=== PATIENT | female | born 1960 | race Caucasian/White ===

== ENCOUNTER 2019-10-19 09:04 | Outpatient (CLI) | payer MEDICAID, SELFPAY ==
--- NOTE | 2019-10-19 09:26 | XR_ITS ---
WS: [id number] CALCANEOUS RIGHT TECHNIQUE: 2 views of the right calcaneous CLINICAL INFORMATION: PAIN IN RIGHT FOOT COMPARISON: None. FINDINGS: No acute fractures. Prominent Achilles insertion enthesophyte measuring 7.5 mm. Tiny plantar calcanea l spur. XR/XR calcaneus RT min 2V [id number] IMPRESSION: Prominent Achilles insertion enthesophyte.
== END 2019-10-19 09:05 | disposition home or self-care (01) ==
PROVIDERS: Family Provider Nurse Practitioner; PCP Nurse Practitioner; Visit Provider Nurse Practitioner
DX: M77.8 Other enthesopathies, not elsewhere classified (principal); M79.671 Pain in right foot
CPT/HCPCS: 73650

== ENCOUNTER 2019-11-09 08:18 | Outpatient (CLI) | payer MEDICAID, SELFPAY ==
--- NOTE | 2019-11-09 08:22 | MM_ITS ---
WS: [id number] BILATERAL SCREENING DIGITAL MAMMOGRAM WITH CAD HISTORY: SCREENING COMPARISON: 11/02/2018 and 04/19/2017 Bilateral CC and MLO views submitted. Computer aided detection analyzed. Breast composition: There are scattered areas of fibroglandular density. No suspicious masses, microc alcifications or architectural distortion. MM/[place] [id number] IMPRESSION: BI-RADS: 1-Negative FOLLOW UP: 1 Year Follow-up
== END 2019-11-09 08:19 | disposition home or self-care (01) ==
LOC: RADSHAW 08:21
PROVIDERS: Family Provider Nurse Practitioner; PCP Nurse Practitioner; Visit Provider Nurse Practitioner
DX: Z12.31 Encounter for screening mammogram for malignant neoplasm of breast (principal)
CPT/HCPCS: 77067

== ENCOUNTER 2020-02-06 06:33 | Emergency (ER) | payer MEDICAID, SELFPAY ==
[2020-02-06 06:43] VITALS: BP 162/87; PULSE 63; RESP 18; TEMP 36.4; O2SAT 99
--- NOTE | 2020-02-06 07:01 | W.ED.FALL ---
HPI - Fall General: Chief Complaint: Fall Stated Complaint: FALL, BACK PAIN Time Seen by Provider: 02/06/20 07:01 History of Present Illness: HPI Narrative: 59-year-old female presents emergency room complaining of a fall she hurt her low back she was walking her dog and kind of slipped or stumbled on a step on the porch she fell she not strike her head no no loss consciousness her only complaint is pain in her mid back she denies any other injuries denies any injuries to knees ankles wrists etc. has not really take anything for this happened about MD complaint: fall Onset (ago): minute(s) (30) Fall from: standing Fall witnessed: no Place fall occurred: home Loss of consciousness: None Prolonged down time: no Symptoms prior to fall: none Context: tripped/slipped Location of injury: back (Middle/thoracic) Quality: sharp Associated symptoms-after fall: Reports no associated symptoms; Denies abdominal pain or chest pain Review of Systems Const: Denies: fever, chills, body aches, change in appetite, fatigue or malaise ENMT: Denies: throat pain, ear pain, nasal discharge or nasal congestion Card: Denies: chest pain, edema, shortness of breath on exertion or shortness of breath when lying down Resp: Denies: shortness of breath, productive cough or non-productive cough GI: Denies: abdominal pain, nausea, vomiting, vomiting blood, coffee grounds in vomit, diarrhea, constipation, bloating, blood in stool or black tarry stool : Denies: flank pain, difficulty urinating, painful urination, urinary frequency or urinary urgency Skin/Breast: Denies: rash or itching [facility] PFSH: Medical History (Updated 02/06/20 @ 10:00 by Lucio Garner DO) Heart murmur History of foot fracture History of toe fracture Hypercholesteremia Hypertensive disorder Osteoporosis Recurrent UTI Urinary incontinence Surgical History History of History of cholecystectomy History of eye surgery History of hysterectomy Social History Smoking and tobacco status: never smoked Alcohol intake: never Marital status: Current occupational status: disabled History of recent travel: No Physical Exam Const: COMMON NORMALS: no apparent distress GENERAL APPEARANCE: cooperative and comfortable ORIENTATION/CONSCIOUSNESS: Yes awake, Yes oriented to person, Yes oriented to place and Yes oriented to time HENMT: COMMON NORMALS: normocephalic, head/scalp atraumatic, hearing grossly normal bilaterally, external ears normal, EAC's normal, TM's normal bilaterally, nasal mucous membranes and turbinates normal, moist oral mucous membranes and oropharynx normal HEAD & SCALP: normocephalic and atraumatic NOSE: nasal mucous membranes and turbinates normal EXTERNAL EAR: Yes external ears normal EXTERNAL AUDITORY CANAL: EAC's normal TYMPANIC MEMBRANE: TM's normal bilaterally Eye: COMMON NORMALS: PERRL, EOMs intact bilaterally, conjunctivae normal and no scleral icterus CONJUNCTIVA: Yes conjunctivae normal PUPIL: Yes PERRL Neck/C-Spine: COMMON NORMALS: full ROM, no lymphadenopathy, supple and no JVD Lymph: LYMPHATIC: no lymphadenopathy noted and no lymphedema noted Resp: COMMON NORMALS: normal respiratory effort, no retractions, no use of accessory muscles and clear to auscultation bilaterally AUSCULTATION: clear to auscultation bilaterally Cardio: COMMON NORMALS: no JVD, regular rate, regular rhythm and no murmurs RATE: regular rate RHYTHM: regular rhythm GI: COMMON NORMALS: soft to palpation and no hepatosplenomegaly AUSCULTATION: Yes normoactive bowel sounds PALPATION: Yes soft, No tender, No guarding and Yes no hepatosplenomegaly Extremity: COMMON NORMALS: normal to inspection, normal capillary refill, no clubbing, cyanosis or edema, no calf tenderness and no pedal edema Neuro: SENSORIUM/ORIENTATION: Yes oriented to person, Yes oriented to place and Yes oriented to time Skin: COMMON NORMALS: no rashes or lesions noted GENERAL SKIN EXAM: no rashes or lesions noted Course Vital Signs: Vital signs: Vital Signs Temperature 97.6 F 02/06/20 06:43 Pulse Rate 62 02/06/20 09:47 Respiratory Rate 17 02/06/20 09:47 Blood Pressure 150/78 02/06/20 09:47 Pulse Oximetry 97 02/06/20 09:47 MDM - Fall MDM Narrative: Medical decision making narrative: T12 compression fracture will refer for kyphoplasty pain medications given discussed with the patient will discharge home with follow-up with her primary care doctor. Also discussed need for further care for osteoporosis. Discharge Plan Discharge Patient Disposition: Home, Self-Care Clinical Impression: Compression fracture of thoracic vertebra Condition: Stable Prescriptions: New hydrocodone-acetaminophen 5-325 mg tablet 1 tab PO Q6H PRN (Reason: pain) Qty: 25 RF: 0 Held tramadol 50 mg tablet 50 mg PO Q6H PRNRF: 0 Hold Instructions: Resume on 01/22/20. No Action aspirin 81 mg tablet,delayed release (DR/EC) 81 mg PO DAILY RF: 0 atorvastatin 40 mg tablet 40 mg PO DAILY RF: 0 bupropion HCl 150 mg tablet extended release 24 hr 150 mg PO QAM RF: 0 ascorbate calcium (vitamin C) 500 mg tablet 500 mg PO DAILY RF: 0 diphenhydramine HCl 50 mg capsule 50 mg PO TID PRNRF: 0 esomeprazole magnesium [Nexium] 40 mg capsule,delayed release(DR/EC) 40 mg PO DAILY RF: 0 estradiol [Estrace] 0.01 % (0.1 mg/gram) cream 1 gm VAGINAL DAILY RF: 0 hydrochlorothiazide 25 mg tablet 25 mg PO DAILY RF: 0 imiquimod 5 % cream in packet TOPICAL RF: 0 metformin 500 mg tablet 500 mg PO BID RF: 0 Complete Multivitamin Tablet 1 tab PO DAILY RF: 0 potassium chloride 10 mEq capsule, extended release 10 meq PO DAILY RF: 0 Discharge Orders: Discharge Order (Routine); Ordered 02/06/20 Ordered By: Lucio Garner Referrals: Jenniffer Romero APN [Primary Care Provider] - Discharge Diet: Usual diet Discharge Activity: Increase activity as tolerated Activity Restrictions/Additional Instructions: Case management will call with referral for kyphoplasty Discharge Date/Time: 02/06/20 09:45 Coding Level of Care Code ED Parks Recreation Director for Chg Fwd Exam Comprehensive
--- NOTE | 2020-02-06 07:11 | XR_ITS ---
WS: [id number] THORACIC SPINE TECHNIQUE: AP and lateral views are performed. HISTORY: Trauma, thoracic back pain COMPARISON: None available. Mild RIGHT convex curvature thoracic spine. Mild disc space narrowing and osteophytes throughout the thoracic spine. Mild loss of vertebral body height involving T12. There was slight loss of height on the study of 01/04/2019 but it has progressed. There is slight buckling anteriorly of the vertebral alina dy cortex. Loss of height approximately 10%. XR/XR thoracic spine 3V* [id number] IMPRESSION: 1. Highly suspicious for minimal compression fracture involving T12. Recommend follow-up CT thoracic spine. 2. Mild RIGHT convex curvature thoracic spine with scoliosis.
[2020-02-06 07:20] VITALS: BP 154/92; RESP 20
[2020-02-06] MEDS: ketorolac 30 mg/mL INJ IVP (07:21)
[2020-02-06] MEDS: orphenadrine 30 mg/mL Inj 2 mL 60 MG IVP (07:22)
--- NOTE | 2020-02-06 08:04 | CT_ITS ---
WS: [id number] CT THORACIC SPINE HISTORY: thoracic compression fx TECHNIQUE: Contiguous 2.5 mm axial images are reviewed to thoracic spine. Images are reformatted in s agittal and coronal planes. All CT scans at [facility] use at least one of these dose opt imization techniques: automated exposure control; mA and/or kV adjustment per patient size (includes targeted exams where dose is matched to clinical indication); or iterative reconstruction. DLP: 2285.32 mGy.cm COMPARISON: 10/25/2010. Acute fracture involving the superior endplate of T12. Anterior buckling with compression fracture ap proximately 15%. Fracture extends to the pedicles. Posterior spinous process is intact. No retropulsi on. Acute fracture extends obliquely through the posterior elements of T10 and T11 without displacement. T10 fracture is limited to the spinous process. T11 nondisplaced fracture involves the spinous proces s, lamina and inferior articular facets bilaterally. No acute disc herniations or significant stenosis throughout the thoracic spine. There is mild face t joint arthritis and vertebral body osteophytosis. Prior cholecystectomy. CT/CT thoracic spin wo con* [id number] IMPRESSION: 1. Acute T12 compression fracture by 15% without retropulsion. 2. Fracture line extends transversely through the posterior elements of T11. I nvolvement of the bilateral inferior articular facets and spinous process. 3. Nondisplaced fracture of T10 spinous process.
[2020-02-06 08:12] VITALS: RESP 17
[2020-02-06] MEDS: morphine 4 mg/mL SDV 1 mL IVP (08:12)
[2020-02-06] MEDS: ondansetron 2 mg/ML SDV 2 mL 4 MG IVP (08:12)
[2020-02-06 09:47] VITALS: BP 150/78; PULSE 62; RESP 17; O2SAT 97
--- NOTE | 2020-02-07 10:20 | DCPLANNER ---
solar energy installation manager had message to schedule a follow up appointment for patient for kyphoplasty. solar energy installation manager called and spoke with patient about a referral for kyphoplasty, and that there was not a physician in the [place] area that did kyphoplasty. That patient would have to go to [place]. Patient stated that would be fine, and wanted rn field case manager to make the referral. solar energy installation manager called the office of Dr. Hampton at phone number is [phone]. solar energy installation manager spoke with Poonam, and faxed patients records to the clinic for review. Clinic will call patient with appointment information.
--- NOTE | 2020-02-15 14:36 | DCPLANNER ---
operations manager called to confirm that a follow up appointment had been scheduled for patient with Dr. Hampton. operations manager was told that patients information is being reviewed, but no appointment has been scheduled at this time.
--- NOTE | 2020-02-27 15:46 | DCPLANNER ---
manager dental called the office of Dr. Hampton to confirm if an appointment had been scheduled for patient. manager dental was told that the office contacted patient to schedule a tele health visit, patient was not able to do tele health. Patients name was added to a list of patients that need in patient appointments. When the clinic can start having in patient appointments again, patient will be contacted to schedule an appointment.
--- NOTE | 2020-03-19 12:08 | DCPLANNER ---
Dr. Jin office called home health care case manager and informed home health care case manager that the clinic has started to schedule patients again. Patient has a follow up appointment scheduled for Saturday, April 04, 2020 at 10:[address] Hampton for a consultation for kyphoplasty. Clinic did call patient with appointment information.
== END 2020-02-06 09:45 | disposition home or self-care (01) ==
PROVIDERS: Emergency Provider Family Medicine; Family Provider Nurse Practitioner; PCP Nurse Practitioner
DX: S22.080A Wedge compression fracture of T11-T12 vertebra, initial encounter for closed fracture (principal); W01.0XXA Fall on same level from slipping, tripping and stumbling without subsequent striking against object, initial encounter
CPT/HCPCS: 12345; 72072; 72128; 96374; 96375; 99282; 99283; J1885; J2270; J2360; J2405

== ENCOUNTER 2020-03-28 13:09 | Outpatient (CLI) | payer MEDICAID, SELFPAY ==
--- NOTE | 2020-03-28 13:54 | MR_ITS ---
WS: [id number] MRI LUMBAR SPINE NONCONTRAST TECHNIQUE: Sagittal T1, T2 and STIR imaging. Axial T1 and T2 imaging. CLINICAL INFORMATION: AGE-RELATED OSTEOPOROSIS WITH CURRENT FX OF VERTEBRA COMPARISON: MRI January 04, 2019 FINDINGS: S1 is lumbarized. Mild lumbar curve. Acute appearing compression with anterior wedging involving the T12 superior endpl ate with minimal loss vertebral body height measuring 10-15%. Minimal retropulsion of the posterior s uperior cortex with mild disc bulging at T11-12. This results in mild central canal stenosis. No othe r acute appearing compression fractures. This is new since the prior MRI January 04, 2019. L1-L2: Moderate facet arthropathy. Spinal canal and foramen are patent. L2-L3: No significant disc bulging. Moderate facet arthropathy. Spinal canal and foramen are patent. L3-L4: No significant disc bulging. Mild facet arthropathy. Spinal canal and foramen are patent. L4-L5: Mild disc bulging with slight effacement of ventral thecal sac. Mild central canal stenosis. S light narrowing of the right subarticular recess. Mild right and no significant left foraminal narrow ing. Moderate facet arthropathy. L5-S1: Mild disc bulging with moderate central canal stenosis. Narrowing subarticular recess bilatera lly. Moderate facet arthropathy. Mild right greater than left foraminal narrowing. S1 is lumbarized. Small amount of edema in the sacrum consistent with subacute healing/healed fractur e at the sacrococcygeal junction. This is partially visualized. MR/MR lumbar spine wo con* [id number] IMPRESSION: 1. S1 is lumbarized. 2. Acute compression involving the superior endplate T12 with diffuse edema. M inimal loss vertebral body height with mild anterior wedging. No significant re tropulsion. 3. Mild central canal stenosis at T11-T12 with tiny central protrusion. 4. Late subacute fracture involving the sacrococcygeal junction with a small a mount of edema and evidence of partial healing. This is only partially visualiz ed. Sacrum could be further evaluated with sacral MRI if indicated. 5. No other significant changes since December 27, 2018. 6. Moderate central canal stenosis L5-S1 with impingement subarticular recess bilaterally. 7. Mild central canal stenosis in cervical spine seen on the dust control engineer imaging at C5-6.
--- NOTE | 2020-03-28 14:17 | XR_ITS ---
WS: [id number] SCREENING DEXA SCAN Outcome Referrals HISTORY: 59 years old Female with AGE RELATED OSTEOPOROSIS COMPARISON: None available. FINDINGS: The L1-L4 bone mineral density measures 0.964 g/cm2. This corresponds to a T score of -1.8 and Z scor e of -0.7. Left femoral neck bone mineral density measures 0.605 g/cm2. This corresponds to T score of -3.2 and Z score of -2.4. Right femoral neck bone mineral density measures 0.705 g/cm2. This corresponds to a T score of -2.4 a nd Z score of -1.6. Mean femoral neck bone mineral density measures 0.655 g/cm2. This corresponds to a T score of -2.8 an d Z score of -2.0. XR/XR DEXA axial skeleton* [id number] IMPRESSION: Patient's FRAX calculated 10 year probability for major osteoporotic fracture i s 27.1% and osteoporotic hip fracture is 9.1%. Osteopenia
[2020-03-28 14:21] LABS: 25 Hydroxy Vitamin D 29 ng/mL (30-100); Alanine Aminotransferase 32 U/L (0-33); Albumin Level 4.6 g/dL (3.5-5.2); Alkaline Phosphatase 113 IU/L (35-105); Anion Gap 18.8 (5-19); Aspartate Amino Transferase 30 U/L (0-32); Blood Urea Nitrogen 9 mg/dL (8-23); Carbon Dioxide 28 mmol/L (22-29); Chloride 98 mmol/L (98-107); Globulin 3.9 g/dL (1.3-4.6); Glomerular Filtration Rate 63.9 mL/min (90-130); Glucose 191 mg/dL (65-115); Osmolality Calculated 293 mOsm/kg (285-295); Potassium 3.8 mmol/L (3.5-5.1); Sodium 141 mmol/L (136-145); Total Bilirubin 0.4 mg/dL (0.15-1.2); Total Protein 8.5 g/dL (6.6-8.7)
[2020-03-28 15:15] LABS: Calcium 10.2 mg/dL (8.5-10.5); Parathyroid Hormone 40.2 pg/mL (15-65)
[2020-04-01 06:53] LABS: ALBUMIN 4.1 g/dL (3.8-4.8); ALPHA 1 GLOBULIN 0.3 g/dL (0.2-0.3); ALPHA 2 GLOBULIN 0.9 g/dL (0.5-0.9); BETA 1 GLOBULIN 0.5 g/dL (0.4-0.6); BETA 2 GLOBULIN 0.5 g/dL (0.2-0.5); GAMMA GLOBULIN 1.3 g/dL (0.8-1.7); PROTEIN, TOTAL 7.6 g/dL (6.1-8.1)
== END 2020-03-28 13:10 | disposition home or self-care (01) ==
LOC: RADWPI 13:12
PROVIDERS: Family Provider Nurse Practitioner; PCP Nurse Practitioner; Visit Provider Neurological Surgery
DX: M80.08XA Age-related osteoporosis with current pathological fracture, vertebra(e), initial encounter for fracture; M48.04 Spinal stenosis, thoracic region; M48.07 Spinal stenosis, lumbosacral region; M48.02 Spinal stenosis, cervical region
CPT/HCPCS: 36415; 72148; 77080; 80053; 82306; 82310; 83970; 84155; 84165

== ENCOUNTER 2020-05-02 09:43 | Outpatient (CLI) | payer MEDICAID, SELFPAY ==
--- NOTE | 2020-05-02 10:02 | XRR_ITS ---
PROCEDURE INFORMATION: Exam: XR Thoracolumbar Spine, 2 Views Exam date and time: 05/02/2020 10:04 AM Age: 59 years old Clinical indication: Condition or disease; Other: Osteoporosis; Prior surgery; Surgery type: Vertebroplasty; Additional info: Age related osteoporosis, current pathological fracture t12 v TECHNIQUE: Imaging protocol: XR of the thoracolumbar spine, 2 views. COMPARISON: MR lumbar spine wo con* [id number] 03/28/2020 1:45 PM FINDINGS: Vertebrae: Mild compression fracture T12 with prior vertebroplasty. The alignment is normal. No paravertebral soft tissue prominence. Degenerative changes, mild, throughout much of the thoracic spine No subluxation-no perched or jumped facets. The facets are without acute process. mild compression fracture involving the anterior column of L1. Soft tissues: See Vertebrae finding. XR/XR thoracolumbar junct [id number] IMPRESSION: Diffuse degenerative disc disease 1. Mild compression fracture T12 with prior vertebroplasty. 2. Mild compression fracture involving the anterior column of L1.
== END 2020-05-02 09:44 | disposition home or self-care (01) ==
PROVIDERS: Family Provider Nurse Practitioner; PCP Nurse Practitioner; Visit Provider Neurological Surgery
DX: M81.0 Age-related osteoporosis without current pathological fracture (principal); M51.35 Other intervertebral disc degeneration, thoracolumbar region; S22.080A Wedge compression fracture of T11-T12 vertebra, initial encounter for closed fracture; S32.000A Wedge compression fracture of unspecified lumbar vertebra, initial encounter for closed fracture; X58.XXXA Exposure to other specified factors, initial encounter
CPT/HCPCS: 72080

== ENCOUNTER 2020-06-12 11:59 | Outpatient (RCR) | payer MEDICAID, SELFPAY | END 2020-07-09 23:59 | disposition home or self-care (01) | LOC: SPT 11:59 | PROVIDERS: PCP Nurse Practitioner; Referring Provider Neurological Surgery; Visit Provider Neurological Surgery | DX: M54.9 Dorsalgia, unspecified (principal) | CPT/HCPCS: 97110; 97161 ==

== ENCOUNTER 2020-07-10 06:00 | Outpatient (RCR) | payer MEDICAID, SELFPAY | END 2020-07-10 23:00 | disposition home or self-care (01) | LOC: SPT 06:00 | PROVIDERS: PCP Nurse Practitioner; Referring Provider Neurological Surgery; Visit Provider Neurological Surgery | DX: M54.9 Dorsalgia, unspecified (principal) | CPT/HCPCS: 97110 ==

== ENCOUNTER → 2021-09-01 14:43 | Outpatient (BNVA) | payer MEDICAID, SELFPAY | PROVIDERS: PCP Nurse Practitioner; Visit Provider Obstetrics & Gynecology | DX: R32 Unspecified urinary incontinence (principal) | CPT/HCPCS: 81000 ==

== ENCOUNTER 2022-04-05 08:16 | Outpatient (CLI) | payer MEDICAID, SELFPAY ==
--- NOTE | 2022-04-05 08:26 | MM_ITS ---
WS: [id number] BILATERAL SCREENING DIGITAL BREAST TOMOSYNTHESIS MAMMOGRAM WITH CAD HISTORY: SCREENING COMPARISON: 11/09/2019 and 11/02/2018 Bilateral CC and MLO views with tomosynthesis and synthetic mammography submitted. Computer aided det ection analyzed. Breast composition: There are scattered areas of fibroglandular density. No suspicious masses, microc alcifications or architectural distortion. MM/[place] [id number] IMPRESSION: BI-RADS: 1-Negative FOLLOW UP: 1 Year Follow-up
== END 2022-04-05 08:17 | disposition home or self-care (01) ==
PROVIDERS: Visit Provider Nurse Practitioner
DX: Z12.31 Encounter for screening mammogram for malignant neoplasm of breast (principal)
CPT/HCPCS: 77063; 77067

== ENCOUNTER 2022-11-10 13:03 | Outpatient (CLI) | payer MEDICAID, SELFPAY ==
--- NOTE | 2022-11-10 14:16 | XR_ITS ---
WS: [id number] DEXA (DUAL ENERGY X-RAY ABSORPTIOMETRY) Bone mineral density was performed using a [employer] machine. HISTORY: AGE RELATED OSTEOPOROSIS COMPARISON: 03/28/2020 Lumbar spine BMD (L1-L4): 1.044 g/cm2 T score: -1.1 Z score: 0.1 Total hip BMD: Left: 0.657 g/cm2. T score: -2.8 Z score: -1.8 Right: 0.664 g/cm2. T score: -2.7 Z score: -1.8 10 year probability of a major osteoporotic fracture is 5.3%. Compared to the prior study from 03/28/2020. Lumbar spine bone mineral density has increased by 8.3%. Bilateral hips bone mineral density has increased by 0.9%. XR/XR DEXA axial skeleton* [id number] IMPRESSION: OSTEOPOROSIS based upon the WHO classification for females. Significant increase in bone mineral density within the lumbar spine since the prior study.
== END 2022-11-10 13:04 | disposition home or self-care (01) ==
LOC: RAD 13:05
PROVIDERS: PCP Nurse Practitioner; Visit Provider Nurse Practitioner
DX: M80.08XA Age-related osteoporosis with current pathological fracture, vertebra(e), initial encounter for fracture (principal)
CPT/HCPCS: 77080

== ENCOUNTER 2023-01-04 08:51 | Oncology outpatient (recurring) (ONCR) | payer MEDICAID, SELFPAY ==
[2023-01-04 09:15] VITALS: BP 180/81; PULSE 50; RESP 16; TEMP 36.2; O2SAT 99
[2023-01-04] MEDS: denosumab 60 mg SDV SUBCUT (09:21)
== END 2023-01-07 23:59 | disposition home or self-care (01) ==
PROVIDERS: PCP Nurse Practitioner; Visit Provider Nurse Practitioner
DX: M80.08XA Age-related osteoporosis with current pathological fracture, vertebra(e), initial encounter for fracture (principal); Z79.899 Other long term (current) drug therapy
CPT/HCPCS: 96401; J0897

== ENCOUNTER 2023-03-09 06:29 | Observation (INO) | payer MEDICAID, SELFPAY ==
[2023-03-09] VITALS (16 sets, daily range): BP systolic 146–217; BP diastolic 76–104; PULSE 60–92; RESP 16–23; TEMP 36.6–36.7; O2SAT 96–100; BMI 27.4
--- NOTE | 2023-03-09 06:40 | XRR_ITS ---
PROCEDURE INFORMATION: Exam: XR Chest Exam date and time: 03/09/2023 6:49 AM Age: 62 years old Clinical indication: Other: Ams/confusion TECHNIQUE: Imaging protocol: Radiologic exam of the chest. Views: 1 view. COMPARISON: CR XR thoracolumbar junct [id number] 05/02/2020 10:10 AM FINDINGS: Lungs: Mildly increased lung markings, likely secondary to low lung volumes. No consolidation. Pleural spaces: Unremarkable. No pleural effusion. No pneumothorax. Heart/Mediastinum: Stable cardiomediastinal silhouette. Bones/joints: T12 vertebral augmentation cement re-identified. Organs: Cholecystectomy clips project over the right upper quadrant. XR/XR chest 1V portable [id number] IMPRESSION: Mildly increased lung markings, likely secondary to low lung volumes.
--- NOTE | 2023-03-09 06:40 | ECG_ITS ---
[facility] Test Date: 2023-03-09 Pat Name: Sydney Zambrano Department: Room: Gender: Female Economic Forecaster: : 1960 Requested By: Ronnie Gar Order Number: [id number] Sherry MD: Deann Sanchez M.D. Measurements Intervals Marquez Rate: 86 P: 60 IL: 141 QRS: -5 QRSD: 94 T: 71 QT: 382 QTc: 457 Interpretive Statements SINUS RHYTHM NONSPECIFIC ST & T-WAVE ABNORMALITY No previous ECG available for comparison Electronically Signed On 03-09-2023 8:18:51 CDT by Deann Sanchez M.D. [id number]
--- NOTE | 2023-03-09 06:40 | CTR_ITS ---
PROCEDURE INFORMATION: Exam: CT Head Without Contrast Exam date and time: 03/09/2023 6:49 AM Age: 62 years old Clinical indication: Stroke-like symptoms; Other: AMS; Confusion TECHNIQUE: Imaging protocol: Computed tomography of the head without contrast. Radiation optimization: All CT scans at this facility use at least one of these dose optimization techniques: automated exposure control; mA and/or kV adjustment per patient size (includes targeted exams where dose is matched to clinical indication); or iterative reconstruction. Other technique: STROKE PROTOCOL was implemented. REPORTING DATA: Count of CT and Cardiac NM exams in prior 12 months: This patient has received 0 known CTs and 0 known cardiac nuclear medicine studies in the 12 months prior to the current study. COMPARISON: No relevant prior studies available. RADIATION DOSE METRICS: Total DLP (mGy-cm): 1073.16 FINDINGS: Brain: There is a patchy area of decreased attenuation involving the left deep white matter vascular watershed zone/territory of left lateral lenticulo-striate arteries (M1 segment of MCA). No hemorrhage, mass effect or midline shift. There is foci of decreased attenuation in the periventricular and subcortical white matter, likely representing chronic small vessel ischemic changes. Mild cerebral volume loss is present. No intra-axial or extra-axial fluid collection seen. Cerebral ventricles: No ventriculomegaly. Paranasal sinuses: Visualized sinuses are unremarkable. No fluid levels. Mastoid air cells: Visualized mastoid air cells are well aerated. Bones/joints: Unremarkable. No acute fracture. Soft tissues: Unremarkable. 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 ASSESSMENT: ASPECTS ([place] Stroke Program Early CT Score) is 8.
--- NOTE | 2023-03-09 06:42 | ED_ITS ---
HPI - Neuro Symptoms/Deficit General: Chief Complaint: Neuro Symptoms/Deficit Stated Complaint: stroke like symptoms Time Seen by Provider: 03/09/23 06:31 History of Present Illness: Patient presents to the ER with complaints of staring off and days, not being able to put 2 words together, babbling like a baby. They started yesterday at around 2 PM. Patient was able to walk in the ER under her own power with a steady gait. Patient is able to follow commands. Patient's blood sugar was 254. Onset (ago): day(s) (Yesterday about 2 PM) Timing confirmed by: family member Location: altered History of same: No Severity: mild Relieving factors: none Exacerbating factors: none On Anticoagulants: No Associated symptoms: Reports no associated symptoms Review of Systems General: Reports: 10 or more systems reviewed and unremarkable except in HPI and below PFSH ED PFSH: Medical History (Updated 03/09/23 @ 09:06 by Jimbo Brown MD) Blind left eye Diabetes mellitus GERD (gastroesophageal reflux disease) Heart murmur History of foot fracture History of toe fracture Hypercholesteremia Hypertensive disorder Osteoporosis Psoriasis Recurrent UTI Urinary incontinence Surgical History (Updated 03/09/23 @ 08:58 by Jimbo Brown MD) H/O bladder repair surgery H/O knee surgery left History of History of cholecystectomy History of eye surgery History of hysterectomy Family History Mother , at age 59 Hypertension Father No problems noted. Sister Diabetes Heart disease Breast cancer unknown age onset Brother Heart disease Denies family history of Colon cancer Ovarian cancer Clotting disorder Hyperlipidemia Anesthesia complication Bleeding disorder Uterine cancer Thyroid condition Stroke Social History Smoking and tobacco status: never smoked Alcohol intake: never Substance/Drug Use: never Physical Exam Const: COMMON NORMALS: no acute distress, average body habitus, no limitations, healthy appearing, alert and well nourished HENMT: COMMON NORMALS: normocephalic, atraumatic, external ears normal, Normal external nose present and moist oral mucous membranes HEAD & SCALP: normocephalic and atraumatic NOSE: Normal external nose present EXTERNAL EAR: Yes external ears normal Eye: COMMON NORMALS: Equal, round and reactive pupils present, EOMs intact bilaterally, conjunctivae normal, no scleral icterus and normal visual solorio by confrontation CONJUNCTIVA: Yes conjunctivae normal PUPIL: Yes Equal, round and reactive pupils present Neck/C-Spine: COMMON NORMALS: full ROM, no lymphadenopathy, supple, no men ingeal signs, no JVD and Thyroid normal THYROID: Thyroid normal Lymph: LYMPHATIC: no lymphadenopathy noted Chest: COMMONS NORMALS: normal inspection of the chest and normal palpation of entire chest wall Resp: COMMON NORMALS: normal respiratory effort, No retractions, No use of accessory muscles and clear to auscultation bilaterally AUSCULTATION: clear to auscultation bilaterally Cardio: COMMON NORMALS: no JVD, regular rate, regular rhythm, S1 normal heart sound present, S2 normal heart sound present, No gallops present (Cardio), No clicks present (Cardio), No murmurs present (Cardio) and No rub (Cardio) RAT E: regular rate RHYTHM: regular rhythm HEART SOUNDS: S1 normal heart sound present and S2 normal heart sound present GI: COMMON NORMALS: Normal to inspection, nondistended, normoactive bowel sounds present, Soft to palpation, non-tender, No hepatosplenomegaly present and no masses PALPATION: Yes Soft to palpation and Yes No hepatosplenomegaly present : COMMON NORMALS: Yes no CVA tenderness BLADDER/KIDNEY EXAM: Yes no CVA tenderness Back/Pelvis: COMMON NORMALS: no CVA tenderness and no thoracic nor lumbar tenderness Extremity: COMMON NORMALS: normal to inspection, full ROM, no joint enlargement, no clubbing, cyanosis or edema, no calf tenderness and no pedal edema Neuro: SENSORIUM/ORIENTATION: Yes alert MENINGEAL SIGNS: Yes no meningeal signs CRANIAL NERVES: Yes CN normal except as noted SPEECH: speech normal MOTOR EXAM: 5/5 motor strength present throughout PUPIL EXAM: Normal pupillary reactivity/response: right, left and bilateral Psych: COMMON NORMALS: mental status grossly normal, Normal thought process present, cooperative, normal affect, speech normal and activity/motor behavior normal SPEECH: Yes normal speech THOUGHT PROCESS: Normal thought process present Course Vital Signs: Vital signs: Vital Signs Pulse Rate 80 03/09/23 08:32 Respiratory Rate 18 03/09/23 06:46 Blood Pressure 182/97 03/09/23 08:00 Pulse Oximetry 100 03/09/23 08:32 Oxygen Delivery Me thod Room Air 03/09/23 08:32 MDM - Neuro Symptoms/Deficit Medical Decision Making Patient presents to the ER with complaints of slurring her speech altered mental status confusion starting yesterday. Patient was worked up for neurodeficits that included lab work EKG and imaging. Lab work showed her potassium to be 3.2, chest x-ray was essentially negative, head CT showed age-indeterminate infarct involving the watershed area of the left MCA region. Head neck CTA showed no large vessel stenosis or occlusion, EKG showed normal sinus rhythm, Dr. Brown was consulted and agreed for admission to observation for further evaluation. Differential Diagnosis Unlikely carpal tunnel syndrome, convulsions, delirium, subarachnoid hemorrhage, peripheral neuropathy, cerebrovascular accident, multiple sclerosis or transient cerebral ischemia Medical Records I reviewed the patient's medical records. Lab Data I reviewed the patient's lab results. 03/09/23 06:40 03/09/23 06:40 Radiology Impressions Chest X-Ray 03/09/23 06:40 IMPRESSION: Mildly increased lung markings, likely secondary to low lung volumes. Head CT 03/09/23 06:40 IMPRESSION: Age-indeterminate infarct involving the left deep white matter vascular watershed zone/territory of left lateral lenticulo-striate arteries (M1 segment of MCA). ASSESSMENT: ASPECTS ([place] Stroke Program Early CT Score) is 8. ADDENDUM: 03/09/23 0736 THIS REPORT CONTAINS FINDINGS THAT MAY BE CRITICAL TO PATIENT CARE. The findings were verbally communicated via telephone conference with Ronnie Gar at 7:20 AM CDT on 03/09/2023. The findings were acknowledged and understood. Head/Neck CTA 03/09/23 07:33 IMPRESSION: 1. No large vessel stenosis or occlusion. 2. Age-indeterminate infarct involving the left deep white matter vascular watershed zone/territory of left lateral lenticulo-striate arteries (M1 segment of MCA). IMPRESSION: No stenosis or occlusion. REFERENCES: NASCET CRITERIA. The degree of stenosis in the cervical segment of the internal carotid artery is based on NASCET criteria. Normal is no stenosis. Mild is less than 50% stenosis. Moderate is 50-69% stenosis. Severe is 70% to 99% stenosis. Total occlusion is no detectable patent lumen. Laboratory Results WBC 9.0 10^3/uL (4.0-10.0) 03/09/23 06:40 RBC 4.84 10^6/uL (4.1-5.3) 03/09/23 06:40 Hgb 14.8 g/dL (11.5-15.3) 03/09/23 06:40 Hct 44.8 % (37.0-47.0) 03/09/23 06:40 MCV 92.6 fl (81-99) 03/09/23 06:40 MCH 30.6 pg (28.0-34.0) 03/09/23 06:40 MCHC 33.0 g/dL (30.0-36.0) 03/09/23 06:40 RDW 12.5 % (12.1-15.1) 03/09/23 06:40 Plt Count 319 10^3/cmm (130-400) 03/09/23 06:40 MPV 10.3 fL (7.4-10.4) 03/09/23 06:40 Neut % (Auto) 59.5 % 03/09/23 06:40 Lymph % (Auto) 30.3 % 03/09/23 06:40 Lyman % (Auto) 5.9 % 03/09/23 06:40 Eos % (Auto) 3.0 % 03/09/23 06:40 Baso % (Auto) 1.0 % 03/09/23 06:40 Neut # (Auto) 5.36 10^3/uL (1.8-7.7) 03/09/23 06:40 Lymph # (Auto) 2.7 10^3/uL (0.8-4.8) 03/09/23 06:40 Lyman # (Auto) 0.5 10^3/uL (0.2-0.9) 03/09/23 06:40 Eos # (Auto) 0.3 10^3/uL (0.0-0.8) 03/09/23 06:40 Baso # (Auto) 0.1 10^3/uL (0.0-0.1) 03/09/23 06:40 Nucleated RBC % (auto) 0 % 03/09/23 06:40 Nucleated RBCs # 0.0 /100WBC 03/09/23 06:40 ESR 15 mm/hr (0-15) 03/09/23 06:40 PT 13.30 SECONDS (12.1-14.9) 03/09/23 06:40 INR 0.98 (0.8-1.2) 03/09/23 06:40 Sodium 137 mmol/L (136-145) 03/09/23 06:40 Potassium 3.2 mmol/L (3.5-5.1) L 03/09/23 06:40 Chloride 96 mmol/L (98-107) L 03/09/23 06:40 Carbon Dioxide 26 mmol/L (22-29) 03/09/23 06:40 Anion Gap 18.2 (5-19) 03/09/23 06:40 BUN 12 mg/dL (8-23) 03/09/23 06:40 Creatinine 0.9 mg/dL (0.5-0.9) 03/09/23 06:40 GFR Calculation 63.2 mL/min (90-130) L 03/09/23 06:40 Glucose 244 mg/dL (65-115) H 03/09/23 06:40 Calculated Osmolality 292 mOsm/kg (285-295) 03/09/23 06:40 Calcium 9.4 mg/dL (8.5-10.5) 03/09/23 06:40 Magnesium 1.8 mg/dL (1.7-2.3) 03/09/23 06:40 Total Bilirubin 0.2 mg/dL (0.15-1.2) 03/09/23 06:40 AST 19 U/L (0-32) 03/09/23 06:40 ALT 15 U/L (0-33) 03/09/23 06:40 Alkaline Phosphatase 90 U/L (35-105) 03/09/23 06:40 C-Reactive Protein 15.1 mg/L (0.0-4.9) H 03/09/23 06:40 Total Protein 7.9 g/dL (6.6-8.7) 03/09/23 06:40 Albumin 4.2 g/dL (3.5-5.2) 03/09/23 06:40 Globulin 3.7 g/dL (1.3-4.6) 03/09/23 06:40 Prolactin 13.54 ng/mL (4.8-23.3) 03/09/23 06:40 EKG Data EKG 1: I personally reviewed and interpreted this EKG as follows: EKG interpretation date: 03/09/23 EKG interpretation time: 06:40 Prior EKG tracings: not available for review Interpretation: EKG showed normal sinus rhythm with ventricular rate of 86 bpm, IA interval 141, QRS duration 94, QTc of 425, nonspecific ST and T wave abnormality Discharge Plan Discharge Patient Disposition: Placed in Observation Clinical Impression: Cerebrovascular accident, Acute hypokalemia Condition: Stable Prescriptions: No Action hydrochlorothiazide 25 mg tablet 25 mg PO BEDTIME atorvastatin 80 mg tablet 80 mg PO BEDTIME estradiol 0.5 mg tablet 0.5 mg PO BEDTIME Zetia 10 mg Tablet 10 mg PO BEDTIME bupropion HCl 150 mg tablet sustained-release 12 hr 150 mg PO BEDTIME Coding Level of Care Code ED Drier And Pulverizer Tender for Jakub Silva
--- NOTE | 2023-03-09 06:43 | PC.NURSE ---
Blood sugar upon arrival 254
[2023-03-09 06:54] LABS: Basophils # 0.1 10^3/uL (0.0-0.1); Eosinophils # 0.3 10^3/uL (0.0-0.8); Hematocrit 44.8 % (37.0-47.0); Hemoglobin 14.8 g/dL (11.5-15.3); Lymphocytes # 2.7 10^3/uL (0.8-4.8); Lymphocytes % 30.3 %; Mean Corpuscular Hemoglobin 30.6 pg (28.0-34.0); Mean Corpuscular Volume 92.6 fl (81-99); Mean Platelet Volume 10.3 fL (7.4-10.4); Monocytes # 0.5 10^3/uL (0.2-0.9); Monocytes % 5.9 %; Neutrophils # 5.36 10^3/uL (1.8-7.7); Neutrophils % 59.5 %; Nucleated Red Blood Cells % 0 %; Platelet Count 319 10^3/cmm (130-400); Red Blood Count 4.84 10^6/uL (4.1-5.3); Red Cell Distribution Width 12.5 % (12.1-15.1)
[2023-03-09 07:06] LABS: Erythrocyte Sedimentation Rate 15 mm/hr (0-15)
[2023-03-09 07:07] LABS: INR 0.98 (0.8-1.2)
[2023-03-09 07:18] LABS: Alanine Aminotransferase 15 U/L (0-33); Albumin Level 4.2 g/dL (3.5-5.2); Alkaline Phosphatase 90 U/L (35-105); Anion Gap 18.2 (5-19); Aspartate Amino Transferase 19 U/L (0-32); Blood Urea Nitrogen 12 mg/dL (8-23); C Reactive Protein 15.1 mg/L (0.0-4.9); Calcium 9.4 mg/dL (8.5-10.5); Carbon Dioxide 26 mmol/L (22-29); Chloride 96 mmol/L (98-107); Creatinine Clr Calc Pharmacy 62.4704; Globulin 3.7 g/dL (1.3-4.6); Glomerular Filtration Rate 63.2 mL/min (90-130); Glucose 244 mg/dL (65-115); Magnesium 1.8 mg/dL (1.7-2.3); Osmolality Calculated 292 mOsm/kg (285-295); Potassium 3.2 mmol/L (3.5-5.1); Sodium 137 mmol/L (136-145); Total Bilirubin 0.2 mg/dL (0.15-1.2); Total Protein 7.9 g/dL (6.6-8.7)
--- NOTE | 2023-03-09 07:33 | CTR_ITS ---
PROCEDURE INFORMATION: Exam: CTA Head With Contrast, Arteriography Exam date and time: 03/09/2023 7:41 AM Age: 62 years old Clinical indication: Other: AMS; Confusion; Additional info: CVA TECHNIQUE: Imaging protocol: Computed tomographic angiography of the head with contrast. Exam focused on the arteries. 3D rendering (Not supervised by radiologist): MIP and/or 3D reconstructed images were created by the technologist. Radiation optimization: All CT scans at this facility use at least one of these dose optimization techniques: automated exposure control; mA and/or kV adjustment per patient size (includes targeted exams where dose is matched to clinical indication); or iterative reconstruction. Contrast material: OMNIPAQUE 350; Contrast volume: 100 ml; Contrast route: INTRAVENOUS (IV); REPORTING DATA: Count of CT and Cardiac NM exams in prior 12 months: This patient has received 0 known CTs and 0 known cardiac nuclear medicine studies in the 12 months prior to the current study. COMPARISON: CT head wo con* [id number] 03/09/2023 6:49 AM RADIATION DOSE METRICS: Total DLP (mGy-cm): 420.84 FINDINGS: ANTERIOR CIRCULATION: Right internal carotid artery: Intracranial segment is patent with no significant stenosis. No aneurysm. Right middle cerebral artery: No occlusion or significant stenosis. No aneurysm. Right anterior cerebral artery: No occlusion or significant stenosis. No aneurysm. Left internal carotid artery: Intracranial segment is patent with no significant stenosis. No aneurysm. Left middle cerebral artery: No occlusion or significant stenosis. No aneurysm. Left anterior cerebral artery: No occlusion or significant stenosis. No aneurysm. POSTERIOR CIRCULATION: Right vertebral artery: No occlusion or significant stenosis. No aneurysm. Left vertebral artery: No occlusion or significant stenosis. No aneurysm. Basilar artery: No occlusion or significant stenosis. No aneurysm. Right posterior cerebral artery: No occlusion or significant stenosis. No aneurysm. Left posterior cerebral artery: No occlusion or significant stenosis. No aneurysm. Brain: No hemorrhage, mass effect or midline shift. There is a patchy area of decreased attenuation involving the left deep white matter vascular watershed zone/territory of left lateral lenticulo-striate arteries (M1 segment of MCA). There is foci of decreased attenuation in the periventricular and subcortical white matter, likely representing chronic small vessel ischemic changes. Mild cerebral volume loss is present. No intra-axial or extra-axial fluid collection seen. Cerebral ventricles: No ventriculomegaly. Mastoid air cells: Visualized mastoid air cells are well aerated. Paranasal sinuses: Visualized sinuses are unremarkable. No fluid levels. Bones/joints: Unremarkable. No acute fracture. Soft tissues: Unremarkable. PROCEDURE INFORMATION: Exam: CTA Neck With Contrast Exam date and time: 03/09/2023 7:41 AM Age: 62 years old Clinical indication: Other: AMS; Confusion; Additional info: CVA TECHNIQUE: Imaging protocol: Computed tomographic angiography of the neck with contrast. 3D rendering (Not supervised by radiologist): MIP and/or 3D reconstructed images were created by the technologist. Radiation optimization: All CT scans at this facility use at least one of these dose optimization techniques: automated exposure control; mA and/or kV adjustment per patient size (includes targeted exams where dose is matched to clinical indication); or iterative reconstruction. Contrast material: OMNIPAQUE 350; Contrast volume: 100 ml; Contrast route: INTRAVENOUS (IV); REPORTING DATA: Count of CT and Cardiac NM exams in prior 12 months: This patient has received 0 known CTs and 0 known cardiac nuclear medicine studies in the 12 months prior to the current study. COMPARISON: CT head wo con* [id number] 03/09/2023 6:49 AM RADIATION DOSE METRICS: Total DLP (mGy-cm): 420.84 FINDINGS: Right common carotid artery: No stenosis. No dissection or occlusion. Right internal carotid artery: No stenosis of the extracranial segment. No dissection or occlusion. Right external carotid artery: No occlusion or stenosis of the origin. Left common carotid artery: No stenosis. No dissection or occlusion. Left internal carotid artery: No stenosis of the extracranial segment. No dissection or occlusion. Left external carotid artery: No occlusion or stenosis of the origin. Right vertebral artery: No stenosis. No dissection or occlusion. Left vertebral artery: No stenosis. No dissection or occlusion. Soft tissues: Normal. No significant soft tissue swelling. Bones/joints: No acute fracture. Degenerative changes of the spine seen. CT/CT angio headneck* [id number] IMPRESSION: 1. No large vessel stenosis or occlusion. 2. Age-indeterminate infarct involving the left deep white matter vascular watershed zone/territory of left lateral lenticulo-striate arteries (M1 segment of MCA). IMPRESSION: No stenosis or occlusion. REFERENCES: NASCET CRITERIA. The degree of stenosis in the cervical segment of the internal carotid artery is based on NASCET criteria. Normal is no stenosis. Mild is less than 50% stenosis. Moderate is 50-69% stenosis. Severe is 70% to 99% stenosis. Total occlusion is no detectable patent lumen.
[2023-03-09] MEDS: iohexol 350 mg/mL 500 mL Btl (per mL) IV (07:48)
[2023-03-09 08:00] LABS: Prolactin 13.54 ng/mL (4.8-23.3)
--- NOTE | 2023-03-09 08:54 | PM.HP ---
Providers/Chief Complaint Admitting Physician: Jimbo Brown MD, hospitalist Chief Complaint: stroke like symptoms History of Present Illness Sydney Zambrano is a 62 year old female with diabetes, hypertension, hyperlipidemia presenting to the emergency department with complaints of slurred speech and difficulty speaking noted last night around 10 PM. She denied any focal weakness, difficulty swallowing, falls, headache, recent illness or fever. She reports no symptoms like this in the past. Family indicates she has had some difficulty with word finding abilities but this has improved somewhat. They brought her to the emergency department this morning when things were not improved. She scored a 2 on the NIHSS scale. CTA was performed and no thrombus noted. Age-indeterminate CVA noted deep left white matter M1 MCA zone. Review of Systems General: Reports: 10 or more systems reviewed and unremarkable except in HPI and below Card: Denies: chest pain Resp: Denies: dyspnea GI: Denies: abdominal pain, nausea, vomiting, hematemesis, hematochezia or melena Neuro: Reports: Slurred speech present; Denies: headache(s), numbness in extremities, weakness in extremities, lack of coordination or difficulty walking Medications/Allergies Home Medications Medication Instructions Recorded Confirmed Last Taken Type hydrochlorothiazide 25 mg tablet 25 mg PO BEDTIME 11/19/19 03/09/23 03/08/23 History atorvastatin 80 mg tablet 80 mg PO BEDTIME 03/09/23 03/09/23 03/08/23 History bupropion HCl 150 mg tablet,12 hr 150 mg PO BEDTIME 03/09/23 03/09/23 03/08/23 History sustained-release see pharmacy comment estradiol 0.5 mg tablet 0.5 mg PO BEDTIME 03/09/23 03/09/23 03/08/23 History ezetimibe 10 mg tablet (Zetia) 10 mg PO BEDTIME 03/09/23 03/09/23 03/08/23 History Allergies Allergy/AdvReac Type Severity Reaction Status Date / Time penicillin G Allergy unknown Verified 03/09/23 06:40 sulfamethoxazole Allergy unknown Verified 03/09/23 06:40 [From Bactrim] trimethoprim [From Bactrim] Allergy unknown Verified 03/09/23 06:40 PFSH Acute PFSH: Medical History (Updated 03/09/23 @ 09:06 by Jimbo Brown MD) Blind left eye Diabetes mellitus GERD (gastroesophageal reflux disease) Heart murmur History of foot fracture History of toe fracture Hypercholesteremia Hypertensive disorder Osteoporosis Psoriasis Recurrent UTI Urinary incontinence Surgical History (Updated 03/09/23 @ 08:58 by Jimbo Brown MD) H/O bladder repair surgery H/O knee surgery left History of History of cholecystectomy History of eye surgery History of hysterectomy Family History Mother , at age 59 Hypertension Father No problems noted. Sister Diabetes Heart disease Breast cancer unknown age onset Brother Heart disease Denies family history of Colon cancer Ovarian cancer Clotting disorder Hyperlipidemia Anesthesia complication Bleeding disorder Uterine cancer Thyroid condition Stroke Social History Smoking and tobacco status: never smoked Alcohol intake: never Substance/Drug Use: never Vitals/I&O/Wt Last Vital Signs Pulse 80 03/09/23 08:32 Resp 18 03/09/23 06:46 BP 182/97 03/09/23 08:00 Pulse Ox 100 03/09/23 08:32 O2 Del Method Room Air 03/09/23 08:32 Weight last 48 hrs Weight 72.575 kg Physical Exam Narrative: General exam is a white female, no distress, somewhat slow to respond but answers questions appropriately. HEENT: Atraumatic and normocephalic. No vision in the left eye. Oropharynx clear. Tongue midline. Neurologic: Some slowness in response, some difficulty in word finding. Agree with initial NIHSS scoring. I did not get her up to walk her but she did not demonstrate any obvious cerebellar dysfunction or weakness. Bedside swallowing did not appear impaired. Slight slurring of speech. Neck is supple no lymphadenopathy thyromegaly Cardiovascular regular rate and rhythm with a 2/6 systolic murmur Lungs clear no wheezing or crackles Abdomen is soft with positive bowel sounds. No obvious organomegaly exams deferred Extremities no cyanosis clubbing or edema, cap refill brisk Skin demonstrates psoriasis Data 03/09/23 06:40 03/09/23 06:40 Other Labs: LFTs are normal Patient is ordered Calcium normal at 9.4 Albumin 4.2 Urinalysis not checked Chest x-ray by my read no infiltrate EKG by my read demonstrates sinus rhythm, borderline left axis deviation, nonspecific ST-T wave changes CTA head and neck demonstrates no large vessel stenosis or occlusion. CT head and CT a head and neck demonstrate age-indeterminate infarct left side M1 segment of MCA distribution deep white matter A&P Assessment and plan (1) Cerebrovascular accident: Left MCA distribution CVA. Causing some slurred speech, word finding difficulty. Not candidate for tPA, NIHSS stroke scale score 2 No large vessel occlusion on CTA Give aspirin 324 mg now Therapy consultations Observation Telemetry Permissive hypertension Statin 80 mg at bedtime Check echocardiogram Continue estradiol Lipid profile, A1c in the morning Likely event monitor on discharge, as well as neurologic follow-up Qualifiers: CVA mechanism: thrombosis Laterality of affected vessel: left Precerebral and cerebral artery: middle cerebral artery Qualified Code(s): I63.312 - Cerebral infarction due to thrombosis of left middle cerebral artery (2) Acute hypokalemia: Limit potassium Recheck tomorrow Magnesium was checked and normal (3) Diabetes mellitus: Sliding scale insulin Consistent carb diet Check A1c Plan Multiple other medical problems as outlined in past medical history Full code Lovenox for DVT prophylaxis Attestations Medical Necessity Statement*: Will need less than 2 midnight stay for evaluation and treatment of CVA Diagnoses Cerebrovascular accident I63.312 CVA mechanism: thrombosis Laterality of affected vessel: left Precerebral and cerebral artery: middle cerebral artery Acute hypokalemia E87.6 Diabetes mellitus E11.9 Time Spent (min) 45
--- NOTE | 2023-03-09 09:04 | PC.PHAR ---
pt and pts son verified pts medications-pt states she takes bupropion sr 150mg bedtime rx filled 02/15/23 150mg bid-pt states she only takes the 5 medications entered
[2023-03-09] MEDS: aspirin 81 mg Chew Tablet 324 MG PO (09:19)
[2023-03-09] MEDS: potassium chloride oral liq 20 mEq/15 mL UDC 40 MEQ PO (09:19)
[2023-03-09 09:26] LABS: Amphetamines Screen Urine Negative (Negative); Barbiturates Screen Urine Negative (Negative); Benzodiazepines Screen Urine Negative (Negative); Cocaine Screen Urine Negative (Negative); Opiate Screen Urine Negative (Negative); PCP Screen Urine Negative (Negative); THC Screen Urine Negative (Negative)
[2023-03-09 09:34] LABS: Specific Gravity, Urine 1.005 (1.005-1.030); Urine Appearance Clear (CLEAR); Urine Color Light yellow (Yellow); pH Urine 7 (5-7)
[2023-03-09 09:35] LABS: Add Urine Microscopic? YES; Bilirubin Urine Neg (Negative); Blood Urine Neg (Negative); Glucose Urine UA Norm (Normal); Ketones Urine Negative (Negative); Leukocyte Esterase Urine Trace (Negative); Nitrate Urine Positive (Negative); Protein Urine Neg (Negative); RBC Urine RARE /hpf (0-2); Squamous Epithelial Cell Urine RARE /hpf (0-5); Urobilinogen Urine Norm (Negative)
[2023-03-09 09:36] LABS: Bacteria Urine 1+ /hpf
[2023-03-09 09:37] LABS: Add Urine Culture? No
[2023-03-09 09:54] LABS: Thyroid Stimulating Hormone 1.89 uIU/mL (0.27-4.20)
--- NOTE | 2023-03-09 11:17 | USCV_ITS ---
Sydney Zambrano Age: 62 Gender: F : 1960 Exam Date: 03/09/2023 14:31 Ordering Phys: Jimbo Brown MD Technologist: RENÉ [place] [facility] [place]: CVA BP: 120 / 70 HR: 75 Rhythm: Sinus Technical Quality: Adequate MEASUREMENTS (Male / Female) Normal Values 2D ECHO LVOT Diameter 1.8 cm LV Ejection Fraction MOD 2C 65.6 % LV Ejection Fraction 2C AL 66.1 % LA Diameter 3.6 cm LA Width 2.8 cm LA Height 4.2 cm RA Width 3.2 cm RA Height 4.3 cm Aorta at Sinotubular Diameter 1.9 cm M-MODE Aortic Annulus Diameter 2.2 cm LA Ao Ratio MM 1.7 MV E Point Septal Separation 0.7 cm DOPPLER AV Peak Velocity 169.0 cm/s LVOT Peak Velocity 101.0 cm/s AV Area Cont Eq vti 1.4 cm squared AV Area Cont Eq pk 1.5 cm squared MV Peak Velocity 116.0 cm/s MV Area PHT 5.0 cm squared Mitral E to A Ratio 1.1 MV E' Velocity 45.5 cm/s Mitral E to MV E' Ratio 10.8 Mitral E to LV E' Lateral Ratio 10.2 Mitral E to LV E' Septal Ratio 11.7 TR Peak Velocity 213.7 cm/s TR Peak Gradient 18.3 mmHg TR Mean Velocity 175.2 cm/s TR Mean Gradient 12.6 mmHg TR Velocity Time Integral 52.5 cm Right Atrial Pressure 8.0 mmHg Pulmonary Artery Systolic Pressu 26.3 mmHg PV Peak Velocity 133.0 cm/s RV Acceleration Time 0.1 s RV Ejection Time 0.3 s RV AcT/ET 0.4 FINDINGS Left Ventricle Left ventricle is normal in size. LV systolic function is normal with EF of 60 to 65%. No regional wall motion abnormalities are seen. Right Ventricle Normal in size and function Right Atrium Normal in size Left Atrium Normal in size Mitral Valve Structurally normal mitral valve. No significant stenosis. Mild mitral regurgitation. Aortic Valve Structurally normal aortic valve. No significant stenosis or regurgitation. Tricuspid Valve Mild tricuspid regurgitation. Insufficient TR jet to calculate RVSP. Pulmonic Valve Not well visualized Pericardium Normal Aorta Normal in size IVC Appears to be normal CONCLUSIONS LV systolic function is normal with EF of 60 to 65%. Mild mitral regurgitation Mild tricuspid regurgitation. No comparison studies are available. Juan J Gonzalez MD (Electronically Signed) Final Date: 10 March 2023 08:26 S
[2023-03-09] MEDS: enoxaparin 40 mg/0.4 mL Syringe SUBCUT (12:29)
[2023-03-09] MEDS: acetaminophen 500 mg Tablet 650 MG PO (17:41)
[2023-03-09] MEDS: atorvastatin 40 mg Tablet 80 MG PO (21:42)
[2023-03-10] VITALS (7 sets, daily range): BP systolic 161–170; BP diastolic 82–91; PULSE 57–64; RESP 16–18; TEMP 36.4–36.8; O2SAT 95–99
[2023-03-10 05:21] LABS: Estmated Average Glucose 177; Hemoglobin A1C 7.8 % (4.0-6.0)
[2023-03-10 05:28] LABS: Chol HDL Ratio 8.11 mg/dL (0.0-4.40); Cholesterol 227 mg/dL (0-200); HDL Cholesterol 28 mg/dL (60-100); Triglycerides 602 mg/dL (0-150)
[2023-03-10 05:57] LABS: LDL Cholesterol Direct 81 mg/dL (0-100)
--- NOTE | 2023-03-10 08:45 | PM.DCS ---
Discharge Providers Date of Admission: 03/09/23 10:52 Date of Discharge: March 10, 2023 Attending Provider at Admission: Jimbo Brown MD Attending Provider at Discharge: Jimbo Brown MD Primary Care Provider: Christine Burger NP Diagnoses at Discharge Discharge Diagnosis (1) Cerebrovascular accident: Status: Acute Qualifiers: CVA mechanism: thrombosis Laterality of affected vessel: left Precerebral and cerebral artery: middle cerebral artery Qualified Code(s): I63.312 - Cerebral infarction due to thrombosis of left middle cerebral artery (2) Acute hypokalemia: Status: Acute (3) Diabetes mellitus: Status: Acute Reason for Visit Reason for Visit: stroke like symptoms Hospital Course Hospital Course Sydney is a 62-year-old white female who presented to the emergency department with complaints of difficulty speaking, word finding difficulty. She denied any focal weakness. On evaluation in the emergency department, she was determined not to be a candidate for tPA. NIHSS score was approximately 2. She came in approximately 12 hours following initiation of symptoms. Further evaluation emergency department included a CT scan and CTA of the head and neck. CTA did not demonstrate any occlusive vascular disease. CT head demonstrated deep white matter CVA, left M1 MCA division. She was placed in observation. Therapy consultations were obtained. Plavix and aspirin were initiated. Statin was continued at 80 mg daily, Lipitor. Echocardiogram was performed and telemetry initiated. Echo demonstrated preserved EF, mild mitral regurgitation. No evidence of atrial fibrillation was noted. The following day she was doing well, and very close to normal on her speech pattern. Urine demonstrated a few white cells, but she is asymptomatic so this will not be treated. Therapy had no recommendations for any ongoing outpatient physical therapy other than home exercises. He was therefore thought she could be discharged home. She can resume her hydrochlorothiazide tomorrow. Metformin secondary to diagnosed diabetes mellitus by elevated A1c will be initiated on Tuesday. She was given the opportunity ask questions, and agreed with the plan, as well as follow-up. Physical Exam Narrative: General exam no distress Neck supple Cardiovascular regular rhythm Lungs clear Abdomen is soft Extremities no sinus clubbing edema Discharge Data Studies Completed and Pending Completed Studies During Hospitalization Category Date Time Status CT angio headneck* [id number] Stat Cat Scan 03/09/23 07:[address] head wo con* [id number] Stat Cat Scan 03/09/23 06:40 Completed XR chest 1V portable [id number] Stat Exams 03/09/23 06:40 Completed CV. echo complete* [id number] Routine Ultrasound 03/09/23 11:17 Completed Radiology Impressions Chest X-Ray 03/09/23 06:40 IMPRESSION: Mildly increased lung markings, likely secondary to low lung volumes. Head CT 03/09/23 06:40 IMPRESSION: Age-indeterminate infarct involving the left deep white matter vascular watershed zone/territory of left lateral lenticulo-striate arteries (M1 segment of MCA). ASSESSMENT: ASPECTS ([place] Stroke Program Early CT Score) is 8. ADDENDUM: 03/09/23 0736 THIS REPORT CONTAINS FINDINGS THAT MAY BE CRITICAL TO PATIENT CARE. The findings were verbally communicated via telephone conference with Ronnie Gar at 7:20 AM CDT on 03/09/2023. The findings were acknowledged and understood. Head/Neck CTA 03/09/23 07:33 IMPRESSION: 1. No large vessel stenosis or occlusion. 2. Age-indeterminate infarct involving the left deep white matter vascular watershed zone/territory of left lateral lenticulo-striate arteries (M1 segment of MCA). IMPRESSION: No stenosis or occlusion. REFERENCES: NASCET CRITERIA. The degree of stenosis in the cervical segment of the internal carotid artery is based on NASCET criteria. Normal is no stenosis. Mild is less than 50% stenosis. Moderate is 50-69% stenosis. Severe is 70% to 99% stenosis. Total occlusion is no detectable patent lumen. Laboratory Results WBC 9.0 10^3/uL (4.0-10.0) 03/09/23 06:40 RBC 4.84 10^6/uL (4.1-5.3) 03/09/23 06:40 Hgb 14.8 g/dL (11.5-15.3) 03/09/23 06:40 Hct 44.8 % (37.0-47.0) 03/09/23 06:40 MCV 92.6 fl (81-99) 03/09/23 06:40 MCH 30.6 pg (28.0-34.0) 03/09/23 06:40 MCHC 33.0 g/dL (30.0-36.0) 03/09/23 06:40 RDW 12.5 % (12.1-15.1) 03/09/23 06:40 Plt Count 319 10^3/cmm (130-400) 03/09/23 06:40 MPV 10.3 fL (7.4-10.4) 03/09/23 06:40 Neut % (Auto) 59.5 % 03/09/23 06:40 Lymph % (Auto) 30.3 % 03/09/23 06:40 [place] % (Auto) 5.9 % 03/09/23 06:40 Eos % (Auto) 3.0 % 03/09/23 06:40 Baso % (Auto) 1.0 % 03/09/23 06:40 Neut # (Auto) 5.36 10^3/uL (1.8-7.7) 03/09/23 06:40 Lymph # (Auto) 2.7 10^3/uL (0.8-4.8) 03/09/23 06:40 [place] # (Auto) 0.5 10^3/uL (0.2-0.9) 03/09/23 06:40 Eos # (Auto) 0.3 10^3/uL (0.0-0.8) 03/09/23 06:40 Baso # (Auto) 0.1 10^3/uL (0.0-0.1) 03/09/23 06:40 Nucleated RBC % (auto) 0 % 03/09/23 06:40 Nucleated RBCs # 0.0 /100WBC 03/09/23 06:40 ESR 15 mm/hr (0-15) 03/09/23 06:40 PT 13.30 SECONDS (12.1-14.9) 03/09/23 06:40 INR 0.98 (0.8-1.2) 03/09/23 06:40 Sodium 137 mmol/L (136-145) 03/09/23 06:40 Potassium 3.2 mmol/L (3.5-5.1) L 03/09/23 06:40 Chloride 96 mmol/L (98-107) L 03/09/23 06:40 Carbon Dioxide 26 mmol/L (22-29) 03/09/23 06:40 Anion Gap 18.2 (5-19) 03/09/23 06:40 BUN 12 mg/dL (8-23) 03/09/23 06:40 Creatinine 0.9 mg/dL (0.5-0.9) 03/09/23 06:40 GFR Calculation 63.2 mL/min (90-130) L 03/09/23 06:40 Glucose 244 mg/dL (65-115) H 03/09/23 06:40 Estimat Average Glucose 177 03/10/23 05:00 Hemoglobin A1c 7.8 % (4.0-6.0) H 03/10/23 05:00 Calculated Osmolality 292 mOsm/kg (285-295) 03/09/23 06:40 Calcium 9.4 mg/dL (8.5-10.5) 03/09/23 06:40 Magnesium 1.8 mg/dL (1.7-2.3) 03/09/23 06:40 Total Bilirubin 0.2 mg/dL (0.15-1.2) 03/09/23 06:40 AST 19 U/L (0-32) 03/09/23 06:40 ALT 15 U/L (0-33) 03/09/23 06:40 Alkaline Phosphatase 90 U/L (35-105) 03/09/23 06:40 C-Reactive Protein 15.1 mg/L (0.0-4.9) H 03/09/23 06:40 Total Protein 7.9 g/dL (6.6-8.7) 03/09/23 06:40 Albumin 4.2 g/dL (3.5-5.2) 03/09/23 06:40 Globulin 3.7 g/dL (1.3-4.6) 03/09/23 06:40 Triglycerides 602 mg/dL (0-150) H 03/10/23 05:00 Cholesterol 227 mg/dL (0-200) H 03/10/23 05:00 LDL Cholesterol Direct 81 mg/dL (0-100) 03/10/23 05:00 LDL Cholesterol, Calc Not Reportable 03/10/23 05:00 HDL Cholesterol 28 mg/dL (60-100) L 03/10/23 05:00 LDL/HDL Ratio Not Reportable 03/10/23 05:00 Cholesterol/HDL Ratio 8.11 mg/dL (0.0-4.40) H 03/10/23 05:00 TSH 1.89 uIU/mL (0.27-4.20) 03/09/23 06:40 Prolactin 13.54 ng/mL (4.8-23.3) 03/09/23 06:40 Urine Color Light yellow (Yellow) 03/09/23 08:58 Urine Appearance Clear (CLEAR) 03/09/23 08:58 Urine pH 7 (5-7) 03/09/23 08:58 Ur Specific [place] 1.005 (1.005-1.030) 03/09/23 08:58 Urine Protein Neg (Negative) 03/09/23 08:58 Urine Glucose (UA) Norm (Normal) 03/09/23 08:58 Urine Ketones Negative (Negative) 03/09/23 08:58 Urine Blood Neg (Negative) 03/09/23 08:58 Urine Nitrate Positive (Negative) H 03/09/23 08:58 Urine Bilirubin Neg (Negative) 03/09/23 08:58 Urine Urobilinogen Norm mg/dL (Negative) 03/09/23 08:58 Ur Leukocyte Esterase Trace (Negative) H 03/09/23 08:58 Urine RBC Rare /hpf (0-2) 03/09/23 08:58 Urine WBC 10-15 /hpf (0-5) H 03/09/23 08:58 Ur Squamous Epith Cells Rare /hpf (0-5) 03/09/23 08:58 Amorphous Sediment Not Reportable 03/09/23 08:58 Urine Bacteria 1+ /hpf (NONE) H 03/09/23 08:58 Urine Opiates Screen Negative ng/mL (Negative) 03/09/23 08:58 Ur Barbiturates Screen Negative ng/mL (Negative) 03/09/23 08:58 Ur Phencyclidine Scrn Negative ng/mL (Negative) 03/09/23 08:58 Ur Amphetamines Screen Negative ng/mL (Negative) 03/09/23 08:58 U Benzodiazepines Scrn Negative ng/mL (Negative) 03/09/23 08:58 Urine Cocaine Screen Negative ng/mL (Negative) 03/09/23 08:58 U Marijuana (THC) Screen Negative ng/mL (Negative) 03/09/23 08:58 Vitals Last Vital Signs Temp 98.3 F 03/10/23 08:17 Pulse 63 03/10/23 08:17 Resp 18 03/10/23 08:17 BP 170/84 03/10/23 08:17 Pulse Ox 95 03/10/23 08:17 O2 Del Method Room Air 03/10/23 08:17 Discharge Plan Discharge Patient Disposition: Home Condition: Stable Prescriptions: New aspirin 81 mg Tablet,Delayed Release (Dr/Ec) 81 mg PO DAILY Qty: 30 0RF clopidogrel 75 mg Tablet 75 mg PO DAILY Qty: 30 0RF metformin 500 mg tablet 500 mg PO BID Qty: 60 0RF Continued hydrochlorothiazide 25 mg tablet 25 mg PO BEDTIME atorvastatin 80 mg tablet 80 mg PO BEDTIME Zetia 10 mg Tablet 10 mg PO BEDTIME bupropion HCl 150 mg tablet sustained-release 12 hr 150 mg PO BEDTIME Discontinued estradiol 0.5 mg tablet 0.5 mg PO BEDTIME Discharge Orders: Discharge Order (Routine); Ordered 03/10/23 Ordered By: Jimbo Brown Other Ambulatory Orders: MCT/Event Monitor 21 Days (Routine) Timeframe: 1 Week Facility: [facility] - Location: Radiology Ordered By: Jimbo Brown Referrals: Christine Burger NP [Primary Care Provider] - 03/16/23 10:00 am Monty Cast MD [Physician] - 2 weeks (follow up CVA) Discharge Diet: Cardiac and Diabetic Discharge Activity: Increase activity as tolerated Patient Instructions: Ischemic Stroke (DC), Opioid Safety Activity Restrictions/Additional Instructions: Take all medicine as prescribed. Do not resume your hydrochlorothiazide until tomorrow Initiate metformin 500 mg twice daily, on March 12 Follow-up with your primary care provider 3 to 5 days Follow-up with neurology 2 weeks Event monitor on discharge Patient's Health Concerns: Difficulty speaking Assessment: Stroke Plan of Treatment: Continue statin. Initiation of Plavix and aspirin. Event monitor on discharge. Follow-up with neurology 2 weeks, primary care provider 3 to 5 days Goals: No recurrent CVA Discharge Attestations Time Spent in Discharge Care*: greater than 30 min Quality Metrics Clinical Quality Measures [ Cerebrovascular Accident { Contraindication to Antithrombotic: None; antithrombotic prescribed; Contraindication to Anticoagulation: Other (not indicated); Contraindication to Statin: None; Statin prescribed;}] Coding Level of Care Code 68386 Total time (in minutes) for Discharge: 35 Diagnoses Cerebrovascular accident I63.312 CVA mechanism: thrombosis Laterality of affected vessel: left Precerebral and cerebral artery: middle cerebral artery Acute hypokalemia E87.6 Diabetes mellitus E11.9
[2023-03-10] MEDS: clopidogrel 75 mg Tablet PO (10:41)
[2023-03-10] MEDS: aspirin 81 mg EC Tablet PO (10:41)
--- NOTE | 2023-03-10 10:45 | PC.CHAP ---
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 [] Patient/Family/Request visit [] Outpatient visit [] Follow-up visit [] Physician referral [] Code/Alert [x] Routine visit [] Staff referral [] Actively dying [] Patient sleeping [] Family support [] [] Out of room [] Palliative care [] [x] Receiving care in room [] Pre-surgical visit [] Trauma [] Long length of stay [] ICU visit [] Other: Relational/Emotional Strength [x] Patient feels connected with others/family/visitors/staff [] Distress [] Loneliness/isolation [] Abandonment Spirituality of Patient [x] Person of Emma [] Attends Alevism of their Emma [x] Believes in Prayer [] Reads Bible or Scientologist materials [] There are Spiritual issues to be addressed 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 [x] Prayer [x] Active listening [x] Non-anxious presence [x] Spiritual/emotional support [] Crisis/trauma care [x] Spiritual counseling [] Bereavement support [] Provided bereavement packet [] Provided Bible/devotional materials [] Provided toy/stuffed animal, coloring book to patient or family member [] Provided Communion [] Anointing/[place] [] Salvation [x] Completed spiritual assessment [] Other: Impact on Illness or Injury [] Angry [] Fearful [] Anxious [] Often cries [] Exhaustion [] Unable to work [] Unable to attend mosque [] Unable to walk/stand [] Unable to read [] Unable to drive [] Unable to eat/drink [] Unable to sleep [] Unable to be with family [] Patient intubated [] Other: Summary sore throught had medication feels better has good attityde is going home Time spent with patient 10 mins
== END 2023-03-10 11:24 | disposition home or self-care (01) ==
LOC: ER 09:08 → MEDSURG 10:53
PROVIDERS: Admitting Provider Internal Medicine; Emergency Provider Emergency Medicine; PCP Nurse Practitioner Family; Visit Provider Internal Medicine
DX: I63.312 Cerebral infarction due to thrombosis of left middle cerebral artery (principal); R47.81 Slurred speech; R29.702 NIHSS score 2; E87.6 Hypokalemia; H54.40 Blindness, one eye, unspecified eye; E11.9 Type 2 diabetes mellitus without complications; K21.9 Gastro-esophageal reflux disease without esophagitis; E78.00 Pure hypercholesterolemia, unspecified; I10 Essential (primary) hypertension; M81.0 Age-related osteoporosis without current pathological fracture; Z87.440 Personal history of urinary (tract) infections; Z79.890 Hormone replacement therapy; E78.5 Hyperlipidemia, unspecified
CPT/HCPCS: 36415; 70450; 70496; 70498; 71045; 80053; 80061; 80306; 81001; 83036; 83721; 83735; 84146; 84443; 85025; 85610; 85651; 86140; 92507; 92523; 92526; 92610; 93005; 93306; 96372; 97110; 97161; 97165; 99285; G0378; J1650; Q9967

== ENCOUNTER → 2023-03-28 13:57 | Outpatient (BNVA) | payer MEDICAID, SELFPAY | PROVIDERS: PCP Nurse Practitioner Family; Visit Provider Psychiatry & Neurology Neurology | DX: R00.1 Bradycardia, unspecified (principal); R41.3 Other amnesia; R53.1 Weakness; I69.320 Aphasia following cerebral infarction; I69.351 Hemiplegia and hemiparesis following cerebral infarction affecting right dominant side; I69.398 Other sequelae of cerebral infarction; R26.89 Other abnormalities of gait and mobility; R06.02 Shortness of breath; E11.9 Type 2 diabetes mellitus without complications; Z79.84 Long term (current) use of oral hypoglycemic drugs | CPT/HCPCS: 99203 ==

== ENCOUNTER 2023-03-29 11:59 | Inpatient (IN) | payer MEDICAID, SELFPAY ==
[2023-03-29] VITALS (47 sets, daily range): BP systolic 111–178; BP diastolic 47–80; PULSE 49–67; RESP 8–25; TEMP 36.8; O2SAT 93–99
--- NOTE | 2023-03-29 12:16 | XR_ITS ---
WS: [id number] EXAMINATION: XR chest 1V portable [id number] REASON FOR EXAM: cva COMPARISON: 03/09/2023 ORDER DATE: 03/29/2023 12:18 PM TECHNIQUE: A single, portable frontal chest x-ray was obtained. FINDINGS: Lungs: No infiltrates.. No consolidation. Pleural spaces: Unremarkable. No pleural effusion. No pneumothorax. Heart/Mediastinum: Stable cardiomediastinal silhouette. Bones/joints: T12 vertebral augmentation cement re-identified. Organs: Cholecystectomy clips project over the right upper quadrant. XR/XR chest 1V portable [id number] IMPRESSION: No acute pulmonary change
--- NOTE | 2023-03-29 12:16 | CT_ITS ---
WS: [id number] CTA HEAD AND NECK TECHNIQUE: Contrast enhanced CTA of the head and neck with coronal and sagittal reformatted images an d maximum intensity projection (MIP) images. NASCET criteria utilized. CLINICAL INFORMATION: confusion, antalgic gait, hx cva left mca COMPARISON: March 09, 2023 DLP: 1004.[address] scans at [facility] use at least one of these dose optimization techniques: automated e xposure control; mA and/or kV adjustment per patient size (includes targeted exams where dose is matc hed to clinical indication); or iterative reconstruction. FINDINGS: No evidence of hemorrhage or mass effect. Ventricular system and basal cisterns are patent. Previously described infarct involving the LEFT lateral basal ganglia. No new areas of low attenuati on change. No extra-axial fluid collections. RIGHT: RIGHT common carotid artery is patent. No significant RIGHT ICA stenosis. ICA is patent to the skull base. LEFT: LEFT common carotid artery is patent. No significant LEFT ICA stenosis. Mild atheromatous disease LEFT carotid bulb. LEFT ICA is patent to the skull base. Codominant and patent vertebral arteries bilaterally. Proximal basilar artery is patent. Normal vascu larity to the [employer] DIRECT[employer] territory bilaterally. Both ICAs are patent at the skull base. Normal vascularity to the REID and MCA territories bilaterally . No evidence of proximal flow limiting stenosis or aneurysm. Lung apices are well aerated. Enlarged RIGHT infraclavicular lymph node measuring 1.5 cm. Lung apices are well aerated. Straightening of the normal cervical lordosis with mild spondylitic changes. Disc osteophyte complex most prominent C5-C6 with mild central canal stenosis. CT/CT angio headneck* [id number] IMPRESSION: 1. No evidence of intracranial hemorrhage or mass effect. 2. Previously described presumed to subacute infarct in the LEFT lateral basal ganglia appears less prominent today with decreased edema. 3. No significant ICA stenosis bilaterally. 4. No flow-limiting intracranial stenosis. 5. Enlarged RIGHT infraclavicular lymph node measuring 1.5 cm. This appears pr ogressed from March 09, 2023. Recommend interval follow-up with contrast-enhanced CT neck
--- NOTE | 2023-03-29 12:17 | ECG_ITS ---
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 Measurements Intervals [place] Rate: 66 P: 62 CT: 177 QRS: 11 QRSD: 82 T: 53 QT: 404 QTc: 426 Interpretive Statements SINUS RHYTHM LOW QRS VOLTAGE IN PRECORDIAL LEADS [QRS DEFLECTION < 1.0 mV IN CHEST LEADS] PATTERN CONSISTENT WITH PULMONARY DISEASE Compared to ECG 03/09/2023 06:40:08 Low QRS voltage now present T-wave abnormality no longer present Electronically Signed On 03-29-2023 16:21:08 CDT by Deann Sanchez M.D. [id number]
[2023-03-29 12:18] LABS: Glucose Point of Care 145 mg/dL (70-110)
[2023-03-29 12:24] LABS: Basophils # 0.1 10^3/uL (0.0-0.1); Basophils % 0.8 %; Eosinophils # 0.4 10^3/uL (0.0-0.8); Eosinophils % 3.8 %; Hematocrit 43.8 % (37.0-47.0); Hemoglobin 14.1 g/dL (11.5-15.3); Lymphocytes # 3.2 10^3/uL (0.8-4.8); Lymphocytes % 29.4 %; Mean Corpuscular HGB Conc 32.2 g/dL (30.0-36.0); Mean Corpuscular Hemoglobin 30.5 pg (28.0-34.0); Mean Corpuscular Volume 94.8 fl (81-99); Mean Platelet Volume 10.6 fL (7.4-10.4); Monocytes # 0.7 10^3/uL (0.2-0.9); Monocytes % 6.4 %; Neutrophils # 6.48 10^3/uL (1.8-7.7); Neutrophils % 59.3 %; Nucleated Red Blood Cells % 0 %; Platelet Count 287 10^3/cmm (130-400); Red Blood Count 4.62 10^6/uL (4.1-5.3); Red Cell Distribution Width 12.4 % (12.1-15.1); White Blood Count 10.9 10^3/uL (4.0-10.0)
--- NOTE | 2023-03-29 12:26 | W.ED.NEUROSD ---
HPI - Neuro Symptoms/Deficit General: Chief Complaint: Neuro Symptoms/Deficit Stated Complaint: stroke like symptoms Time Seen by Provider: 03/29/23 12:18 History of Present Illness: Patient presents to the ER with complaints of strokelike symptoms. Patient woke up this morning more confused and disoriented and had worsening of her right gait disturbance. Patient did have a stroke approximately 3 weeks ago. Where she was left with some right-sided deficits. But per family this is definitely worse patient in the room alert and oriented this morning she could not recognize her . Onset (ago): unknown Location: altered History of same: Yes Severity: mild Relieving factors: none Exacerbating factors: none On Anticoagulants: Yes Associated symptoms: Reports no associated symptoms Treatments Prior to Arrival: none Review of Systems General: Reports: 10 or more systems reviewed and unremarkable except in HPI and below PFSH ED PFSH: Medical History Blind left eye Diabetes mellitus GERD (gastroesophageal reflux disease) Heart murmur History of foot fracture History of toe fracture Hypercholesteremia Hypertensive disorder Osteoporosis Psoriasis Recurrent UTI Urinary incontinence Surgical History H/O bladder repair surgery H/O knee surgery left History of History of cholecystectomy History of eye surgery History of hysterectomy Family History Mother , at age 59 Hypertension Father No problems noted. Sister Diabetes Heart disease Breast cancer unknown age onset Brother Heart disease Denies family history of Colon cancer Ovarian cancer Clotting disorder Hyperlipidemia Anesthesia complication Bleeding disorder Uterine cancer Thyroid condition Stroke Social History Smoking and tobacco status: never smoked Alcohol intake: never Substance/Drug Use: never Physical Exam Const: COMMON NORMALS: no acute distress, average body habitus, patient oriented x3, no limitations, healthy appearing, alert and well nourished HENMT: COMMON NORMALS: normocephalic, atraumatic, hearing grossly normal bilaterally, external ears normal, Normal external nose present and moist oral mucous membranes HEAD & SCALP: normocephalic and atraumatic NOSE: Normal external nose present EXTERNAL EAR: Yes external ears normal Eye: COMMON NORMALS: Equal, round and reactive pupils present, EOMs intact bilaterally, conjunctivae normal and no scleral icterus CONJUNCTIVA: Yes conjunctivae normal PUPIL: Yes Equal, round and reactive pupils present Neck/C-Spine: COMMON NORMALS: full ROM, no lymphadenopathy, no meningeal signs, no JVD and Thyroid normal THYROID: Thyroid normal Lymph: LYMPHATIC: no lymphadenopathy noted Chest: COMMONS NORMALS: normal inspection of the chest and normal palpation of entire chest wall Resp: COMMON NORMALS: normal respiratory effort, No retractions, No use of accessory muscles and clear to auscultation bilaterally AUSCULTATION: clear to auscultation bilaterally Cardio: COMMON NORMALS: no JVD, regular rate, regular rhythm, S1 normal heart sound present, S2 normal heart sound present, No gallops present (Cardio), No clicks present (Cardio), No murmurs present (Cardio) and No rub (Cardio) RATE: regular rate RHYTHM: regular rhythm HEART SOUNDS: S1 normal heart sound present and S2 normal heart sound present GI: COMMON NORMALS: Normal to inspection, nondistended, normoactive bowel sounds present, Soft to palpation, non-tender, No hepatosplenomegaly present and no masses PALPATION: Yes Soft to palpation and Yes No hepatosplenomegaly present : COMMON NORMALS: Yes no CVA tenderness BLADDER/KIDNEY EXAM: Yes no CVA tenderness Back/Pelvis: COMMON NORMALS: no CVA tenderness Extremity: COMMON NORMALS: normal to inspection Neuro: COMMON NORMALS: patient oriented x3 SENSORIUM/ORIENTATION: Yes alert MENINGEAL SIGNS: Yes no meningeal signs MDM - Neuro Symptoms/Deficit Medical Decision Making Dr. Espinosa notified during the code stroke. She said patient was contraindicated x2 due to blood thinners and last unknown well. She said we should go and get a CTA. Upon further work-up most of which was benign patient will be admitted to observation to Dr. Guerrero for altered mental status and confusion. Lactic acid and serum ketones are pending. Differential Diagnosis Unlikely carpal tunnel syndrome, convulsions, delirium, subarachnoid hemorrhage, peripheral neuropathy, cerebrovascular accident, multiple sclerosis or transient cerebral ischemia Medical Records I reviewed the patient's medical records. Lab Data I reviewed the patient's lab results. 03/29/23 12:12 03/29/23 12:12 Radiology Impressions Chest X-Ray 03/29/23 12:16 IMPRESSION: No acute pulmonary change Head/Neck CTA 03/29/23 12:16 IMPRESSION: 1. No evidence of intracranial hemorrhage or mass effect. 2. Previously described presumed to subacute infarct in the LEFT lateral basal ganglia appears less prominent today with decreased edema. 3. No significant ICA stenosis bilaterally. 4. No flow-limiting intracranial stenosis. 5. Enlarged RIGHT infraclavicular lymph node measuring 1.5 cm. This appears progressed from March 09, 2023. Recommend interval follow-up with contrast-enhanced CT neck Laboratory Results WBC 10.9 10^3/uL (4.0-10.0) H 03/29/23 12:12 RBC 4.62 10^6/uL (4.1-5.3) 03/29/23 12:12 Hgb 14.1 g/dL (11.5-15.3) 03/29/23 12:12 Hct 43.8 % (37.0-47.0) 03/29/23 12:12 MCV 94.8 fl (81-99) 03/29/23 12:12 MCH 30.5 pg (28.0-34.0) 03/29/23 12:12 MCHC 32.2 g/dL (30.0-36.0) 03/29/23 12:12 RDW 12.4 % (12.1-15.1) 03/29/23 12:12 Plt Count 287 10^3/cmm (130-400) 03/29/23 12:12 MPV 10.6 fL (7.4-10.4) H 03/29/23 12:12 Neut % (Auto) 59.3 % 03/29/23 12:12 Lymph % (Auto) 29.4 % 03/29/23 12:12 [place] % (Auto) 6.4 % 03/29/23 12:12 Eos % (Auto) 3.8 % 03/29/23 12:12 Baso % (Auto) 0.8 % 03/29/23 12:12 Neut # (Auto) 6.48 10^3/uL (1.8-7.7) 03/29/23 12:12 Lymph # (Auto) 3.2 10^3/uL (0.8-4.8) 03/29/23 12:12 [place] # (Auto) 0.7 10^3/uL (0.2-0.9) 03/29/23 12:12 Eos # (Auto) 0.4 10^3/uL (0.0-0.8) 03/29/23 12:12 Baso # (Auto) 0.1 10^3/uL (0.0-0.1) 03/29/23 12:12 Nucleated RBC % (auto) 0 % 03/29/23 12:12 Nucleated RBCs # 0.0 /100WBC 03/29/23 12:12 PT 13.70 SECONDS (12.1-14.9) 03/29/23 12:12 INR 1.02 (0.8-1.2) 03/29/23 12:12 APTT 26.8 SECONDS (23.9-36.7) 03/29/23 12:12 Sodium 141 mmol/L (136-145) 03/29/23 12:12 Potassium 4.0 mmol/L (3.5-5.1) 03/29/23 12:12 Chloride 99 mmol/L (98-107) 03/29/23 12:12 Carbon Dioxide 26 mmol/L (22-29) 03/29/23 12:12 Anion Gap 20.0 (5-19) H 03/29/23 12:12 BUN 13 mg/dL (8-23) 03/29/23 12:12 Creatinine 1.0 mg/dL (0.5-0.9) H 03/29/23 12:12 GFR Calculation 56.0 mL/min (90-130) L 03/29/23 12:12 Glucose 144 mg/dL (65-115) H 03/29/23 12:12 POC Glucose 145 mg/dL (70-110) H 03/29/23 12:14 Calculated Osmolality 295 mOsm/kg (285-295) 03/29/23 12:12 Calcium 9.7 mg/dL (8.5-10.5) 03/29/23 12:12 Total Bilirubin 0.3 mg/dL (0.15-1.2) 03/29/23 12:12 AST 17 U/L (0-32) 03/29/23 12:12 ALT 15 U/L (0-33) 03/29/23 12:12 Alkaline Phosphatase 89 U/L (35-105) 03/29/23 12:12 Total Protein 7.7 g/dL (6.6-8.7) 03/29/23 12:12 Albumin 4.2 g/dL (3.5-5.2) 03/29/23 12:12 Globulin 3.5 g/dL (1.3-4.6) 03/29/23 12:12 Urine Color Yellow (Yellow) 03/29/23 15:03 Urine Appearance Clear (CLEAR) 03/29/23 15:03 Urine pH 5 (5-7) 03/29/23 15:03 Ur Specific [place] 1.005 (1.005-1.030) 03/29/23 15:03 Urine Protein Neg (Negative) 03/29/23 15:03 Urine Glucose (UA) Norm (Normal) 03/29/23 15:03 Urine Ketones Negative (Negative) 03/29/23 15:03 Urine Blood Neg (Negative) 03/29/23 15:03 Urine Nitrate Negative (Negative) 03/29/23 15:03 Urine Bilirubin Neg (Negative) 03/29/23 15:03 Urine Urobilinogen Norm mg/dL (Negative) 03/29/23 15:03 Ur Leukocyte Esterase Negative (Negative) 03/29/23 15:03 EKG Data EKG 1: I personally reviewed and interpreted this EKG as follows: EKG interpretation date: 03/29/23 EKG interpretation time: 12:32 Prior EKG tracings: not available for review Interpretation: EKG showed normal sinus rhythm at 66 bpm, OH interval of 177, QRS duration of 82, QTc of 418, no ST-T wave changes Discharge Plan Discharge Patient Disposition: Placed in Observation Clinical Impression: Acute alteration in mental status, Acute confusion Condition: Stable Prescriptions: No Action hydrochlorothiazide 25 mg tablet 25 mg PO QAM atorvastatin 80 mg tablet 80 mg PO BEDTIME ezetimibe [Zetia] 10 mg Tablet 10 mg PO BEDTIME bupropion HCl 150 mg tablet sustained-release 12 hr 150 mg PO BID metformin 500 mg tablet 500 mg PO BID Qty: 60 0RF estradiol 0.5 mg tablet 0.5 mg PO QAM clopidogrel 75 mg tablet 75 mg PO QAM aspirin 81 mg tablet,delayed release (DR/EC) 81 mg PO QAM Referrals: Christine Burger NP [Primary Care Provider] - Coding Level of Care Code ED Humanities And Languages Professor for Chg Fwd
[2023-03-29] MEDS: iohexol 350 mg/mL 500 mL Btl (per mL) IV (12:28)
[2023-03-29 12:32] LABS: INR 1.02 (0.8-1.2)
[2023-03-29 12:33] LABS: Partial Thromboplastin Time 26.8 SECONDS (23.9-36.7)
[2023-03-29 12:38] LABS: Alanine Aminotransferase 15 U/L (0-33); Albumin Level 4.2 g/dL (3.5-5.2); Alkaline Phosphatase 89 U/L (35-105); Aspartate Amino Transferase 17 U/L (0-32); Blood Urea Nitrogen 13 mg/dL (8-23); Calcium 9.7 mg/dL (8.5-10.5); Carbon Dioxide 26 mmol/L (22-29); Chloride 99 mmol/L (98-107); Globulin 3.5 g/dL (1.3-4.6); Glucose 144 mg/dL (65-115); Osmolality Calculated 295 mOsm/kg (285-295); Sodium 141 mmol/L (136-145); Total Bilirubin 0.3 mg/dL (0.15-1.2); Total Protein 7.7 g/dL (6.6-8.7)
[2023-03-29 15:06] LABS: Add Urine Microscopic? NO; Charge for UA Resulting for Rev
--- NOTE | 2023-03-29 15:06 | PC.PHAR ---
pts daughter verified pts medication -pts daughter states she gives the pt her medications
[2023-03-29 15:21] LABS: Bilirubin Urine Neg (Negative); Blood Urine Neg (Negative); Glucose Urine UA Norm (Normal); Ketones Urine Negative (Negative); Leukocyte Esterase Urine Negative (Negative); Nitrate Urine Negative (Negative); Protein Urine Neg (Negative); Specific Gravity, Urine 1.005 (1.005-1.030); Urine Appearance Clear (CLEAR); Urine Color Yellow (Yellow); Urobilinogen Urine Norm (Negative); pH Urine 5 (5-7)
[2023-03-29 16:11] LABS: Lactic Sepsis W/Reflex 2.8 mmol/L (0.5-2.2)
[2023-03-29 16:12] LABS: Ketone (Acetest) Serum Negative (Negative)
[2023-03-29 16:18] LABS: Amphetamines Screen Urine Negative (Negative); Barbiturates Screen Urine Negative (Negative); Benzodiazepines Screen Urine Negative (Negative); Cocaine Screen Urine Negative (Negative); Opiate Screen Urine Negative (Negative); PCP Screen Urine Negative (Negative); THC Screen Urine Negative (Negative)
--- NOTE | 2023-03-29 16:24 | P.HP_ITS ---
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 She was not a candidate for tPA and no large vessel occlusion amenable to endovascular intervention found on CTA. She had been started on aspirin Plavix and statin. She was not found to have atrial fibrillation on monitoring while in the hospital. Was assessed by echocardiogram with noted preserved EF, mild MVR. Discharged home with home exercise program. Was noted to have diagnosis of diabetes, started on metformin. She was brought to ER for evaluation this afternoon after not acting right at home as per family. This morning she woke up and they say was staring at the wall after sitting up, then went back to sleep. Later on woke up and walked out into the living room and they state was staring at or through her . They then went out for a drive in the air conditioned car, and on returning home she was more disoriented, reportedly was not recognizing her family, and reportedly had difficulty walking. With concern for possible focal abnormality stroke code was called in ER and she was assessed for possible CVA. She was not a candidate for tPA. CTA head and neck were obtained, with noted previously described presumed subacute infarct in left lateral basal ganglia appearing less prominent with decreased edema. No intracranial hemorrhage or mass effect. No ICA stenosis bilaterally. No flow- limiting intracranial stenosis. Incidentally seen enlarged right infraclavicular lymph node measuring 1.5 cm. Appearing progressed from March 09, 2023. Recommended interval follow-up with contrast-enhanced CT neck. She and family denies any seizure-like activity, no known fever, no headache, dizziness, nausea or vomiting. She states she does get somewhat lightheaded when she stands up. She states she felt something was off today, but could not really tell what was different. She is currently reportedly close to her poststroke baseline. Heart rate is noted slow in ER, down into the 50s which seems lower than prior. She denies chest pain or pressure. Blood pressure with some fluctuation between 120s and 150s systolic. She is saturating well on room air. Otherwise noted minimally bumped WBC, 10.9, on blood chemistry and noted some anion gap acidosis, anion gap of 20, bicarb 26. Blood glucose 145. Otherwise liver, renal parameters normal. UA unremarkable. UDS unremarkable. Chest x-ray without acute pulmonary change. She denies any other medication changes apart from the new medications that were started for her last admission. She denies missing or doubling up on any doses. Denies any EtOH or recreational drug use. Review of Systems Const: Denies: fever(s), chills, body aches or malaise Eyes: Denies: change in vision or eye discomfort ENMT: Denies: throat pain, oral sores or ear or mastoid pain Card: Denies: chest pain, edema, pre-syncope or dyspnea on exertion Resp: Denies: dyspnea, productive cough, change in phlegm color or hemoptysis GI: Denies: abdominal pain, nausea, vomiting, diarrhea, constipation, hematochezia or melena : Denies: flank pain, urinary frequency or hematuria Musc: Denies: back pain, joint swelling or joint redness Skin/Breast: Denies: rash or new lesions Neuro: Reports: difficulty walking and confusion; Denies: headache(s), numbness in extremities, weakness in extremities, dizziness or seizure-like activity Medications/Allergies Home Medications Medication Instructions Recorded Confirmed Last Taken Type hydrochlorothiazide 25 mg tablet 25 mg PO QAM 11/19/19 03/29/23 03/29/23 07:00 History atorvastatin 80 mg tablet 80 mg PO BEDTIME 03/09/23 03/29/23 03/28/23 History bupropion HCl 150 mg tablet,12 hr 150 mg PO BID 03/09/23 03/29/23 03/29/23 07:00 History sustained-release ezetimibe 10 mg tablet (Zetia) 10 mg PO BEDTIME 03/09/23 03/29/23 03/28/23 History metformin 500 mg tablet 500 mg PO BID #60 tabs 03/10/23 03/29/23 03/29/23 07:00 Rx aspirin 81 mg tablet,delayed 81 mg PO QAM 03/29/23 03/29/23 03/29/23 07:00 History release clopidogrel 75 mg tablet 75 mg PO QAM 03/29/23 03/29/23 03/29/23 07:00 History estradiol 0.5 mg tablet 0.5 mg PO QAM 03/29/23 03/29/23 03/29/23 History Allergies Allergy/AdvReac Type Severity Reaction Status Date / Time penicillin G Allergy unknown Verified 03/28/23 14:18 Penicillins Allergy Unknown Verified 03/29/23 15:04 sulfamethoxazole Allergy unknown Verified 03/29/23 15:04 [From Bactrim] trimethoprim [From Bactrim] Allergy unknown Verified 03/29/23 15:04 PFSH Acute PFSH: Medical History (Updated 03/29/23 @ 17:32 by Edmundo Guerrero MD) Blind left eye Diabetes mellitus GERD (gastroesophageal reflux disease) Heart murmur History of foot fracture History of toe fracture Hypercholesteremia Hypertensive disorder Osteoporosis Psoriasis Recurrent UTI Urinary incontinence Surgical History H/O bladder repair surgery H/O knee surgery left History of History of cholecystectomy History of eye surgery History of hysterectomy Family History Mother , at age 59 Hypertension Father No problems noted. Sister Diabetes Heart disease Breast cancer unknown age onset Brother Heart disease Denies family history of Colon cancer Ovarian cancer Clotting disorder Hyperlipidemia Anesthesia complication Bleeding disorder Uterine cancer Thyroid condition Stroke Social History Smoking and tobacco status: never smoked Alcohol intake: never Substance/Drug Use: never Vitals/I&O/Wt Last Vital Signs Pulse 57 L 03/29/23 16:00 Resp 12 03/29/23 16:00 BP 122/65 03/29/23 16:00 Pulse Ox 99 03/29/23 16:00 Weight last 48 hrs Weight 69.853 kg Physical Exam Narrative: Son at bedside. Const: COMMON NORMALS: patient oriented x3 and alert GENERAL APPEARANCE: cooperative ORIENTATION/CONSCIOUSNESS: Yes awake HENMT: COMMON NORMALS: oropharynx normal Neck/C-Spine: COMMON NORMALS: no JVD Resp: COMMON NORMALS: normal respiratory effort and clear to auscultation bilaterally AUSCULTATION: clear to auscultation bilaterally Cardio: COMMON NORMALS: no JVD, regular rhythm, S1 normal heart sound present, S2 normal heart sound present and No murmurs present (Cardio) RHYTHM: regular rhythm HEART SOUNDS: S1 normal heart sound present and S2 normal heart sound present GI: COMMON NORMALS: Normal to inspection, nondistended, normoactive bowel sounds present, Soft to palpation and non-tender PALPATION: Yes Soft to palpation Extremity: COMMON NORMALS: no joint enlargement and no pedal edema OTHER: She appears slightly tired with somewhat flat affect. She otherwise is pleasant and cooperative. She is responsive without any major delays. Oriented x3. Follows directions. No difficulty tracking. Visual solorio intact, no visual extinction. I do not appreciate facial droop. No drift in upper or lower extremities. FNF without abnormality. Symmetrical sensory exam, without sensory extinction. Neuro: COMMON NORMALS: patient oriented x3 and moves all extremities SENSORIUM/ORIENTATION: Yes alert Skin: COMMON NORMALS: no rashes or lesions noted GENERAL SKIN EXAM: no rashes or lesions noted Data 03/29/23 12:12 03/29/23 12:12 A&P Assessment and plan (1) Acute alteration in mental status: Most history obtained from her son, appears to have had an episode or episodes of alteration mental status, acute encephalopathy suspected possibly metabolic encephalopathy with a degree of metabolic anion gap acidosis, anion gap 20, lactic acid 2.8. Not clear source of this. No indication of acute infection. He is on metformin which was recently started. Hold metformin at this time. Possibly metformin induced lactic acidosis. With diabetes, urine ketones negative, however, serum ketones requested also negative. Reported staring spell, no overt seizure-like activity. Currently appears to back to her baseline post prior stroke. In case of additional episode catalog librarian EEG, consider follow-up with outpatient EEG, discussed with her her son. We will assess MRI brain. She otherwise does not appear to have any persistent focal changes, focal changes reported from this morning, including some slurred speech, difficulty ambulating with possibly weakness in the right side appears to have been resolved. She otherwise has no headache, no reported fever, no leukocytosis, no suggestion of AUDITOR APPRAISER infection. Discussed with him additional possibility of medication effect, possibly Wellbutrin. Discussed decreasing the dose will decrease down to 100 mg twice daily. Discussed additionally consideration of bradycardia, possibility of worse bradycardia at home and/or pause. Monitor on telemetry while here. Will obtain limited TTE to compare with prior admission. Obtain troponin EKG series to exclude possible cardiac ischemia as the cause. Check TSH, magnesium. Otherwise does not appear to have any new persistent focal abnormalities to suggest CVA. TIA a possibility, although seems possibly less likely. No stenosis noted on CTA head and neck. Blood pressure with some fluctuation, but overall area of CVA appears improved with decreased edema. Blood pressure with some fluctuation, will check orthostatics for possible orthostatic hypotension contributing to her AMS while sitting up and/or standing up this morning. He is on HCTZ, but sodium is WNL. Check B12, folic acid. (2) Bradycardia: As above (3) Acute right-sided weakness: As above (4) Staring episodes: This morning. As above. (5) Gait instability: As above. PT evaluation. (6) Metabolic acidosis: As above. (7) Hypertensive disorder: As above. He is on HCTZ Plan DM2: Hold metformin with lactic acidosis. Accu-Cheks requested. Mild SSI. CC diet. Enlarged RIGHT infraclavicular lymph node measuring 1.5 cm. This appears progressed from March 09, 2023. Recommend interval follow-up with contrast- enhanced CT neck Discussed with ER physician, ER documentation reviewed. Attestations Medical Necessity Statement*: Place in observation for assessment management of episode of altered mental status, bradycardia, metabolic acidosis. Diagnoses Acute alteration in mental status R41.82 Bradycardia R00.1 Acute right-sided weakness R53.1 Staring episodes R40.4 Gait instability R26.81 Metabolic acidosis E87.20 Hypertensive disorder I10
--- NOTE | 2023-03-29 17:17 | USCV_ITS ---
Sydney Zambrano Age: 62 Gender: F : 1960 Exam Date: 03/29/2023 17:29 Ordering Phys: Edmundo Guerrero MD Technologist: RADHA Exam Location: [facility] [place] Indication: BRADYCARDIA BP: 122 / 65 HR: 52 Rhythm: Sinus Technical Quality: Adequate MEASUREMENTS (Male / Female) Normal Values 2D ECHO LVOT Diameter 2.0 cm LV Ejection Fraction MOD 2C 61.9 % LV Ejection Fraction 2C AL 61.7 % LA Diameter 3.9 cm LA Width 2.8 cm LA Height 4.1 cm RA Width 2.2 cm RA Height 4.2 cm Aorta at Sinotubular Diameter 2.0 cm M-MODE Aortic Annulus Diameter 2.1 cm LA Ao Ratio MM 1.9 MV E Point Septal Separation 0.8 cm DOPPLER Right Atrial Pressure 8.0 mmHg FINDINGS Left Ventricle Right Ventricle Right Atrium Left Atrium Mitral Valve Aortic Valve Tricuspid Valve Pulmonic Valve Pericardium Aorta IVC CONCLUSIONS There is a limited echocardiogram performed to assess LV systolic function. LV systolic function is normal with EF 55 to 60%. No regional wall motion abnormalities are seen. Juan J Gonzalez MD (Electronically Signed) Final Date: 29 March 2023 18:11 S
[2023-03-29 17:38] LABS: Reflex Lactate Order REFLEX LACTIC ORDERD
[2023-03-29] MEDS: heparin 5,000 unit/mL INJ 1 mL 5000 UNIT SUBCUT (18:06)
--- NOTE | 2023-03-29 18:12 | ECG_ITS ---
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 Measurements Intervals [place] Rate: 64 P: 61 NH: 173 QRS: 26 QRSD: 103 T: 57 QT: 428 QTc: 443 Interpretive Statements SINUS RHYTHM WITH OCCASIONAL SUPRAVENTRICULAR PREMATURE COMPLEXES POSSIBLE ANTERIOR MYOCARDIAL INFARCTION , OF INDETERMINATE AGE [30 ms Q WAVE IN V3/V4, OR R < 0.2 mV IN V4] Compared to ECG 03/29/2023 12:32:25 Myocardial infarct finding now present Electronically Signed On 03-30-2023 0:34:36 CDT by Deann Sanchez M.D. [id number]
[2023-03-29 18:42] LABS: Troponin(5th) Baseline 9 ng/L (0-10)
[2023-03-29 18:56] LABS: Magnesium 1.9 mg/dL (1.7-2.3); Thyroid Stimulating Hormone 0.92 uIU/mL (0.27-4.20); Vitamin B12 383 pg/mL (232-1245)
[2023-03-29 19:21] LABS: Lactic Acid level (Lactate) 2.9 mmol/L (0.5-2.2)
[2023-03-29 20:23] LABS: Troponin 5 2HR 11.29 ng/L (0-10); Troponin 5 2HR Delta 2.29 ABS# (0-10)
[2023-03-29] MEDS: ezetimibe 10 mg Tablet PO (21:21)
[2023-03-29] MEDS: atorvastatin 40 mg Tablet 80 MG PO (21:21)
[2023-03-29] MEDS: buPROPion SR (12 HR) 150 mg Tablet PO (21:21)
--- NOTE | 2023-03-29 23:17 | ECG_ITS ---
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 Measurements Intervals [place] Rate: 50 P: 37 FL: 175 QRS: 47 QRSD: 86 T: 50 QT: 466 QTc: 426 Interpretive Statements SINUS BRADYCARDIA NONSPECIFIC T-WAVE ABNORMALITY Compared to ECG 03/29/2023 18:12:14 T-wave abnormality now present Sinus rhythm no longer present Myocardial infarct finding no longer present Electronically Signed On 03-30-2023 9:47:50 CDT by Juan J Gonzalez M.D. [email or web address] [email or web address]/store/[id number]
[2023-03-29 23:48] LABS: Troponin 5 6HR 11.73 ng/L (0-10)
[2023-03-29 23:52] LABS: Troponin 5 6HR Delta 2.73 ng/L (0-12)
[2023-03-30] VITALS (10 sets, daily range): BP systolic 100–133; BP diastolic 58–78; PULSE 49–61; RESP 16–18; TEMP 36.4–36.9; O2SAT 96–98
[2023-03-30 04:41] LABS: Basophils # 0.1 10^3/uL (0.0-0.1); Basophils % 0.8 %; Eosinophils # 0.3 10^3/uL (0.0-0.8); Eosinophils % 4.4 %; Hematocrit 41.9 % (37.0-47.0); Hemoglobin 13.3 g/dL (11.5-15.3); Lymphocytes # 2.6 10^3/uL (0.8-4.8); Lymphocytes % 33.3 %; Mean Corpuscular HGB Conc 31.7 g/dL (30.0-36.0); Mean Corpuscular Hemoglobin 30.2 pg (28.0-34.0); Mean Platelet Volume 10.6 fL (7.4-10.4); Monocytes # 0.6 10^3/uL (0.2-0.9); Monocytes % 7.7 %; Neutrophils # 4.15 10^3/uL (1.8-7.7); Neutrophils % 53.3 %; Nucleated Red Blood Cells % 0 %; Platelet Count 237 10^3/cmm (130-400); Red Blood Count 4.41 10^6/uL (4.1-5.3); Red Cell Distribution Width 12.5 % (12.1-15.1); White Blood Count 7.8 10^3/uL (4.0-10.0)
[2023-03-30 05:02] LABS: Anion Gap 15.8 (5-19); Blood Urea Nitrogen 18 mg/dL (8-23); Carbon Dioxide 28 mmol/L (22-29); Chloride 101 mmol/L (98-107); Glomerular Filtration Rate 41.4 mL/min (90-130); Glucose 151 mg/dL (65-115); Osmolality Calculated 297 mOsm/kg (285-295); Potassium 3.8 mmol/L (3.5-5.1); Sodium 141 mmol/L (136-145)
[2023-03-30] MEDS: clopidogrel 75 mg Tablet PO (05:16)
[2023-03-30] MEDS: aspirin 81 mg EC Tablet PO (05:16)
[2023-03-30] MEDS: heparin 5,000 unit/mL INJ 1 mL 5000 UNIT SUBCUT (05:16)
[2023-03-30] MEDS: hydroCHLOROthiazide 25 mg Tablet PO (05:22)
[2023-03-30 06:52] LABS: Glucose Point of Care 161 mg/dL (70-110)
[2023-03-30] MEDS: buPROPion SR (12 HR) 150 mg Tablet PO ×2 (08:46→20:18)
--- NOTE | 2023-03-30 10:36 | MR_ITS ---
WS: [id number] MRI BRAIN WITH AND WITHOUT CONTRAST HISTORY: STROKE LIKE SYMPTOMS COMPARISON: 08/11/2011, CT head 03/09/2023 TECHNIQUE: Multiplanar imaging performed through the brain with MultiHance 20 ml's IV. Acute to subacute infarct involving the LEFT basal ganglia with extension into the grijalva radiata. Mi ld increased T1 signal and susceptibility suggesting component of hemorrhage. Infarct was described o n the prior CT also. This infarct also demonstrates peripheral enhancement on the postcontrast sequen ruddy. No additional diffusion abnormalities. Otherwise very minimal small vessel ischemic disease. No prior large territory infarct. Ventricles and extra-axial spaces are normal. Clivus and pituitary gland are normal. Visualized posterior fossa and brainstem are also normal. No additional masses or abnormal enhancement. Dural venous sinuses are normal. Paranasal sinuses: Well aerated with no significant disease. Mastoid air cells: Mild mastoid air cell disease on the RIGHT. Calvarium and scalp: Normal. MR/MR head wo/w con [id number] IMPRESSION: 1. Subacute infarct LEFT basal ganglia with a small hemorrhagic component. The re is mild peripheral enhancement. Due to the enhancement suggest repeat MRI br ain imaging with contrast in 6 weeks to confirm there is no underlying mass wit h enhancement. 2. Mild small vessel ischemic disease.
[2023-03-30] MEDS: gadobenate dimeglumine 20 mL vial IV (12:34)
[2023-03-30] MEDS: ezetimibe 10 mg Tablet PO (20:18)
[2023-03-30] MEDS: atorvastatin 40 mg Tablet 80 MG PO (20:18)
--- NOTE | 2023-03-30 21:10 | PM.PN ---
Subjective Subjective: She states that she is doing all right today. Denies any new symptoms, denies any return of previous symptoms she experienced prior to admission. Vitals/I&O/Wt Last Vital Signs Temp 97.9 F 03/30/23 15:23 Pulse 57 L 03/30/23 15:23 Resp 17 03/30/23 15:23 BP 131/75 03/30/23 15:23 Pulse Ox 96 03/30/23 15:23 O2 Del Method Room Air 03/30/23 15:23 03/30/23 03/30/23 03/30/23 06:59 14:59 22:59 Intake Total 300 / 300 720 / 720 480 / 1200 Balance 300 / 300 720 / 720 480 / 1200 Weight last 48 hrs Weight 69.853 kg Physical Exam Narrative: Family at bedside. Const: COMMON NORMALS: patient oriented x3 and alert GENERAL APPEARANCE: cooperative ORIENTATION/CONSCIOUSNESS: Yes awake HENMT: COMMON NORMALS: oropharynx normal Neck/C-Spine: COMMON NORMALS: no JVD Resp: COMMON NORMALS: normal respiratory effort and clear to auscultation bilaterally AUSCULTATION: clear to auscultation bilaterally Cardio: COMMON NORMALS: no JVD, regular rhythm, S1 normal heart sound present, S2 normal heart sound present and No murmurs present (Cardio) RHYTHM: regular rhythm HEART SOUNDS: S1 normal heart sound present and S2 normal heart sound present GI: COMMON NORMALS: Normal to inspection, nondistended, normoactive bowel sounds present, Soft to palpation and non-tender PALPATION: Yes Soft to palpation Extremity: COMMON NORMALS: no joint enlargement and no pedal edema OTHER: She appears slightly tired with somewhat flat affect. She otherwise is pleasant and cooperative. She is responsive without any major delays. Oriented x3. Follows directions. No difficulty tracking. Visual solorio intact, no visual extinction. I do not appreciate facial droop. No drift in upper or lower extremities. FNF without abnormality. Symmetrical sensory exam, without sensory extinction. Neuro: COMMON NORMALS: patient oriented x3 and moves all extremities SENSORIUM/ORIENTATION: Yes alert Skin: COMMON NORMALS: no rashes or lesions noted GENERAL SKIN EXAM: no rashes or lesions noted Data 03/30/23 04:15 03/30/23 04:15 A&P Assessment and plan (1) Acute alteration in mental status: Resolved. Discussed with him what further work-up. Orthostatics were unremarkable. Troponin series unremarkable. Noted metabolic acidosis/anion gap acidosis has resolved. Anticipate lactic acidosis resolved. Discussed consideration of resuming metformin. Noted mild ROHIT, creatinine up to 1.3. Unclear if possibly related. Additionally went for MRI today, noted small focus of hemorrhagic transformation in previously known stroke area in left basal ganglia. With some enhancement, suggested repeat MRI with contrast in 6 weeks to confirm there is no underlying mass with enhancement. Discussed with the patient would like to discuss with neurology with regards to dual antiplatelets, as well as staring spells. She has not had any recurrence of these episodes but again could not exclude seizure. Discussed follow-up with outpatient EEG. Discussing with our on-call neurologist this evening we would be able to resume dual antiplatelets, otherwise a message will passed on to Dr Cast regarding her admission and to allow him to make determination regarding benefit starting antiepileptic empirically. Discussed with him additional possibility of medication effect, possibly Wellbutrin. Discussed decreasing the dose will decrease down to 100 mg twice daily. TSH, magnesium noted normal. Discussed manager monitoring at discharge. Otherwise does not appear to have any new persistent focal abnormalities to suggest CVA. TIA a possibility, although seems possibly less likely. No stenosis noted on CTA head and neck. Blood pressure with some fluctuation, but overall area of CVA appears improved with decreased edema. Blood pressure with some fluctuation, will check orthostatics for possible orthostatic hypotension contributing to her AMS while sitting up and/or standing up this morning. He is on HCTZ, but sodium is WNL. Normal B12, folic acid. Neurology note reviewd from recent visit. (2) Bradycardia: As above (3) Acute right-sided weakness: As above (4) Staring episodes: This morning. As above. (5) Gait instability: As above. PT evaluation. (6) Metabolic acidosis: As above. (7) Hypertensive disorder: As above. She is on HCTZ Plan DM2: Hold metformin with lactic acidosis. Accu-Cheks requested. Mild SSI. CC diet. Enlarged RIGHT infraclavicular lymph node measuring 1.5 cm. This appears progressed from March 09, 2023. Recommend interval follow-up with contrast-enhanced CT neck. Attestations Medical Necessity Statement*: Continue hospitalization for further optimization of stroke medication, monitoring with small hemorrhagic transformation of her previous stroke, with anticipated discharge in the morning. Diagnoses Acute alteration in mental status R41.82 Bradycardia R00.1 Acute right-sided weakness R53.1 Staring episodes R40.4 Gait instability R26.81 Metabolic acidosis E87.20 Hypertensive disorder I10
[2023-03-31 04:00] VITALS: BP 126/71; PULSE 60; RESP 16; TEMP 36.7; O2SAT 97
[2023-03-31 04:26] LABS: Basophils # 0.1 10^3/uL (0.0-0.1); Basophils % 0.9 %; Eosinophils # 0.3 10^3/uL (0.0-0.8); Eosinophils % 3.4 %; Hematocrit 41.5 % (37.0-47.0); Hemoglobin 13.4 g/dL (11.5-15.3); Lymphocytes # 2.7 10^3/uL (0.8-4.8); Lymphocytes % 31.1 %; Mean Corpuscular HGB Conc 32.3 g/dL (30.0-36.0); Mean Corpuscular Hemoglobin 30.5 pg (28.0-34.0); Mean Corpuscular Volume 94.5 fl (81-99); Mean Platelet Volume 10.9 fL (7.4-10.4); Monocytes # 0.7 10^3/uL (0.2-0.9); Monocytes % 7.5 %; Neutrophils # 4.97 10^3/uL (1.8-7.7); Neutrophils % 56.8 %; Nucleated Red Blood Cells % 0 %; Platelet Count 238 10^3/cmm (130-400); Red Blood Count 4.39 10^6/uL (4.1-5.3); Red Cell Distribution Width 12.2 % (12.1-15.1); White Blood Count 8.8 10^3/uL (4.0-10.0)
[2023-03-31 04:46] LABS: Blood Urea Nitrogen 16 mg/dL (8-23); Calcium 9.1 mg/dL (8.5-10.5); Carbon Dioxide 27 mmol/L (22-29); Chloride 100 mmol/L (98-107); Glomerular Filtration Rate 45.4 mL/min (90-130); Glucose 163 mg/dL (65-115); Osmolality Calculated 295 mOsm/kg (285-295); Sodium 140 mmol/L (136-145)
[2023-03-31] MEDS: hydroCHLOROthiazide 25 mg Tablet PO (05:05)
[2023-03-31 06:00] VITALS: PULSE 55
[2023-03-31 07:43] VITALS: BP 139/69; PULSE 66; RESP 17; O2SAT 96
[2023-03-31] MEDS: buPROPion SR (12 HR) 150 mg Tablet PO (08:52)
[2023-03-31 12:00] VITALS: BP 115/74; PULSE 61; RESP 17; O2SAT 94
--- NOTE | 2023-03-31 12:14 | P.DS_ITS ---
Discharge Providers Date of Admission: 03/30/23 16:34 Date of Discharge: March 31, 2023 Attending Provider at Admission: Edmundo Guerrero Attending Provider at Discharge: Edmundo Guerrero Primary Care Provider: Christine Burger NP Diagnoses at Discharge Discharge Diagnosis (1) Acute alteration in mental status: Status: Acute (2) Bradycardia: Status: Acute (3) Acute right-sided weakness: Status: Acute (4) Staring episodes: Status: Acute (5) Gait instability: Status: Acute (6) Metabolic acidosis: Status: Acute (7) Hypertensive disorder: Status: Acute Reason for Visit Reason for Visit: stroke like symptoms Brief History: 62-year-old lady with recent history of 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 She was not a candidate for tPA and no large vessel occlusion amenable to endovascular intervention found on CTA.? She had been started on aspirin Plavix and statin.? She was not found to have atrial fibrillation on monitoring while in the hospital.? Was assessed by echocardiogram with noted preserved EF, mild MVR.? Discharged home with home exercise program.? Was noted to have diagnosis of diabetes, started on metformin. She was brought to ER for evaluation this afternoon after not acting right at home as per family.? This morning she woke up and they say was staring at the wall after sitting up, then went back to sleep.? Later on woke up and walked out into the living room and they state was staring at or through her .? Evangelist donnelly then went out for a drive in the air conditioned car, and on returning home she was more disoriented, reportedly was not recognizing her family, and reportedly had difficulty walking. With concern for possible focal abnormality stroke code was called in ER and she was assessed for possible CVA.? She was not a candidate for tPA.? CTA head and neck were obtained, with noted previously described presumed subacute infarct in left lateral basal ganglia appearing less prominent with decreased edema.? No intracranial hemorrhage or mass effect.? No ICA stenosis bilaterally.? No flow- limiting intracranial stenosis. Incidentally seen enlarged right infraclavicular lymph node measuring 1.5 cm.? Appearing progressed from March 09, 2023.? Recommended interval follow-up with contrast-enhanced CT neck. She and family denies any seizure-like activity, no known fever, no headache, dizziness, nausea or vomiting.? She states she does get somewhat lightheaded when she stands up.? She states she felt something was off today, but could not really tell what was different.? She is currently reportedly close to her poststroke baseline.? Heart rate is noted slow in ER, down into the 50s which seems lower than prior.? She denies chest pain or pressure.? Blood pressure with some fluctuation between 120s and 150s systolic.? She is saturating well on room air. Otherwise noted minimally bumped WBC, 10.9, on blood chemistry and noted some anion gap acidosis, anion gap of 20, bicarb 26.? Blood glucose 145.? Otherwise liver, renal parameters normal.? UA unremarkable.? UDS unremarkable. Chest x-ray without acute pulmonary change. She denies any other medication changes apart from the new medications that were started for her last admission.? She denies missing or doubling up on any doses.? Denies any EtOH or recreational drug use. Hospital Course Hospital Course She did well during hospitalization. Did not have any further recurrence of confusion or staring spells. Neurological exam remained largely nonfocal. Metformin was held in case of contribution to lactic acidosis/metabolic acidosis. Metabolic status has resolved. Noted mild ROHIT, creatinine up to 1.3 on 03/30, today with improvement. Bradycardia while in hospital without worsening. Asymptomatic. TSH, B12, folic acid were normal. Magnesium normal. It is confirmed by the special education secretary that she will be set up with heart monitor after discharge. She additionally already has a referral for EEG on outpatient basis by her neurologist. During hospitalization underwent additional assessment by MRI of the brain which showed previously known left basal ganglia stroke, now with noted small hemorrhagic component. As discussed with on-call neurology this is small, discussed with her and family as per recommendation continue both aspirin and Plavix for now unless discontinued by neurology. Additionally her admission and additional staring spells were related to her neurologist. As per discussion with family since nonconvulsive seizures cannot be excluded she ended up being started empirically on Keppra by Dr. Cast which is continued at discharge. She is asked to follow-up with neurology. With mild peripheral enhancement around the stroke area on MRI, repeat contrast MRI as per suggestion is requested for 6 weeks to confirm there is no underlying mass. At discharge metformin is not continued, although rare just in case lactic acidosis related to metformin, as per discussion of risks she is instead started on dapagliflozin. Additionally please follow-up noted enlarged right infraclavicular lymph node measuring 1.5 cm with progression since February imaging. Please follow-up with contrast-enhanced CT neck. Physical Exam Narrative: Family at bedside. Const: COMMON NORMALS: patient oriented x3 and alert GENERAL APPEARANCE: cooperative ORIENTATION/CONSCIOUSNESS: Yes awake OTHER: She reports feeling well without recurrence of any symptoms. HENMT: COMMON NORMALS: oropharynx normal Neck/C-Spine: COMMON NORMALS: no JVD Resp: COMMON NORMALS: normal respiratory effort and clear to auscultation bilaterally AUSCULTATION: clear to auscultation bilaterally Cardio: COMMON NORMALS: no JVD, regular rhythm, S1 normal heart sound present, S2 normal heart sound present and No murmurs present (Cardio) RHYTHM: regular rhythm HEART SOUNDS: S1 normal heart sound present and S2 normal heart sound present GI: COMMON NORMALS: Normal to inspection, nondistended, normoactive bowel sounds present, Soft to palpation and non-tender PALPATION: Yes Soft to palpation Extremity: COMMON NORMALS: no joint enlargement and no pedal edema Neuro: COMMON NORMALS: patient oriented x3 and moves all extremities SENSORIUM/ORIENTATION: Yes alert OTHER: No changes in neurological condition. Remains awake and alert, responsive. No further staring episodes. Moving all extremities. Skin: COMMON NORMALS: no rashes or lesions noted GENERAL SKIN EXAM: no rashes or lesions noted Discharge Data Studies Completed and Pending Completed Studies During Hospitalization Category Date Time Status CT angio headneck* [id number] Stat Cat Scan 03/29/23 12:16 Completed XR chest 1V portable [id number] Stat Exams 03/29/23 12:16 Completed MR head wo/w con [id number] Routine MRI 03/30/23 10:36 Completed CV. echo limited [id number] Routine Ultrasound 03/29/23 17:17 Completed Pending at discharge Category Date Time Status Basic Metabolic Panel AM LABS Lab 04/01/23 04:00 Ordered Complete Blood Count w/Auto AM LABS Lab 04/01/23 04:00 Ordered Radiology Impressions Chest X-Ray 03/29/23 12:16 IMPRESSION: No acute pulmonary change Head/Neck CTA 03/29/23 12:16 IMPRESSION: 1. No evidence of intracranial hemorrhage or mass effect. 2. Previously described presumed to subacute infarct in the LEFT lateral basal ganglia appears less prominent today with decreased edema. 3. No significant ICA stenosis bilaterally. 4. No flow-limiting intracranial stenosis. 5. Enlarged RIGHT infraclavicular lymph node measuring 1.5 cm. This appears progressed from March 09, 2023. Recommend interval follow-up with contrast- enhanced CT neck Head MRI 03/30/23 10:36 IMPRESSION: 1. Subacute infarct LEFT basal ganglia with a small hemorrhagic component. There is mild peripheral enhancement. Due to the enhancement suggest repeat MRI brain imaging with contrast in 6 weeks to confirm there is no underlying mass with enhancement. 2. Mild small vessel ischemic disease. Laboratory Results WBC 8.8 10^3/uL (4.0-10.0) 03/31/23 03:49 RBC 4.39 10^6/uL (4.1-5.3) 03/31/23 03:49 Hgb 13.4 g/dL (11.5-15.3) 03/31/23 03:49 Hct 41.5 % (37.0-47.0) 03/31/23 03:49 MCV 94.5 fl (81-99) 03/31/23 03:49 MCH 30.5 pg (28.0-34.0) 03/31/23 03:49 MCHC 32.3 g/dL (30.0-36.0) 03/31/23 03:49 RDW 12.2 % (12.1-15.1) 03/31/23 03:49 Plt Count 238 10^3/cmm (130-400) 03/31/23 03:49 MPV 10.9 fL (7.4-10.4) H 03/31/23 03:49 Neut % (Auto) 56.8 % 03/31/23 03:49 Lymph % (Auto) 31.1 % 03/31/23 03:49 [place] % (Auto) 7.5 % 03/31/23 03:49 Eos % (Auto) 3.4 % 03/31/23 03:49 Baso % (Auto) 0.9 % 03/31/23 03:49 Neut # (Auto) 4.97 10^3/uL (1.8-7.7) 03/31/23 03:49 Lymph # (Auto) 2.7 10^3/uL (0.8-4.8) 03/31/23 03:49 [place] # (Auto) 0.7 10^3/uL (0.2-0.9) 03/31/23 03:49 Eos # (Auto) 0.3 10^3/uL (0.0-0.8) 03/31/23 03:49 Baso # (Auto) 0.1 10^3/uL (0.0-0.1) 03/31/23 03:49 Nucleated RBC % (auto) 0 % 03/31/23 03:49 Nucleated RBCs # 0.0 /100WBC 03/31/23 03:49 PT 13.70 SECONDS (12.1-14.9) 03/29/23 12:12 INR 1.02 (0.8-1.2) 03/29/23 12:12 APTT 26.8 SECONDS (23.9-36.7) 03/29/23 12:12 Sodium 140 mmol/L (136-145) 03/31/23 03:49 Potassium 4.0 mmol/L (3.5-5.1) 03/31/23 03:49 Chloride 100 mmol/L (98-107) 03/31/23 03:49 Carbon Dioxide 27 mmol/L (22-29) 03/31/23 03:49 Anion Gap 17.0 (5-19) 03/31/23 03:49 BUN 16 mg/dL (8-23) 03/31/23 03:49 Creatinine 1.2 mg/dL (0.5-0.9) H 03/31/23 03:49 GFR Calculation 45.4 mL/min (90-130) L 03/31/23 03:49 Glucose 163 mg/dL (65-115) H 03/31/23 03:49 POC Glucose 161 mg/dL (70-110) H 03/30/23 06:47 Calculated Osmolality 295 mOsm/kg (285-295) 03/31/23 03:49 Lactic Acid 2.8 mmol/L (0.5-2.2) H 03/29/23 12:12 Lactic Acid (Sepsis) 2.9 mmol/L (0.5-2.2) H 03/29/23 18:42 Calcium 9.1 mg/dL (8.5-10.5) 03/31/23 03:49 Magnesium 1.9 mg/dL (1.7-2.3) 03/29/23 17:45 Total Bilirubin 0.3 mg/dL (0.15-1.2) 03/29/23 12:12 AST 17 U/L (0-32) 03/29/23 12:12 ALT 15 U/L (0-33) 03/29/23 12:12 Alkaline Phosphatase 89 U/L (35-105) 03/29/23 12:12 Troponin T Baseline 9 ng/L (0-10) 03/29/23 17:45 Troponin T 120 Minute 11.29 ng/L (0-10) H 03/29/23 19:51 Delta Troponin T 2.29 ABS# (0-10) 03/29/23 19:51 Troponin T Hi Sens 6Hr 11.73 ng/L (0-10) H 03/29/23 23:20 Troponin T Hi Sens 6Hr Delta 2.73 ng/L (0-12) 03/29/23 23:20 Total Protein 7.7 g/dL (6.6-8.7) 03/29/23 12:12 Albumin 4.2 g/dL (3.5-5.2) 03/29/23 12:12 Globulin 3.5 g/dL (1.3-4.6) 03/29/23 12:12 Vitamin B12 383 pg/mL (232-1245) 03/29/23 17:45 Folate 13.0 ng/mL (4.8-37.3) 03/29/23 18:42 TSH 0.92 uIU/mL (0.27-4.20) 03/29/23 17:45 Urine Color Yellow (Yellow) 03/29/23 15:03 Urine Appearance Clear (CLEAR) 03/29/23 15:03 Urine pH 5 (5-7) 03/29/23 15:03 Ur Specific [place] 1.005 (1.005-1.030) 03/29/23 15:03 Urine Protein Neg (Negative) 03/29/23 15:03 Urine Glucose (UA) Norm (Normal) 03/29/23 15:03 Urine Ketones Negative (Negative) 03/29/23 15:03 Urine Blood Neg (Negative) 03/29/23 15:03 Urine Nitrate Negative (Negative) 03/29/23 15:03 Urine Bilirubin Neg (Negative) 03/29/23 15:03 Urine Urobilinogen Norm mg/dL (Negative) 03/29/23 15:03 Ur Leukocyte Esterase Negative (Negative) 03/29/23 15:03 Urine Opiates Screen Negative ng/mL (Negative) 03/29/23 15:03 Ur Barbiturates Screen Negative ng/mL (Negative) 03/29/23 15:03 Ur Phencyclidine Scrn Negative ng/mL (Negative) 03/29/23 15:03 Ur Amphetamines Screen Negative ng/mL (Negative) 03/29/23 15:03 U Benzodiazepines Scrn Negative ng/mL (Negative) 03/29/23 15:03 Urine Cocaine Screen Negative ng/mL (Negative) 03/29/23 15:03 U Marijuana (THC) Screen Negative ng/mL (Negative) 03/29/23 15:03 Serum Ketones Negative (Negative) 03/29/23 12:12 Vitals Last Vital Signs Temp 98.0 F 03/31/23 04:00 Pulse 61 03/31/23 12:00 Resp 17 03/31/23 12:00 BP 115/74 03/31/23 12:00 Pulse Ox 94 03/31/23 12:00 O2 Del Method Room Air 03/30/23 20:00 Discharge Plan Discharge Patient Disposition: Home Condition: Stable Prescriptions: New levetiracetam 500 mg Tablet 500 mg PO BID@0900,2100 Qty: 180 0RF dapagliflozin 5 mg tablet 5 mg PO DAILY Qty: 90 0RF Continued hydrochlorothiazide 25 mg tablet 25 mg PO QAM atorvastatin 80 mg tablet 80 mg PO BEDTIME ezetimibe [Zetia] 10 mg Tablet 10 mg PO BEDTIME bupropion HCl 150 mg tablet sustained-release 12 hr 150 mg PO BID estradiol 0.5 mg tablet 0.5 mg PO QAM clopidogrel 75 mg tablet 75 mg PO QAM aspirin 81 mg tablet,delayed release (DR/EC) 81 mg PO QAM Discontinued metformin 500 mg tablet 500 mg PO BID Qty: 60 0RF Discharge Orders: Discharge Order (Routine); Ordered 03/31/23 Ordered By: Edmundo Guerrero Other Ambulatory Orders: MR head wo/w con [id number] (Routine) Timeframe: 6 Weeks Facility: [facility] - Location: Radiology [facility] Ordered By: Edmundo Guerrero Referrals: Jerrica Espinosa MD [Physician] - 05/25/23 3:30 pm Christine Burger NP [Primary Care Provider] - 04/04/23 11:00 am () Discharge Diet: Cardiac and Diabetic Discharge Activity: As per PT/OT instructions Patient Instructions: Levetiracetam (By mouth), Dapagliflozin (By mouth), Bradycardia (GEN), Fall Prevention (GEN), Metabolic Acidosis (GEN), Stroke Stoplight Activity Restrictions/Additional Instructions: [facility] SCHEDULING WILL CALL YOU WITH APPOINTMENT FOR MRI [phone] APPOINTMENT FOR HEART MONITOR AT [facility] ON APRIL 06 AT 12:45 Please follow-up with neurology with regards to episodes, not excluded possible seizures, you are being started empirically on seizure medication as per neurology. Also please follow-up with neurology regarding small mount of blood transformed in the previous stroke, for now as per instruction continue both aspirin and Plavix until/unless changed by neurology. Please follow up on outpatient EEG as ordered by your neurologist. Please follow-up with your primary provider also regarding enlarged right lymph node under your clavicle somewhat progressed since February. Please have your primary provider additionally obtain follow-up contrast enhanced CT neck. Please follow through with having heart monitor set up to additionally monitor your slow heart rate for any significant slowing or pauses. Follow-up with your primary care provider for results. Discharge Attestations Time Spent in Discharge Care*: greater than 30 min Quality Metrics Clinical Quality Measures [ No reported AMI, CVA or VTE this stay] Coding Level of Care Code 47285 Total time (in minutes) for Discharge: 55 Diagnoses Acute alteration in mental status R41.82 Bradycardia R00.1 Acute right-sided weakness R53.1 Staring episodes R40.4 Gait instability R26.81 Metabolic acidosis E87.20 Hypertensive disorder I10
[2023-03-31 12:30] VITALS: BP 115/74; PULSE 61; RESP 17; TEMP 36.7; O2SAT 94
== END 2023-03-31 12:16 | disposition home or self-care (01) | DRG 947 ==
LOC: ER 15:45 → MEDSURG 16:35
PROVIDERS: Admitting Provider Internal Medicine; Emergency Provider Emergency Medicine; PCP Nurse Practitioner Family; Visit Provider Internal Medicine
DX: R41.82 Altered mental status, unspecified (principal); G93.41 Metabolic encephalopathy; E87.20 Acidosis, unspecified; N17.9 Acute kidney failure, unspecified; I34.0 Nonrheumatic mitral (valve) insufficiency; E11.9 Type 2 diabetes mellitus without complications; Z79.84 Long term (current) use of oral hypoglycemic drugs; R00.1 Bradycardia, unspecified; Z86.73 Personal history of transient ischemic attack (TIA), and cerebral infarction without residual deficits; Z79.02 Long term (current) use of antithrombotics/antiplatelets; Z79.82 Long term (current) use of aspirin; Z79.890 Hormone replacement therapy; I10 Essential (primary) hypertension; R26.81 Unsteadiness on feet; R59.0 Localized enlarged lymph nodes; M81.0 Age-related osteoporosis without current pathological fracture; E78.00 Pure hypercholesterolemia, unspecified; K21.9 Gastro-esophageal reflux disease without esophagitis; H54.40 Blindness, one eye, unspecified eye
CPT/HCPCS: 36415; 36416; 70496; 70498; 70553; 71045; 80048; 80053; 80306; 81003; 82009; 82607; 82746; 82962; 83605; 83735; 84443; 84484; 85025; 85610; 85730; 93005; 93308; 96372; 97110; 97161; 99285; A9577; G0378; J1644; J1953; Q9967

== ENCOUNTER 2023-04-04 09:09 | Emergency (ER) | payer MEDICAID, SELFPAY ==
[2023-04-04 09:20] VITALS: BP 127/62; PULSE 55; RESP 16; TEMP 36.7; O2SAT 96; BMI 27.3
--- NOTE | 2023-04-04 09:32 | CT_ITS ---
WS: [id number] CT HEAD NONCONTRAST HISTORY: AMS, recent hemorrhagic stroke TECHNIQUE: Contiguous axial imaging performed through the brain in 2.5 mm imaging. Bone and soft tiss ue windows. Sagittal and coronal reformats reviewed. All CT scans at [facility] use at least one of these dose optimization techniques: automated exposure control; mA and/or kV adjustment per pa tient size (includes targeted exams where dose is matched to clinical indication); or iterative recon struction. DLP: 982.52 mGy.cm COMPARISON: 03/29/2023 No acute intracranial hemorrhage, midline shift or mass effect. Evolving LEFT basal ganglia subacute stroke as expected. No acute blood identified. No calcification. No midline shift. The amount of edema has decreased since the prior study. Ventricles: Normal size with no hydrocephalus. No inferior displacement of cerebellar tonsils. Paranasal sinuses: As visualized are clear. Mastoid air cells: Well pneumatized. Calvarium and scalp: Skull is intact with no soft tissue edema or swelling. CT/CT head wo con* [id number] IMPRESSION: 1. Improving very small subacute stroke in the LEFT basal ganglia. No acute bl ood products are identified. 2. No new area of sulcal effacement or edema. 3. No hydrocephalus.
--- NOTE | 2023-04-04 09:41 | ED_ITS ---
HPI - Altered Mental Status General: Chief Complaint: Altered Mental Status Stated Complaint: stroke like symptoms Time Seen by Provider: 04/04/23 09:31 [facility] PFSH: Medical History (Updated 04/01/23 @ 00:01 by ALLA Hilton) Blind left eye Diabetes mellitus GERD (gastroesophageal reflux disease) Heart murmur History of foot fracture History of toe fracture Hypercholesteremia Hypertensive disorder Osteoporosis Psoriasis Recurrent UTI Urinary incontinence Surgical History H/O bladder repair surgery H/O knee surgery left History of History of cholecystectomy History of eye surgery History of hysterectomy Family History Mother , at age 59 Hypertension Father No problems noted. Sister Diabetes Heart disease Breast cancer unknown age onset Brother Heart disease Denies family history of Colon cancer Ovarian cancer Clotting disorder Hyperlipidemia Anesthesia complication Bleeding disorder Uterine cancer Thyroid condition Stroke Social History Smoking and tobacco status: never smoked Alcohol intake: never Substance/Drug Use: never Course Vital Signs: Vital signs: Vital Signs Temperature 98.0 F 04/04/23 09:20 Pulse Rate 55 L 04/04/23 09:20 Respiratory Rate 16 04/04/23 09:20 Blood Pressure 127/62 04/04/23 09:20 Pulse Oximetry 96 04/04/23 09:20 Oxygen Delivery Me thod Room Air 04/04/23 09:20 Discharge Plan Discharge Condition: Stable Prescriptions: No Action hydrochlorothiazide 25 mg tablet 25 mg PO QAM atorvastatin 80 mg tablet 80 mg PO BEDTIME ezetimibe [Zetia] 10 mg Tablet 10 mg PO BEDTIME bupropion HCl 150 mg tablet sustained-release 12 hr 150 mg PO BID estradiol 0.5 mg tablet 0.5 mg PO QAM clopidogrel 75 mg tablet 75 mg PO QAM aspirin 81 mg tablet,delayed release (DR/EC) 81 mg PO QAM levetiracetam 500 mg Tablet 500 mg PO BID@0900,2100 Qty: 180 0RF dapagliflozin 5 mg tablet 5 mg PO DAILY Qty: 90 0RF Referrals: Christine Burger NP [Primary Care Provider] - Patient Instructions: Altered Mental Status (ED), Alcohol Intoxication (ED), Benzodiazepine Use Disorder (ED), Concussion (ED), Dementia (ED), Subarachnoid Hemorrhage (GEN), Hyponatremia (ED), Non-diabetic Hypoglycemia (ED), Hypoglycemia in a Person with Diabetes (ED) Coding Level of Care Code ED Phlebotomy Specialist for Jakub Silva
--- NOTE | 2023-04-04 09:43 | ECG_ITS ---
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 Measurements Intervals [place] Rate: 52 P: 25 [place]: 192 QRS: 5 QRSD: 94 T: 68 QT: 457 QTc: 426 Interpretive Statements SINUS BRADYCARDIA NONSPECIFIC T-WAVE ABNORMALITY Compared to ECG 03/30/2023 01:09:28 No significant changes Electronically Signed On 04-04-2023 17:23:53 CDT by Juan J Gonzalez M.D. [email or web address]
--- NOTE | 2023-04-04 09:49 | ED_ITS ---
HPI - General Adult General: Chief complaint: Altered Mental Status Stated complaint: stroke like symptoms Time Seen by Provider: 04/04/23 09:31 Source: patient Mode of arrival: wheelchair History of Present Illness: 62-year-old female presents to the emergency room with complaints of weakness difficulty eating drinking and walking. The setting this is a new phenomenon. On she presented to the emergency room with strokelike symptoms that she had for several days she is not a candidate for any kind intervention CT showed subacute infarct there was no thrombosis on CTA. She returned on March 29 MRI showed a small hemorrhagic lesion she was discharged home on March 31. Family presents today stating that since she was discharged home she has no difficulty with eating drinking walking they state this is all new that the symptoms were not present rather previous episodes of stroke. She has not had any vomiting. No reported falls. She clinic currently is on clopidogrel and aspirin. In discussing with family the plan was for outpatient rehab. Onset (ago): minute(s) Location: head Severity: moderate Pain Consistency: constant Relieving factors: none Exacerbating factors: none Associated symptoms: Deny chest pain, confusion, cough, diaphoresis, decreased appetite, dyspnea, fevers/chills, headache(s), malaise, nausea, rash, palpitations, seizures, short of breath, syncope, vomiting or weakness Treatments prior to arrival: none Review of Systems Const: Denies: fever(s), chills, malaise or diaphoresis ENMT: Denies: throat pain, ear or mastoid pain, nasal discharge or nasal con gestion Card: Denies: chest pain, palpitations or syncope Resp: Denies: dyspnea GI: Denies: nausea or vomiting : Denies: flank pain, difficulty voiding, dysuria, urinary frequency or urinary urgency Skin/Breast: Denies: rash Neuro: Denies: headache(s) or confusion PFS ED PFSH: Medical History Blind left eye Diabetes mellitus GERD (gastroesophageal reflux disease) Heart murmur History of foot fracture History of toe fracture Hypercholesteremia Hypertensive disorder Osteoporosis Psoriasis Recurrent UTI Urinary incontinence Surgical History H/O bladder repair surgery H/O knee surgery left History of History of cholecystectomy History of eye surgery History of hysterectomy Family History Mother , at age 59 Hypertension Father No problems noted. Sister Diabetes Heart disease Breast cancer unknown age onset Brother Heart disease Denies family history of Colon cancer Ovarian cancer Clotting disorder Hyperlipidemia Anesthesia complication Bleeding disorder Uterine cancer Thyroid condition Stroke Social History Smoking and tobacco status: never smoked Alcohol intake: never Substance/Drug Use: never Physical Exam Const: GENERAL APPEARANCE: cooperative and comfortable ORIENTATION/CONSCIOUSNESS: Yes awake and Yes oriented to time HENMT: COMMON NORMALS: normocephalic, atraumatic and hearing grossly normal bilaterally HEAD & SCALP: normocephalic and atraumatic Resp: COMMON NORMALS: normal respiratory effort, No retractions, No use of accessory muscles and clear to auscultation bilaterally AUSCULTATION: clear to auscultation bilaterally Cardio: COMMON NORMALS: regular rate, regular rhythm and No murmurs present (Cardio) RATE: regular rate RHYTHM: regular rhythm GI: COMMON NORMALS: Soft to palpation and No hepatosplenomegaly present AUSCULTATION: Yes normoactive bowel sounds PALPATION: Yes Soft to palpation, No Tenderness to palpation present (GI), No Guarding due to palpation present (GI) and Yes No hepatosplenomegaly present Extremity: COMMON NORMALS: normal to inspection, capillary refill normal, no clubbing, cyanosis or edema, no calf tenderness and no pedal edema Neuro: SENSORIUM/ORIENTATION: Yes oriented to time Skin: COMMON NORMALS: no rashes or lesions noted GENERAL SKIN EXAM: no rashes or lesions noted Course Vital Signs: Vital signs: Vital Signs Temperature 98.0 F 04/04/23 09:20 Pulse Rate 50 L 04/04/23 10:12 Respiratory Rate 16 04/04/23 09:20 Blood Pressure 128/60 04/04/23 10:12 Pulse Oximetry 96 04/04/23 10:12 Oxygen Delivery Me thod Room Air 04/04/23 09:20 MDM - General Adult Medical Decision Making She does have a mild acute renal impairment suspect from hydrochlorothiazide and poor intake we will stop hydrochlorothiazide and change amlodipine 2.5 p.o. daily should be rechecked with a repeat BMP later this week if there is still concern may need to stop the Farxiga although at her current GFR does not require any dose adjustment. Her other symptoms of weakness difficulty with balance and gait are likely from her recent strokes. Recommend that she go to rehab. Reviewing previous charts it was recommended that declined that we Kaye began today Case management came in the room they once again declined they want to do rehab themselves at home. CT actually shows improvement for other lab work did not show any acute process beyond the concern was the renal function which she was given IV fluids and we made the adjustment to her medication list. The family also been concerned about her blood glucose. Her blood sugars have been over 200 on a couple of occasions. Recommend she follow-up with primary care without for further adjustment for blood sugar control it is not significantly abnormal at this time. Medical Records I reviewed the patient's medical records. Lab Data I reviewed the patient's lab results. 04/04/23 09:51 04/04/23 09:[address] 04/04/23 09:32 IMPRESSION: 1. Improving very small subacute stroke in the LEFT basal ganglia. No acute blood products are identified. 2. No new area of sulcal effacement or edema. 3. No hydrocephalus. Laboratory Results WBC 11.2 10^3/uL (4.0-10.0) H 04/04/23 09:51 RBC 4.60 10^6/uL (4.1-5.3) 04/04/23 09:51 Hgb 14.1 g/dL (11.5-15.3) 04/04/23 09:51 Hct 42.6 % (37.0-47.0) 04/04/23 09:51 MCV 92.6 fl (81-99) 04/04/23 09:51 MCH 30.7 pg (28.0-34.0) 04/04/23 09:51 MCHC 33.1 g/dL (30.0-36.0) 04/04/23 09:51 RDW 12.1 % (12.1-15.1) 04/04/23 09:51 Plt Count 293 10^3/cmm (130-400) 04/04/23 09:51 MPV 11.0 fL (7.4-10.4) H 04/04/23 09:51 Neut % (Auto) 75.5 % 04/04/23 09:51 Lymph % (Auto) 15.6 % 04/04/23 09:51 [place] % (Auto) 5.7 % 04/04/23 09:51 Eos % (Auto) 2.2 % 04/04/23 09:51 Baso % (Auto) 0.7 % 04/04/23 09:51 Neut # (Auto) 8.43 10^3/uL (1.8-7.7) H 04/04/23 09:51 Lymph # (Auto) 1.7 10^3/uL (0.8-4.8) 04/04/23 09:51 [place] # (Auto) 0.6 10^3/uL (0.2-0.9) 04/04/23 09:51 Eos # (Auto) 0.2 10^3/uL (0.0-0.8) 04/04/23 09:51 Baso # (Auto) 0.1 10^3/uL (0.0-0.1) 04/04/23 09:51 Nucleated RBC % (auto) 0 % 04/04/23 09:51 Nucleated RBCs # 0.0 /100WBC 04/04/23 09:51 Sodium 135 mmol/L (136-145) L 04/04/23 09:51 Potassium 4.1 mmol/L (3.5-5.1) 04/04/23 09:51 Chloride 97 mmol/L (98-107) L 04/04/23 09:51 Carbon Dioxide 23 mmol/L (22-29) 04/04/23 09:51 Anion Gap 19.1 (5-19) H 04/04/23 09:51 BUN 45 mg/dL (8-23) H 04/04/23 09:51 Creatinine 1.7 mg/dL (0.5-0.9) H 04/04/23 09:51 GFR Calculation 30.4 mL/min (90-130) L 04/04/23 09:51 Glucose 202 mg/dL (65-115) H 04/04/23 09:51 Calculated Osmolality 297 mOsm/kg (285-295) H 04/04/23 09:51 Calcium 8.7 mg/dL (8.5-10.5) 04/04/23 09:51 Total Bilirubin 0.3 mg/dL (0.15-1.2) 04/04/23 09:51 AST 17 U/L (0-32) 04/04/23 09:51 ALT 15 U/L (0-33) 04/04/23 09:51 Alkaline Phosphatase 81 U/L (35-105) 04/04/23 09:51 Total Protein 7.6 g/dL (6.6-8.7) 04/04/23 09:51 Albumin 4.2 g/dL (3.5-5.2) 04/04/23 09:51 Globulin 3.4 g/dL (1.3-4.6) 04/04/23 09:51 Discharge Plan Discharge Patient Disposition: Home Clinical Impression: Cerebrovascular accident, Speech and language deficits, Acute renal impairment Condition: Stable Prescriptions: New amlodipine 2.5 mg tablet 2.5 mg PO DAILY Qty: 30 0RF Discontinued hydrochlorothiazide 25 mg tablet 25 mg PO QAM No Action atorvastatin 80 mg tablet 80 mg PO BEDTIME ezetimibe [Zetia] 10 mg Tablet 10 mg PO BEDTIME bupropion HCl 150 mg tablet sustained-release 12 hr 150 mg PO BID estradiol 0.5 mg tablet 0.5 mg PO QAM clopidogrel 75 mg tablet 75 mg PO QAM aspirin 81 mg tablet,delayed release (DR/EC) 81 mg PO QAM levetiracetam 500 mg Tablet 500 mg PO BID@0900,2100 Qty: 180 0RF dapagliflozin 5 mg tablet 5 mg PO QAM Discharge Orders: Discharge ED (Routine); Ordered 04/04/23 Ordered By: Lucio Garner Referrals: Christine Burger NP [Primary Care Provider] - Patient Instructions: Opioid Safety, Pain Management Activity Restrictions/Additional Instructions: You were seen today for weakness after your stroke. We recommended consideration of rehab placement as primary approach to improve function. You were found to have some mild renal impairment recommend that you stop the hydrochlorothiazide and instead take a low-dose amlodipine for blood pressure control. Your kidney function should be rechecked in 3 to 4 days. Your doctor may need to reevaluate continued use of the Farxiga if there is no improvement. Continue other medications as previously prescribed. Coding Level of Care Code ED Net Developer Consultant for Jakub Silva NIH stroke score NIHSS Level Of Consciousness - 1a: 0 Level Of Consciousness Questions - 1b: Both Correct Level Of Consciousness Commands - 1c: Both Correct Best Gaze - 2: Normal Visual Cueva - 3: No Visual Loss Facial Palsy - 4: Normal Motor Arm Right - 5: No Drift Motor Arm Left - 5: No Drift Motor Leg Right - 6: No Drift Motor Leg Left - 6: No Drift Limb Ataxia - 7: Absent Sensory - 8: Normal Best Language - 9: No Aphasia Dysarthia - 10: Normal Extinction And Inattention - 11: 0 Score Total Score: 0
[2023-04-04 10:12] VITALS: BP 128/60; PULSE 50; O2SAT 96
--- NOTE | 2023-04-04 10:13 | PC.PHAR ---
pts daughter verified pts medications
[2023-04-04 10:15] LABS: Basophils # 0.1 10^3/uL (0.0-0.1); Basophils % 0.7 %; Eosinophils # 0.2 10^3/uL (0.0-0.8); Eosinophils % 2.2 %; Hematocrit 42.6 % (37.0-47.0); Hemoglobin 14.1 g/dL (11.5-15.3); Lymphocytes # 1.7 10^3/uL (0.8-4.8); Lymphocytes % 15.6 %; Mean Corpuscular HGB Conc 33.1 g/dL (30.0-36.0); Mean Corpuscular Hemoglobin 30.7 pg (28.0-34.0); Mean Corpuscular Volume 92.6 fl (81-99); Monocytes # 0.6 10^3/uL (0.2-0.9); Monocytes % 5.7 %; Neutrophils # 8.43 10^3/uL (1.8-7.7); Neutrophils % 75.5 %; Nucleated Red Blood Cells % 0 %; Platelet Count 293 10^3/cmm (130-400); Red Cell Distribution Width 12.1 % (12.1-15.1); White Blood Count 11.2 10^3/uL (4.0-10.0)
[2023-04-04 10:32] LABS: Alanine Aminotransferase 15 U/L (0-33); Albumin Level 4.2 g/dL (3.5-5.2); Alkaline Phosphatase 81 U/L (35-105); Aspartate Amino Transferase 17 U/L (0-32); Blood Urea Nitrogen 45 mg/dL (8-23); Calcium 8.7 mg/dL (8.5-10.5); Carbon Dioxide 23 mmol/L (22-29); Chloride 97 mmol/L (98-107); Globulin 3.4 g/dL (1.3-4.6); Glomerular Filtration Rate 30.4 mL/min (90-130); Glucose 202 mg/dL (65-115); Osmolality Calculated 297 mOsm/kg (285-295); Sodium 135 mmol/L (136-145); Total Bilirubin 0.3 mg/dL (0.15-1.2); Total Protein 7.6 g/dL (6.6-8.7)
[2023-04-04 10:39] LABS: Anion Gap 19.1 (5-19); Potassium 4.1 mmol/L (3.5-5.1)
[2023-04-04] MEDS: sodium chloride 0.9% 1,000 ML 999 ML IV (11:10)
[2023-04-04 12:18] VITALS: BP 128/74; PULSE 74; RESP 18; O2SAT 97
== END 2023-04-04 12:19 | disposition home or self-care (01) ==
PROVIDERS: Emergency Provider Family Medicine; PCP Nurse Practitioner Family
DX: I63.9 Cerebral infarction, unspecified (principal); F80.9 Developmental disorder of speech and language, unspecified; N28.9 Disorder of kidney and ureter, unspecified; Z79.82 Long term (current) use of aspirin; Z79.02 Long term (current) use of antithrombotics/antiplatelets; E11.9 Type 2 diabetes mellitus without complications; Z87.440 Personal history of urinary (tract) infections
CPT/HCPCS: 70450; 80053; 85025; 93005; 99285; J7030

== ENCOUNTER → 2023-04-06 12:08 | Outpatient (BNVA) | payer MEDICAID, SELFPAY | PROVIDERS: PCP Nurse Practitioner Family; Visit Provider Internal Medicine Cardiovascular Disease | DX: I63.9 Cerebral infarction, unspecified (principal) | CPT/HCPCS: 93270 ==

== ENCOUNTER 2023-04-22 09:10 | Emergency (ER) | payer MEDICAID, SELFPAY ==
[2023-04-22 09:15] VITALS: BP 123/75; PULSE 50; RESP 16; TEMP 36.6; O2SAT 100; BMI 26.2
--- NOTE | 2023-04-22 09:33 | CTR_ITS ---
PROCEDURE INFORMATION: Exam: CT Head Without Contrast Exam date and time: 04/22/2023 10:09 AM Age: 62 years old Clinical indication: Syncope and collapse; Additional info: Syncope, head trauma, anticoagulation TECHNIQUE: Imaging protocol: Computed tomography of the head without contrast. Radiation optimization: All CT scans at this facility use at least one of these dose optimization techniques: automated exposure control; mA and/or kV adjustment per patient size (includes targeted exams where dose is matched to clinical indication); or iterative reconstruction. REPORTING DATA: Count of CT and Cardiac NM exams in prior 12 months: This patient has received 4 known CTs and 0 known cardiac nuclear medicine studies in the 12 months prior to the current study. COMPARISON: CT head wo con* [id number] 04/04/2023 9:54 AM RADIATION DOSE METRICS: Total DLP (mGy-cm): 1050.68 FINDINGS: Brain: There is a chronic left-sided ganglial capsular lacunar infarct. There is no mass effect midline shift, acute hemorrhage, extra-axial fluid collection or acute lobar infarct. Cerebral ventricles: No ventriculomegaly. Paranasal sinuses: Visualized sinuses are unremarkable. No fluid levels. Mastoid air cells: Visualized mastoid air cells are well aerated. Bones/joints: Unremarkable. No acute fracture. Soft tissues: Unremarkable. CT/CT head wo con* [id number] IMPRESSION: No acute intracranial process.
--- NOTE | 2023-04-22 09:33 | ECG_ITS ---
[facility] Test Date: 2023-04-22 Pat Name: Sydney Zambrano Department: Room: Gender: Female [employer]: : 1960 Requested By: Ronnie Gar Order Number: [id number] Sherry MD: Deann Sanchez M.D. Measurements Intervals [place] Rate: 51 P: 30 OR: 196 QRS: 0 QRSD: 94 T: 59 QT: 452 QTc: 418 Interpretive Statements SINUS BRADYCARDIA NONSPECIFIC ST & T-WAVE ABNORMALITY Compared to ECG 04/04/2023 09:43:07 No significant changes Electronically Signed On 04-22-2023 11:27:05 CDT by Deann Sanchez M.D. [id number]
[2023-04-22 09:41] VITALS: BP 125/64; PULSE 54; RESP 15; O2SAT 98
[2023-04-22 09:45] VITALS: BP 101/62; BP 111/58; BP 111/64; PULSE 53; PULSE 58
--- NOTE | 2023-04-22 09:56 | ED_ITS ---
HPI - Syncope General: Chief Complaint: Syncope Stated Complaint: 3Xpassing out/fell struck head/wears heart monitor Time Seen by Provider: 04/22/23 09:33 History of Present Illness: Patient presents to the ER with her caregiver with complaints of passing out 3 times in the last month and a half. Patient is currently wearing a heart monitor at this time. This last time patient fell in the hallway and struck and hit her head. Pain to chin is complaining of head pain. Patient's loss of consciousness was just seconds. Patient is on Plavix. Patient does have a history of seizures and is on Keppra. Review of Systems General: Reports: 10 or more systems reviewed and unremarkable except in HPI and below PFSH ED PFSH: Medical History Blind left eye Diabetes mellitus GERD (gastroesophageal reflux disease) Heart murmur History of foot fracture History of toe fracture Hypercholesteremia Hypertensive disorder Osteoporosis Psoriasis Recurrent UTI Urinary incontinence Surgical History H/O bladder repair surgery H/O knee surgery left History of History of cholecystectomy History of eye surgery History of hysterectomy Family History Mother , at age 59 Hypertension Father No problems noted. Sister Diabetes Heart disease Breast cancer unknown age onset Brother Heart disease Denies family history of Colon cancer Ovarian cancer Clotting disorder Hyperlipidemia Anesthesia complication Bleeding disorder Uterine cancer Thyroid condition Stroke Social History Smoking and tobacco status: never smoked Alcohol intake: never Substance/Drug Use: never Physical Exam Const: COMMON NORMALS: no acute distress, average body habitus, patient oriented x3, no limitations, healthy appearing, alert and well nourished HENMT: COMMON NORMALS: normocephalic, atraumatic, hearing grossly normal bilaterally, external ears normal, Normal external nose present and moist oral mucous membranes HEAD & SCALP: normocephalic and atraumatic NOSE: Normal external nose present EXTERNAL EAR: Yes external ears normal Eye: COMMON NORMALS: Equal, round and reactive pupils present, EOMs intact bilaterally, conjunctivae normal and no scleral icterus CONJUNCTIVA: Yes conjunctivae normal PUPIL: Yes Equal, round and reactive pupils present Neck/C-Spine: COMMON NORMALS: full ROM, no lymphadenopathy, supple, no meningeal signs, no JVD and Thyroid normal THYROID: Thyroid normal Lymph: LYMPHATIC: no lymphadenopathy noted Chest: COMMONS NORMALS: normal inspection of the chest and normal palpation of entire chest wall Resp: COMMON NORMALS: normal respiratory effort, No retractions, No use of accessory muscles and clear to auscultation bilaterally AUSCULTATION: clear to auscultation bilaterally Cardio: COMMON NORMALS: no JVD, regular rate, regular rhythm, S1 normal heart sound present, S2 normal heart sound present, No gallops present (Cardio), No c licks present (Cardio) and No murmurs present (Cardio) RATE: regular rate RHYTHM: regular rhythm HEART SOUNDS: S1 normal heart sound present and S2 normal heart sound present GI: COMMON NORMALS: Normal to inspection, nondistended, normoactive bowel sounds present, Soft to palpation, non-tender, No hepatosplenomegaly present and no masses PALPATION: Yes Soft to palpation and Yes No hepatosplenomegaly present : COMMON NORMALS: Yes no CVA tenderness BLADDER/KIDNEY EXAM: Yes no CVA tenderness Back/Pelvis: COMMON NORMALS: no CVA tenderness Neuro: COMMON NORMALS: patient oriented x3 SENSORIUM/ORIENTATION: Yes alert MENINGEAL SIGNS: Yes no meningeal signs Course Vital Signs: Vital signs: Vital Signs Temperature 97.9 F 04/22/23 09:15 Pulse Rate 50 L 04/22/23 11:10 Respiratory Rate 15 04/22/23 11:10 Blood Pressure 111/64 04/22/23 11:10 Pulse Oximetry 95 04/22/23 11:10 Oxygen Delivery Me thod Room Air 04/22/23 11:10 MDM - Syncope Medical Decision Making Patient presents to the ER for syncopal episode x3 over the last 6 weeks. Patient does have a 21-day heart monitor on which she is 2 weeks into wearing it. Work-up was essentially benign other than a mildly elevated blood sugar 218 and bradycardia dipping down to about 48 bpm. However patient was asymptomatic during this time. Orthostatics was obtained which blood pressure stayed in the range of 111/64 to 101/62 and heart rate went from 53 to 58 bpm. Patient be discharged home to follow-up with her PCP and/or supervisor powdered sugar within the next 1 week as directed. Differential Diagnosis Likely syncope due to orthostatic hypotension; Unlikely vasovagal syncope, complete atrioventricular block, subarachnoid hemorrhage, pulmonary embolism or dehydration Medical Records I reviewed the patient's medical records. Lab Data I reviewed the patient's lab results. 04/22/23 09:54 04/22/23 09:[address] 04/22/23 09:33 IMPRESSION: No acute intracranial process. Laboratory Results WBC 7.4 10^3/uL (4.0-10.0) 04/22/23 09:54 RBC 4.05 10^6/uL (4.1-5.3) L 04/22/23 09:54 Hgb 12.4 g/dL (11.5-15.3) 04/22/23 09:54 Hct 39.2 % (37.0-47.0) 04/22/23 09:54 MCV 96.8 fl (81-99) 04/22/23 09:54 MCH 30.6 pg (28.0-34.0) 04/22/23 09:54 MCHC 31.6 g/dL (30.0-36.0) 04/22/23 09:54 RDW 12.8 % (12.1-15.1) 04/22/23 09:54 Plt Count 208 10^3/cmm (130-400) 04/22/23 09:54 MPV 11.0 fL (7.4-10.4) H 04/22/23 09:54 Neut % (Auto) 64.4 % 04/22/23 09:54 Lymph % (Auto) 24.6 % 04/22/23 09:54 [place] % (Auto) 6.3 % 04/22/23 09:54 Eos % (Auto) 3.6 % 04/22/23 09:54 Baso % (Auto) 0.8 % 04/22/23 09:54 Neut # (Auto) 4.78 10^3/uL (1.8-7.7) 04/22/23 09:54 Lymph # (Auto) 1.8 10^3/uL (0.8-4.8) 04/22/23 09:54 [place] # (Auto) 0.5 10^3/uL (0.2-0.9) 04/22/23 09:54 Eos # (Auto) 0.3 10^3/uL (0.0-0.8) 04/22/23 09:54 Baso # (Auto) 0.1 10^3/uL (0.0-0.1) 04/22/23 09:54 Nucleated RBC % (auto) 0 % 04/22/23 09:54 Nucleated RBCs # 0.0 /100WBC 04/22/23 09:54 PT 14.50 SECONDS (12.1-14.9) 04/22/23 09:54 INR 1.09 (0.8-1.2) 04/22/23 09:54 Sodium 142 mmol/L (136-145) 04/22/23 09:54 Potassium 4.0 mmol/L (3.5-5.1) 04/22/23 09:54 Chloride 107 mmol/L (98-107) 04/22/23 09:54 Carbon Dioxide 23 mmol/L (22-29) 04/22/23 09:54 Anion Gap 16.0 (5-19) 04/22/23 09:54 BUN 12 mg/dL (8-23) 04/22/23 09:54 Creatinine 1.1 mg/dL (0.5-0.9) H 04/22/23 09:54 GFR Calculation 50.2 mL/min (90-130) L 04/22/23 09:54 Glucose 218 mg/dL (65-115) H 04/22/23 09:54 Calculated Osmolality 300 mOsm/kg (285-295) H 04/22/23 09:54 Calcium 9.0 mg/dL (8.5-10.5) 04/22/23 09:54 Total Bilirubin 0.3 mg/dL (0.15-1.2) 04/22/23 09:54 AST 14 U/L (0-32) 04/22/23 09:54 ALT 14 U/L (0-33) 04/22/23 09:54 Alkaline Phosphatase 102 U/L (35-105) 04/22/23 09:54 Total Protein 7.0 g/dL (6.6-8.7) 04/22/23 09:54 Albumin 3.7 g/dL (3.5-5.2) 04/22/23 09:54 Globulin 3.3 g/dL (1.3-4.6) 04/22/23 09:54 EKG Data EKG 1: I personally reviewed and interpreted this EKG as follows: EKG interpretation date: 04/22/23 EKG interpretation time: 09:41 Prior EKG tracings: not available for review Interpretation: EKG shows sinus bradycardia with a ventricular rate of 51 bpm, LA interval 196, QRS duration 94, QTc of 429, nonspecific ST and T wave abnormalities. Discharge Plan Discharge Patient Disposition: Home Clinical Impression: Bradycardia Syncope Qualifiers: Syncope type: unspecified Qualified Code(s): R55 - Syncope and collapse Condition: Stable Prescriptions: No Action atorvastatin 80 mg tablet 80 mg PO BEDTIME ezetimibe [Zetia] 10 mg Tablet 10 mg PO BEDTIME bupropion HCl 150 mg tablet sustained-release 12 hr 150 mg PO BID estradiol 0.5 mg tablet 0.5 mg PO QAM clopidogrel 75 mg tablet 75 mg PO QAM aspirin 81 mg tablet,delayed release (DR/EC) 81 mg PO QAM levetiracetam 500 mg Tablet 500 mg PO BID@0900,2100 Qty: 180 0RF dapagliflozin 5 mg tablet 5 mg PO QAM amlodipine 2.5 mg tablet 2.5 mg PO DAILY Qty: 30 0RF Discharge Orders: Discharge ED (Routine); Ordered 04/22/23 Ordered By: Ronnie Gar Referrals: Christine Burger NP [Primary Care Provider] - 1 week Patient Instructions: Syncope (ED), Bradycardia (ED) Activity Restrictions/Additional Instructions: Continue wearing her Holter monitor. Please follow-up with your family practice doctor and/or supervisor powdered sugar in the next 7 to 10 days as needed. Please return to the ER if your symptoms worsen. Coding Level of Care Code ED Insurance Agency Owner for Jakub Silva
[2023-04-22] MEDS: acetaminophen 500 mg Tablet 1000 MG PO (10:28)
[2023-04-22 10:31] LABS: Basophils # 0.1 10^3/uL (0.0-0.1); Basophils % 0.8 %; Eosinophils # 0.3 10^3/uL (0.0-0.8); Eosinophils % 3.6 %; Hematocrit 39.2 % (37.0-47.0); Hemoglobin 12.4 g/dL (11.5-15.3); INR 1.09 (0.8-1.2); Lymphocytes # 1.8 10^3/uL (0.8-4.8); Lymphocytes % 24.6 %; Mean Corpuscular HGB Conc 31.6 g/dL (30.0-36.0); Mean Corpuscular Hemoglobin 30.6 pg (28.0-34.0); Mean Corpuscular Volume 96.8 fl (81-99); Monocytes # 0.5 10^3/uL (0.2-0.9); Monocytes % 6.3 %; Neutrophils # 4.78 10^3/uL (1.8-7.7); Neutrophils % 64.4 %; Nucleated Red Blood Cells % 0 %; Platelet Count 208 10^3/cmm (130-400); Red Blood Count 4.05 10^6/uL (4.1-5.3); Red Cell Distribution Width 12.8 % (12.1-15.1); White Blood Count 7.4 10^3/uL (4.0-10.0)
[2023-04-22 10:46] LABS: Alanine Aminotransferase 14 U/L (0-33); Albumin Level 3.7 g/dL (3.5-5.2); Alkaline Phosphatase 102 U/L (35-105); Aspartate Amino Transferase 14 U/L (0-32); Blood Urea Nitrogen 12 mg/dL (8-23); Carbon Dioxide 23 mmol/L (22-29); Chloride 107 mmol/L (98-107); Globulin 3.3 g/dL (1.3-4.6); Glomerular Filtration Rate 50.2 mL/min (90-130); Glucose 218 mg/dL (65-115); Osmolality Calculated 300 mOsm/kg (285-295); Sodium 142 mmol/L (136-145); Total Bilirubin 0.3 mg/dL (0.15-1.2)
[2023-04-22 11:10] VITALS: BP 111/64; PULSE 50; RESP 15; O2SAT 95
== END 2023-04-22 11:44 | disposition home or self-care (01) ==
PROVIDERS: Emergency Provider Emergency Medicine; PCP Nurse Practitioner Family
DX: R55 Syncope and collapse (principal); R00.1 Bradycardia, unspecified; Z79.82 Long term (current) use of aspirin; Z79.02 Long term (current) use of antithrombotics/antiplatelets; E11.9 Type 2 diabetes mellitus without complications
CPT/HCPCS: 36415; 70450; 80053; 85025; 85610; 93005; 99285

== ENCOUNTER → 2023-05-03 13:26 | Outpatient (BNVA) | payer MEDICAID, SELFPAY | PROVIDERS: PCP Nurse Practitioner Family; Visit Provider Psychiatry & Neurology Neurology | DX: I69.351 Hemiplegia and hemiparesis following cerebral infarction affecting right dominant side (principal); I69.320 Aphasia following cerebral infarction; I69.322 Dysarthria following cerebral infarction; I69.398 Other sequelae of cerebral infarction; R26.89 Other abnormalities of gait and mobility; R00.1 Bradycardia, unspecified; G47.52 REM sleep behavior disorder; G47.8 Other sleep disorders; F80.9 Developmental disorder of speech and language, unspecified; R41.3 Other amnesia; I10 Essential (primary) hypertension; R06.02 Shortness of breath; E11.9 Type 2 diabetes mellitus without complications | CPT/HCPCS: 36415; 82306; 82607; 82746; 83090; 83735; 83921; 84439; 84481; 85210; 85300; 85303; 85306; 85610; 85613; 85730; 86146; 86147; 86780; 99213 ==

== ENCOUNTER 2023-05-06 09:54 | Emergency (ER) | payer MEDICAID, SELFPAY ==
[2023-05-06 10:07] VITALS: BP 142/59; PULSE 50; RESP 18; TEMP 36.4; O2SAT 99; BMI 26.2
--- NOTE | 2023-05-06 10:11 | XR_ITS ---
WS: [id number] EXAMINATION: XR chest 1V portable [id number] REASON FOR EXAM: dyspnea/cough COMPARISON: None available. ORDER DATE: 05/06/2023 10:18 AM TECHNIQUE: A single, portable frontal chest x-ray was obtained. X-RAY FINDINGS: The lungs are clear. Pleural spaces are clear. No pleural effusions or pneumothorax. Cardiomediastinal silhouette is normal. No evidence for pulmonary edema. Soft tissue and osseous structures are unremarkable. No tubes or lines are present. XR/XR chest 1V portable [id number] IMPRESSION: Unremarkable frontal portable chest x-ray.
--- NOTE | 2023-05-06 10:11 | CT_ITS ---
WS: [id number] CT HEAD TECHNIQUE: Noncontrast CT of the head obtained from the skullbase to the vertex. CLINICAL INFORMATION: slurred speech COMPARISON: CT head April 22, 2023, MRI March 30, 2023 DLP: 1028.[address] scans at [facility] use at least one of these dose optimization techniques: automated e xposure control; mA and/or kV adjustment per patient size (includes targeted exams where dose is matc hed to clinical indication); or iterative reconstruction. FINDINGS: No evidence of intracranial hemorrhage or mass effect. Ventricular system and basal cisterns are sarah nt. Mild small vessel changes. Mild parenchymal volume loss. Chronic infarct LEFT grijalva radiata exte nding into the LEFT external capsule. This is unchanged from previous. No evidence of hemorrhage toda y. Intracranial vascular calcification. Mild mucosal thickening RIGHT mastoid tip. LEFT mastoid air cells well aerated. CT/CT head wo con* [id number] IMPRESSION: 1. No evidence of intracranial hemorrhage or mass effect. 2. Mild small vessel changes. Mild parenchymal volume loss. 3. Previously described now chronic appearing infarct LEFT grijalva radiata exte nding into the LEFT external capsule is stable 4. Intracranial vascular calcification. 5. No acute intracranial findings.
--- NOTE | 2023-05-06 10:34 | W.ED.NEUROSD ---
HPI - Neuro Symptoms/Deficit General: Chief Complaint: Neuro Symptoms/Deficit Stated Complaint: Slurred speech, Fall, Weakness Time Seen by Provider: 05/06/23 10:10 Source: patient and family Mode of arrival: ambulatory History of Present Illness: 62-year-old female presents emergency room with report of right-sided weakness and difficulty with speech. On March 09 of this year patient presented to the emergency room with 24-hour onset of symptoms and had a CT done that showed a left MCA distribution stroke. Patient was admitted. Later patient had an MRI showed some subacute bleeding in that region. Follow-up CTs have been unremarkable for further bleeding. She is not been involved in any formal therapy with family felt that they could manage therapy at home. Last 24 hours he states she has been having more difficulty with speech weakness and falling. Patient denies chest or abdominal pain. She does have little bit of a left lid ptosis but this has been chronic actually has previously been surgically addressed but is persisting. Patient seen neurology 3 days ago in the office those notes were reviewed. To a large degree the symptoms are complaining of today seem to have been present at that time. At that visit they also started Klonopin 0.5 to 1 mg p.o. nightly additionally decreased her lamotrigine. They have been holding her Plavix because the MRI in March showed an area of bleed near the left basal ganglia. Caregiver at the bedside states they were told she had a subdural hematoma reviewing the CTs since late February of this year there was no subdural hematoma nor was there a subdural hematoma on the MRI Onset (ago): week(s) Location: speech, dysarthria, right arm and right leg Quality: weak Relieving factors: none Exacerbating factors: none Associated symptoms: Deny chest pain, cough, fevers/chills, headache(s), anorexia, nausea, seizures, short of breath, syncope, tingling, vertigo, vomiting or weakness Treatments Prior to Arrival: none Review of Systems Const: Reports: fatigue; Denies: fever(s) or chills Card: Denies: chest pain, palpitations, irregular heart rhythm or syncope Resp: Denies: dyspnea, productive cough or non-productive cough GI: Denies: abdominal pain, nausea or vomiting : Denies: flank pain, difficulty voiding, dysuria, urinary frequency or urinary urgency Skin/Breast: Denies: rash or pruritus Neuro: Reports: frequent falls; Denies: headache(s) or vertigo PFSH ED PFSH: Medical History Blind left eye Diabetes mellitus GERD (gastroesophageal reflux disease) Heart murmur History of foot fracture History of toe fracture Hypercholesteremia Hypertensive disorder Osteoporosis Psoriasis Recurrent UTI Urinary incontinence Surgical History H/O bladder repair surgery H/O knee surgery left History of History of cholecystectomy History of eye surgery History of hysterectomy Family History Mother , at age 59 Hypertension Father No problems noted. Sister Diabetes Heart disease Breast cancer unknown age onset Brother Heart disease Denies family history of Colon cancer Ovarian cancer Clotting disorder Hyperlipidemia Anesthesia complication Bleeding disorder Uterine cancer Thyroid condition Stroke Social History Smoking and tobacco status: never smoked Alcohol intake: never Substance/Drug Use: never NIH stroke score NIHSS: Level Of Consciousness - 1a: 0 Level Of Consciousness Questions - 1b: Both Correct Level Of Consciousness Commands - 1c: Both Correct Best Gaze - 2: Normal Visual Cueva - 3: No Visual Loss Facial Palsy - 4: Normal Motor Arm Right - 5: No Drift Motor Arm Left - 5: No Drift Motor Leg Right - 6: No Drift Motor Leg Left - 6: No Drift Limb Ataxia - 7: Absent Sensory - 8: Normal Best Language - 9: No Aphasia Dysarthia - 10: Mild/Moderate Dysarthia Extinction And Inattention - 11: 0 Score: Total Score: 1 Physical Exam Const: COMMON NORMALS: no acute distress GENERAL APPEARANCE: cooperative and comfortable HENMT: COMMON NORMALS: normocephalic, atraumatic and hearing grossly normal bilaterally HEAD & SCALP: normocephalic and atraumatic Resp: COMMON NORMALS: normal respiratory effort, No retractions, No use of accessory muscles and clear to auscultation bilaterally AUSCULTATION: clear to auscultation bilaterally Cardio: COMMON NORMALS: regular rate, regular rhythm and No murmurs present (Cardio) RATE: regular rate RHYTHM: regular rhythm GI: COMMON NORMALS: Soft to palpation and No hepatosplenomegaly present AUSCULTATION: Yes normoactive bowel sounds PALPATION: Yes Soft to palpation, No Tenderness to palpation present (GI), No Guarding due to palpation present (GI) and Yes No hepatosplenomegaly present Extremity: COMMON NORMALS: normal to inspection, capillary refill normal, no clubbing, cyanosis or edema, no calf tenderness and no pedal edema Skin: COMMON NORMALS: no rashes or lesions noted GENERAL SKIN EXAM: no rashes or lesions noted Course Vital Signs: Vital signs: Vital Signs Temperature 97.6 F 05/06/23 10:07 Pulse Rate 52 L 05/06/23 10:50 Respiratory Rate 16 05/06/23 10:50 Blood Pressure 172/65 05/06/23 10:50 Pulse Oximetry 100 05/06/23 10:50 Oxygen Delivery Me thod Room Air 05/06/23 10:50 MDM - Neuro Symptoms/Deficit Medical Decision Making Patient has no new acute deficits on the stroke score she only scores for dysarthria at this point. Facial weakness and the left eye ptosis is chronic and present previously. I think her symptoms are exacerbated by her poor sleeping and is starting the Klonopin. She was already advised to stop the lamotrigine because it was causing headaches. I discussed Dr. Cast recommends now stopping Klonopin and lamotrigine start Depakote 250 p.o. twice daily. We will also increase her amlodipine to 5 mg daily her blood pressure still fairly elevated. She should follow-up with Dr. Cast within 1 week and will have case management get her set up for formal speech occupational and physical therapy for recovery from her stroke Medical Records I reviewed the patient's medical records. Lab Data I reviewed the patient's lab results. 05/06/23 10:30 05/06/23 10:[address] 05/06/23 10:11 IMPRESSION: 1. No evidence of intracranial hemorrhage or mass effect. 2. Mild small vessel changes. Mild parenchymal volume loss. 3. Previously described now chronic appearing infarct LEFT grijalva radiata extending into the LEFT external capsule is stable 4. Intracranial vascular calcification. 5. No acute intracranial findings. Laboratory Results WBC 6.9 10^3/uL (4.0-10.0) 05/06/23 10:30 RBC 3.74 10^6/uL (4.1-5.3) L 05/06/23 10:30 Hgb 11.6 g/dL (11.5-15.3) 05/06/23 10:30 Hct 36.0 % (37.0-47.0) L 05/06/23 10:30 MCV 96.3 fl (81-99) 05/06/23 10:30 MCH 31.0 pg (28.0-34.0) 05/06/23 10:30 MCHC 32.2 g/dL (30.0-36.0) 05/06/23 10:30 RDW 13.7 % (12.1-15.1) 05/06/23 10:30 Plt Count 221 10^3/cmm (130-400) 05/06/23 10:30 MPV 10.8 fL (7.4-10.4) H 05/06/23 10:30 Neut % (Auto) 67.3 % 05/06/23 10:30 Lymph % (Auto) 24.6 % 05/06/23 10:30 Young % (Auto) 4.2 % 05/06/23 10:30 Eos % (Auto) 2.9 % 05/06/23 10:30 Baso % (Auto) 0.6 % 05/06/23 10:30 Neut # (Auto) 4.65 10^3/uL (1.8-7.7) 05/06/23 10:30 Lymph # (Auto) 1.7 10^3/uL (0.8-4.8) 05/06/23 10:30 Young # (Auto) 0.3 10^3/uL (0.2-0.9) 05/06/23 10:30 Eos # (Auto) 0.2 10^3/uL (0.0-0.8) 05/06/23 10:30 Baso # (Auto) 0.0 10^3/uL (0.0-0.1) 05/06/23 10:30 Nucleated RBC % (auto) 0 % 05/06/23 10:30 Nucleated RBCs # 0.0 /100WBC 05/06/23 10:30 Discharge Plan Discharge Patient Disposition: Home Clinical Impression: Cerebrovascular accident, Diabetes mellitus, Speech and language deficits, Hypertensive disorder Condition: Stable Prescriptions: New amlodipine 5 mg tablet 5 mg PO DAILY Qty: 30 0RF Depakote 250 mg tablet,delayed release (DR/EC) 250 mg PO BID Qty: 60 0RF Discontinued lamotrigine 25 mg tablet 25 mg PO DAILY clonazepam 0.5 mg tablet 0.5 mg PO DAILY Qty: 30 1RF amlodipine 2.5 mg tablet 2.5 mg PO DAILY Qty: 30 0RF No Action atorvastatin 80 mg tablet 80 mg PO BEDTIME ezetimibe [Zetia] 10 mg Tablet 10 mg PO BEDTIME bupropion HCl 150 mg tablet sustained-release 12 hr 150 mg PO BID estradiol 0.5 mg tablet 0.5 mg PO QAM clopidogrel 75 mg tablet 75 mg PO QAM aspirin 81 mg tablet,delayed release (DR/EC) 81 mg PO QAM levetiracetam 500 mg Tablet 500 mg PO BID@0900,2100 Qty: 180 0RF dapagliflozin 5 mg tablet 5 mg PO QAM Discharge Orders: Discharge ED (Routine); Ordered 05/06/23 Ordered By: Lucio Garner Referrals: Christine Burger NP [Primary Care Provider] - Discharge Diet: Usual diet Discharge Activity: Increase activity as tolerated Patient Instructions: Opioid Safety, Pain Management Activity Restrictions/Additional Instructions: You were seen today for your stroke symptoms. There is no evidence of new or extending stroke. Recommend that you stop the lamotrigine and the Klonopin. Start valproic acid (Depakote) 250 mg 1 twice daily. Also recommend you start formal occupational physical and speech therapy for your stroke. Follow-up with Dr. Cast in his office in 1 week. Coding Level of Care Code ED Cargo Services Coordinator for Jakub Silva
[2023-05-06 10:44] LABS: Basophils % 0.6 %; Eosinophils # 0.2 10^3/uL (0.0-0.8); Eosinophils % 2.9 %; Hemoglobin 11.6 g/dL (11.5-15.3); Lymphocytes # 1.7 10^3/uL (0.8-4.8); Lymphocytes % 24.6 %; Mean Corpuscular HGB Conc 32.2 g/dL (30.0-36.0); Mean Corpuscular Volume 96.3 fl (81-99); Mean Platelet Volume 10.8 fL (7.4-10.4); Monocytes # 0.3 10^3/uL (0.2-0.9); Monocytes % 4.2 %; Neutrophils # 4.65 10^3/uL (1.8-7.7); Neutrophils % 67.3 %; Nucleated Red Blood Cells % 0 %; Platelet Count 221 10^3/cmm (130-400); Red Blood Count 3.74 10^6/uL (4.1-5.3); Red Cell Distribution Width 13.7 % (12.1-15.1); White Blood Count 6.9 10^3/uL (4.0-10.0)
[2023-05-06 10:50] VITALS: BP 172/65; PULSE 52; RESP 16; O2SAT 100
[2023-05-06 11:52] LABS: Alanine Aminotransferase 16 U/L (0-33); Albumin Level 4.1 g/dL (3.5-5.2); Alkaline Phosphatase 96 U/L (35-105); Anion Gap 15.5 (5-19); Aspartate Amino Transferase 19 U/L (0-32); Blood Urea Nitrogen 5 mg/dL (8-23); Calcium 8.9 mg/dL (8.5-10.5); Carbon Dioxide 26 mmol/L (22-29); Chloride 109 mmol/L (98-107); Glucose 252 mg/dL (65-115); Osmolality Calculated 310 mOsm/kg (285-295); Potassium 3.5 mmol/L (3.5-5.1); Sodium 147 mmol/L (136-145); Total Bilirubin 0.2 mg/dL (0.15-1.2); Total Protein 7.1 g/dL (6.6-8.7)
--- NOTE | 2023-05-09 10:00 | DCPLANNER ---
Addendum entered by Pamela Lee 05/18/23 10:09: Patient has a follow up appointment scheduled for Tuesday, August 01, 2023 at 2:[address] Cast at neurology. Original Note: manager voice had message to schedule a follow up appointment for patient with neurology. manager voice sent patients information to the front office staff at neurology. Patients information will be printed and reviewed. Clinic will call patient with appointment information.
== END 2023-05-06 11:36 | disposition home or self-care (01) ==
PROVIDERS: Emergency Provider Family Medicine; PCP Nurse Practitioner Family
DX: I69.328 Other speech and language deficits following cerebral infarction (principal); E11.9 Type 2 diabetes mellitus without complications; I10 Essential (primary) hypertension; Z79.899 Other long term (current) drug therapy
CPT/HCPCS: 70450; 71045; 80053; 85025; 99285

== ENCOUNTER 2023-06-07 08:24 | Outpatient (CLI) | payer MEDICAID, SELFPAY ==
--- NOTE | 2023-06-07 08:34 | XR_ITS ---
WS: [id number] Exam: XR hip RT 2-3V wo/w pel* [id number] Date/Time of Exam: 06/07/2023 8:42 AM Reason For Exam: PAIN IN R HIP Findings: No fractures or bone anomalies are noted. No unusual soft tissue masses or calcifications are seen. The bony elements of the hip are in adequate alignment. IMPRESSION: Negative RIGHT hip.
== END 2023-06-07 08:25 | disposition home or self-care (01) ==
PROVIDERS: PCP Nurse Practitioner Family; Visit Provider Nurse Practitioner Family
DX: M25.551 Pain in right hip (principal)
CPT/HCPCS: 73502

== ENCOUNTER 2023-06-29 09:21 | Outpatient (CLI) | payer MEDICAID, SELFPAY ==
--- NOTE | 2023-06-29 | XR_ITS ---
WS: [id number] XR hip RT 2-3V wo/w pel* [id number] REASON FOR EXAM: PAIN IN RIGHT HIP FINDINGS: No acute fracture or focal bone lesion. The hip joint space is intact with minimal narrowing. There is mild subchondral sclerosis of the acet abulum. Mild convexity at the superior femoral head and neck junction. No soft tissue abnormality. IMPRESSION: Minimal osteoarthritis in the right hip.
== END 2023-06-29 09:22 | disposition home or self-care (01) ==
PROVIDERS: PCP Nurse Practitioner Family; Visit Provider Nurse Practitioner Family
DX: M16.11 Unilateral primary osteoarthritis, right hip (principal); M25.551 Pain in right hip
CPT/HCPCS: 73502

== ENCOUNTER 2023-08-08 09:27 | Inpatient (IN) | payer MEDICAID, SELFPAY ==
[2023-08-08] VITALS (12 sets, daily range): BP systolic 152–187; BP diastolic 71–101; PULSE 59–88; RESP 15–18; TEMP 36.5–36.9; O2SAT 97–98; BMI 28.0
--- NOTE | 2023-08-08 09:32 | CT_ITS ---
WS: [id number] CT HEAD TECHNIQUE: Noncontrast CT of the head obtained from the skullbase to the vertex. CLINICAL INFORMATION: Symptoms of acute stroke COMPARISON: CT 05/06/2023 DLP: [address] scans at [facility] use at least one of these dose optimization techniques: automated e xposure control; mA and/or kV adjustment per patient size (includes targeted exams where dose is matc hed to clinical indication); or iterative reconstruction. FINDINGS: No evidence of intracranial hemorrhage or mass effect. Ventricular system and basal cisterns are sarah nt. Mild small vessel changes with mild parenchymal volume loss. Chronic infarct LEFT basal ganglia u nchanged. No extra-axial fluid collections. No evidence of mass or mass effect. Mild mucosal thickening ethmoid air cells. Complete opacification RIGHT mastoid air cells and RIGHT m iddle ear new compared to 05/06/2023. LEFT mastoid air cells are well aerated. IMPRESSION: 1. No evidence of intracranial hemorrhage or mass effect. 2. New complete opacification of the RIGHT mastoid air cells and RIGHT middle ear. This is new negra red to 05/06/2023. Recommend correlation for otitis media. 3. Mild small vessel changes. Mild parenchymal volume loss. Notified Lucio Garner DO at 08/08/2023 9:59 AM.
--- NOTE | 2023-08-08 09:42 | ED_ITS ---
HPI - Neuro Symptoms/Deficit General: Chief Complaint: Neuro Symptoms/Deficit Stated Complaint: possible TIA Time Seen by Provider: 08/08/23 09:31 Source: patient Mode of arrival: ambulatory History of Present Illness: 63-year-old female presents emergency room with complaint of stroke symptoms. Patient has had strokes in the past had 1 earlier this year in February reviewed the chart she has not been a candidate for tPA with her previous presentations. Initially when she arrived here a caregiver who dropped her off stated that her last known well was 9:00 last night. Staff proceeded under the auspices of her having wake-up symptoms. The caregiver left and his son came in. When I came to see the patient the son stated that her last known well was 9:00 this morning that she had woken up at her normal baseline and had done some chores fetor pets and then sat down in a chair at around 9 AM and had sudden onset of development of symptoms. By this time CT had already been done there is no acute findings. Once the corrected last known well time was made known to us a stroke alert was called immediately. See notes below Onset (ago): hour(s) Last Observed Normal: 09:00 Timing confirmed by: family member Location: speech and right face History of same: Yes Severity: moderate Quality: weak Relieving factors: none Exacerbating factors: none Context: sudden onset Treatments Prior to Arrival: none Review of Systems General: Reports: ROS unobtainable due to medical condition [facility] ED PFSH: Medical History Blind left eye Diabetes mellitus GERD (gastroesophageal reflux disease) Heart murmur History of foot fracture History of toe fracture Hypercholesteremia Hypertensive disorder Osteoporosis Psoriasis Recurrent UTI Urinary incontinence Surgical History H/O bladder repair surgery H/O knee surgery left History of History of cholecystectomy History of eye surgery History of hysterectomy Family History Mother , at age 59 Hypertension Father No problems noted. Sister Diabetes Heart disease Breast cancer unknown age onset Brother Heart disease Social History Smoking and tobacco/nicotine status: never used tobacco/nicotine Alcohol intake: never Substance/Drug Use: never NIH stroke score NIHSS: Level Of Consciousness - 1a: 1 Level Of Consciousness Questions - 1b: Neither Correct Level Of Consciousness Commands - 1c: One Correct Best Gaze - 2: Normal Visual Cueva - 3: Partial Hemianopia (L eye blindness?) Facial Palsy - 4: Minor Paralysis Motor Arm Right - 5: No Drift Motor Arm Left - 5: No Drift Motor Leg Right - 6: Effort Against [place] Motor Leg Left - 6: Effort Against [place] Limb Ataxia - 7: Absent Sensory - 8: Normal Best Language - 9: Mild/Moderate Aphasia Dysarthia - 10: Mild/Moderate Dysarthia Extinction And Inattention - 11: 0 Score: Total Score: 12 Physical Exam Const: GENERAL APPEARANCE: cooperative and comfortable ORIENTATION/CONSCIOUSNESS: Yes awake HENMT: COMMON NORMALS: normocephalic, atraumatic and hearing grossly normal bilaterally HEAD & SCALP: normocephalic and atraumatic Eye: OTHER: Right leg I leg which is present continually for the past patient's family there is some redness of the sclera on the right eye. No evidence of nystagmus. And testing visual cueva patient reports seeing 2 fingers at all times in both eyes and is unreliable. Resp: COMMON NORMALS: normal respiratory effort, No retractions, No use of accessory muscles and clear to auscultation bilaterally AUSCULTATION: clear to auscultation bilaterally Cardio: COMMON NORMALS: regular rate, regular rhythm and No murmurs present (Cardio) RATE: regular rate RHYTHM: regular rhythm GI: COMMON NORMALS: Soft to palpation and No hepatosplenomegaly present AU SCULTATION: Yes normoactive bowel sounds PALPATION: Yes Soft to palpation, No Tenderness to palpation present (GI), No Guarding due to palpation present (GI) and Yes No hepatosplenomegaly present Extremity: COMMON NORMALS: normal to inspection, capillary refill normal, no clubbing, cyanosis or edema, no calf tenderness and no pedal edema Skin: COMMON NORMALS: no rashes or lesions noted GENERAL SKIN EXAM: no rashes or lesions noted Course Vital Signs: Vital signs: Vital Signs Temperature 97.7 F 08/08/23 10:20 Pulse Rate 66 08/08/23 10:35 Respiratory Rate 16 08/08/23 10:35 Blood Pressure 175/71 08/08/23 10:35 Pulse Oximetry 97 08/08/23 10:35 Oxygen Delivery Me thod Room Air 08/08/23 10:35 MDM - Neuro Symptoms/Deficit Medical Decision Making Patient seen and evaluated by Dr. Espinosa as well as myself for stroke score is 12. She had been able to ambulate and was talking and interacting normally per the family at her baseline and suddenly had sudden worsening this morning. Given her stroke score the sudden onset of symptoms and confirmation of the timeframe Dr. Espinosa is recommending tPA. Blood glucose is normal she is not on any anticoagulants she has not had any major surgeries tPA or head injury recently. Family consented to the tPA after discussion of risks and benefits. tPA given we will admit. CTA done earlier this year did not show any large vessel occlusion. At this time she has an acute CVA with a stroke score greater than 6 we will repeat the CTA head and neck to make sure she is not an embolectomy candidate. Medical Records I reviewed the patient's medical records. Lab Data I reviewed the patient's lab results. 08/08/23 10:05 08/08/23 10:05 Laboratory Results PT 13.10 SECONDS (12.1-14.9) 08/08/23 10:05 INR 0.97 (0.8-1.2) 08/08/23 10:05 APTT 26.1 SECONDS (23.9-36.7) 08/08/23 10:05 Sodium 143 mmol/L (136-145) 08/08/23 10:05 Potassium 4.2 mmol/L (3.5-5.1) 08/08/23 10:05 Chloride 106 mmol/L (98-107) 08/08/23 10:05 Carbon Dioxide 29 mmol/L (22-29) 08/08/23 10:05 Anion Gap 12.2 (5-19) 08/08/23 10:05 BUN 7 mg/dL (8-23) L 08/08/23 10:05 Creatinine 0.8 mg/dL (0.5-0.9) 08/08/23 10:05 GFR Calculation 72.2 mL/min (90-130) L 08/08/23 10:05 Glucose 164 mg/dL (65-115) H 08/08/23 10:05 POC Glucose 129 mg/dL (70-110) H 08/08/23 09:38 Calculated Osmolality 298 mOsm/kg (285-295) H 08/08/23 10:05 Calcium 8.8 mg/dL (8.5-10.5) 08/08/23 10:05 Total Bilirubin 0.2 mg/dL (0.15-1.2) 08/08/23 10:05 AST 15 U/L (0-32) 08/08/23 10:05 ALT 9 U/L (0-33) 08/08/23 10:05 Alkaline Phosphatase 68 U/L (35-105) 08/08/23 10:05 Total Protein 6.6 g/dL (6.6-8.7) 08/08/23 10:05 Albumin 3.2 g/dL (3.5-5.2) L 08/08/23 10:05 Globulin 3.4 g/dL (1.3-4.6) 08/08/23 10:05 All radiology interpretation(s) finalized by discharge Discharge Plan Discharge Condition: Stable Prescriptions: No Action Depakote 250 mg tablet,delayed release (DR/EC) 250 mg PO BID Qty: 90 2RF atorvastatin 80 mg tablet 80 mg PO BEDTIME ezetimibe [Zetia] 10 mg Tablet 10 mg PO BEDTIME bupropion HCl 150 mg tablet sustained-release 12 hr 150 mg PO BID estradiol 0.5 mg tablet 0.5 mg PO QAM clopidogrel 75 mg tablet 75 mg PO QAM aspirin 81 mg tablet,delayed release (DR/EC) 81 mg PO QAM levetiracetam 500 mg Tablet 500 mg PO BID@0900,2100 Qty: 180 0RF dapagliflozin propanediol 5 mg tablet 5 mg PO QAM amlodipine 5 mg tablet 5 mg PO DAILY Qty: 30 0RF clonazepam 0.5 mg tablet 0.5 mg PO BEDTIME divalproex 500 mg tablet,delayed release (DR/EC) 500 mg PO BID fluticasone propionate 50 mcg/actuation spray,suspension 2 spray INTRANASAL DAILY metformin 500 mg tablet extended release 24 hr 1,000 mg PO QAM Ciprodex 0.3-0.1 % drops,suspension 4 drp otic (ear) BID Rx Instructions: right ear Referrals: Mahnaz Yepez [Primary Care Provider] - Coding Level of Care Code ED Multiple Pressure Riveter Operator for Chg Shira
[2023-08-08 09:46] LABS: Glucose Point of Care 129 mg/dL (70-110)
--- NOTE | 2023-08-08 09:48 | ECG_ITS ---
[facility] Test Date: 2023-08-08 Pat Name: Sydney Zambrano Department: Room: Gender: Female Health Record Technician: : 1960 Requested By: Lucio Ferrer Order Number: [id number] Sherry MD: Juan J Gonzalez M.D. Measurements Intervals [place] Rate: 64 P: 16 AR: 150 QRS: 0 QRSD: 89 T: 41 QT: 421 QTc: 436 Interpretive Statements SINUS RHYTHM Compared to ECG 04/22/2023 09:41:36 Sinus bradycardia no longer present T-wave abnormality no longer present Electronically Signed On 08-08-2023 11:09:07 CDT by Juan J Gonzalez M.D. [id number]
[2023-08-08] MEDS: sodium chloride 0.9% 50 ML 200 ML IV (10:20)
--- NOTE | 2023-08-08 10:28 | CT_ITS ---
WS: [id number] CTA HEAD AND NECK TECHNIQUE: Contrast enhanced CTA of the head and neck with coronal and sagittal reformatted images an d maximum intensity projection (MIP) images. NASCET criteria utilized. CLINICAL INFORMATION: acute CVA COMPARISON: 03/29/2023 DLP: 463.[address] scans at [facility] use at least one of these dose optimization techniques: automated e xposure control; mA and/or kV adjustment per patient size (includes targeted exams where dose is matc hed to clinical indication); or iterative reconstruction. FINDINGS: RIGHT: RIGHT common carotid artery is patent. No significant RIGHT ICA stenosis. ICA is patent to the skull base. LEFT: LEFT common carotid artery is patent. No significant LEFT ICA stenosis. Mild atheromatous disea se LEFT carotid bulb. LEFT ICA is patent to the skull base. Codominant and patent vertebral arteries bilaterally. Proximal basilar artery is patent. Normal vascu larity to the BUSINESS SYSTEMS ARCHIT[employer] territory bilaterally. Both ICAs are patent at the skull base. Normal vascularity t o the REID and MCA territories bilaterally. No evidence of proximal flow limiting stenosis or aneurysm . Lung apices are well aerated. Previously described enlarged RIGHT infraclavicular lymph node measurin g 1.5 cm appears unchanged. Prominent bilateral cervical chain lymph nodes have progressed compared t o previous. Recommend correlation with clinical history. Opacification RIGHT mastoid air cells and middle ear. LEFT mastoid air cells are well aerated. Trace fluid LEFT maxillary sinus. Straightening of the normal cervical lordosis with mild spondylitic changes. Disc osteophyte complex most prominent C5-C6 with mild central canal stenosis. Chronic infarct LEFT basal ganglia unchanged. IMPRESSION: 1. No significant cervical ICA stenosis bilaterally. 2. No flow-limiting intracranial stenosis. 3. Codominant and patent vertebral arteries bilaterally. 4. Enlarged indeterminate 1.5 cm RIGHT infraclavicular lymph node similar in appearance to previous. 5. Prominent bilateral cervical chain lymph nodes have progressed compared to previous. Recommend co rrelation with clinical history. 6. Opacification RIGHT mastoid air cells and middle ear.
[2023-08-08 10:30] LABS: INR 0.97 (0.8-1.2)
[2023-08-08 10:31] LABS: Partial Thromboplastin Time 26.1 SECONDS (23.9-36.7)
[2023-08-08 10:37] LABS: Alanine Aminotransferase 9 U/L (0-33); Albumin Level 3.2 g/dL (3.5-5.2); Alkaline Phosphatase 68 U/L (35-105); Anion Gap 12.2 (5-19); Aspartate Amino Transferase 15 U/L (0-32); Blood Urea Nitrogen 7 mg/dL (8-23); Calcium 8.8 mg/dL (8.5-10.5); Carbon Dioxide 29 mmol/L (22-29); Chloride 106 mmol/L (98-107); Globulin 3.4 g/dL (1.3-4.6); Glomerular Filtration Rate 72.2 mL/min (90-130); Glucose 164 mg/dL (65-115); Osmolality Calculated 298 mOsm/kg (285-295); Potassium 4.2 mmol/L (3.5-5.1); Sodium 143 mmol/L (136-145); Total Bilirubin 0.2 mg/dL (0.15-1.2); Total Protein 6.6 g/dL (6.6-8.7)
[2023-08-08 10:39] LABS: Basophils % 0.4 %; Eosinophils # 0.2 10^3/uL (0.0-0.8); Eosinophils % 4.5 %; Hematocrit 39.3 % (36-47); Lymphocytes # 1.6 10^3/uL (0.8-4.8); Lymphocytes % 32.2 %; Mean Corpuscular HGB Conc 30.5 g/dL (30-55); Mean Corpuscular Hemoglobin 30.3 pg (27-33); Mean Corpuscular Volume 99.2 fl (85-98); Mean Platelet Volume 10.8 fL (7.4-10.4); Monocytes # 0.3 10^3/uL (0.2-0.9); Monocytes % 6.9 %; Neutrophils # 2.71 10^3/uL (1.8-7.7); Neutrophils % 55.2 %; Nucleated Red Blood Cells % 0 %; Platelet Count 237 10^3/cmm (157-399); Red Blood Count 3.96 10^6/uL (3.85-5.65); Red Cell Distribution Width 12.1 % (12.1-15.1); White Blood Count 4.91 10^3/uL (3.29-11.43)
--- NOTE | 2023-08-08 10:44 | PC.PHAR ---
medications verified by pts animal care giver and [facility]- pt has current for 250 mg divalproex and 500 mg divalproex- pts caregiver left before i was able to verify if pt is taking one or both scripts
[2023-08-08 11:07] LABS: Slide Review Slide Review Perform
[2023-08-08 11:15] LABS: Add Urine Microscopic? NO; Charge for UA Resulting for Rev
[2023-08-08 11:23] LABS: Bilirubin Urine Neg (Negative); Blood Urine Neg (Negative); Glucose Urine UA Norm (Normal); Ketones Urine 1+ (Negative); Nitrate Urine Negative (Negative); Protein Urine Neg (Negative); Urine Appearance Clear (CLEAR); Urine Color Yellow (Yellow); pH Urine 5 (5-7)
[2023-08-08 11:24] LABS: Leukocyte Esterase Urine Negative (Negative); Urobilinogen Urine Neg (Negative)
[2023-08-08 11:26] LABS: Amphetamines Screen Urine Negative (Negative); Barbiturates Screen Urine Negative (Negative); Benzodiazepines Screen Urine Negative (Negative); Cocaine Screen Urine Negative (Negative); Opiate Screen Urine Negative (Negative); PCP Screen Urine Negative (Negative); THC Screen Urine Negative (Negative)
[2023-08-08] MEDS: iohexol 350 mg/mL 500 mL Btl (per mL) IV (11:30)
--- NOTE | 2023-08-08 11:47 | PC.NURSE ---
arrived from ED beto herring, transffered to bed with lift sheet, AO x4
--- NOTE | 2023-08-08 12:01 | PM.HP ---
Documented by User: Missy Blair 08/08/23 12:42 Providers/Chief Complaint Admitting Physician: Ady Rivas MD Primary Care Provider: Mahnaz Yepez Chief Complaint: possible TIA History of Present Illness Sydney Zambrano is a 63 year old female who presents with stroke-like symptoms that began this morning around 9-9:30am according to her son who accompanied her to the ED. He states that she was at her baseline this morning, was able to go feed her cats, and when she came back to sit in her chair, the son states that all of a sudden she couldn't walk and couldn't talk . He denies that she had any confusion accompanying the episode and did not have any episode of unconciousness. She says she did not take her home medications this morning. Last week, she was reported to have the flu by her son, but has otherwise been well and had no other precipitating events to her current condition. She denies fever, headache, chest pain, shortness of breath. All other ROS are negative. She does not have a history of smoking. She had a similar episode in April 2023 that was diagnosed as a left MCA stroke. While in the ED, she was determined to be a candidate for Alteplase therapy, so this was administered. She scored a 12 on the stroke scale, with dysarthia and facial palsy. IV fluids were also administered. Review of Systems General: Reports: 10 or more systems reviewed and unremarkable except in HPI and below Const: Denies: fever(s) Card: Denies: chest pain, palpitations or edema Resp: Denies: dyspnea GI: Denies: abdominal pain, nausea, vomiting, diarrhea, constipation or hematochezia : Denies: difficulty voiding or dysuria Medications/Allergies Home Medications Medication Instructions Recorded Confirmed Last Taken Type atorvastatin 80 mg tablet 80 mg PO BEDTIME 03/09/23 08/08/23 05/05/23 History bupropion HCl 150 mg tablet,12 hr 150 mg PO BID 03/09/23 08/08/23 05/06/23 History sustained-release ezetimibe 10 mg tablet (Zetia) 10 mg PO BEDTIME 03/09/23 08/08/23 05/05/23 History aspirin 81 mg tablet,delayed 81 mg PO QAM 03/29/23 08/08/23 05/06/23 History release clopidogrel 75 mg tablet 75 mg PO QAM 03/29/23 08/08/23 05/06/23 History estradiol 0.5 mg tablet 0.5 mg PO QAM 03/29/23 08/08/23 05/06/23 History levetiracetam 500 mg tablet 500 mg PO BID@0900,2100 #180 tabs 03/31/23 08/08/23 05/06/23 Rx dapagliflozin propanediol 5 mg 5 mg PO QAM 04/04/23 08/08/23 05/06/23 History tablet amlodipine 5 mg tablet 5 mg PO DAILY #30 tabs 05/06/23 08/08/23 Unknown Rx divalproex 250 mg tablet,delayed 250 mg PO BID #90 tabs 05/26/23 08/08/23 Unknown Rx release (Depakote) ciprofloxacin 0.3 %-dexamethasone 4 drp otic (ear) BID 08/08/23 08/08/23 Unknown History 0.1 % ear drops,suspension clonazepam 0.5 mg tablet 0.5 mg PO BEDTIME 08/08/23 08/08/23 Unknown History divalproex 500 mg tablet,delayed 500 mg PO BID 08/08/23 08/08/23 Unknown History release fluticasone propionate 50 2 spray intranasal DAILY 08/08/23 08/08/23 Unknown History mcg/actuation nasal spray,suspension metformin 500 mg tablet,extended 1,000 mg PO QAM 08/08/23 08/08/23 Unknown History release 24 hr Allergies Allergy/AdvReac Type Severity Reaction Status Date / Time penicillin G Allergy unknown Verified 05/06/23 10:12 Penicillins Allergy Unknown Verified 05/06/23 10:12 sulfamethoxazole Allergy unknown Verified 05/06/23 10:12 [From Bactrim] trimethoprim [From Bactrim] Allergy unknown Verified 05/06/23 10:12 PFSH Acute PFSH: Medical History Blind left eye Diabetes mellitus GERD (gastroesophageal reflux disease) Heart murmur History of foot fracture History of toe fracture Hypercholesteremia Hypertensive disorder Osteoporosis Psoriasis Recurrent UTI Urinary incontinence Surgical History H/O bladder repair surgery H/O knee surgery left History of History of cholecystectomy History of eye surgery History of hysterectomy Family History Mother , at age 59 Hypertension Father No problems noted. Sister Diabetes Heart disease Breast cancer unknown age onset Brother Heart disease Social History Smoking and tobacco/nicotine status: never used tobacco/nicotine Alcohol intake: never Substance/Drug Use: never Vitals/I&O/Wt Last Vital Signs Temp 97.8 F 08/08/23 11:39 Pulse 88 08/08/23 11:39 Resp 18 08/08/23 11:39 BP 153/76 08/08/23 11:39 Pulse Ox 98 08/08/23 11:39 O2 Del Method Room Air 08/08/23 11:47 08/07/23 08/08/23 08/08/23 22:59 06:59 14:59 Intake Total 50 / 50 Balance 50 / 50 Weight last 48 hrs Weight 71.668 kg Physical Exam Narrative: General: pt is alert and cooperative. She appears tired. Pt does have catheter placed. Head: atraumatic, normocephalic. Neck: supple, no lymphadenopathy, no thyromegaly. Cardiac: regular rate, rhythm, no murmurs appreciated. Respiratory: clear to ausculation bilaterally. Equal chest rises bilaterally. Abdomen: normoactive bowel sounds in all 4 quadrants. No tenderness to palpation. No obvious organomegaly. Skin: no rashes, cyanosis, edema appreciated. Extremities: 2+ pulses in upper and lower extremities. Brisk capillary refill. Neuro: right-sided facial droop noted in upper and lower face. All other special education classroom aide appear to be intact. 5/5 strength bilaterally in lower extremities, 5/5 in right upper extremity, 5/5 in left upper extremity. Cerebellar function appears normal. Mild dysarthria present. Urinary Catheter Management: Palafox: Cath Placed During This Visit: yes Urinary Catheter Date of Insertion: 08/08/23 Urinary Catheter Time of Insertion: 10:30 Data 08/08/23 10:05 08/08/23 10:05 A&P Assessment and plan (1) Otorrhea of right ear: (2) Sleep arousal disorder: (3) Hypertensive disorder: (4) Speech and language deficits: (5) Bradycardia: (6) Memory loss: (7) Diabetes mellitus: (8) Cerebrovascular accident: (9) Urge incontinence: (10) Recurrent UTI: Coding Level of Care Code Critical Care >/= 30 minutes Diagnoses Otorrhea of right ear H92.11 Sleep arousal disorder G47.8 Hypertensive disorder I10 Speech and language deficits F80.9 Bradycardia R00.1 Memory loss R41.3 Diabetes mellitus E11.9 Cerebrovascular accident I63.9 Urge incontinence N39.41 Recurrent UTI N39.0 Documented by User: Ady Rivas MD 08/09/23 13:10 Providers/Chief Complaint Chief Complaint: possible TIA Medications/Allergies Home Medications Medication Instructions Recorded Confirmed Last Taken Type atorvastatin 80 mg tablet 80 mg PO BEDTIME 03/09/23 08/08/23 05/05/23 History bupropion HCl 150 mg tablet,12 hr 150 mg PO BID 03/09/23 08/08/23 05/06/23 History sustained-release ezetimibe 10 mg tablet (Zetia) 10 mg PO BEDTIME 03/09/23 08/08/23 05/05/23 History aspirin 81 mg tablet,delayed 81 mg PO [facility] 03/29/23 08/08/23 05/06/23 History release clopidogrel 75 mg tablet 75 mg PO QAM 03/29/23 08/08/23 05/06/23 History estradiol 0.5 mg tablet 0.5 mg PO QAM 03/29/23 08/08/23 05/06/23 History levetiracetam 500 mg tablet 500 mg PO BID@0900,2100 #180 tabs 03/31/23 08/08/23 05/06/23 Rx dapagliflozin propanediol 5 mg 5 mg PO QAM 04/04/23 08/08/23 05/06/23 History tablet amlodipine 5 mg tablet 5 mg PO DAILY #30 tabs 05/06/23 08/08/23 Unknown Rx divalproex 250 mg tablet,delayed 250 mg PO BID #90 tabs 05/26/23 08/08/23 Unknown Rx release (Depakote) ciprofloxacin 0.3 %-dexamethasone 4 drp otic (ear) BID 08/08/23 08/08/23 Unknown History 0.1 % ear drops,suspension clonazepam 0.5 mg tablet 0.5 mg PO BEDTIME 08/08/23 08/08/23 Unknown History divalproex 500 mg tablet,delayed 500 mg PO BID 08/08/23 08/08/23 Unknown History release fluticasone propionate 50 2 spray intranasal DAILY 08/08/23 08/08/23 Unknown History mcg/actuation nasal spray,suspension metformin 500 mg tablet,extended 1,000 mg PO QAM 08/08/23 08/08/23 Unknown History release 24 hr Allergies Allergy/AdvReac Type Severity Reaction Status Date / Time penicillin G Allergy unknown Verified 05/06/23 10:12 Penicillins Allergy Unknown Verified 05/06/23 10:12 sulfamethoxazole Allergy unknown Verified 05/06/23 10:12 [From Bactrim] trimethoprim [From Bactrim] Allergy unknown Verified 05/06/23 10:12 PFSH Acute PFSH: Medical History Blind left eye Diabetes mellitus GERD (gastroesophageal reflux disease) Heart murmur History of foot fracture History of toe fracture Hypercholesteremia Hypertensive disorder Osteoporosis Psoriasis Recurrent UTI Urinary incontinence Surgical History H/O bladder repair surgery H/O knee surgery left History of History of cholecystectomy History of eye surgery History of hysterectomy Family History Mother , at age 59 Hypertension Father No problems noted. Sister Diabetes Heart disease Breast cancer unknown age onset Brother Heart disease Social History Smoking and tobacco/nicotine status: never used tobacco/nicotine Alcohol intake: never Substance/Drug Use: never Physical Exam Urinary Catheter Management: Palafox: Cath Placed During This Visit: yes Data 08/08/23 10:05 08/08/23 10:05 A&P Assessment and plan (1) Otorrhea of right ear: (2) Sleep arousal disorder: (3) Hypertensive disorder: (4) Speech and language deficits: (5) Bradycardia: (6) Memory loss: (7) Diabetes mellitus: (8) Cerebrovascular accident: (9) Urge incontinence: (10) Recurrent UTI: Plan Acute CVA status post tPA Post tPA ICU care Post tPA patient started bleeding from right ear ENT consulted on stat basis Patient has otitis externa and media Currently on antibiotic eyedrops She is also on empirical antibiotic coverage for meningitis she has been afebrile As per the family she is not far off from her baseline She is bradycardic Lethargic and fatigued PT OT ST requested We will keep her on pur?ed diet At home as per the family she is not very active She used a Q-tip and noticed a lot of drainage which changed from clear to yellowish as per the son No noticed fever at home We will recommend fdc placement depending on her current progress however further plan will be discussed with the family I would not repeat echo as it was done recently She recently had extensive work-up at Etiology for recurrent CVA is not clear at this point, compliance of medication is questionable as well Patient is not able provide much history, history taken from the collaterals, son, ENT consulted stat repeat CT head intraportal CT requested Attestations Medical Necessity Statement*: Continue medical management Coding Level of Care Code Critical Care >/= 30 minutes Critical care time (in minutes): 40 The high probability of a clinically significant, sudden or life threatening deterioration, as referenced in this documentation, required my full and direct attention, intervention and personal management. The critical care time shown is in addition to time spent performing any reported separately billable procedures and includes the following: [x] Data and vital sign review and interpretation [x] Patient assessment, examination and intervention [x] Medication orders and management [x] Patient/Family updates as able [x] Care Coordination and Documentation. Diagnoses Otorrhea of right ear H92.11 Sleep arousal disorder G47.8 Hypertensive disorder I10 Speech and language deficits F80.9 Bradycardia R00.1 Memory loss R41.3 Diabetes mellitus E11.9 Cerebrovascular accident I63.9 Urge incontinence N39.41 Recurrent UTI N39.0
--- NOTE | 2023-08-08 12:49 | CT_ITS ---
WS: [id number] CT HEAD TECHNIQUE: Noncontrast CT of the head obtained from the skullbase to the vertex. CLINICAL INFORMATION: rt ear bleed COMPARISON: None. DLP: 1321.[address] scans at [facility] use at least one of these dose optimization techniques: automated e xposure control; mA and/or kV adjustment per patient size (includes targeted exams where dose is matc hed to clinical indication); or iterative reconstruction. FINDINGS: No evidence of intracranial hemorrhage or mass effect. Ventricular system and basal cisterns are sarah nt. Mild small vessel changes with mild parenchymal volume loss. Chronic infarct LEFT basal ganglia. No extra-axial fluid collections. No evidence of mass or mass effect. Paranasal sinuses are well aerated. Normal posterior nasopharynx. Complete opacification of the RIGHT mastoid air cells new compared to 05/06/2023. Opacification of the RIGHT middle ear with fluid and se cretions in the RIGHT middle ear and mild thickening of the EAC soft tissues with mild EAC narrowing can be seen with otitis externa. IMPRESSION: 1. No evidence of intracranial hemorrhage or mass effect. 2. Complete opacification RIGHT mastoid air cells with opacification RIGHT middle ear. Recommend cor relation for mastoiditis and otitis media. 3. Mild narrowing of the RIGHT EAC with soft tissue induration can be seen with otitis externa. 4. LEFT mastoid air cells are well aerated.
[2023-08-08] MEDS: labetalol 5 mg/mL SDV 20mL 10 MG IVP (12:58)
--- NOTE | 2023-08-08 13:06 | CT_ITS ---
WS: [id number] CT TEMPORAL BONES TECHNIQUE: Noncontrast CT of the temporal bones with coronal and sagittal reformatted images. CLINICAL INFORMATION: RT ear bleed COMPARISON: None. DLP: 1321.[address] scans at [facility] use at least one of these dose optimization techniques: automated e xposure control; mA and/or kV adjustment per patient size (includes targeted exams where dose is matc hed to clinical indication); or iterative reconstruction. FINDINGS: RIGHT: Complete opacification the RIGHT mastoid air cells and RIGHT middle ear. Retraction of the tym panic membrane. Suggestion of early erosive changes involving the mastoid septae. Diffuse thickening and induration involving the cartilaginous EAC compatible with otitis externa. Nor mal scutum and inner ears structures. Normal semicircular canal. Ossicles appear intact. LEFT: Mastoid air cells are well aerated. Normal external auditory canal. Ossicles are normal in appearance . Middle ear is well aerated. Normal tegmen tympani. Semicircular canals and cochlea are normal in ap pearance. Prussak's space is normal. Normal inner ear structures. Normal vestibular aqueduct. Facial nerve recess is normal. IMPRESSION: 1. Complete opacification RIGHT mastoid air cells with complete opacification RIGHT middle ear. Sugg estion of mild erosion mastoid septae with induration about the mastoid tip compatible with mastoidit is and otitis media. 2. In addition there is diffuse thickening of the EAC with surrounding induration compatible with ot itis externa. 3. LEFT mastoid air cells and middle ear are well aerated. Normal LEFT EAC. 4. Trace fluid in the maxillary sinuses and ethmoid air cells. 5. Normal visualized posterior nasopharynx.
[2023-08-08 13:11] LABS: Estmated Average Glucose 189; Hemoglobin A1C 8.2 % (4.0-6.0)
--- NOTE | 2023-08-08 13:33 | PC.NURSE ---
Approximately 1250 noted blood coming out of right ear, bp 186/83. Dr. Rivas notified, received orders for STAT head CT and labetalol per MAR
[2023-08-08 13:34] LABS: Thyroid Stimulating Hormone 1.89 uIU/mL (0.27-4.20); Vitamin B12 641 pg/mL (232-1245)
[2023-08-08] MEDS: cefepime 2,000 MG in sodium chloride 0.9% (plus) 50 ML 100 MG IV (14:20)
[2023-08-08] MEDS: sodium chloride 0.9% 1,000 ML 75 ML IV (14:34)
[2023-08-08] MEDS: aztreonam 2,000 MG in sodium chloride 0.9% (plus) 100 ML 200 MG IV (15:20)
--- NOTE | 2023-08-08 15:51 | PC.PHAR ---
Objective: STANDARD TROUGH REQUESTED Patient: Floor: Age: 63 yo Serum creatinine: 0.8 mg/dL Height: 63.0 Inches Weight (kg): 71.668 Diagnosis: Relevant medical/social history: Cultures and sensitivities: Other labs: Assessment: IBW (kg): 52.40 Dosing wt(kg): 71.668 Estimated Creatinine clearance (ml/min): 58.8 CRCL method: Cockcroft and Gault using ibw(default). Drug selected: Vancomycin Loading dose (mg): 0 Vd (liters): 57.3 (factor used: 0.8 L/kg) Mo (hr-1): 0.053 Half life (hrs): 13.08 Recommended dose: 1250 mg Interval: 18 hrs Infusion time (hrs): 1 Predicted peak (mcg/mL): 34.6 Predicted trough (mcg/mL): 14.05 Total body weight is being used for vancomycin dosing.
[2023-08-08] MEDS: vancomycin 1,250 MG/250 ML PIGGYBACK 250 MG IV (16:30)
[2023-08-08 17:18] LABS: Glucose Point of Care 105 mg/dL (70-110)
--- NOTE | 2023-08-08 17:38 | P.CONIM_ITS ---
Providers/Reason For Consult Consulting Physician/Specialty*: Dr. Monty Hassan MD Otolaryngology, Head & Neck Surgery Reason for Consult*: Bloody Otorrhea, Right Ear Requesting Physician: Dr. Ady Rivas MD Attending Physician: Ady Rivas MD Primary Care Provider: Mahnaz Yepez History of Present Illness History of Present Illness Sydney Zambrano is a 63 year old female who was admitted through the [facility] ER f or 'stroke-like' symptoms. The patient was treated with TPA and subsequently developed bloody otorrhea from the right ear. I was consulted to evaluate the patient's right ear. The patient reports some hearing loss from the right ear, but has no other related c/o. The patient denies any other noted palliative or provocative factors, and describes her current ear symptoms as mild. Review of Systems General: Reports: 10 or more systems reviewed and unremarkable except in HPI and below Medications/Allergies Home Medications Medication Instructions Recorded Confirmed Last Taken Type atorvastatin 80 mg tablet 80 mg PO BEDTIME 03/09/23 08/08/23 05/05/23 History bupropion HCl 150 mg tablet,12 hr 150 mg PO BID 03/09/23 08/08/23 05/06/23 Histo ry sustained-release ezetimibe 10 mg tablet (Zetia) 10 mg PO BEDTIME 03/09/23 08/08/23 05/05/23 History aspirin 81 mg tablet,delayed 81 mg PO QA 03/29/23 08/08/23 05/06/23 History release clopidogrel 75 mg tablet 75 mg PO QAM 03/29/23 08/08/23 05/06/23 History estradiol 0.5 mg tablet 0.5 mg PO QAM 03/29/23 08/08/23 05/06/23 History levetiracetam 500 mg tablet 500 mg PO BID@0900,2100 #180 tabs 03/31/23 08/08/23 05/06/23 Rx dapagliflozin propanediol 5 mg 5 mg PO QAM 04/04/23 08/08/23 05/06/23 History tablet amlodipine 5 mg tablet 5 mg PO DAILY #30 tabs 05/06/23 08/08/23 Unknown Rx divalproex 250 mg tablet,delayed 250 mg PO BID #90 tabs 05/26/23 08/08/23 Unkno wn Rx release (Depakote) ciprofloxacin 0.3 %-dexamethasone 4 drp otic (ear) BID 08/08/23 08/08/23 Unknown History 0.1 % ear drops,suspension clonazepam 0.5 mg tablet 0.5 mg PO BEDTIME 08/08/23 08/08/23 Unknown History divalproex 500 mg tablet,delayed 500 mg PO BID 08/08/23 08/08/23 Unknown History release fluticasone propionate 50 2 spray intranasal DAILY 08/08/23 08/08/23 Unknown History mcg/actuation nasal spray,suspension metformin 500 mg tablet,extended 1,000 mg PO QAM 08/08/23 08/08/23 Unknown History release 24 hr Allergies Allergy/AdvReac Type Severity Reaction Status Date / Time penicillin G Allergy unknown Verified 05/06/23 10:12 Penicillins Allergy Unknown Verified 05/06/23 10:12 sulfamethoxazole Allergy unknown Verified 05/06/23 10:12 [From Bactrim] trimethoprim [From Bactrim] Allergy unknown Verified 05/06/23 10:12 Current Medications Generic Name Dose Route Start Last Admin Trade Name Freq PRN Reason Stop Dose Admin Sodium Chloride 1,000 mls @ 75 mls/hr 08/08/23 12:30 08/08/23 14:34 Sodium Chloride 0.9% IV 75 mls/hr .[id number] CHENTE Administration Cefepime HCl 2,000 mg/ Sodium 50 mls @ 100 mls/hr 08/08/23 14:00 08/08/23 14:20 Chloride IV 100 mls/hr Q12H CHENTE Administration Protocol Aztreonam 2,000 mg/ Sodium 100 mls @ 200 mls/hr 08/08/23 15:00 08/08/23 15:20 Chloride IV 200 mls/hr Q12H CHENTE Administration Protocol Vancomycin/PEG/NADA/Lysine/Water 1,250 mg in 250 mls @ 250 mls/hr 08/08/23 16:00 08/08/23 16:30 Vancocin IV 250 mls/hr Q18H CHENTE Administration PFSH Acute PFSH: Medical History Blind left eye Diabetes mellitus GERD (gastroesophageal reflux disease) Heart murmur History of foot fracture History of toe fracture Hypercholesteremia Hypertensive disorder Osteoporosis Psoriasis Recurrent UTI Urinary incontinence Surgical History H/O bladder repair surgery H/O knee surgery left History of History of cholecystectomy History of eye surgery History of hysterectomy Family History Mother , at age 59 Hypertension Father No problems noted. Sister Diabetes Heart disease Breast cancer unknown age onset Brother Heart disease Social History Smoking and tobacco/nicotine status: never used tobacco/nicotine Alcohol intake: never Substance/Drug Use: never Vitals/I&O/Wt Last Vital Signs Temp 97.8 F 08/08/23 13:00 Pulse 59 L 08/08/23 14:00 Resp 18 08/08/23 13:00 BP 153/76 08/08/23 13:00 Pulse Ox 98 08/08/23 11:39 O2 Del Method Room Air 08/08/23 11:47 08/08/23 08/08/23 08/08/23 06:59 14:59 22:59 Intake Total 50 / 50 Balance 50 / 50 Weight last 48 hrs Weight 71.668 kg Physical Exam Const: COMMON NORMALS: no acute distress, average body habitus and alert HENMT: COMMON NORMALS: normocephalic, atraumatic and Normal external nose present HEAD & SCALP: normocephalic and atraumatic FACE & SINUS: normal facial exam NOSE: Normal external nose present and Normal nares present M OUTH: Normal oral and palatal mucosa present and other (There are blood clots in the EAC AD; No periaural swelling AD.) Eye: COMMON NORMALS: conjunctivae normal and no scleral icterus CONJUNCTIVA: Yes conjunctivae normal Neuro: COMMON NORMALS: CN's II-XII intact bilaterally SENSORIUM/ORIENTATION: Yes alert Urinary Catheter Management: Palafox: Cath Placed During This Visit: yes Urinary Catheter Date of Insertion: 08/08/23 Urinary Catheter Time of Insertion: 10:30 Data 08/08/23 10:05 08/08/23 10:05 Attestation for Other Data: I personally reviewed and interpreted the following: Other data: CT Temporal Bones (08/08/23): Intact amita septae and outer cortex, right mastoid; middle ear and mastoid filled with soft tissue density AD. A&P Assessment and plan (1) Otorrhea of right ear: Impression: Bloody Otorrhea and middle ear effusion, AD with no evidence of acute coalscent/surgical mastoiditis on physical exam or Temporal Bone CT scan Plan: - I recommend that the patient use Ciprodex Otic Suspension: 4 gtts AD BID X 10 days - The patient is to f/u with me after d/c for follow on care - Please contact Dr. Vazquez for any related problems Consult Attestations Medical Necessity Statement: I was consulted to assist with management of Ms. Zambrano's ear care. Coding Level of Care Code Acute Code for Chg Fwd Diagnoses Otorrhea of right ear H92.11
--- NOTE | 2023-08-08 18:59 | PC.NURSE ---
Dr. Rivas notified of bp in 180s, HCP okay with this as long as no bleeding from Right ear
--- NOTE | 2023-08-08 19:17 | PM.SAN ---
Stroke Alert Activation ED Arrival Date: 08/08/23 ED Arrival Time: 09:27 Last Known Normal/at Baseline: 1-2 hours ago Other Last Known Well Infomation: We were very much lacking a history with a 63-year-old woman who was brought in by a caregiver who left almost immediately after saying that the patient woke up with her symptoms and was last known well last night. The patient's son came in and he said that the patient was normal when she got up this morning and that her symptom onset was abrupt at 9 AM. He very specifically said that she did well going out to feed the cats and then she sat down and could not get back up after feeding the cats. Dr. Carmona called stroke alert and I came directly to the emergency department and performed an NIH stroke scale along with Dr. Garner. On my initial exam she had receptive aphasia and she was diffusely weak. We agreed that she probably had some degree of visual field cut but she was perseverating and so it was hard to appreciate. She was not moving either of her legs very well. She had flattening of the right face. We agreed that because her blood pressure was under good control, she is not on a blood thinner, and she had significant speech difficulty and neurologic deficit that was new, that we should go ahead with tPA. She recieved the bolus for TPA at 1015. The caregiver came back to the emergency department at that point and seem to dispute the story, again same that onset of symptoms was last night. We talked about wake-up strokes and the fact that recent evidence suggest that if the CAT scan is normal, wake-up strokes can be treated. We talked with the patient and her son. This patient was not capable of giving an opinion. Her son came back to the emergency department and reinforced that she was normal when she got up and at that point the caregiver agreed with that. Stroke Alert Activated by: Dr. Carmona Stroke Alert Activation Time: 09:40 Stroke MD @ Bedside Time: 09:55 NIH Stroke Scale Time: 09:55 NIH stroke score NIHSS: Level Of Consciousness - 1a: 2 Level Of Consciousness Questions - 1b: Neither Correct Level Of Consciousness Commands - 1c: One Correct Best Gaze - 2: Normal Visual [place]ue[place] - 3: Partial Hemianopia Facial Palsy - 4: Minor Paralysis Motor Arm Right - 5: Effort Against [place] Motor Arm Left - 5: Effort Against [place] Motor Leg Right - 6: No Effort Against [place] Motor Leg Left - 6: No Effort Against [place] Limb Ataxia - 7: Absent Sensory - 8: Normal Best Language - 9: Mild/Moderate Aphasia Dysarthia - 10: Mild/Moderate Dysarthia Extinction And Inattention - 11: 0 Score: Total Score: 19 Stroke Alert Data/Treatment CT Results Time: 09:59 CT Impression: No acute findings CT head 08/08/2023 1001 1.? No evidence of intracranial hemorrhage or mass effect. 2.? New complete opacification of the RIGHT mastoid air cells and RIGHT middle ear. This is new compared to 05/06/2023. Recommend correlation for otitis media. 3.? Mild small vessel changes. Mild parenchymal volume loss. Notified Lucio Garner DO at 08/08/2023 9:59 AM. Dictated By: Gilberto Baez MD CTA 1.? No significant cervical ICA stenosis bilaterally. 2.? No flow-limiting intracranial stenosis. 3.? Codominant and patent vertebral arteries bilaterally. 4.? Enlarged indeterminate 1.5 cm RIGHT infraclavicular lymph node similar in appearance to previous. 5.? Prominent bilateral cervical chain lymph nodes have progressed compared to previous. Recommend correlation with clinical history. 6.? Opacification RIGHT mastoid air cells and middle ear. Dictated By: Gilberto Baez MD 1156 DD/ 1138 Stroke Risk Factors: coronary artery disease, hypertension, obesity, diabetes mellitus and depression tPA Started Date: 08/08/23 tPA Started Time: tPA Started - Time: 10:15 tPA Admin Prior to Arrival: No Other Patient & Family Education: The patient's came in after the bolus. He acknowledged that time of onset was 9 and that she was normal up until then. Other Information: I had a chance to review extensive notes made by Dr. Monty Cast on this patient as he saw her in April. At his last visit on 05/03/2023 he mentioned that the patient was experiencing severe memory problems, nonfluent aphasia, slurred speech and episodes of staring off into space and not responding. Her balance was poor and she has had several near falls. She was losing control of activities of daily living and even her own hygiene. She had missed several appointments. She had 21-day event monitor which showed some ectopy but nothing significant. She has a history of bradycardia for which she was to follow-up with Dr. Sanchez but she canceled that appointment. Dr. Cast recommended a sleep study. He described that her MRI from 03/29/2023 showed a subacute infarct in the left basal ganglia with a hemorrhagic component consistent with an evolving stroke from February but rule out mass. He mentioned that she had previous extensive EEG monitoring at [facility] as an inpatient and she is on levetiracetam 500 mg twice daily. During his examination she had 4 out of 5 strength on the right and 5 out of 5 strength on the left which is markedly different from her exam today and she was alert and fully oriented with clear speech. Critical Care Time Critical Care Time: 30 - 74 mins A&P Assessment and plan (1) Acute ischemic left MCA stroke: Acute stroke in the left middle cerebral artery distribution again of unclear origin treated with tPA. plan repeat MRI or CAT scan tomorrow to make sure she does not have reperfusion hemorrhage. Follow-up with Dr. Cast after discharge. (2) Memory loss: Further work-up needed. (3) Otorrhea of right ear: She has obvious serum and running out and on pool out of her right ear and CT showed mastoiditis and possible middle ear disease. Coding Level of Care Code Acute Code for [facility] Fwd Diagnoses Acute ischemic left MCA stroke I63.512 Memory loss R41.3 Otorrhea of right ear H92.11
[2023-08-08] MEDS: CLONazepam 0.5 mg Tablet PO (20:46)
[2023-08-08] MEDS: atorvastatin 40 mg Tablet 80 MG PO (20:46)
[2023-08-08] MEDS: levETIRAcetam 500 mg Tablet PO (20:46)
[2023-08-08] MEDS: acetaminophen 500 mg Tablet PO (22:58)
--- NOTE | 2023-08-08 23:02 | CTR_ITS ---
PROCEDURE INFORMATION: Exam: CT Head Without Contrast Exam date and time: 08/08/2023 11:19 PM Age: 63 years old Clinical indication: Altered mental status/memory loss; Confusion or disorientation; Additional info: Change in mentation, S/P tpa 12 hrs ago, now with change in mentation, TECHNIQUE: Imaging protocol: Computed tomography of the head without contrast. Radiation optimization: All CT scans at this facility use at least one of these dose optimization techniques: automated exposure control; mA and/or kV adjustment per patient size (includes targeted exams where dose is matched to clinical indication); or iterative reconstruction. REPORTING DATA: Count of CT and Cardiac NM exams in prior 12 months: This patient has received 6 known CTs and 0 known cardiac nuclear medicine studies in the 12 months prior to the current study. COMPARISON: CT head wo con* [id number] 08/08/2023 1:13 PM RADIATION DOSE METRICS: Total DLP (mGy-cm): 1012.61 FINDINGS: Brain: No acute infarct. No hemorrhage. Unremarkable white matter for age. No mass effect. Chronic lacunar type infarct left basal ganglia is unchanged. Cerebral ventricles: No ventriculomegaly. Paranasal sinuses: No significant inflammation. No fluid levels. Mastoid air cells: Right mastoid and middle ear cavity fluid is unchanged. Bones/joints: Unremarkable. No acute fracture. Soft tissues: Unremarkable. CT/CT head wo con* [id number] IMPRESSION: No acute intracranial abnormality.
[2023-08-09] VITALS (11 sets, daily range): BP systolic 102–160; BP diastolic 54–79; PULSE 51–90; RESP 12–21; TEMP 36–37.2
[2023-08-09] MEDS: morphine IR 15 mg Tablet PO (01:40)
[2023-08-09] MEDS: cefepime 2,000 MG in sodium chloride 0.9% (plus) 50 ML 100 MG IV ×2 (01:50→13:57)
[2023-08-09] MEDS: sodium chloride 0.9% 1,000 ML 75 ML IV (01:50)
[2023-08-09] MEDS: aztreonam 2,000 MG in sodium chloride 0.9% (plus) 100 ML 200 MG IV ×2 (02:58→16:42)
[2023-08-09 05:32] LABS: Phosphorus 4.6 mg/dL (2.5-4.5)
[2023-08-09 07:51] LABS: Glucose Point of Care 114 mg/dL (70-110)
[2023-08-09] MEDS: ciprofloxacin-dexameth Otic Susp 7.5 mL Btl 4 DROP EAR-RIGHT ×2 (09:56→17:42)
[2023-08-09] MEDS: vancomycin 1,250 MG/250 ML PIGGYBACK 250 MG IV (10:00)
[2023-08-09 11:07] LABS: Glucose Point of Care 154 mg/dL (70-110)
[2023-08-09] MEDS: insulin lispro 100 unit/1 mL SUBCUT (12:25)
--- NOTE | 2023-08-09 13:30 | PM.PN ---
Subjective Subjective: This morning patient is lethargic Not eating well Started D5 half-normal saline We can repeat labs for tomorrow Add aspirin Hold Plavix because of right ear discharge Sinus on telemetry Family at the bedside refusing shelter placement Bradycardic PT OT ST pending Vitals/I&O/Wt Last Vital Signs Temp 98.9 F 08/09/23 10:18 Pulse 76 08/09/23 10:18 Resp 21 H 08/09/23 01:40 BP 160/79 08/09/23 10:18 Pulse Ox 98 08/08/23 11:39 O2 Del Method Room Air 08/08/23 11:47 08/08/23 08/09/23 08/09/23 22:59 06:59 14:59 Intake Total 520 / 570 995 / 1565 355 / 355 Output Total 450 / 450 550 / 1000 Balance 70 / 120 445 / 565 355 / 355 Weight last 48 hrs Weight 71.668 kg Physical Exam Narrative: Patient is still lethargic and fatigued Confused Right ear discharge has improved S1, S2 Dehydrated Family at the bedside Patient is currently on 2 L while asleep Bradycardia Hypertensive Urinary Catheter Management: Palafox: Cath Placed During This Visit: yes Reason for Continuing Indwelling Catheter: Accurate Measurement of Urinary Output in Critically Ill Patients Urinary Catheter Date of Insertion: 08/08/23 Urinary Catheter Time of Insertion: 10:30 Data 08/08/23 10:05 08/08/23 10:05 A&P Assessment and plan (1) Otorrhea of right ear: (2) Sleep arousal disorder: (3) Hypertensive disorder: (4) Speech and language deficits: (5) Bradycardia: (6) Memory loss: (7) Diabetes mellitus: (8) Cerebrovascular accident: Plan Recurrent stroke Appreciate neuro recommendations Patient and family not interested in shelter placement She still has PT OT ST pending Not eating very well lethargic Start D5 half-normal saline We will request CBC BMP tomorrow Start aspirin Hold Plavix because of right ear discharge Full code Currently on dysphagia diet Patient has had extensive work-up in the past including EEG test but she is on Keppra as well She is sleep apnea 2 L overnight Bradycardia without significant symptoms Discharge later today versus tomorrow, family is refusing shelter placement as well Attestations Medical Necessity Statement*: Continue medical management Diagnoses Otorrhea of right ear H92.11 Sleep arousal disorder G47.8 Hypertensive disorder I10 Speech and language deficits F80.9 Bradycardia R00.1 Memory loss R41.3 Diabetes mellitus E11.9 Cerebrovascular accident I63.9
[2023-08-09] MEDS: dextrose 5%-sod chloride 0.45% 1,000 ML 30 ML IV (13:57)
[2023-08-09 17:08] LABS: Glucose Point of Care 78 mg/dL (70-110)
[2023-08-09] MEDS: levETIRAcetam 500 mg Tablet PO (20:53)
[2023-08-09] MEDS: atorvastatin 40 mg Tablet 80 MG PO (20:53)
[2023-08-09] MEDS: CLONazepam 0.5 mg Tablet PO (20:54)
[2023-08-09] MEDS: haloperidol inj 5 mg/mL INJ 1 mL 1 MG IM (21:30)
--- NOTE | 2023-08-09 21:52 | PC.NURSE ---
Patient confused. Pulling at lines and tubes. Attempting to get out of bed. [address] Garcia notified of increased restlessness and confusion. New orders given.
[2023-08-09] MEDS: dexmedetomidine 400 MCG in sodium chloride 0.9% (100 ml) 100 ML IV (23:00)
[2023-08-09 23:14] LABS: Glucose Point of Care 137 mg/dL (70-110)
[2023-08-10] VITALS (7 sets, daily range): BP systolic 136–149; BP diastolic 83–109; PULSE 59–110; RESP 15–19; TEMP 36.6–37; O2SAT 92–97
[2023-08-10] MEDS: haloperidol inj 5 mg/mL INJ 1 mL 2 MG IM (01:38)
[2023-08-10] MEDS: cefepime 2,000 MG in sodium chloride 0.9% (plus) 50 ML 100 MG IV ×2 (01:38→15:42)
[2023-08-10] MEDS: vancomycin 1,250 MG/250 ML PIGGYBACK 250 MG IV (03:17)
[2023-08-10] MEDS: aztreonam 2,000 MG in sodium chloride 0.9% (plus) 100 ML 200 MG IV ×2 (03:17→15:42)
[2023-08-10 04:50] LABS: Basophils % 0.4 %; Eosinophils # 0.1 10^3/uL (0.0-0.8); Hematocrit 35.4 % (36-47); Lymphocytes # 1.2 10^3/uL (0.8-4.8); Lymphocytes % 25.5 %; Mean Corpuscular HGB Conc 31.6 g/dL (30-55); Mean Corpuscular Hemoglobin 30.7 pg (27-33); Mean Platelet Volume 10.3 fL (7.4-10.4); Monocytes # 0.4 10^3/uL (0.2-0.9); Monocytes % 8.2 %; Neutrophils # 2.89 10^3/uL (1.8-7.7); Neutrophils % 62.5 %; Nucleated Red Blood Cells % 0 %; Platelet Count 217 10^3/cmm (157-399); Red Blood Count 3.65 10^6/uL (3.85-5.65); Red Cell Distribution Width 12.1 % (12.1-15.1); White Blood Count 4.63 10^3/uL (3.29-11.43)
[2023-08-10 05:16] LABS: Blood Urea Nitrogen 8 mg/dL (8-23); Calcium 7.7 mg/dL (8.5-10.5); Carbon Dioxide 27 mmol/L (22-29); Chloride 111 mmol/L (98-107); Glomerular Filtration Rate 84.2 mL/min (90-130); Glucose 130 mg/dL (65-115); Osmolality Calculated 302 mOsm/kg (285-295); Sodium 146 mmol/L (136-145)
[2023-08-10 05:19] LABS: Anion Gap 11.7 (5-19); Potassium 3.7 mmol/L (3.5-5.1)
[2023-08-10 05:22] LABS: Glucose Point of Care 143 mg/dL (70-110)
[2023-08-10 07:29] LABS: Glucose Point of Care 141 mg/dL (70-110)
[2023-08-10] MEDS: insulin lispro 100 unit/1 mL SUBCUT ×2 (08:42→18:25)
[2023-08-10] MEDS: ciprofloxacin-dexameth Otic Susp 7.5 mL Btl 4 DROP EAR-RIGHT ×2 (08:51→18:25)
--- NOTE | 2023-08-10 10:18 | P.PN_ITS ---
Subjective Subjective: Patient took her time to wake up She had a few sips of juice Sodium 146 D5 running at the bedside Patient is able to move her extremities Drowsy Adequate urine output Vitals/I&O/Wt Last Vital Signs Temp 98.6 F 08/10/23 06:00 Pulse 64 08/10/23 09:03 Resp 18 08/10/23 09:03 BP 136/66 08/09/23 18:00 Pulse Ox 95 08/10/23 09:03 O2 Del Method Nasal Cannula 08/10/23 09:03 O2 Flow Rate 1 08/10/23 09:03 08/09/23 08/10/23 08/10/23 22:59 06:59 14:59 Intake Total 322 / 1637 506.24 / 2143.24 222 / 222 Output Total 1000 / 1000 550 / 1550 Balance -678 / 637 -43.76 / 593.24 222 / 222 Physical Exam Narrative: Patient is drowsy and lethargic Opening her eyes Take a few sips of juice Moving her extremities Confused Not very communicative S1, S2 Bradycardia Hemodynamic stable Heart rate 160s Afebrile Currently on room air Urinary Catheter Management: Palafox: Cath Placed During This Visit: yes Reason for Continuing Indwelling Catheter: Accurate Measurement of Urinary Output in Critically Ill Patients Urinary Catheter Date of Insertion: 08/08/23 Urinary Catheter Time of Insertion: 10:30 Data 08/10/23 04:35 08/10/23 04:35 A&P Assessment and plan (1) Otorrhea of right ear: (2) Acute ischemic left MCA stroke: (3) Sleep arousal disorder: (4) Hypertensive disorder: (5) Speech and language deficits: (6) Bradycardia: (7) Memory loss: (8) Diabetes mellitus: (9) Cerebrovascular accident: (10) Recurrent UTI: Plan Sleep apnea Very drowsy this morning Protecting her airway Saturating well on room air We will add CPAP for tonight Patient moving her extremities No signs of seizure Discontinue Keppra Discontinue clonazepam she gets at night Acute CVA status post tPA Right ear discharge has improved Continue eardrops Appreciate ENT and neuro Recommendations Dehydration with hypernatremia Continue D5 patient is on level 6 dysphagia diet PT OT ST evaluation to be continued Discontinue IV antibiotics she has been afebrile No signs of meningitis Full code Family not interested in going to rehab, requesting home health Patient can be transferred out of ICU to [facility] Adequate urine output noted in the urine bag Attestations Medical Necessity Statement*: Continue medical management Diagnoses Otorrhea of right ear H92.11 Acute ischemic left MCA stroke I63.512 Sleep arousal disorder G47.8 Hypertensive disorder I10 Speech and language deficits F80.9 Bradycardia R00.1 Memory loss R41.3 Diabetes mellitus E11.9 Cerebrovascular accident I63.9 Recurrent UTI N39.0
[2023-08-10] MEDS: methylphenidate 10 mg Tablet 5 MG PO (11:26)
[2023-08-10] MEDS: morphine IR 15 mg Tablet PO ×2 (11:26→20:30)
--- NOTE | 2023-08-10 12:47 | PC.NURSE ---
Caregiver and ex- at beside requests to speak with case management about rehab or usp placement. Circulation Assistant to bedside to speak with patients son, Patient son refuses rehab or usp placement.
[2023-08-10] MEDS: dextrose 5% 1,000 ML 50 ML IV (13:18)
--- NOTE | 2023-08-10 13:32 | ECG_ITS ---
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 Measurements Intervals [place] Rate: 141 P: 250 IA: 167 QRS: 31 QRSD: 76 T: 264 QT: 328 QTc: 503 Interpretive Statements ECTOPIC ATRIAL TACHYCARDIA, POSSIBLE ATRIAL FLUTTER NONSPECIFIC ST & T-WAVE ABNORMALITY Compared to ECG 08/08/2023 09:48:44 T-wave abnormality now present Sinus rhythm no longer present Electronically Signed On 08-10-2023 14:23:24 CDT by Juan J Gonzalez M.D. [email or web address] [id number]
[2023-08-10 16:44] LABS: Glucose Point of Care 115 mg/dL (70-110)
[2023-08-10 17:36] LABS: Glucose Point of Care 198 mg/dL (70-110)
--- NOTE | 2023-08-10 17:44 | PC.NURSE ---
Patient transferred to second floor room 255-2, patient meds and paper chart left with staff at front elevator operator, floor nurse at bedside as well patient son. Patient able to say hello to floor nurse when prompted. Patient alert with eyes open. Bed alarm set, patient equipment associate at bedside. D5 running at 50ml/hr.
[2023-08-10] MEDS: divalproex DR 250 mg Tablet PO (18:25)
[2023-08-10] MEDS: atorvastatin 40 mg Tablet 80 MG PO (20:30)
[2023-08-10] MEDS: metoprolol tartrate 25 mg Tablet PO (20:31)
[2023-08-10 21:08] LABS: Glucose Point of Care 77 mg/dL (70-110)
[2023-08-11] VITALS (9 sets, daily range): BP systolic 117–171; BP diastolic 61–81; PULSE 60–131; RESP 16–17; TEMP 36.6–37.2; O2SAT 94–98
[2023-08-11 06:16] LABS: Basophils % 0.7 %; Eosinophils # 0.2 10^3/uL (0.0-0.8); Eosinophils % 2.9 %; Hematocrit 36.6 % (36-47); Lymphocytes # 1.5 10^3/uL (0.8-4.8); Lymphocytes % 28.1 %; Mean Corpuscular HGB Conc 31.7 g/dL (30-55); Mean Corpuscular Hemoglobin 30.6 pg (27-33); Mean Corpuscular Volume 96.6 fl (85-98); Mean Platelet Volume 10.6 fL (7.4-10.4); Monocytes # 0.6 10^3/uL (0.2-0.9); Monocytes % 11.3 %; Neutrophils # 3.11 10^3/uL (1.8-7.7); Neutrophils % 56.6 %; Nucleated Red Blood Cells % 0 %; Platelet Count 244 10^3/cmm (157-399); Red Blood Count 3.79 10^6/uL (3.85-5.65); Red Cell Distribution Width 12.1 % (12.1-15.1); White Blood Count 5.49 10^3/uL (3.29-11.43)
[2023-08-11 06:37] LABS: Blood Urea Nitrogen 7 mg/dL (8-23); Calcium 8.2 mg/dL (8.5-10.5); Carbon Dioxide 25 mmol/L (22-29); Chloride 106 mmol/L (98-107); Glomerular Filtration Rate 84.2 mL/min (90-130); Glucose 138 mg/dL (65-115); Osmolality Calculated 294 mOsm/kg (285-295); Sodium 142 mmol/L (136-145)
--- NOTE | 2023-08-11 07:04 | P.DS_ITS ---
Discharge Providers Date of Admission: 08/08/23 10:58 Date of Discharge: August 11, 2023 Attending Provider at Admission: Ady Rivas MD Attending Provider at Discharge: Ady Rivas MD Primary Care Provider: Mahnaz Yepez Diagnoses at Discharge Discharge Diagnosis (1) Otorrhea of right ear: Status: Acute (2) Acute ischemic left MCA stroke: Status: Acute (3) Sleep arousal disorder: Status: Acute (4) Hypertensive disorder: Status: Acute (5) Speech and language deficits: Status: Acute (6) Bradycardia: Status: Acute (7) Memory loss: Status: Acute (8) Diabetes mellitus: Status: Acute (9) Cerebrovascular accident: Status: Acute (10) Recurrent UTI: Status: Acute Reason for Visit Reason for Visit: possible TIA Hospital Course Hospital Course 63-year female who present to the hospital for dysarthria, weakness, on initial exam she had receptive aphasia and she was diffusely weak. She was not moving either of her legs very well.? She had flattening of the right face. Family was providing disputing stories however Dr. Espinosa decided to go with tPA for wake-up stroke, she was kept in ICU for about 48 hours because patient was extremely lethargic and fatigued her intake was extremely poor, with recommended detention/rehab but son and family both do not want to give up or check in stating that they would like to take her home, patient cannot make any decisions at this point, patient recently had echo done which was not repeated on this visit, patient does have sleep apnea, we did notice that in the morning she takes time to wake up and takes about 3 to 4 hours to regain her strength and start eating on her own I did give her Ritalin 1 dose which seemed to improve her mentation and energy. rhythm remained sinus initially then became tachycardic, EKG showed atrial flutter, considering her recurrent stroke I will put her on Eliquis and discontinue aspirin along Plavix and atorvastatin. We will adjust antihypertensive regimen at the time of discharge. Please note patient developed otorrhea right ear which was blood-tinged after she was given tPA, alcohol ENT on stat basis, temporal bone CT scan was obtained which showed mastoiditis, she does have otitis externa with otitis media she was given otic antibiotics drops, she did not spike any fever no signs of meningitis. Otorrhea has improved. She will follow-up with ENT outpatient Family is against putting her into a rehab and they do not want to give up the Social Security check stating that they have 3 people at home who could help her out Physical Exam Narrative: GCS 15 No new focal deficit Patient fatigued and lethargic Able to answer simple question Takes time to wake up and eat on her own S1, S2 On room air in the morning and uses 2 L of oxygen at night Abdomen soft Euvolemic Urinary Catheter Management: Palafox: Cath Placed During This Visit: yes Reason for Continuing Indwelling Catheter: Accurate Measurement of Urinary Output in Critically Ill Patients Urinary Catheter Date of Insertion: 08/08/23 Urinary Catheter Time of Insertion: 10:30 Discharge Data Studies Completed and Pending Completed Studies During Hospitalization Category Date Time Status CT head thrombolytic [id number] Stat Cat Scan 08/08/23 09:[address] head wo con* [id number] Stat Cat Scan 08/08/23 12:[address] head wo con* [id number] Urgent Cat Scan 08/08/23 23:[address] temporal bone wo con* [id number] Routine Cat Scan 08/08/23 13:06 Completed CTA head neck [CT angio headneck* [id number]] Stat Cat Scan 08/08/23 10:28 Completed Radiology Impressions Head CT 08/08/23 23:02 IMPRESSION: No acute intracranial abnormality. Laboratory Results WBC 5.49 10^3/uL (3.29-11.43) 08/11/23 05:10 RBC 3.79 10^6/uL (3.85-5.65) L 08/11/23 05:10 Hgb 11.60 g/dL (11.27-16.99) 08/11/23 05:10 Hct 36.6 % (36-47) 08/11/23 05:10 MCV 96.6 fl (85-98) 08/11/23 05:10 MCH 30.6 pg (27-33) 08/11/23 05:10 MCHC 31.7 g/dL (30-55) 08/11/23 05:10 RDW 12.1 % (12.1-15.1) 08/11/23 05:10 Plt Count 244 10^3/cmm (157-399) 08/11/23 05:10 MPV 10.6 fL (7.4-10.4) H 08/11/23 05:10 Neut % (Auto) 56.6 % 08/11/23 05:10 Lymph % (Auto) 28.1 % 08/11/23 05:10 [place] % (Auto) 11.3 % 08/11/23 05:10 Eos % (Auto) 2.9 % 08/11/23 05:10 Baso % (Auto) 0.7 % 08/11/23 05:10 Neut # (Auto) 3.11 10^3/uL (1.8-7.7) 08/11/23 05:10 Lymph # (Auto) 1.5 10^3/uL (0.8-4.8) 08/11/23 05:10 [place] # (Auto) 0.6 10^3/uL (0.2-0.9) 08/11/23 05:10 Eos # (Auto) 0.2 10^3/uL (0.0-0.8) 08/11/23 05:10 Baso # (Auto) 0.0 10^3/uL (0.0-0.1) 08/11/23 05:10 Nucleated RBC % (auto) 0 % 08/11/23 05:10 Nucleated RBCs # 0.0 /100WBC 08/11/23 05:10 PT 13.10 SECONDS (12.1-14.9) 08/08/23 10:05 INR 0.97 (0.8-1.2) 08/08/23 10:05 APTT 26.1 SECONDS (23.9-36.7) 08/08/23 10:05 Sodium 142 mmol/L (136-145) 08/11/23 05:10 Potassium 4.0 mmol/L (3.5-5.1) 08/11/23 05:10 Chloride 106 mmol/L (98-107) 08/11/23 05:10 Carbon Dioxide 25 mmol/L (22-29) 08/11/23 05:10 Anion Gap 15.0 (5-19) 08/11/23 05:10 BUN 7 mg/dL (8-23) L 08/11/23 05:10 Creatinine 0.7 mg/dL (0.5-0.9) 08/11/23 05:10 GFR Calculation 84.2 mL/min (90-130) L 08/11/23 05:10 Glucose 138 mg/dL (65-115) H 08/11/23 05:10 POC Glucose 77 mg/dL (70-110) 08/10/23 20:47 Estimat Average Glucose 189 08/08/23 10:05 Hemoglobin A1c 8.2 % (4.0-6.0) H 08/08/23 10:05 Calculated Osmolality 294 mOsm/kg (285-295) 08/11/23 05:10 Calcium 8.2 mg/dL (8.5-10.5) L 08/11/23 05:10 Phosphorus 4.6 mg/dL (2.5-4.5) H 08/09/23 04:29 Magnesium 2.0 mg/dL (1.7-2.3) 08/09/23 04:29 Total Bilirubin 0.2 mg/dL (0.15-1.2) 08/08/23 10:05 AST 15 U/L (0-32) 08/08/23 10:05 ALT 9 U/L (0-33) 08/08/23 10:05 Alkaline Phosphatase 68 U/L (35-105) 08/08/23 10:05 Total Protein 6.6 g/dL (6.6-8.7) 08/08/23 10:05 Albumin 3.2 g/dL (3.5-5.2) L 08/08/23 10:05 Globulin 3.4 g/dL (1.3-4.6) 08/08/23 10:05 Vitamin B12 641 pg/mL (232-1245) 08/08/23 10:05 TSH 1.89 uIU/mL (0.27-4.20) 08/08/23 10:05 Urine Color Yellow (Yellow) 08/08/23 10:35 Urine Appearance Clear (CLEAR) 08/08/23 10:35 Urine pH 5 (5-7) 08/08/23 10:35 Ur Specific [place] 1.010 (1.005-1.030) 08/08/23 10:35 Urine Protein Neg (Negative) 08/08/23 10:35 Urine Glucose (UA) Norm (Normal) 08/08/23 10:35 Urine Ketones 1+ (Negative) H 08/08/23 10:35 Urine Blood Neg (Negative) 08/08/23 10:35 Urine Nitrate Negative (Negative) 08/08/23 10:35 Urine Bilirubin Neg (Negative) 08/08/23 10:35 Urine Urobilinogen Neg mg/dL (Negative) 08/08/23 10:35 Ur Leukocyte Esterase Negative (Negative) 08/08/23 10:35 Urine Opiates Screen Negative ng/mL (Negative) 08/08/23 10:35 Ur Barbiturates Screen Negative ng/mL (Negative) 08/08/23 10:35 Ur Phencyclidine Scrn Negative ng/mL (Negative) 08/08/23 10:35 Ur Amphetamines Screen Negative ng/mL (Negative) 08/08/23 10:35 U Benzodiazepines Scrn Negative ng/mL (Negative) 08/08/23 10:35 Urine Cocaine Screen Negative ng/mL (Negative) 08/08/23 10:35 U Marijuana (THC) Screen Negative ng/mL (Negative) 08/08/23 10:35 Vitals Last Vital Signs Temp 98.2 F 08/11/23 04:00 Pulse 77 08/11/23 04:00 Resp 17 08/11/23 04:00 BP 171/81 08/11/23 04:00 Pulse Ox 94 08/11/23 04:00 O2 Del Method Room Air 08/11/23 04:00 O2 Flow Rate 1 08/10/23 09:03 Discharge Plan Discharge Patient Disposition: Home Condition: Stable Prescriptions: New metoprolol tartrate 25 mg tablet 25 mg PO BID Qty: 120 2RF Eliquis 5 mg tablet 5 mg PO BID Qty: 120 0RF lisinopril 20 mg tablet 20 mg PO DAILY Qty: 60 3RF nystatin [Nyamyc] 100,000 unit/gram powder 1 applic topical BID Qty: 15 0RF Rx Instructions: Can apply around groin and under the breast Continued Depakote 250 mg tablet,delayed release (DR/EC) 250 mg PO BID Qty: 90 2RF atorvastatin 80 mg tablet 80 mg PO BEDTIME ezetimibe [Zetia] 10 mg Tablet 10 mg PO BEDTIME bupropion HCl 150 mg tablet sustained-release 12 hr 150 mg PO BID levetiracetam 500 mg Tablet 500 mg PO BID@0900,2100 Qty: 180 0RF dapagliflozin propanediol 5 mg tablet 5 mg PO QAM amlodipine 5 mg tablet 5 mg PO DAILY Qty: 30 0RF clonazepam 0.5 mg tablet 0.5 mg PO BEDTIME fluticasone propionate 50 mcg/actuation spray,suspension 2 spray INTRANASAL DAILY metformin 500 mg tablet extended release 24 hr 1,000 mg PO QAM Ciprodex 0.3-0.1 % drops,suspension 4 drp otic (ear) BID Rx Instructions: right ear clopidogrel 75 mg tablet 75 mg PO QAM Qty: 60 0RF Discontinued estradiol 0.5 mg tablet 0.5 mg PO QAM aspirin 81 mg tablet,delayed release (DR/EC) 81 mg PO QAM divalproex 500 mg tablet,delayed release (DR/EC) 500 mg PO BID Discharge Orders: Discharge Order (Routine); Ordered 08/11/23 Ordered By: Ady Rivas Referrals: Monty Vazquez MD [Physician] - 08/19/23 9:15 am (Please arrive at 9 am for your appointment at 9:15 am ) Mahnaz Yepez [Primary Care Provider] - Patient Instructions: Opioid Safety Discharge Attestations Time Spent in Discharge Care*: greater than 30 min Quality Metrics Clinical Quality Measures [ No reported AMI, CVA or VTE this stay] Coding Level of Care Code Acute Code for Chg Fwd Diagnoses Otorrhea of right ear H92.11 Acute ischemic left MCA stroke I63.512 Sleep arousal disorder G47.8 Hypertensive disorder I10 Speech and language deficits F80.9 Bradycardia R00.1 Memory loss R41.3 Diabetes mellitus E11.9 Cerebrovascular accident I63.9 Recurrent UTI N39.0
[2023-08-11 08:01] LABS: Glucose Point of Care 134 mg/dL (70-110)
[2023-08-11 08:17] LABS: Glucose Point of Care 145 mg/dL (70-110)
[2023-08-11] MEDS: insulin lispro 100 unit/1 mL SUBCUT (10:32)
[2023-08-11] MEDS: amlodipine 5 mg Tablet PO (10:34)
[2023-08-11] MEDS: aspirin 81 mg EC Tablet PO (10:34)
[2023-08-11] MEDS: sennosides-docusate Tablet 1 TAB PO (10:34)
[2023-08-11] MEDS: metoprolol tartrate 25 mg Tablet PO (10:34)
[2023-08-11 11:13] LABS: Glucose Point of Care 126 mg/dL (70-110)
[2023-08-11] MEDS: dextrose 5% 1,000 ML 50 ML IV (12:34)
[2023-08-11] MEDS: nystatin powder 30 gm Btl 1 APPLIC TOPICAL (12:35)
[2023-08-11] MEDS: divalproex DR 250 mg Tablet PO (12:36)
== END 2023-08-11 14:36 | disposition home or self-care (01) | DRG 62 ==
LOC: ER 09:44 → ICU 11:11 → MEDSURG 08-10 16:46
PROVIDERS: Admitting Provider Internal Medicine; Emergency Provider Family Medicine; PCP Family Medicine; Visit Provider Internal Medicine
DX: I63.512 Cerebral infarction due to unspecified occlusion or stenosis of left middle cerebral artery (principal); E87.0 Hyperosmolality and hypernatremia; I48.92 Unspecified atrial flutter; E11.9 Type 2 diabetes mellitus without complications; K21.9 Gastro-esophageal reflux disease without esophagitis; E78.00 Pure hypercholesterolemia, unspecified; I10 Essential (primary) hypertension; M81.0 Age-related osteoporosis without current pathological fracture; L40.9 Psoriasis, unspecified; Z86.73 Personal history of transient ischemic attack (TIA), and cerebral infarction without residual deficits; H70.91 Unspecified mastoiditis, right ear; G47.30 Sleep apnea, unspecified; R47.01 Aphasia; R47.1 Dysarthria and anarthria; R53.1 Weakness; H60.91 Unspecified otitis externa, right ear; H66.91 Otitis media, unspecified, right ear; R00.1 Bradycardia, unspecified; E86.0 Dehydration
CPT/HCPCS: 36415; 36416; 51702; 70450; 70480; 70496; 70498; 80048; 80053; 80306; 81003; 82607; 82962; 83036; 83735; 84100; 84443; 85025; 85610; 85730; 92507; 92523; 92526; 92610; 93005; 96372; 96376; 97116; 97163; 97165; 97530; 97535; 99291; 99292; J0692; J1630; J1815; J1953; J2997; J3370; J3490; J7030; J7070; J7799; Q9967

== ENCOUNTER 2023-10-06 15:15 | Emergency (ER) | payer MEDICAID, SELFPAY ==
[2023-10-06 15:39] VITALS: BP 183/98; PULSE 63; TEMP 36.5; O2SAT 98; BMI 26.5
--- NOTE | 2023-10-06 16:29 | W.ED.SKABFB ---
HPI - Skin/Abscess/Foreign Bdy General: Chief complaint: Skin/Abscess/Foreign Body Stated complaint: leg pain, right Time Seen by Provider: 10/06/23 16:28 History of Present Illness: 63-year-old female comes in today for complaints of palpable knot to the right lateral thigh. Patient noticed the abnormality this afternoon. Patient has a history of blood clots and is concerned that she may have developed another. Patient appears nontoxic. Patient appears in no pain at rest. Patient is on anticoagulant therapy. Patient has a history of CVA. Otorrhea of right ear ?Sleep arousal disorder ?Bradycardia ?Speech and language deficits ?Memory loss ?Acute ischemic left MCA stroke ?Blind left eye ?Diabetes mellitus ?GERD (gastroesophageal reflux disease) ?Psoriasis ?Cerebrovascular accident ?Urge incontinence ?Osteoporosis ?History of foot fracture ?History of toe fracture ?Heart murmur ?Hypercholesteremia ?Hypertensive disorder ?Recurrent UTI ?Urinary incontinence ? Surgical History H/O knee surgery left ?H/O bladder repair surgery ?History of cholecystectomy ?History of hysterectomy ?History of ?History of eye surgery Review of Systems General: Reports: 10 or more systems reviewed and unremarkable except in HPI and below Musc: Reports: extremity pain (Right thigh) and extremity swelling PFSH ED PFSH: Medical History Blind left eye Diabetes mellitus GERD (gastroesophageal reflux disease) Heart murmur History of foot fracture History of toe fracture Hypercholesteremia Hypertensive disorder Osteoporosis Psoriasis Recurrent UTI Urinary incontinence Surgical History H/O bladder repair surgery H/O knee surgery left History of History of cholecystectomy History of eye surgery History of hysterectomy Family History Mother , at age 59 Hypertension Father No problems noted. Sister Diabetes Heart disease Breast cancer unknown age onset Brother Heart disease Social History Smoking and tobacco/nicotine status: never used tobacco/nicotine Alcohol intake: never Substance/Drug Use: never Physical Exam Const: COMMON NORMALS: alert HENMT: COMMON NORMALS: normocephalic HEAD & SCALP: normocephalic Neck/C-Spine: COMMON NORMALS: full ROM Resp: COMMON NORMALS: normal respiratory effort and clear to auscultation bilaterally AUSCULTATION: clear to auscultation bilaterally Cardio: COMMON NORMALS: regular rate and regular rhythm RATE: regular rate RHYTHM: regular rhythm GI: COMMON NORMALS: non-tender Back/Pelvis: COMMON NORMALS: thoracic and lumbar spine normal to inspection Extremity: COMMON NORMALS: normal to inspection NARRATIVE EXTREMITY EXAM: Patient points to the right lateral thigh an area that she feels a nodule. On palpation note palpation of the femur bone without any soft tissue abnormality. RIGHT LOWER EXTREMITY: Yes lower leg (No obvious abscess or induration or redness noted to the thigh) Neuro: SENSORIUM/ORIENTATION: Yes alert Skin: COMMON NORMALS: turgor normal GENERAL SKIN EXAM: turgor normal Course Vital Signs: Vital signs: Vital Signs Temperature 97.7 F 10/06/23 15:39 Pulse Rate 63 10/06/23 15:39 Blood Pressure 183/98 10/06/23 15:39 Pulse Oximetry 98 10/06/23 15:39 Oxygen Delivery Me thod Room Air 10/06/23 15:39 MDM - Skin/Abscess/Foreign Bdy Medicial Decision Making 63-year-old female comes in today for complaints of concern for swelling to the right lateral thigh. On exam no redness or induration is noted to the skin. Palpation of the area no femur bones. No obvious soft tissue mass is noted. Differential diagnosis includes but not limited to DVT, lipoma, sarcoma, contusion, leg fracture, hematoma. Ultrasound of the right lower extremity for DVT and mass noted no DVT or abnormality. Believe the patient probably had a muscle spasm and was just palpating the muscle. CBC CMP and INR were unremarkable. Reviewed exam with patient and family with recommendations for follow-up or return to the ER. Family reported understanding. Lab Data 10/06/23 16:40 10/06/23 16:40 Laboratory Results WBC 6.50 10^3/uL (3.29-11.43) 10/06/23 16:40 RBC 3.79 10^6/uL (3.85-5.65) L 10/06/23 16:40 Hgb 11.60 g/dL (11.27-16.99) 10/06/23 16:40 Hct 37.0 % (36-47) 10/06/23 16:40 MCV 97.6 fl (85-98) 10/06/23 16:40 MCH 30.6 pg (27-33) 10/06/23 16:40 MCHC 31.4 g/dL (30-55) 10/06/23 16:40 RDW 14.0 % (12.1-15.1) 10/06/23 16:40 Plt Count 227 10^3/cmm (157-399) 10/06/23 16:40 MPV 10.2 fL (7.4-10.4) 10/06/23 16:40 Neut % (Auto) 56.5 % 10/06/23 16:40 Lymph % (Auto) 33.1 % 10/06/23 16:40 Newton % (Auto) 7.4 % 10/06/23 16:40 Eos % (Auto) 2.2 % 10/06/23 16:40 Baso % (Auto) 0.3 % 10/06/23 16:40 Neut # (Auto) 3.68 10^3/uL (1.8-7.7) 10/06/23 16:40 Lymph # (Auto) 2.2 10^3/uL (0.8-4.8) 10/06/23 16:40 Newton # (Auto) 0.5 10^3/uL (0.2-0.9) 10/06/23 16:40 Eos # (Auto) 0.1 10^3/uL (0.0-0.8) 10/06/23 16:40 Baso # (Auto) 0.0 10^3/uL (0.0-0.1) 10/06/23 16:40 Nucleated RBC % (auto) 0 % 10/06/23 16:40 Nucleated RBCs # 0.0 /100WBC 10/06/23 16:40 PT 13.60 SECONDS (12.1-14.9) 10/06/23 16:40 INR 1.01 (0.8-1.2) 10/06/23 16:40 Sodium 143 mmol/L (136-145) 10/06/23 16:40 Potassium 3.7 mmol/L (3.5-5.1) 10/06/23 16:40 Chloride 102 mmol/L (98-107) 10/06/23 16:40 Carbon Dioxide 27 mmol/L (22-29) 10/06/23 16:40 Anion Gap 17.7 (5-19) 10/06/23 16:40 BUN 9 mg/dL (8-23) 10/06/23 16:40 Creatinine 0.9 mg/dL (0.5-0.9) 10/06/23 16:40 GFR Calculation 63.0 mL/min (90-130) L 10/06/23 16:40 Glucose 139 mg/dL (65-115) H 10/06/23 16:40 Calculated Osmolality 297 mOsm/kg (285-295) H 10/06/23 16:40 Calcium 9.0 mg/dL (8.5-10.5) 10/06/23 16:40 Total Bilirubin 0.2 mg/dL (0.15-1.2) 10/06/23 16:40 AST 18 U/L (0-32) 10/06/23 16:40 ALT 12 U/L (0-33) 10/06/23 16:40 Alkaline Phosphatase 81 U/L (35-105) 10/06/23 16:40 Total Protein 7.5 g/dL (6.6-8.7) 10/06/23 16:40 Albumin 4.1 g/dL (3.5-5.2) 10/06/23 16:40 Globulin 3.4 g/dL (1.3-4.6) 10/06/23 16:40 XR interpretation done by ED provider, pending radiology final review Discharge Plan Discharge Patient Disposition: Home Clinical Impression: Mass of soft tissue of right lower extremity Condition: Stable Prescriptions: No Action Depakote 250 mg tablet,delayed release (DR/EC) 250 mg PO BID Qty: 90 2RF atorvastatin 80 mg tablet 80 mg PO BEDTIME ezetimibe [Zetia] 10 mg Tablet 10 mg PO BEDTIME bupropion HCl 150 mg tablet sustained-release 12 hr 150 mg PO BID levetiracetam 500 mg Tablet 500 mg PO BID@0900,2100 Qty: 180 0RF dapagliflozin propanediol 5 mg tablet 5 mg PO QAM amlodipine 5 mg tablet 5 mg PO DAILY Qty: 30 0RF clonazepam 0.5 mg tablet 0.5 mg PO BEDTIME fluticasone propionate 50 mcg/actuation spray,suspension 2 spray INTRANASAL DAILY metformin 500 mg tablet extended release 24 hr 1,000 mg PO QAM ciprofloxacin-dexamethasone 0.3-0.1 % drops,suspension 4 drp otic (ear) BID Rx Instructions: right ear Eliquis 5 mg tablet 5 mg PO BID Qty: 120 0RF metoprolol tartrate 25 mg tablet 25 mg PO BID Qty: 120 2RF clopidogrel 75 mg tablet 75 mg PO QAM Qty: 60 0RF lisinopril 20 mg tablet 20 mg PO DAILY Qty: 60 3RF Nyamyc 100,000 unit/gram powder 1 applic topical BID Qty: 15 0RF Rx Instructions: Can apply around groin and under the breast Discharge Orders: Discharge ED (Routine); Ordered 10/06/23 Ordered By: Francis Kee Referrals: Mahnaz Yepez [Primary Care Provider] - Discharge Diet: Usual diet Discharge Activity: Increase activity as tolerated Patient Instructions: Lump/Mass Activity Restrictions/Additional Instructions: Follow-up with primary care for further instructions. Return to ED for new concerns. Monitor for fever, increasing redness or swelling of the extremity, or worsening pain. Coding Level of Care Code ED [employer] for Jakub Silva
--- NOTE | 2023-10-06 16:33 | USR_ITS ---
PROCEDURE INFORMATION: Exam: US Right Non-Vascular Joint or Other Extremity Structure Exam date and time: 10/06/2023 5:22 PM Age: 63 years old Clinical indication: Screening exam; Knot RT thigh; Additional info: Right outer thigh TECHNIQUE: Imaging protocol: Right US joint or other nonvascular extremity structure or structures. Real-time ultrasound with image documentation. Limited study. Exam focused on the lower extremity in the region of clinical interest. COMPARISON: [place] [id number] 10/06/2023 5:16 PM FINDINGS: Soft tissues: Unremarkable. No organized collection or soft tissue mass. US/US soft tissue/extremity [id number] IMPRESSION: Unremarkable US.
--- NOTE | 2023-10-06 16:33 | USR_ITS ---
PROCEDURE INFORMATION: Exam: US Duplex Right Lower Extremity Veins, Limited Exam date and time: 10/06/2023 5:16 PM Age: 63 years old Clinical indication: Pain; Leg, lower; Right; Additional info: R/O dvt TECHNIQUE: Imaging protocol: Real-time duplex ultrasound of the right extremity with 2-D berger scale, color Doppler flow and spectral waveform analysis including responses to compression and other maneuvers (when performed) with image documentation. Limited exam was focused on the right lower extremity veins. COMPARISON: CT abdomen pelvis wo/w [id number] 03/21/2017 9:30 AM FINDINGS: Right deep veins: Unremarkable. The common femoral, femoral, proximal profunda femoral, popliteal and visualized calf veins are patent without thrombus. Normal Doppler waveforms. Normal compressibility and/or augmentation response. Superficial veins: Unremarkable. Saphenofemoral junction is patent without thrombus. Soft tissues: Unremarkable. US/[place] [id number] IMPRESSION: No sonographic evidence of deep vein thrombosis.
[2023-10-06 16:53] LABS: Basophils % 0.3 %; Eosinophils # 0.1 10^3/uL (0.0-0.8); Eosinophils % 2.2 %; Lymphocytes # 2.2 10^3/uL (0.8-4.8); Lymphocytes % 33.1 %; Mean Corpuscular HGB Conc 31.4 g/dL (30-55); Mean Corpuscular Hemoglobin 30.6 pg (27-33); Mean Corpuscular Volume 97.6 fl (85-98); Mean Platelet Volume 10.2 fL (7.4-10.4); Monocytes # 0.5 10^3/uL (0.2-0.9); Monocytes % 7.4 %; Neutrophils # 3.68 10^3/uL (1.8-7.7); Neutrophils % 56.5 %; Nucleated Red Blood Cells % 0 %; Platelet Count 227 10^3/cmm (157-399); Red Blood Count 3.79 10^6/uL (3.85-5.65)
[2023-10-06 17:02] LABS: INR 1.01 (0.8-1.2)
[2023-10-06 17:04] LABS: Alanine Aminotransferase 12 U/L (0-33); Albumin Level 4.1 g/dL (3.5-5.2); Alkaline Phosphatase 81 U/L (35-105); Anion Gap 17.7 (5-19); Aspartate Amino Transferase 18 U/L (0-32); Blood Urea Nitrogen 9 mg/dL (8-23); Carbon Dioxide 27 mmol/L (22-29); Chloride 102 mmol/L (98-107); Globulin 3.4 g/dL (1.3-4.6); Glucose 139 mg/dL (65-115); Osmolality Calculated 297 mOsm/kg (285-295); Potassium 3.7 mmol/L (3.5-5.1); Sodium 143 mmol/L (136-145); Total Bilirubin 0.2 mg/dL (0.15-1.2); Total Protein 7.5 g/dL (6.6-8.7)
== END 2023-10-06 17:44 | disposition home or self-care (01) ==
PROVIDERS: Emergency Provider Nurse Practitioner Family; PCP Family Medicine
DX: M79.9 Soft tissue disorder, unspecified (principal); Z79.01 Long term (current) use of anticoagulants; Z79.02 Long term (current) use of antithrombotics/antiplatelets; E11.9 Type 2 diabetes mellitus without complications
CPT/HCPCS: 76882; 80053; 85025; 85610; 93971; 99284

== ENCOUNTER 2023-11-27 09:14 | Emergency (ER) | payer MEDICAID, SELFPAY ==
[2023-11-27] VITALS (7 sets, daily range): BP systolic 211–244; BP diastolic 90–114; PULSE 53–67; RESP 16; TEMP 36.7; O2SAT 93–95; BMI 28.7
--- NOTE | 2023-11-27 09:56 | W.ED.EAR ---
HPI - Ear Problem General: Chief complaint: Ear Stated complaint: blood in right ear Time Seen by Provider: 11/27/23 09:24 History of Present Illness: 63-year-old female with a history of hypertension, hyperlipidemia, seizure disorder and A-fib on Eliquis who presents to the emergency room with ear pain and drainage. She says this has been going on for a month now and she has not sought medical attention until she has an ENT appointment next week scheduled. She has had some worsening pain and drainage. Family insists that oral antibiotics will not work on this and that she will need admitted. I have agreed to give IV antibiotics here and let her follow-up with the ENT and if they feel she needs admitted it can be done at that time. No fevers. No cough. She does have some drainage from her ear. The eardrum itself does not appear severely erythematous. No bulging. No altered mental status. No pain behind her ear. Review of Systems Narrative: Constitutional symptoms: Negative except as documented in HPI. Skin symptoms: Negative except as documented in HPI. Eye symptoms: Negative except as documented in HPI. ENMT symptoms: Negative except as documented in HPI. Respiratory symptoms: Negative except as documented in HPI. Cardiovascular symptoms: Negative except as documented in HPI. Gastrointestinal symptoms: Negative except as documented in HPI. Genitourinary symptoms: Negative except as documented in HPI. Musculoskeletal symptoms: Negative except as documented in HPI. Neurologic symptoms: Negative except as documented in HPI. Psychiatric symptoms: Negative except as documented in HPI. Endocrine symptoms: Negative except as documented in HPI. [facility] ED PFSH: Medical History Blind left eye Diabetes mellitus GERD (gastroesophageal reflux disease) Heart murmur History of foot fracture History of toe fracture Hypercholesteremia Hypertensive disorder Osteoporosis Psoriasis Recurrent UTI Urinary incontinence Surgical History H/O bladder repair surgery H/O knee surgery left History of History of cholecystectomy History of eye surgery History of hysterectomy Family History Mother , at age 59 Hypertension Father No problems noted. Sister Diabetes Heart disease Breast cancer unknown age onset Brother Heart disease Social History (Reviewed 08/08/23 @ 10:26 by CASIMIRO Galeana Smoking and tobacco/nicotine status: never used tobacco/nicotine Alcohol intake: never Substance/Drug Use: never Physical Exam Narrative: EXAM NARRATIVE: General: Alert, no acute distress. Skin: Warm, dry. Head: Normocephalic, atraumatic. Neck: Supple, trachea midline. Eye: Extraocular movements are intact. Ears, nose, mouth and throat: mucosa moist. Patient has some brown drainage from her ear. Eardrum does not appear overtly erythematous. Not bulging. She does have some mastoid tenderness to palpation. Cardiovascular: Regular, Normal peripheral perfusion. Respiratory: Lungs are clear to auscultation, respirations are non-labored, breath sounds are equal, Symmetrical chest wall expansion. Gastrointestinal: Soft, Nontender, Non distended, Normal bowel sounds. Musculoskeletal: Normal ROM, no deformity. Neurological: Alert and oriented, No focal neurological deficit observed. Psychiatric: Cooperative, appropriate mood & affect. Course Vital Signs: Vital signs: Vital Signs Temperature 98.1 F 11/27/23 09:20 Pulse Rate 53 L 11/27/23 10:30 Respiratory Rate 16 11/27/23 09:20 Blood Pressure 244/114 11/27/23 10:37 Pulse Oximetry 93 11/27/23 10:30 Oxygen Delivery Me thod Room Air 11/27/23 10:30 MDM - Ear Medical Decision Making Patient appears to have an otitis media with drainage. She has some mastoid tenderness so a CT scan was ordered to evaluate for mastoiditis. CT head: Findings consistent with right otitis media. Some mild mastoid opacification. No acute intracranial process. no intracranial hemorrhage, no evidence of infarct. no evidence of acute fracture.This was reviewed and interpreted by myself the ER physician. Patient has some accelerated hypertension while here today. She did not take her home medications this morning. Given clonidine here in the emergency room. Reexamination: Patient remains in no acute distress. She still has some pain associated with her ear. Lab Data Radiology Impressions Head CT 11/27/23 09:59 IMPRESSION: 1. Findings consistent with right otitis media. No intracranial abscess. 2. No large territorial infarct or intracranial bleed. All radiology interpretation(s) finalized by discharge Other Data - IV Rocephin in the emergency room. At this point despite family's insistence do not see indication for admission. Also I do not have ENT for consultation here. They do have follow-up this week with ENT. -0.4 mg of p.o. clonidine were given. Patient was hypertension of. Things accommodation of her not taking her medications this morning and pain. -IV Toradol for pain in the emergency room. - Discharged home - Discussed plan with patient. Answered any questions. - Evaluation and treatment of this problem were appropriate in the emergency setting. Discharge Plan Discharge Patient Disposition: Home Clinical Impression: Otitis media Condition: Stable Prescriptions: New gjollxuh-bhbpthwnv-UR 3.5-10,000-1 mg/mL-unit/mL-% solution 4 drp otic (ear) Q8H 7 Days Qty: 10 0RF diclofenac potassium 50 mg tablet 50 mg PO BID PRN (Reason: pain) Qty: 20 0RF cefdinir 300 mg capsule 300 mg PO BID 5 Days Qty: 10 0RF No Action atorvastatin 80 mg tablet 80 mg PO BEDTIME ezetimibe [Zetia] 10 mg Tablet 10 mg PO BEDTIME amlodipine 5 mg tablet 5 mg PO DAILY Qty: 30 0RF clonazepam 0.5 mg tablet 0.5 mg PO BEDTIME fluticasone propionate 50 mcg/actuation spray,suspension 2 spray INTRANASAL DAILY metformin 500 mg tablet extended release 24 hr 1,000 mg PO QAM ciprofloxacin-dexamethasone 0.3-0.1 % drops,suspension 4 drp otic (ear) BID Rx Instructions: right ear metoprolol tartrate 25 mg tablet 25 mg PO BID Qty: 120 2RF lisinopril 20 mg tablet 20 mg PO DAILY Qty: 60 3RF divalproex 500 mg tablet,delayed release (DR/EC) 500 mg PO BID aspirin 81 mg tablet,delayed release (DR/EC) 81 mg PO DAILY sertraline 25 mg tablet 25 mg PO DAILY estradiol 0.5 mg tablet 0.5 mg PO DAILY Discharge Orders: Discharge ED (Routine); Ordered 11/27/23 Ordered By: Deepthi Olivares Referrals: Mahnaz Yepez [Primary Care Provider] - Patient Instructions: Opioid Safety, Pain Management Coding Level of Care Code ED Medicaid Business Analyst for Jakub Silva
[2023-11-27] MEDS: ketorolac 30 mg/mL INJ IVP (09:58)
[2023-11-27] MEDS: cefTRIAXone 1,000 MG in sodium chloride 0.9% (plus) 50 ML 100 MG IV (09:59)
--- NOTE | 2023-11-27 09:59 | CTR_ITS ---
PROCEDURE INFORMATION: Exam: CT Head Without Contrast Exam date and time: 11/27/2023 10:23 AM Age: 63 years old Clinical indication: Headache and other: Right ear pain; Headache not specified; Additional info: Right sided otitis with drainage and mastoid tenderness to p TECHNIQUE: Imaging protocol: Computed tomography of the head without contrast. Radiation optimization: All CT scans at this facility use at least one of these dose optimization techniques: automated exposure control; mA and/or kV adjustment per patient size (includes targeted exams where dose is matched to clinical indication); or iterative reconstruction. COMPARISON: CT head wo con* [id number] 08/08/2023 11:19 PM RADIATION DOSE METRICS: Total DLP (mGy-cm): 1002.5 FINDINGS: Brain: There is an old lacunar infarct in the left caudate head and basal ganglia. No intracranial bleed. No large territorial infarct. No intracranial masses. Cerebral ventricles: No ventriculomegaly. Pituitary gland and sella: There is a partially empty sella. Paranasal sinuses: There are frothy secretions in the left sphenoid sinus. The remaining paranasal sinuses are clear. Mastoid air cells: There is opacification of the right mastoid air cells and right middle ear consistent with otitis media. Bones/joints: Unremarkable. No acute fracture. Soft tissues: Unremarkable. CT/CT head wo con* [id number] IMPRESSION: 1. Findings consistent with right otitis media. No intracranial abscess. 2. No large territorial infarct or intracranial bleed.
[2023-11-27] MEDS: cloNIDine 0.1 mg Tablet PO (10:37)
[2023-11-27] MEDS: HYDROcodone-acetaminophen 10-325 mg Tablet 1 TAB PO (10:53)
--- NOTE | 2023-11-27 11:07 | PC.NURSE ---
DR. WEBER NOTIFIED OF BP 229/99 AFTER MEDICATION. NO NEW ORDERS GIVEN AT THIS TIME. VERBAL ORDERS TO PROCEED WITH DC AT THIS TIME.
== END 2023-11-27 11:22 | disposition home or self-care (01) ==
PROVIDERS: Emergency Provider Emergency Medicine; PCP Family Medicine
DX: H66.91 Otitis media, unspecified, right ear (principal); Z79.84 Long term (current) use of oral hypoglycemic drugs; Z79.82 Long term (current) use of aspirin; E11.9 Type 2 diabetes mellitus without complications
CPT/HCPCS: 70450; 96365; 96375; 99285; J0696; J1885

== ENCOUNTER 2023-11-29 03:51 | Inpatient (IN) | payer MEDICAID, SELFPAY ==
[2023-11-29] VITALS (13 sets, daily range): BP systolic 155–234; BP diastolic 69–97; PULSE 55–114; RESP 14–18; TEMP 36.4–36.8; O2SAT 91–95; BMI 27.4; BMI 28.5
--- NOTE | 2023-11-29 04:03 | XRR_ITS ---
PROCEDURE INFORMATION: Exam: XR Chest Exam date and time: 11/29/2023 4:13 AM Age: 63 years old Clinical indication: Dyspnea; Additional info: SOB TECHNIQUE: Imaging protocol: Radiologic exam of the chest. Views: 1 view. COMPARISON: CR XR chest 1V portable [id number] 05/06/2023 10:23 AM FINDINGS: Lungs: Moderate diffuse interstitial prominence has increased. Edema is favored. Shira B-lines are suspected. Pleural spaces: Minute effusions. No pneumothorax. Heart/Mediastinum: Heart is large. Bones/joints: Lower thoracic kyphoplasty. Organs: Absent gallbladder. XR/XR chest 1V portable [id number] IMPRESSION: At least mild evidence of CHF or positive fluid balance, new from 05/06/2023.
--- NOTE | 2023-11-29 04:03 | ED_ITS ---
HPI - SOB/Dyspnea 2 General: Chief Complaint: Shortness of Breath/Dyspnea Stated Complaint: SOB Time Seen by Provider: 11/29/23 03:53 Source: patient Mode of arrival: ambulatory Limitations: no limitations History of Present Illness: HPI Narrative: 63-year-old female states she had had sh ortness of breath that began tonight. She states its much worse with laying flat and exertion. Patient denies any fever or cough she denies any chest pain denies any abdominal pain. No known history of congestive heart failure she has no history of COPD. Associated symptoms: Deny abdominal pain, chest pain, fever(s), nausea or vomiting Review of Systems 2 Const: Denies: fever(s), chills, body aches or change in appetite ENMT: Denies: throat pain or dental pain Card: Denies: chest pain Resp: Reports: dyspnea GI: Denies: abdominal pain, nausea, vomiting or diarrhea : Denies: dysuria Musc: Denies: neck pain or back pain Skin/Breast: Denies: rash Neuro: Denies: headache(s) PFSH ED 2 PFSH: Medical History Blind left eye Diabetes mellitus GERD (gastroesophageal reflux disease) Heart murmur History of foot fracture History of toe fracture Hypercholesteremia Hypertensive disorder Osteoporosis Psoriasis Recurrent UTI Urinary incontinence Surgical History H/O knee surgery left H/O bladder repair surgery History of cholecystectomy History of hysterectomy History of History of eye surgery Family History Mother , at age 59 Hypertension Father No problems noted. Sister Diabetes Heart disease Breast cancer unknown age onset Brother Heart disease Social History Smoking and tobacco/nicotine status: never used tobacco/nicotine Alcohol intake: never Substance/Drug Use: never Physical Exam 2 Const: COMMON NORMALS: patient oriented x3 HENMT: COMMON NORMALS: normocephalic and atraumatic HEAD & SCALP: n ormocephalic and atraumatic Neck/C-Spine: COMMON NORMALS: full ROM and supple Chest: COMMONS NORMALS: normal inspection of the chest and normal palpation of entire chest wall Resp: COMMON NORMALS: No retractions and No use of accessory muscles A USCULTATION: rales Cardio: COMMON NORMALS: regular rate, regular rhythm and No murmurs present (Cardio) RATE: regular rate RHYTHM: regular rhythm GI: COMMON NORMALS: Normal to inspection, nondistended, normoactive bowel sounds present, Soft to palpation, non-tender and no masses PALPATION: Yes Soft to palpation Extremity: COMMON NORMALS: normal to inspection and full ROM Neuro: COMMON NORMALS: patient oriented x3, moves all extremities and no focal motor deficits Psych: COMMON NORMALS: mental status grossly normal, Normal thought process present and cooperative THOUGHT PROCESS: Normal thought process present Skin: COMMON NORMALS: no rashes or lesions noted and no wounds GENERAL SKIN EXAM: no rashes or lesions noted Course 2 Vital Signs: Vital signs: Vital Signs Temperature 97.6 F 11/29/23 03:56 Pulse Rate 78 11/29/23 04:29 Respiratory Rate 18 11/29/23 04:29 Blood Pressure 214/85 11/29/23 04:29 Pulse Oximetry 95 11/29/23 04:29 Oxygen Delivery Me thod Room Air 11/29/23 04:29 MDM - SOB/Dyspnea Medical Decision Making Patient presents here with pulmonary edema noted on x-ray she has an elevated BNP as well she is hypertensive here patient is given hydralazine along with Lasix. Patient has not been hypoxic here she had no chest pain I spoke to the hospitalist and will admit. Medical Records I reviewed the patient's medical records. Lab Data I reviewed the patient's lab results. 11/29/23 04:07 11/29/23 04:07 Labs/Radiology: Laboratory Results WBC 6.34 10^3/uL (3.29-11.43) 11/29/23 04:07 RBC 4.18 10^6/uL (3.85-5.65) 11/29/23 04:07 Hgb 12.70 g/dL (11.27-16.99) 11/29/23 04:07 Hct 40.4 % (36-47) 11/29/23 04:07 MCV 96.7 fl (85-98) 11/29/23 04:07 MCH 30.4 pg (27-33) 11/29/23 04:07 MCHC 31.4 g/dL (30-55) 11/29/23 04:07 RDW 13.1 % (12.1-15.1) 11/29/23 04:07 Plt Count 249 10^3/cmm (157-399) 11/29/23 04:07 MPV 10.1 fL (7.4-10.4) 11/29/23 04:07 Neut % (Auto) 63.1 % 11/29/23 04:07 Lymph % (Auto) 28.1 % 11/29/23 04:07 [place] % (Auto) 6.0 % 11/29/23 04:07 Eos % (Auto) 1.9 % 11/29/23 04:07 Baso % (Auto) 0.6 % 11/29/23 04:07 Neut # (Auto) 4.00 10^3/uL (1.8-7.7) 11/29/23 04:07 Lymph # (Auto) 1.8 10^3/uL (0.8-4.8) 11/29/23 04:07 [place] # (Auto) 0.4 10^3/uL (0.2-0.9) 11/29/23 04:07 Eos # (Auto) 0.1 10^3/uL (0.0-0.8) 11/29/23 04:07 Baso # (Auto) 0.0 10^3/uL (0.0-0.1) 11/29/23 04:07 Nucleated RBC % (auto) 0 % 11/29/23 04:07 Nucleated RBCs # 0.0 /100WBC 11/29/23 04:07 PT 15.30 SECONDS (12.1-14.9) H 11/29/23 04:26 INR 1.18 (0.8-1.2) 11/29/23 04:26 Sodium 141 mmol/L (136-145) 11/29/23 04:07 Potassium 4.5 mmol/L (3.5-5.1) 11/29/23 04:07 Chloride 103 mmol/L (98-107) 11/29/23 04:07 Carbon Dioxide 24 mmol/L (22-29) 11/29/23 04:07 Anion Gap 18.5 (5-19) 11/29/23 04:07 BUN 10 mg/dL (8-23) 11/29/23 04:07 Creatinine 0.8 mg/dL (0.5-0.9) 11/29/23 04:07 GFR Calculation 72.2 mL/min (90-130) L 11/29/23 04:07 Glucose 176 mg/dL (65-115) H 11/29/23 04:07 Calculated Osmolality 295 mOsm/kg (285-295) 11/29/23 04:07 Calcium 8.6 mg/dL (8.5-10.5) 11/29/23 04:07 Total Bilirubin 0.3 mg/dL (0.15-1.2) 11/29/23 04:07 AST 27 U/L (0-32) 11/29/23 04:07 ALT 26 U/L (0-33) 11/29/23 04:07 Alkaline Phosphatase 85 U/L (35-105) 11/29/23 04:07 Troponin T Baseline 34 ng/L (0-10) H 11/29/23 04:07 NT-Pro-B Natriuret Pep 3048 pg/mL (0-125) H 11/29/23 04:07 Total Protein 7.3 g/dL (6.6-8.7) 11/29/23 04:07 Albumin 4.1 g/dL (3.5-5.2) 11/29/23 04:07 Globulin 3.2 g/dL (1.3-4.6) 11/29/23 04:07 Influenza Type A Ag negative (Negative) 11/29/23 04:13 Influenza Type B Ag negative (Negative) 11/29/23 04:13 SARS-CoV-2 Ag (Rapid) negative (Negative) 11/29/23 04:13 All radiology interpretation(s) finalized by discharge EKG Data EKG 1: I personally reviewed and interpreted this EKG as follows: EKG Interpretation Date: 11/29/23 EKG interpretation time: 04:00 Interpretation: nsr hr [address] or t wave abnormalities qrs 84 qtc 391 Discharge Plan Discharge Patient Disposition: Admitted As Inpatient Clinical Impression: Pulmonary edema, Hypertension Condition: Stable Prescriptions: No Action atorvastatin 80 mg tablet 80 mg PO BEDTIME ezetimibe [Zetia] 10 mg Tablet 10 mg PO BEDTIME amlodipine 5 mg tablet 5 mg PO DAILY Qty: 30 0RF clonazepam 0.5 mg tablet 0.5 mg PO BEDTIME fluticasone propionate 50 mcg/actuation spray,suspension 2 spray INTRANASAL DAILY metformin 500 mg tablet extended release 24 hr 1,000 mg PO QAM ciprofloxacin-dexamethasone 0.3-0.1 % drops,suspension 4 drp otic (ear) BID Rx Instructions: right ear metoprolol tartrate 25 mg tablet 25 mg PO BID Qty: 120 2RF lisinopril 20 mg tablet 20 mg PO DAILY Qty: 60 3RF divalproex 500 mg tablet,delayed release (DR/EC) 500 mg PO BID aspirin 81 mg tablet,delayed release (DR/EC) 81 mg PO DAILY sertraline 25 mg tablet 25 mg PO DAILY estradiol 0.5 mg tablet 0.5 mg PO DAILY epsvdnwk-yuuhavhaj-BG 3.5-10,000-1 mg/mL-unit/mL-% solution 4 drp otic (ear) Q8H 7 Days Qty: 10 0RF diclofenac potassium 50 mg tablet 50 mg PO BID PRN (Reason: pain) Qty: 20 0RF cefdinir 300 mg capsule 300 mg PO BID 5 Days Qty: 10 0RF Referrals: Mahnaz Yepez [Primary Care Provider] - Coding Level of Care Code ED Retail Manager In Training for Jakub Silva
--- NOTE | 2023-11-29 04:03 | ECG_ITS ---
[facility] Test Date: 2023-11-29 Pat Name: Sydney Zambrano Department: Room: Gender: Female Certified Teacher Assistant: : 1960 Requested By: Shalonda Paniagua Order Number: [id number] Powell MD: Juan J Gonzalez M.D. Measurements Intervals [place] Rate: 74 P: 47 AK: 143 QRS: 21 QRSD: 84 T: 62 QT: 363 QTc: 405 Interpretive Statements SINUS RHYTHM MODERATE ST DEPRESSION [0.05+ mV ST DEPRESSION] Compared to ECG 08/10/2023 14:14:22 ST (T wave) deviation now present T-wave abnormality no longer present Electronically Signed On 11-29-2023 9:44:19 SHAKE TABLE OPERATOR by Juan J Gonzalez M.D. [id number]
[2023-11-29] MEDS: hyDRALAzine 20 mg/mL INJ 1 mL 10 MG IVP ×2 (04:09→04:49)
[2023-11-29 04:12] LABS: Basophils % 0.6 %; Eosinophils # 0.1 10^3/uL (0.0-0.8); Eosinophils % 1.9 %; Hematocrit 40.4 % (36-47); Lymphocytes # 1.8 10^3/uL (0.8-4.8); Lymphocytes % 28.1 %; Mean Corpuscular HGB Conc 31.4 g/dL (30-55); Mean Corpuscular Hemoglobin 30.4 pg (27-33); Mean Corpuscular Volume 96.7 fl (85-98); Mean Platelet Volume 10.1 fL (7.4-10.4); Monocytes # 0.4 10^3/uL (0.2-0.9); Neutrophils % 63.1 %; Nucleated Red Blood Cells % 0 %; Platelet Count 249 10^3/cmm (157-399); Red Blood Count 4.18 10^6/uL (3.85-5.65); Red Cell Distribution Width 13.1 % (12.1-15.1); White Blood Count 6.34 10^3/uL (3.29-11.43)
[2023-11-29 04:30] LABS: Troponin(5th) Baseline 34 ng/L (0-10)
[2023-11-29 04:32] LABS: Influenza A by IFA negative (Negative); Influenza B by IFA negative (Negative); SARS Covid-2 Antigen negative (Negative)
--- NOTE | 2023-11-29 04:40 | PC.NURSE ---
Attempted to update medication list with patient and spouse. Neither one are aware of what she takes. States, The machine feeder does all that since her stroke and she refused to come up here today .
[2023-11-29 04:43] LABS: Alanine Aminotransferase 26 U/L (0-33); Albumin Level 4.1 g/dL (3.5-5.2); Alkaline Phosphatase 85 U/L (35-105); Blood Urea Nitrogen 10 mg/dL (8-23); Calcium 8.6 mg/dL (8.5-10.5); Carbon Dioxide 24 mmol/L (22-29); Chloride 103 mmol/L (98-107); Creatinine Clr Calc Pharmacy 69.3665; Globulin 3.2 g/dL (1.3-4.6); Glomerular Filtration Rate 72.2 mL/min (90-130); Glucose 176 mg/dL (65-115); NT Pro B Type Natriuretic Pept 3048 pg/mL (0-125); Osmolality Calculated 295 mOsm/kg (285-295); Sodium 141 mmol/L (136-145); Total Bilirubin 0.3 mg/dL (0.15-1.2); Total Protein 7.3 g/dL (6.6-8.7)
[2023-11-29 04:44] LABS: INR 1.18 (0.8-1.2)
[2023-11-29 04:45] LABS: Anion Gap 18.5 (5-19); Aspartate Amino Transferase 27 U/L (0-32); Potassium 4.5 mmol/L (3.5-5.1)
[2023-11-29] MEDS: FUROsemide 10 mg/mL SDV 4mL 40 MG IVP (04:50)
[2023-11-29] MEDS: ondansetron 2 mg/ML SDV 2 mL 4 MG IVP (05:06)
[2023-11-29] MEDS: labetalol 5 mg/mL SDV 20mL 10 MG IVP (05:11)
--- NOTE | 2023-11-29 05:29 | PC.NURSE ---
@ 0502- Assisted pt up to bedside commode and on return to bed, pt became dizzy, diaphoretic, and nauseous. Checked vitals, repeat ekg and Dr Ewing notified. @ 0515- pt reports that she is feeling better after zofran. Vitals documented into flow sheet.
--- NOTE | 2023-11-29 06:03 | ECG_ITS ---
[facility] Test Date: 2023-11-29 Pat Name: Sydney Zambrano Department: Room: Gender: Female Meeting Facilitator: : 1960 Requested By: Shalonda Paniagua Order Number: [id number] Sherry MD: Juan J Gonzalez M.D. Measurements Intervals [place] Rate: 82 P: 58 AK: 133 QRS: 26 QRSD: 87 T: 47 QT: 373 QTc: 438 Interpretive Statements SINUS RHYTHM WITH FREQUENT VENTRICULAR PREMATURE COMPLEXES IN A BIGEMINAL PATTERN MINIMAL ST DEPRESSION [0.025+ mV ST DEPRESSION] Compared to ECG 11/29/2023 04:00:41 Ventricular premature complex(es) now present ST (T wave) deviation still present Electronically Signed On 11-29-2023 9:48:11 RESIDENTIAL DOOR UNIT INSTALLER by Juan J Gonzalez M.D. [id number]
--- NOTE | 2023-11-29 06:08 | PC.NURSE ---
Patient had second episode of dizziness, diaphoretic, nausea with movement to standing position. Vitals remain similar to her vitals before. Dr hylton made aware and gave verbal for aparicio as pt does not tolerate movement at this time.
--- NOTE | 2023-11-29 07:21 | USCV_ITS ---
Syndey Zambrano Age: 63 Gender: F : 1960 Exam Date: 11/29/2023 08:16 Ordering Phys: Carson Brock MD Technologist: Exam Location: [facility] Indication: chf BP: 190 / 100 HR: Rhythm: Sinus Technical Quality: Adequate MEASUREMENTS (Male / Female) Normal Values 2D ECHO LV Diastolic Diameter PLAX 4.5 cm 4.2 - 5.9 / 3.9 - 5.3 cm IVS Diastolic Thickness 1.1 cm 0.6 - 1.0 / 0.6 - 0.9 cm IVS Systolic Thickness 1.5 cm LVPW Diastolic Thickness 1.0 cm 0.6 - 1.0 / 0.6 - 0.9 cm LVPW Systolic Thickness 1.6 cm LVOT Diameter 2.0 cm LV Ejection Fraction 2D Teich 63.9 % LV Ejection Fraction MOD 2C 73.7 % IVC Diameter 1.7 cm M-MODE LA Ao Ratio MM 1.5 AV Cusp Separation MM 1.9 cm DOPPLER AV Peak Velocity 163.0 cm/s LVOT Peak Velocity 96.0 cm/s AV Area Cont Eq vti 2.0 cm squared AV Area Cont Eq pk 1.9 cm squared MV Area PHT 7.0 cm squared Mitral E to A Ratio 1.1 TV Peak Velocity 222.5 cm/s TR Peak Velocity 251.0 cm/s TR Peak Gradient 25.2 mmHg Right Atrial Pressure 3.0 mmHg Pulmonary Artery Systolic Pressu 28.2 mmHg PV Peak Velocity 104.0 cm/s FINDINGS Left Ventricle Normal left ventricular size and systolic function, EF 64%.mild left ventricular hypertrophy. No regional wall motion abnormalities. Right Ventricle The right ventricle is normal in size and function. Right Atrium Mildly increased right atrial size. Left Atrium Mildly increased left atrial size. Mitral Valve No gross abnormalities noted Aortic Valve No gross abnormalities noted Tricuspid Valve No gross abnormalities noted Pulmonic Valve Mild pulmonary valve regurgitation. Pericardium No pericardial effusion. Aorta Normal aortic annulus size. IVC Normal inferior vena cava. CONCLUSIONS Normal left ventricular size and systolic function, EF 64%.mild left ventricular hypertrophy. No regional wall motion abnormalities. Mild biatrial enlargement. Mild pulmonary valve regurgitation. There is no pericardial effusion. Compared to the study from 03/29/2023, there may not be significant change Dr Catarino Saldivar MD FACC (Electronically Signed) Final Date: 29 November 2023 12:09 S
[2023-11-29 07:29] LABS: Magnesium 1.9 mg/dL (1.7-2.3)
[2023-11-29] MEDS: enoxaparin 40 mg/0.4 mL Syringe SUBCUT (07:44)
[2023-11-29] MEDS: lisinopril 20 mg Tablet PO ×2 (07:44→08:52)
[2023-11-29 07:45] LABS: D Dimer 2.07 ug/mLFEU (0-0.59)
[2023-11-29] MEDS: metoprolol tartrate 25 mg Tablet PO ×2 (07:45→17:45)
[2023-11-29 07:56] LABS: Iron 45 ug/dL (37-145); Percent Saturation 12.6 % (20-50); Total Iron Binding Capacity 357 mcg/dl; Unsaturated Iron Binding 312 ug/dL (112-347)
[2023-11-29 08:11] LABS: Vitamin B12 447 pg/mL (232-1245)
[2023-11-29] MEDS: pantoprazole DR 40 mg Tablet PO (08:43)
[2023-11-29] MEDS: divalproex DR 500 mg Tablet PO ×2 (08:43→17:45)
[2023-11-29] MEDS: sertraline 50 mg Tablet 25 MG PO (08:44)
[2023-11-29] MEDS: aspirin 81 mg EC Tablet PO (08:44)
--- NOTE | 2023-11-29 09:21 | PC.PHAR ---
Addendum entered by Leny Corea 11/29/23 15:02: aj states the pt takes metformin er 500mg takes 1000mg (2 tabs)bid ext shows last filled 10/31/23 28d/s Original Note: pt states aj brown [phone] takes care of her medications-aj mendez verified pts medications-states the pt is still taking amlodipine 5mg daily ext shows last filled 04/16/23 30d/s-lipitor 80mg hs ext shows last filled 08/22/23 30d/s-clonazepam 0.5-1mg hs ext shows last filled 09/12/23 30d/s-lisinopril 20mg daily ext shows last filled 08/11/23 30d/s-metoprolol tartrate 25mg bid ext shows last filled 08/11/23 30d/s-states the pt is taking zyprexa 7.5mg qam ext shows last filled 07/11/23 30d/s 7.5mg bid ext also shows 5mg bid filled 07/11/23 90d/s-states the pts eliquis 5mg bid was dced ext shows last filled 08/11/23 30d/s and plavix 75mg daily dced 2-3 months ago ext shows last filled 11/05/23 30d/s-states the pt was prescribed ear drops 11/27/23 but states the pt cant use ear drops becasue she has a hole in her head
[2023-11-29 09:58] LABS: Troponin 5 6HR 26.89 ng/L (0-10)
[2023-11-29 10:08] LABS: Troponin 5 6HR Delta -7.11 ng/L (0-12)
[2023-11-29 10:55] LABS: Glucose Point of Care 146 mg/dL (70-110)
--- NOTE | 2023-11-29 14:05 | P.HP_ITS ---
Providers/Chief Complaint 2 Admitting Physician: Margaux Garcia MD Primary Care Provider: Mahnaz Yepez Chief Complaint: SOB History of Present Illness Sydney Zambrano is a 63 year old female with past medical history of hypertension, type 2 diabetes mellitus, stroke previously thought to be in setting of atrial fibrillation ruled out with a Holter monitor presents to the ER because of shortness of breath which has been getting worse over the last 3 days. Patient is accompanied by her spouse. Shortness of breath get worse on laying down flat on minimal exertion. Gets better on sitting up straight. Patient denies any chest pain before initiation of symptoms. Denies any nausea, vomiting, headache, subjective fever fever, similar complaints in the past, recent travels or sick contacts. As per the patient and they check blood pressures at home and usual numbers most recently has been ranging from systolic 180 mmHg to 240 mmHg Review of Systems 2 General: Reports: 10 or more systems reviewed and unremarkable except in HPI and below Const: Denies: fever(s), chills, body aches, change in appetite, change in weight, malaise, night sweats, diaphoresis, change in sleep pattern, daytime sleepiness or snoring Eyes: Denies: change in vision, blurry vision, photophobia, eye discomfort or eye discharge ENMT: Denies: throat pain, enlarged tonsils, hoarseness, mouth pain, oral sores, dry mouth, tinnitus, nasal congestion or post nasal drip Card: Denies: chest pain, palpitations, irregular heart rhythm, edema, swelling of feet/ankles, lightheadedness, syncope, pre-syncope, dyspnea on exertion, orthopnea, leg pain with exertion or acrocyanosis Resp: Denies: dyspnea, productive cough, non-productive cough, wheezing, stridor, pain on inspiration, change in phlegm color, hemoptysis or chest congestion GI: Denies: abdominal pain, nausea, vomiting, hematemesis, coffee ground emesis, dysphagia, heartburn, diarrhea, constipation, bloating, GI cramping, change in bowel habits, pain on defecation, hematochezia or melena : Denies: flank pain, dysuria, urinary frequency, urinary urgency, urinary hesitancy, nocturia or hematuria Musc: Denies: neck pain, back pain, extremity pain, joint pain, joint swelling, joint redness, joint stiffness or limited range of motion Neuro: Denies: headache(s), numbness in extremities, weakness in extremities, sensory changes, lack of coordination, difficulty walking, frequent falls, dizziness, vertigo, confusion, Slurred speech present, difficulty communicating thoughts or seizure-like activity Psych: Denies: anxiety, depression, mood swings, panic attacks, hopelessness or irritability Endo: Denies: polyuria, polydipsia, tired all the time, cold intolerance, excessive sweating, flushing or heat intolerance [place]/Lymph: Denies: easy bruising or easy bleeding All/Imm: Denies: tongue swelling, facial swelling or acute wheezing Medications/Allergies Home Medications Medication Instructions Recorded Confirmed Last Taken Type atorvastatin 80 mg tablet 80 mg PO BEDTIME 03/09/23 11/29/23 11/26/23 History amlodipine 5 mg tablet 5 mg PO DAILY #30 tabs 05/06/23 11/29/23 11/27/23 Rx clonazepam 0.5 mg tablet 0.5 - 1 mg PO BEDTIME 08/08/23 11/29/23 11/26/23 History fluticasone propionate 50 2 spray intranasal DAILY 08/08/23 11/29/23 11/27/23 History mcg/actuation nasal spray,suspension metformin 500 mg tablet,extended 1,000 mg PO BID 08/08/23 11/29/23 11/27/23 History release 24 hr lisinopril 20 mg tablet 20 mg PO DAILY #60 tabs 08/11/23 11/29/23 11/27/23 Rx metoprolol tartrate 25 mg tablet 25 mg PO BID #120 tabs 08/11/23 11/29/23 11/27/23 Rx aspirin 81 mg tablet,delayed 81 mg PO QAM 11/27/23 11/29/23 11/27/23 History release cefdinir 300 mg capsule 300 mg PO BID 5 days #10 caps 11/27/23 11/29/23 Unknown Rx diclofenac potassium 50 mg tablet 50 mg PO BID PRN pain #20 tabs 11/27/23 11/29/23 Unknown Rx divalproex 500 mg tablet,delayed 500 mg PO BID 11/27/23 11/29/23 11/27/23 History release sertraline 25 mg tablet 25 mg PO QAM 11/27/23 11/29/23 11/27/23 History clobetasol 0.05 % topical cream 1 applic topical BID PRN when rash 11/29/23 11/29/23 Unknown History flares naproxen 500 mg tablet 500 mg PO BID PRN Pain 11/29/23 11/29/23 Unknown History olanzapine 7.5 mg tablet 7.5 mg PO QAM 11/29/23 11/29/23 Unknown History Allergies Allergy/AdvReac Type Severity Reaction Status Date / Time penicillin G Allergy unknown Verified 11/29/23 04:00 Penicillins Allergy Unknown Verified 11/29/23 04:00 sulfamethoxazole Allergy unknown Verified 11/29/23 04:00 [From Bactrim] trimethoprim [From Bactrim] Allergy unknown Verified 11/29/23 04:00 PFSH Acute 2 PFSH: Medical History Blind left eye Diabetes mellitus GERD (gastroesophageal reflux disease) Heart murmur History of foot fracture History of toe fracture Hypercholesteremia Hypertensive disorder Osteoporosis Psoriasis Recurrent UTI Urinary incontinence Surgical History H/O knee surgery left H/O bladder repair surgery History of cholecystectomy History of hysterectomy History of History of eye surgery Family History Mother , at age 59 Hypertension Father No problems noted. Sister Diabetes Heart disease Breast cancer unknown age onset Brother Heart disease Social History Smoking and tobacco/nicotine status: never used tobacco/nicotine Alcohol intake: never Substance/Drug Use: never Vitals/I&O/Wt Last Vital Signs Temp 98.0 F 11/29/23 11:34 Pulse 55 L 11/29/23 11:34 Resp 15 11/29/23 11:34 BP 178/71 11/29/23 13:58 Pulse Ox 95 11/29/23 11:34 O2 Del Method Room Air 11/29/23 11:34 11/28/23 11/29/23 11/29/23 22:59 06:59 14:59 Intake Total 480 / 480 Output Total 2600 / 2600 Balance -2120 / -2120 Weight last 48 hrs Weight 75.381 kg Weight 75.296 kg Weight 72.575 kg Physical Exam 2 Narrative: General: No acute distress, AO x3 HEENT: PERRLA, pupils bilaterally equal and reactive Chest: Normal vesicular breath sounds, fine crackles present in bilateral lower zone CVS: S1-S2 regular, no murmurs, no tachycardia, no gallops, no rubs Abdomen: Soft, nontender, no organomegaly, bowel sounds present Neuro: No focal deficits, no facial deformity, AO x3, power 5/5 in all limbs Urinary Catheter Management: Palafox: Cath Placed During This Visit: yes Urinary Catheter Date of Insertion: 11/29/23 Urinary Catheter Time of Insertion: 06:00 Data 11/29/23 04:07 11/29/23 04:07 A&P Assessment and plan (1) Shortness of breath: Most likely in setting of congestive heart failure. Fluid overload on chest x- ray today. Maintain saturation over 90%. Palafox catheterization, strict input output charting, daily weights. IV Lasix 40 mg daily for now. Monitor electrolytes. Fluid restriction to 1500 cc. (2) Hypertensive urgency: Most likely reason for congestive heart failure. Mostly ranging from 1 80-2 40 systolics recently. On presentation to the ER blood pressure was over 200 mmHg. Goal blood pressure less than 140/90 mmHg. Continue with home dose of metoprolol and lisinopril for now. Uptitrate as for goal blood pressures. (3) Congestive heart failure: New diagnosis. Unknown type. Treatment as above. Check echocardiogram. Check troponin cycle. Depending on echocardiogram if low EF we will plan for further workup. (4) Hypertension: Plan Continue other chronic medications. Full code Cardiac diet Protonix for PUD prophylaxis Lovenox for DVT prophylaxis Attestations 2 Medical Necessity Statement*: Admission for more than 2 midnights for further evaluation and management of new onset and diagnosis of congestive heart failure, hypertensive urgency Diagnoses Shortness of breath R06.02 Hypertensive urgency I16.0 Congestive heart failure I50.9 Hypertension I10
[2023-11-29] MEDS: amlodipine 10 mg Tablet PO (14:43)
[2023-11-29 16:41] LABS: Glucose Point of Care 142 mg/dL (70-110)
[2023-11-29] MEDS: atorvastatin 40 mg Tablet 80 MG PO (20:50)
[2023-11-29] MEDS: ezetimibe 10 mg Tablet PO (20:50)
[2023-11-29 21:16] LABS: Glucose Point of Care 181 mg/dL (70-110)
[2023-11-30] VITALS (9 sets, daily range): BP systolic 127–158; BP diastolic 65–82; PULSE 49–92; RESP 14–17; TEMP 36.4–36.7; O2SAT 92–96
[2023-11-30 05:14] LABS: Basophils # 0.1 10^3/uL (0.0-0.1); Basophils % 0.7 %; Eosinophils # 0.2 10^3/uL (0.0-0.8); Eosinophils % 2.9 %; Hematocrit 34.9 % (36-47); Lymphocytes # 2.8 10^3/uL (0.8-4.8); Mean Corpuscular HGB Conc 31.5 g/dL (30-55); Mean Corpuscular Hemoglobin 30.4 pg (27-33); Mean Corpuscular Volume 96.4 fl (85-98); Mean Platelet Volume 10.6 fL (7.4-10.4); Monocytes # 0.6 10^3/uL (0.2-0.9); Monocytes % 8.2 %; Neutrophils # 3.23 10^3/uL (1.8-7.7); Neutrophils % 47.1 %; Nucleated Red Blood Cells % 0 %; Platelet Count 235 10^3/cmm (157-399); Red Blood Count 3.62 10^6/uL (3.85-5.65); Red Cell Distribution Width 13.3 % (12.1-15.1); White Blood Count 6.86 10^3/uL (3.29-11.43)
[2023-11-30 05:32] LABS: Alanine Aminotransferase 14 U/L (0-33); Albumin Level 3.3 g/dL (3.5-5.2); Alkaline Phosphatase 65 U/L (35-105); Aspartate Amino Transferase 28 U/L (0-32); Blood Urea Nitrogen 14 mg/dL (8-23); Calcium 8.2 mg/dL (8.5-10.5); Carbon Dioxide 29 mmol/L (22-29); Chloride 106 mmol/L (98-107); Creatinine Clr Calc Pharmacy 63.3208; Glucose 122 mg/dL (65-115); Osmolality Calculated 300 mOsm/kg (285-295); Sodium 144 mmol/L (136-145); Total Bilirubin 0.3 mg/dL (0.15-1.2); Total Protein 6.3 g/dL (6.6-8.7)
[2023-11-30 05:35] LABS: Magnesium 2.1 mg/dL (1.7-2.3)
[2023-11-30 06:01] LABS: Folate Level 9.6 ng/mL (4.8-37.3)
[2023-11-30] MEDS: divalproex DR 500 mg Tablet PO ×2 (08:41→17:35)
[2023-11-30] MEDS: sertraline 50 mg Tablet 25 MG PO (08:41)
[2023-11-30] MEDS: lisinopril 20 mg Tablet 40 MG PO (08:41)
[2023-11-30] MEDS: enoxaparin 40 mg/0.4 mL Syringe SUBCUT (08:41)
[2023-11-30] MEDS: pantoprazole DR 40 mg Tablet PO (08:41)
[2023-11-30] MEDS: metoprolol tartrate 25 mg Tablet PO ×2 (08:42→17:36)
[2023-11-30] MEDS: aspirin 81 mg EC Tablet PO (08:42)
[2023-11-30] MEDS: amlodipine 10 mg Tablet PO (08:42)
[2023-11-30 11:34] LABS: Glucose Point of Care 199 mg/dL (70-110)
--- NOTE | 2023-11-30 15:11 | P.PN_ITS ---
Subjective 2 Subjective: No acute events overnight. Patient sitting comfortably in bed. States she was able to sleep flat or yesterday. Seen with family at bedside. States she is a lot better today. Remains on room air. Denies any nausea vomiting, headache, chest pain. Vitals/I&O/Wt Last Vital Signs Temp 98.0 F 11/30/23 11:38 Pulse 68 11/30/23 11:38 Resp 14 11/30/23 11:38 BP 157/73 11/30/23 11:38 Pulse Ox 95 11/30/23 11:38 O2 Del Method Room Air 11/30/23 11:38 11/30/23 11/30/23 11/30/23 06:59 14:59 22:59 Intake Total 480 / 480 Output Total 100 / 3000 200 / 200 Balance -100 / -2160 280 / 280 Weight last 48 hrs Weight 76.742 kg Weight 75.381 kg Weight 75.296 kg Weight 72.575 kg Physical Exam 2 Narrative: General: No acute distress, AO x3 HEENT: PERRLA, pupils bilaterally equal and reactive Chest: Normal vesicular breath sounds, fine crackles present in bilateral lower zone CVS: S1-S2 regular, no murmurs, no tachycardia, no gallops, no rubs Abdomen: Soft, nontender, no organomegaly, bowel sounds present Neuro: No focal deficits, no facial deformity, AO x3, power 5/5 in all limbs Urinary Catheter Management: Palafox: Cath Placed During This Visit: yes, but has since been removed by the nurse Reason for Continuing Indwelling Catheter: Other Urinary Catheter Date of Insertion: 11/29/23 Urinary Catheter Time of Insertion: 06:00 Date Urinary Catheter Removed: 11/30/23 Time Urinary Catheter Discontinued: 11:13 Data 11/30/23 04:17 11/30/23 04:17 A&P Assessment and plan (1) Shortness of breath: Most likely in setting of congestive heart failure. Fluid overload on chest x- ray today. Maintain saturation over 90%. Most likely in setting of diastolic congestive heart failure. Echocardiogram shows normal EF with mild LVH. Remove Palafox. Patient euvolemic today. Hold off on Lasix. Continue with fluid restriction up to 1500 cc. (2) Hypertensive urgency: Most likely reason for congestive heart failure. Mostly ranging from 1 80-2 40 systolics recently. On presentation to the ER blood pressure was over 200 mmHg. Goal blood pressure less than 140/90 mmHg. Blood pressure better controlled. Continue with metoprolol 25 mg twice daily at home dose, increase lisinopril to 40 mg oral daily. Amlodipine 10 mg oral daily added. If needed will change from lisinopril to losartan or metoprolol to Coreg. Continue monitor blood pressures daily. (3) Congestive heart failure: New diagnosis. With preserved ejection fraction. Treatment as above. Appreciate echocardiogram results. (4) Hypertension: Plan Continue other chronic medications. Full code Cardiac diet Protonix for PUD prophylaxis Lovenox for DVT prophylaxis Plan for the day : Antihypertensives as above. Patient euvolemic. Plan to discharge in next 24 hours to home with directions about congestive heart failure and adjusted antihypertensives. Attestations 2 Medical Necessity Statement*: Requires further hospitalization for management of diastolic heart failure in setting of hypertensive urgency Diagnoses Shortness of breath R06.02 Hypertensive urgency I16.0 Congestive heart failure I50.9 Hypertension I10
[2023-11-30 16:47] LABS: Glucose Point of Care 215 mg/dL (70-110)
[2023-11-30] MEDS: atorvastatin 40 mg Tablet 80 MG PO (20:34)
[2023-11-30] MEDS: ezetimibe 10 mg Tablet PO (20:34)
[2023-12-01] VITALS: BP 122/67; PULSE 58; RESP 17; TEMP 36.6; O2SAT 95
[2023-12-01 04:00] VITALS: BP 123/60; PULSE 59; RESP 17; TEMP 36.7; O2SAT 93
[2023-12-01 05:18] LABS: Basophils # 0.1 10^3/uL (0.0-0.1); Basophils % 0.8 %; Eosinophils # 0.2 10^3/uL (0.0-0.8); Eosinophils % 3.1 %; Hematocrit 34.5 % (36-47); Lymphocytes # 2.7 10^3/uL (0.8-4.8); Lymphocytes % 41.6 %; Mean Corpuscular HGB Conc 31.3 g/dL (30-55); Mean Corpuscular Hemoglobin 30.2 pg (27-33); Mean Corpuscular Volume 96.4 fl (85-98); Mean Platelet Volume 10.5 fL (7.4-10.4); Monocytes # 0.5 10^3/uL (0.2-0.9); Monocytes % 8.5 %; Neutrophils # 2.93 10^3/uL (1.8-7.7); Neutrophils % 45.8 %; Nucleated Red Blood Cells % 0 %; Platelet Count 256 10^3/cmm (157-399); Red Blood Count 3.58 10^6/uL (3.85-5.65); Red Cell Distribution Width 13.2 % (12.1-15.1); White Blood Count 6.39 10^3/uL (3.29-11.43)
[2023-12-01 05:34] VITALS: PULSE 46
[2023-12-01 05:40] LABS: Alanine Aminotransferase 13 U/L (0-33); Albumin Level 3.3 g/dL (3.5-5.2); Alkaline Phosphatase 67 U/L (35-105); Aspartate Amino Transferase 11 U/L (0-32); Blood Urea Nitrogen 12 mg/dL (8-23); Calcium 8.2 mg/dL (8.5-10.5); Carbon Dioxide 29 mmol/L (22-29); Chloride 105 mmol/L (98-107); Creatinine Clr Calc Pharmacy 63.3886; Globulin 2.9 g/dL (1.3-4.6); Glucose 138 mg/dL (65-115); Osmolality Calculated 298 mOsm/kg (285-295); Sodium 143 mmol/L (136-145); Total Bilirubin 0.2 mg/dL (0.15-1.2); Total Protein 6.2 g/dL (6.6-8.7)
[2023-12-01 05:49] LABS: Magnesium 1.9 mg/dL (1.7-2.3)
[2023-12-01 07:32] VITALS: BP 160/77; PULSE 49; RESP 14; TEMP 36.8; O2SAT 94
[2023-12-01 08:06] VITALS: BP 171/72; PULSE 53; RESP 14; TEMP 37; O2SAT 96
[2023-12-01] MEDS: lisinopril 20 mg Tablet 40 MG PO (08:15)
[2023-12-01] MEDS: divalproex DR 500 mg Tablet PO (08:15)
[2023-12-01] MEDS: pantoprazole DR 40 mg Tablet PO (08:16)
[2023-12-01] MEDS: aspirin 81 mg EC Tablet PO (08:16)
[2023-12-01] MEDS: sertraline 50 mg Tablet 25 MG PO (08:17)
[2023-12-01] MEDS: enoxaparin 40 mg/0.4 mL Syringe SUBCUT (08:18)
--- NOTE | 2023-12-01 09:29 | P.DS_ITS ---
Discharge Providers Date of Admission: 11/29/23 06:07 Date of Discharge: December 01, 2023 Attending Provider at Admission: Margaux Garcia MD Attending Provider at Discharge: Carson Brock MD Primary Care Provider: Mahnaz Yepez Diagnoses at Discharge Discharge Diagnosis (1) Shortness of breath: Status: Acute (2) Hypertensive urgency: Status: Acute (3) Congestive heart failure: Status: Acute (4) Hypertension: Status: Acute Reason for Visit Reason for Visit: SOB Hospital Course Hospital Course Sydney Zambrano is a 63 year old female with past medical history of hypertension, type 2 diabetes mellitus, stroke previously thought to be in setting of atrial fibrillation ruled out with a Holter monitor presents to the ER because of shortness of breath which has been getting worse over the last 3 days. Patient is accompanied by her spouse. Shortness of breath get worse on laying down flat on minimal exertion. Gets better on sitting up straight. Patient denies any chest pain before initiation of symptoms. Denies any nausea, vomiting, headache, subjective fever fever, similar complaints in the past, recent travels or sick contacts. As per the patient and they check blood pressures at home and usual numbers most recently has been ranging from systolic 180 mmHg to 240 mmHg. She was admitted to the hospital further evaluation and management of congestive heart failure. She was started on IV diuretics. Echocardiogram was done which showed normal EF with LVH with concerns for diastolic heart failure. It is believed heart failure symptoms are most likely in setting of hypertensive urgency. She was started on her home antihypertensives which showed adjusted aggressively. Her blood pressures have been doing better and her heart failure symptoms have resolved with patient being on room air for more than 36 hours. She has been discharged in hemodynamic stable condition on adjusted antihypertensives with advised to follow-up with a primary care provider within next 2 weeks with a blood pressure diary. Discharge note discussed in detail with the patient and she verbalized understanding. Medication changes were discussed in detail with the patient. Physical Exam Narrative: General: No acute distress, AO x3 HEENT: PERRLA, pupils bilaterally equal and reactive Chest: Normal vesicular breath sounds, fine crackles present in bilateral lower zone CVS: S1-S2 regular, no murmurs, no tachycardia, no gallops, no rubs Abdomen: Soft, nontender, no organomegaly, bowel sounds present Neuro: No focal deficits, no facial deformity, AO x3, power 5/5 in all limbs Urinary Catheter Management: Palafox: Cath Placed During This Visit: yes, but has since been removed by the nurse Reason for Continuing Indwelling Catheter: Other Urinary Catheter Date of Insertion: 11/29/23 Urinary Catheter Time of Insertion: 06:00 Date Urinary Catheter Removed: 11/30/23 Time Urinary Catheter Discontinued: 11:13 Discharge Data Studies Completed and Pending Completed Studies During Hospitalization Category Date Time Status XR chest 1V portable [id number] Stat Exams 11/29/23 04:03 Completed CV. echo complete* [id number] Routine Ultrasound 11/29/23 07:21 Completed Pending at discharge Category Date Time Status MAG [Magnesium] AM LABS Lab 12/02/23 04:00 Ordered Radiology Impressions Chest X-Ray 11/29/23 04:03 IMPRESSION: At least mild evidence of CHF or positive fluid balance, new from 05/06/2023. Echocardiography: CONCLUSIONS Normal left ventricular size and systolic function, EF 64%.mild left ventricular hypertrophy. No regional wall motion abnormalities. Mild biatrial enlargement. Mild pulmonary valve regurgitation. There is no pericardial effusion. Compared to the study from 03/29/2023, there may not be significant change Dr Catarino Saldivar MD [facility] (Electronically Signed) Final Date: 29 November 2023 12:09 Laboratory Results WBC 6.39 10^3/uL (3.29-11.43) 12/01/23 04:26 RBC 3.58 10^6/uL (3.85-5.65) L 12/01/23 04:26 Hgb 10.80 g/dL (11.27-16.99) L 12/01/23 04:26 Hct 34.5 % (36-47) L 12/01/23 04:26 MCV 96.4 fl (85-98) 12/01/23 04:26 MCH 30.2 pg (27-33) 12/01/23 04:26 MCHC 31.3 g/dL (30-55) 12/01/23 04:26 RDW 13.2 % (12.1-15.1) 12/01/23 04:26 Plt Count 256 10^3/cmm (157-399) 12/01/23 04:26 MPV 10.5 fL (7.4-10.4) H 12/01/23 04:26 Neut % (Auto) 45.8 % 12/01/23 04:26 Lymph % (Auto) 41.6 % 12/01/23 04:26 Shannon % (Auto) 8.5 % 12/01/23 04:26 Eos % (Auto) 3.1 % 12/01/23 04:26 Baso % (Auto) 0.8 % 12/01/23 04:26 Neut # (Auto) 2.93 10^3/uL (1.8-7.7) 12/01/23 04:26 Lymph # (Auto) 2.7 10^3/uL (0.8-4.8) 12/01/23 04:26 Shannon # (Auto) 0.5 10^3/uL (0.2-0.9) 12/01/23 04: Eos # (Auto) 0.2 10^3/uL (0.0-0.8) 12/01/23 04: Baso # (Auto) 0.1 10^3/uL (0.0-0.1) 12/01/23 04:26 Nucleated RBC % (auto) 0 % 12/01/23 04: Nucleated RBCs # 0.0 /100WBC 12/01/23 04:26 PT 15.30 SECONDS (12.1-14.9) H 11/29/23 04:26 INR 1.18 (0.8-1.2) 11/29/23 04:26 D-Dimer 2.07 ug/mLFEU (0-0.59) H 11/29/23 04:26 Sodium 143 mmol/L (136-145) 12/01/23 04:26 Potassium 4.0 mmol/L (3.5-5.1) 12/01/23 04:26 Chloride 105 mmol/L (98-107) 12/01/23 04:26 Carbon Dioxide 29 mmol/L (22-29) 12/01/23 04:26 Anion Gap 13.0 (5-19) 12/01/23 04:26 BUN 12 mg/dL (8-23) 12/01/23 04:26 Creatinine 0.9 mg/dL (0.5-0.9) 12/01/23 04:26 GFR Calculation 63.0 mL/min (90-130) L 12/01/23 04:26 Glucose 138 mg/dL (65-115) H 12/01/23 04:26 POC Glucose 215 mg/dL (70-110) H 11/30/23 16:41 Calculated Osmolality 298 mOsm/kg (285-295) H 12/01/23 04:26 Calcium 8.2 mg/dL (8.5-10.5) L 12/01/23 04:26 Magnesium 1.9 mg/dL (1.7-2.3) 12/01/23 04:26 Iron 45 ug/dL (37-145) 11/29/23 04:07 TIBC 357 mcg/dl 11/29/23 04:07 % Saturation 12.6 % (20-50) L 11/29/23 04:07 Unsat Iron Binding 312 ug/dL (112-347) 11/29/23 04:07 Total Bilirubin 0.2 mg/dL (0.15-1.2) 12/01/23 04:26 AST 11 U/L (0-32) 12/01/23 04:26 ALT 13 U/L (0-33) 12/01/23 04:26 Alkaline Phosphatase 67 U/L (35-105) 12/01/23 04:26 Troponin T Baseline 34 ng/L (0-10) H 11/29/23 04:07 Troponin T 120 Minute 28.30 ng/L (0-10) H 11/29/23 05:43 Delta Troponin T -5.70 ABS# (0-10) L 11/29/23 05:43 Troponin T Hi Sens 6Hr 26.89 ng/L (0-10) H 11/29/23 09:37 Troponin T Hi Sens 6Hr Delta -7.11 ng/L (0-12) L 11/29/23 09:37 NT-Pro-B Natriuret Pep 3048 pg/mL (0-125) H 11/29/23 04:07 Total Protein 6.2 g/dL (6.6-8.7) L 12/01/23 04:26 Albumin 3.3 g/dL (3.5-5.2) L 12/01/23 04:26 Globulin 2.9 g/dL (1.3-4.6) 12/01/23 04:26 Vitamin B12 447 pg/mL (232-1245) 11/29/23 04:07 Folate 9.6 ng/mL (4.8-37.3) 11/30/23 04:17 Influenza Type A Ag negative (Negative) 11/29/23 04:13 Influenza Type B Ag negative (Negative) 11/29/23 04:13 SARS-CoV-2 Ag (Rapid) negative (Negative) 11/29/23 04:13 Vitals Last Vital Signs Temp 98.6 F 12/01/23 08:06 Pulse 53 L 12/01/23 08:06 Resp 14 12/01/23 08:06 BP 171/72 12/01/23 08:06 Pulse Ox 96 12/01/23 08:06 O2 Del Method Room Air 12/01/23 08:06 Discharge Plan Discharge Patient Disposition: Home Condition: Stable Prescriptions: New hydralazine 25 mg tablet 25 mg PO BID Qty: 60 0RF Lasix 20 mg tablet 20 mg PO DAILY PRN (Reason: edema) Qty: 20 0RF Continued atorvastatin 80 mg tablet 80 mg PO BEDTIME clonazepam 0.5 mg tablet 0.5 - 1 mg PO BEDTIME fluticasone propionate 50 mcg/actuation spray,suspension 2 spray INTRANASAL DAILY metformin 500 mg tablet extended release 24 hr 1,000 mg PO BID divalproex 500 mg tablet,delayed release (DR/EC) 500 mg PO BID aspirin 81 mg tablet,delayed release (DR/EC) 81 mg PO QAM sertraline 25 mg tablet 25 mg PO QAM diclofenac potassium 50 mg tablet 50 mg PO BID PRN (Reason: pain) Qty: 20 0RF clobetasol 0.05 % cream 1 applic TOPICAL BID PRN (Reason: when rash flares) olanzapine 7.5 mg tablet 7.5 mg PO QAM naproxen 500 mg tablet 500 mg PO BID PRN (Reason: Pain) Changed lisinopril 20 mg tablet 40 mg PO DAILY Qty: 60 3RF amlodipine 5 mg tablet 10 mg PO DAILY Qty: 30 0RF Discontinued metoprolol tartrate 25 mg tablet 25 mg PO BID Qty: 120 2RF cefdinir 300 mg capsule 300 mg PO BID 5 Days Qty: 10 0RF Discharge Orders: Discharge Order (Routine); Ordered 12/01/23 Ordered By: Carson Brock Referrals: Mahnaz Yepez [Primary Care Provider] - 12/09/23 2:30 pm (address [address] [phone]) Discharge Diet: Cardiac Discharge Activity: Resume usual activity and Increase activity as tolerated Patient Instructions: Furosemide (By mouth) (Lasix), Hydralazine (By mouth), Hypertension, Heart Failure (GEN), Chronic Hypertension (GEN), CHF Stoplight, Opioid Safety Activity Restrictions/Additional Instructions: Your goal blood pressures less than 140/90 mmHg. Do not take metoprolol anymore. Dose of lisinopril has been increased to 40 mg daily, amlodipine has been increased to 10 mg daily. Also hydralazine 25 mg twice daily has been added to your medication list. Please check your blood pressure daily at home and maintain a blood pressure diary and follow-up with a primary care provider onsite appointment for further adjustment of antihypertensives. Restrict fluid intake to less than 1500 cc, salt intake to less than 2 g daily. Advised to check his weight daily at home. Is advised that weight today would be the dry weight and if body weight increases by around 5 pounds, patient is to take a dose of Lasix daily till body weight comes down to weight today. If not able to come down to dry body weight in 1 week, then is to call cardiology office for further recommendations. Patient was counseled in detail to take medications regularly as prescribed. Discharge Attestations Time Spent in Discharge Care*: greater than 30 min Specific Discharge Activities: educating patient, discussing with pcp/other providers, discussing with porter sample case/social workers/dc planners, documenting/other paperwork and evaluating patient/reviewing data Status at Discharge: Cognitive status at discharge: cognitively intact , Behavioral status at discharge: cooperative , Functional status at discharge: independent ambulation , Overall status at discharge: patient is back to baseline Quality Metrics Clinical Quality Measures [ No reported AMI, CVA or VTE this stay] Coding Level of Care Code 19327 Total time (in minutes) for Discharge: 60 Diagnoses Shortness of breath R06.02 Hypertensive urgency I16.0 Congestive heart failure I50.9 Hypertension I10
[2023-12-01] MEDS: amlodipine 10 mg Tablet PO (10:39)
--- NOTE | 2023-12-01 10:59 | PC.NURSE ---
patient verbalized understanding of discharge instructions, home medications, and follow up appointments. CHF stoplight provided, and explained to patient. patient verbalized understanding. patients home medications returned to patient from [facility].
[2023-12-01 11:51] VITALS: BP 171/72; PULSE 53; RESP 14; TEMP 37; O2SAT 96
== END 2023-12-01 11:52 | disposition home or self-care (01) | DRG 291 ==
LOC: ER 04:52 → MEDSURG 05:34
PROVIDERS: Admitting Provider Student in an Organized Health Care Education/Training Program; Emergency Provider Emergency Medicine; PCP Family Medicine; Visit Provider Student in an Organized Health Care Education/Training Program
DX: I11.0 Hypertensive heart disease with heart failure (principal); I50.31 Acute diastolic (congestive) heart failure; E11.9 Type 2 diabetes mellitus without complications; H54.40 Blindness, one eye, unspecified eye; K21.9 Gastro-esophageal reflux disease without esophagitis; E78.00 Pure hypercholesterolemia, unspecified; M81.0 Age-related osteoporosis without current pathological fracture; L40.9 Psoriasis, unspecified; I16.0 Hypertensive urgency; Z79.84 Long term (current) use of oral hypoglycemic drugs; Z79.82 Long term (current) use of aspirin; Z87.440 Personal history of urinary (tract) infections; Z86.73 Personal history of transient ischemic attack (TIA), and cerebral infarction without residual deficits; Z11.52 Encounter for screening for COVID-19
CPT/HCPCS: 36415; 36416; 51702; 71045; 80053; 82607; 82746; 82962; 83540; 83550; 83735; 83880; 84484; 85025; 85378; 85610; 87426; 87804; 93005; 93306; 96372; 96374; 96375; 96376; 99285; J0360; J1650; J1940; J2405; J3490

== ENCOUNTER 2023-12-01 19:40 | Emergency (ER) | payer MEDICAID, SELFPAY ==
[2023-12-01 19:41] VITALS: BP 229/80; PULSE 81; RESP 18; TEMP 36.7; O2SAT 97; BMI 27.4
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
[2023-12-01 19:55] VITALS: BP 184/85
[2023-12-01 20:25] VITALS: BP 169/81; PULSE 75; RESP 16; O2SAT 96
[2023-12-01 21:11] VITALS: BP 169/81; PULSE 75; RESP 16; TEMP 36.7; O2SAT 96
== END 2023-12-01 21:12 | disposition home or self-care (01) ==
PROVIDERS: Emergency Provider Nurse Practitioner Family; PCP Family Medicine
DX: S29.012A Strain of muscle and tendon of back wall of thorax, initial encounter (principal); Z79.82 Long term (current) use of aspirin; Z79.84 Long term (current) use of oral hypoglycemic drugs; E11.9 Type 2 diabetes mellitus without complications; I10 Essential (primary) hypertension; V89.2XXA Person injured in unspecified motor-vehicle accident, traffic, initial encounter
CPT/HCPCS: 70450; 72125; 72128; 99284

== ENCOUNTER 2024-02-26 15:50 | Emergency (ER) | payer MEDICAID, SELFPAY ==
[2024-02-26 15:53] VITALS: BP 168/84; PULSE 65; RESP 15; TEMP 36.4; O2SAT 96
--- NOTE | 2024-02-26 16:03 | W.ED.WOUNDLC ---
HPI - Wound/Laceration General: Chief Complaint: Wound/Laceration Stated Complaint: left pointer finger lac Time Seen by Provider: 02/26/24 16:02 History of Present Illness: 63-year-old female comes in today with injury to the left index finger. Patient has a superficial laceration to the finger pad on the left index finger. Bleeding is controlled. Patient cannot recall her last tetanus. Review of Systems General: Reports: 10 or more systems reviewed and unremarkable except in HPI and below PFSH ED PFSH: Medical History Blind left eye Diabetes mellitus GERD (gastroesophageal reflux disease) Heart murmur History of foot fracture History of toe fracture Hypercholesteremia Hypertensive disorder Osteoporosis Psoriasis Recurrent UTI Urinary incontinence Surgical History H/O knee surgery left H/O bladder repair surgery History of cholecystectomy History of hysterectomy History of History of eye surgery Family History Mother , at age 59 Hypertension Father No problems noted. Sister Diabetes Heart disease Breast cancer unknown age onset Brother Heart disease Social History Smoking and tobacco/nicotine status: never used tobacco/nicotine Alcohol intake: never Substance/Drug Use: never Physical Exam Const: COMMON NORMALS: alert HENMT: COMMON NORMALS: normocephalic HEAD & SCALP: normocephalic Neck/C-Spine: COMMON NORMALS: full ROM Chest: COMMONS NORMALS: normal inspection of the chest Resp: COMMON NORMALS: normal respiratory effort Cardio: COMMON NORMALS: regular rate RATE: regular rate Extremity: LEFT UPPER EXTREMITY: Yes hand & digits (Index finger superficial laceration) Neuro: SENSORIUM/ORIENTATION: Yes alert Skin: TRAUMA: laceration (Flap laceration distal index finger 1 cm) flap Procedures Laceration Laceration 1: Site: hand Side (If applicable): left Size (cm): 1 Description: flap Depth: simple, single layer Pre-repair: wound explored and irrigated extensively Skin layer closed with: other (Skin adhesive) Course Vital Signs: Vital signs: Vital Signs Temperature 97.5 F L 02/26/24 15:53 Pulse Rate 65 02/26/24 15:53 Respiratory Rate 15 02/26/24 15:53 Blood Pressure 168/84 02/26/24 15:53 Pulse Oximetry 96 02/26/24 15:53 Oxygen Delivery Me thod Room Air 02/26/24 15:53 MDM - Wound/Laceration Medical Decision Making 63-year-old female comes in today with injury to the left index finger. On exam patient appears nontoxic. Patient has a skin flap to the distal index finger that is approximately 1 cm. Wound was cleaned and secured with skin adhesive. Patient had a light dressing applied postprocedure for wound protection. Reviewed exam with patient with recommendations for treatment and further follow-up. Patient reported understanding agreed to plan. Differential diagnosis considered was foreign body, laceration, need for prophylaxis tetanus. No signs of foreign body or fracture was noted. No radiology studies performed this visit Discharge Plan Discharge Patient Disposition: Home Clinical Impression: Need for tetanus booster Finger laceration Qualifiers: Encounter type: initial encounter Finger: index finger Damage to nail status: without damage Foreign body presence: without foreign body Laterality: left Qualified Code(s): S61.211A - Laceration without foreign body of left index finger without damage to nail, initial encounter Condition: Stable Prescriptions: No Action atorvastatin 80 mg tablet 80 mg PO BEDTIME clonazepam 0.5 mg tablet 0.5 - 1 mg PO BEDTIME fluticasone propionate 50 mcg/actuation spray,suspension 2 spray INTRANASAL DAILY metformin 500 mg tablet extended release 24 hr 1,000 mg PO BID divalproex 500 mg tablet,delayed release (DR/EC) 500 mg PO BID aspirin 81 mg tablet,delayed release (DR/EC) 81 mg PO QAM sertraline 25 mg tablet 25 mg PO QAM diclofenac potassium 50 mg tablet 50 mg PO BID PRN (Reason: pain) Qty: 20 0RF clobetasol 0.05 % cream 1 applic TOPICAL BID PRN (Reason: when rash flares) olanzapine 7.5 mg tablet 7.5 mg PO QAM naproxen 500 mg tablet 500 mg PO BID PRN (Reason: Pain) hydralazine 25 mg tablet 25 mg PO BID Qty: 60 0RF Lasix 20 mg tablet 20 mg PO DAILY PRN (Reason: edema) Qty: 20 0RF lisinopril 20 mg tablet 40 mg PO DAILY Qty: 60 3RF amlodipine 5 mg tablet 10 mg PO DAILY Qty: 30 0RF Discharge Orders: Discharge ED (Routine); Ordered 02/26/24 Ordered By: Francis Kee Referrals: Mahnaz Yepez [Primary Care Provider] - Discharge Diet: Usual diet Discharge Activity: Increase activity as tolerated Patient Instructions: Skin Adhesive Care (ED) Activity Restrictions/Additional Instructions: Keep wound clean and dry. Is very important to keep the wound as dry as possible for the next 48 hours. After that you can get it wet but she should not submerge underwater until completely healed. The wound should heal within the next 7 to 10 days. Monitor the site for signs of infection such as increased redness or fever. Follow-up with primary care as needed. Return to ED for new concerns. Coding Level of Care Code ED Fish Hatchery Worker for Jakub Silva
[2024-02-26 16:47] VITALS: BP 168/84; PULSE 65; RESP 15; TEMP 36.4; O2SAT 96
[2024-02-26] MEDS: tetanus-dipt-pertussis 0.5 mL SDV IM (16:56)
== END 2024-02-26 17:02 | disposition home or self-care (01) ==
PROVIDERS: Emergency Provider Nurse Practitioner Family; PCP Family Medicine
DX: S61.211A Laceration without foreign body of left index finger without damage to nail, initial encounter (principal); Z79.82 Long term (current) use of aspirin; E11.9 Type 2 diabetes mellitus without complications; X58.XXXA Exposure to other specified factors, initial encounter; Z23 Encounter for immunization
CPT/HCPCS: 12001; 90471; 90715; 99283

== ENCOUNTER 2024-06-03 14:04 | Inpatient (IN) | payer MEDICAID, SELFPAY ==
[2024-06-03] VITALS (93 sets, daily range): BP systolic 93–158; BP diastolic 44–101; PULSE 42–68; RESP 9–20; TEMP 35.8–36.5; O2SAT 79–100; BMI 27.4; BMI 27.8
--- NOTE | 2024-06-03 14:29 | CTR_ITS ---
PROCEDURE INFORMATION: Exam: CT Head Without Contrast Exam date and time: 06/03/2024 2:33 PM Age: 63 years old Clinical indication: Stroke-like symptoms; Dizziness/giddiness and speech disturbance; Additional info: Symptoms of acute stroke TECHNIQUE: Imaging protocol: Computed tomography of the head without contrast. Radiation optimization: All CT scans at this facility use at least one of these dose optimization techniques: automated exposure control; mA and/or kV adjustment per patient size (includes targeted exams where dose is matched to clinical indication); or iterative reconstruction. Other technique: STROKE PROTOCOL was implemented. COMPARISON: CT head wo con* [id number] 12/01/2023 8:06 PM RADIATION DOSE METRICS: Total DLP (mGy-cm): 1010.08 FINDINGS: Brain: No intracranial hemorrhage. There is global parenchymal volume loss. Periventricular white matter hypoattenuation is nonspecific but most likely due to small vessel disease. No evidence of acute territorial infarct or cerebral edema. No mass effect or midline shift. Nonacute lacunar infarct left basal ganglia. Cerebral ventricles: Prominent ventricles likely secondary to volume loss. Paranasal sinuses: Visualized sinuses are unremarkable. No fluid levels. Mastoid air cells: Visualized mastoid air cells are well aerated. Bones: Unremarkable. No acute fracture. Soft tissues: Unremarkable. CT/CT head thrombolytic [id number] IMPRESSION: No acute intracranial findings. ASSESSMENT: ASPECTS ([place] Stroke Program Early CT Score) is 10.
--- NOTE | 2024-06-03 14:35 | ED_ITS ---
HPI - Neuro Symptoms/Deficit 2 General: Chief Complaint: Head Injury Stated Complaint: stroke like symptoms Time Seen by Provider: 06/03/24 14:29 History of Present Illness: 53-year-old female presents emergency ro om with ataxia and vision changes. About 4 hours ago she suddenly had worsening. She has previously had a left MCA stroke that left her with right-sided deficits. She presents now with ataxia left hemianopsia and generally not feeling well reports feeling weak family members today that she is slurring her words slightly worse than she usually days. Associated symptoms: Deny chest pain Related Data Home Medications Medication Instructions Recorded Confirmed atorvastatin 80 mg tablet 80 mg PO BEDTIME 03/09/23 11/29/23 clonazepam 0.5 mg tablet 0.5 - 1 mg PO BEDTIME 08/08/23 11/29/23 fluticasone propionate 50 2 spray intranasal DAILY 08/08/23 11/29/23 mcg/actuation nasal spray,suspension metformin 500 mg tablet,extended 1,000 mg PO BID 08/08/23 11/29/23 release 24 hr aspirin 81 mg tablet,delayed 81 mg PO QAM 11/27/23 11/29/23 release divalproex 500 mg tablet,delayed 500 mg PO BID 11/27/23 11/29/23 release sertraline 25 mg tablet 25 mg PO QAM 11/27/23 11/29/23 clobetasol 0.05 % topical cream 1 applic topical BID PRN when rash 11/29/23 11/29/23 flares naproxen 500 mg tablet 500 mg PO BID PRN Pain 11/29/23 11/29/23 olanzapine 7.5 mg tablet 7.5 mg PO QAM 11/29/23 11/29/23 Previous Rx's Medication Instructions Recorded diclofenac potassium 50 mg tablet 50 mg PO BID PRN pain #20 tabs 11/27/23 amlodipine 5 mg tablet 10 mg (2 x 5 mg) PO DAILY #30 tabs 12/01/23 furosemide 20 mg tablet (Lasix) 20 mg PO DAILY PRN edema #20 tabs 12/01/23 hydralazine 25 mg tablet 25 mg PO BID #60 tabs 12/01/23 lisinopril 20 mg tablet 40 mg (2 x 20 mg) PO DAILY #60 tabs 12/01/23 Allergies Allergy/AdvReac Type Severity Reaction Status Date / Time penicillin G Allergy unknown Verified 06/03/24 14:18 Penicillins Allergy Unknown Verified 06/03/24 14:18 sulfamethoxazole Allergy unknown Verified 06/03/24 14:18 [From Bactrim] trimethoprim [From Bactrim] Allergy unknown Verified 06/03/24 14:18 Review of Systems 2 Const: Denies: fever(s) or chills Card: Denies: chest pain Resp: Denies: dyspnea GI: Denies: abdominal pain : Denies: dysuria, urinary frequency or urinary urgency Musc: Denies: neck pain or back pain Skin/Breast: Denies: rash PFSH ED 2 PFSH: Medical History Otorrhea of right ear Sleep arousal disorder Bradycardia Speech and language deficits Memory loss 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 Sister Diabetes Heart disease Breast cancer unknown age onset Brother Heart disease Social History Smoking and tobacco/nicotine status: never used tobacco/nicotine Alcohol intake: never Substance/Drug Use: never NIH stroke score 2 NIHSS: Level Of Consciousness - 1a: 0 Level Of Consciousness Questions - 1b: Both Correct Level Of Consciousness Commands - 1c: Both Correct Best Gaze - 2: Partial Gaze Palsy Visual Cueva - 3: Partial Hemianopia Facial Palsy - 4: Normal Motor Arm Right - 5: No Drift Motor Arm Left - 5: No Drift Motor Leg Right - 6: No Drift Motor Leg Left - 6: No Drift Limb Ataxia - 7: Absent Sensory - 8: Normal Best Language - 9: No Aphasia D ysarthia - 10: Mild/Moderate Dysarthia Extinction And Inattention - 11: 0 Score: Total Score: 3 Physical Exam 2 Const: GENERAL APPEARANCE: cooperative ORIENTATION/CONSCIOUSNESS: Yes awake, Yes oriented to person, Yes oriented to place and Yes oriented to time HENMT: COMMON NORMALS: normocephalic, atraumatic and hearing grossly normal bilaterally HEAD & SCALP: normocephalic and atraumatic Eye: OTHER: Left hemianopsia Resp: COMMON NORMALS: normal respiratory effort, No retractions, No use of accessory muscles and clear to auscultation bilaterally AUSCULTATION: clear to auscultation bilaterally Cardio: COMMON NORMALS: regular rate, regular rhythm and No murmurs present (Cardio) RATE: regular rate RHYTHM: regular rhythm GI: COMMON NORMALS: Soft to palpation and No hepatosplenomegaly present A USCULTATION: Yes normoactive bowel sounds PALPATION: Yes Soft to palpation, No Tenderness to palpation present (GI), No Guarding due to palpation present (GI) and Yes No hepatosplenomegaly present Extremity: COMMON NORMALS: normal to inspection, capillary refill normal, no clubbing, cyanosis or edema, no calf tenderness and no pedal edema Neuro: SENSORIUM/ORIENTATION: Yes oriented to person, Yes oriented to place and Yes oriented to time Skin: COMMON NORMALS: no rashes or lesions noted GENERAL SKIN EXAM: no rashes or lesions noted Course 2 Vital Signs: Vital signs: Vital Signs Temperature 97.4 F L 06/04/24 04:00 Pulse Rate 60 06/04/24 05:53 Respiratory Rate 10 L 06/04/24 05:40 Blood Pressure 143/70 06/04/24 05:40 Pulse Oximetry 99 06/04/24 05:40 Oxygen Delivery Me thod Room Air 06/03/24 21:21 Fraction of Inspir ed Oxygen 21 06/03/24 21:21 MDM - Neuro Symptoms/Deficit Medical Decision Making Suspect patient may have a posterior CVA she is having little bit difficulty with speech he has had previous strokes in the middle cerebral territory this time she is having vision difficulties she actually walked into the door frame and her walker at the bedside, states she is very unsteady on her feet going to her baseline she is walking with a broad-based gait. She also has a little bit of left hemianopsia. Discussed with Dr. Espinosa she recommend go ahead and giving TNKase. The family understands that were at the edge of the suggested timeframe but still wishes to proceed they do understand the risk of bleeding. Lab Data 06/03/24 15:04 06/03/24 15:[address] 06/03/24 14:29 IMPRESSION: No acute intracranial findings. ASSESSMENT: ASPECTS ([place] Stroke Program Early CT Score) is 10. Face CT 06/03/24 16:56 IMPRESSION: No acute bony abnormality. Laboratory Results WBC 7.60 10^3/uL (3.29-11.43) 06/03/24 15:04 RBC 4.23 10^6/uL (3.85-5.65) 06/03/24 15:04 Hgb 12.70 g/dL (11.27-16.99) 06/03/24 15:04 Hct 40.7 % (36-47) 06/03/24 15:04 MCV 96.2 fl (85-98) 06/03/24 15:04 MCH 30.0 pg (27-33) 06/03/24 15:04 MCHC 31.2 g/dL (30-55) 06/03/24 15:04 RDW 13.4 % (12.1-15.1) 06/03/24 15:04 Plt Count 239 10^3/cmm (157-399) 06/03/24 15:04 MPV 10.5 fL (7.4-10.4) H 06/03/24 15:04 Neut % (Auto) 54.3 % 06/03/24 15:04 Lymph % (Auto) 33.8 % 06/03/24 15:04 [place] % (Auto) 8.2 % 06/03/24 15:04 Eos % (Auto) 2.4 % 06/03/24 15:04 Baso % (Auto) 0.9 % 06/03/24 15:04 Neut # (Auto) 4.13 10^3/uL (1.8-7.7) 06/03/24 15:04 Lymph # (Auto) 2.6 10^3/uL (0.8-4.8) 06/03/24 15:04 [place] # (Auto) 0.6 10^3/uL (0.2-0.9) 06/03/24 15:04 Eos # (Auto) 0.2 10^3/uL (0.0-0.8) 06/03/24 15:04 Baso # (Auto) 0.1 10^3/uL (0.0-0.1) 06/03/24 15:04 Nucleated RBC % (auto) 0 % 06/03/24 15:04 Nucleated RBCs # 0.0 /100WBC 06/03/24 15:04 PT 13.40 SECONDS (12.1-14.9) 06/03/24 15:04 INR 1.00 (0.8-1.2) 06/03/24 15:04 APTT 27.2 SECONDS (23.9-36.7) 06/03/24 15:04 Sodium 140 mmol/L (136-145) 06/03/24 15:04 Potassium 4.1 mmol/L (3.5-5.1) 06/03/24 15:04 Chloride 101 mmol/L (98-107) 06/03/24 15:04 Carbon Dioxide 28 mmol/L (22-29) 06/03/24 15:04 Anion Gap 15.1 (5-19) 06/03/24 15:04 BUN 13 mg/dL (8-23) 06/03/24 15:04 Creatinine 0.9 mg/dL (0.5-0.9) 06/03/24 15:04 GFR Calculation 63.0 mL/min (90-130) L 06/03/24 15:04 Glucose 163 mg/dL (65-115) H 06/03/24 15:04 POC Glucose 142 mg/dL (70-110) H 06/03/24 15:28 Calculated Osmolality 294 mOsm/kg (285-295) 06/03/24 15:04 Calcium 9.3 mg/dL (8.5-10.5) 06/03/24 15:04 Total Bilirubin 0.2 mg/dL (0.15-1.2) 06/03/24 15:04 AST 15 U/L (0-32) 06/03/24 15:04 ALT 13 U/L (0-33) 06/03/24 15:04 Alkaline Phosphatase 111 U/L (35-105) H 06/03/24 15:04 Total Protein 7.6 g/dL (6.6-8.7) 06/03/24 15:04 Albumin 4.0 g/dL (3.5-5.2) 06/03/24 15:04 Globulin 3.6 g/dL (1.3-4.6) 06/03/24 15:04 Urine Color Yellow (Yellow) 06/03/24 15:40 Urine Appearance Cloudy (CLEAR) A 06/03/24 15:40 Urine pH 5.0 (5-7) 06/03/24 15:40 Ur Specific [place] 1.014 (1.005-1.030) 06/03/24 15:40 Urine Protein Negative (Negative) 06/03/24 15:40 Urine Glucose (UA) 3+ (Normal) H 06/03/24 15:40 Urine Ketones Negative (Negative) 06/03/24 15:40 Urine Blood Negative (Negative) 06/03/24 15:40 Urine Nitrate Negative (Negative) 06/03/24 15:40 Urine Bilirubin Negative (Negative) 06/03/24 15:40 Urine Urobilinogen 0.2 mg/dL (Negative) 06/03/24 15:40 Ur Leukocyte Esterase 1+ (Negative) A 06/03/24 15:40 Urine RBC 5-10 /hpf (0-2) H 06/03/24 15:40 Urine WBC 25-40 /hpf (0-5) H 06/03/24 15:40 Ur Squamous Epith Cells 5-10 /hpf (0-5) H 06/03/24 15:40 Other Crystals 10-15 /hpf 06/03/24 15:40 Amorphous Sediment Not Reportable 06/03/24 15:40 Urine Bacteria 2+ /hpf (NONE) H 06/03/24 15:40 Urine Mucus Trace /hpf 06/03/24 15:40 Urine Opiates Screen Negative ng/mL (Negative) 06/03/24 15:40 Ur Barbiturates Screen Negative ng/mL (Negative) 06/03/24 15:40 Ur Phencyclidine Scrn Negative ng/mL (Negative) 06/03/24 15:40 Ur Amphetamines Screen Negative ng/mL (Negative) 06/03/24 15:40 U Benzodiazepines Scrn Negative ng/mL (Negative) 06/03/24 15:40 Urine Cocaine Screen Negative ng/mL (Negative) 06/03/24 15:40 U Marijuana (THC) Screen Negative ng/mL (Negative) 06/03/24 15:40 All radiology interpretation(s) finalized by discharge Discharge Plan Discharge Patient Disposition: Admitted As Inpatient Admit Provider: Yao Martines Clinical Impression: Posterior circulation stroke Condition: Stable Coding Level of Care Code ED Pathology Secretary for Jakub Silva
--- NOTE | 2024-06-03 14:45 | ECG_ITS ---
[facility] Test Date: 2024-06-03 Pat Name: Sydney Zambrano Department: Room: Gender: Female Gift Officer: : 1960 Requested By: Lucio Ferrer Order Number: [id number] Powell MD: Catarino Saldivar M.D. Measurements Intervals [place] Rate: 52 P: 12 MO: 193 QRS: -5 QRSD: 95 T: 55 QT: 448 QTc: 420 Interpretive Statements SINUS BRADYCARDIA NONSPECIFIC T-WAVE ABNORMALITY Compared to ECG 11/29/2023 05:04:05 T-wave abnormality now present Sinus rhythm no longer present Ventricular premature complex(es) no longer present ST (T wave) deviation no longer present Electronically Signed On 06-03-2024 20:37:56 CDT by Catarino Saldivar M.D. [id number]
[2024-06-03 15:09] LABS: Basophils # 0.1 10^3/uL (0.0-0.1); Basophils % 0.9 %; Eosinophils # 0.2 10^3/uL (0.0-0.8); Eosinophils % 2.4 %; Hematocrit 40.7 % (36-47); Lymphocytes # 2.6 10^3/uL (0.8-4.8); Lymphocytes % 33.8 %; Mean Corpuscular HGB Conc 31.2 g/dL (30-55); Mean Corpuscular Volume 96.2 fl (85-98); Mean Platelet Volume 10.5 fL (7.4-10.4); Monocytes # 0.6 10^3/uL (0.2-0.9); Monocytes % 8.2 %; Neutrophils # 4.13 10^3/uL (1.8-7.7); Neutrophils % 54.3 %; Nucleated Red Blood Cells % 0 %; Platelet Count 239 10^3/cmm (157-399); Red Blood Count 4.23 10^6/uL (3.85-5.65); Red Cell Distribution Width 13.4 % (12.1-15.1)
[2024-06-03] MEDS: tenecteplase 50mg Kit (STROKE) 18 MG IVP (15:11)
[2024-06-03 15:23] LABS: Partial Thromboplastin Time 27.2 SECONDS (23.9-36.7)
--- NOTE | 2024-06-03 15:23 | PM.SAN ---
Stroke Alert Activation ED Arrival Date: 06/03/24 ED Arrival Time: 14:12 ED Physican at Bedside: 14:29 Last Known Normal/at Baseline: 3-4 hours ago Other Last Known Well Infomation: The patient presented with strokelike symptoms but was triaged as a head injury. Dr. Garner noticed the list of complaints at triage and came to see her right away and called a stroke alert. He observed that she had decreased vision to the right, dysarthria and she could not walk. Her blood pressure was under control. She was not on an anticoagulant. We agreed that she should be treated with TNK and that was initiated at 1512 while I was completing my stroke assessment, exactly 1 hour after arrival. The delay in treatment was a result of the patient being triage not as a stroke but as a head injury and stroke alert was not called until Dr. Garner intervened. This patient has a puzzling history. She sat down to take a nap at 11:00 and when she woke up she could not see properly and walked into a door facing with the left side of the face. She was not walking well and her left side seemed weak. That is according to her caregiver and her , both of whom bedside and provide history. She and emergency department numerous times for a variety of symptoms. She was in and hospitalized with heart failure secondary to hypertension in November of this year. She was treated with tPA 08/08/2023 for receptive speech deficit and right-sided weakness and visual field deficit. She says that Dr. Cast is her neurologist has not seen him in the office for over a year. I reviewed his very complex note from 05/03/2023 that documented previous M1 left middle cerebral artery stroke and a question of staring spells for which she had her on Keppra. Caregiver says that Keppra was discontinued by her family physician and the patient is now on Depakote 500 mg twice daily. She has a history of left lazy eye with ptosis. Stroke Alert Activated by: Dr. Garner Stroke Alert Activation Time: 14:35 Stroke MD @ Bedside Time: 14:35 NIH Stroke Scale Time: 15:00 NIH stroke score NIHSS: Level Of Consciousness - 1a: 0 Level Of Consciousness Questions - 1b: Both Correct Level Of Consciousness Commands - 1c: Both Correct Best Gaze - 2: Normal Visual Cueva - 3: Partial Hemianopia Facial Palsy - 4: Minor Paralysis Motor Arm Right - 5: No Drift Motor Arm Left - 5: No Drift Motor Leg Right - 6: No Drift Motor Leg Left - 6: No Drift Limb Ataxia - 7: Present In One Limb Sensory - 8: Mild To Moderate Loss (Subjectively reduced left arm) Best Language - 9: No Aphasia Dysarthia - 10: Mild/Moderate Dysarthia Extinction And Inattention - 11: 0 Score: Total Score: 5 Stroke Alert Data/Treatment CT Results Time: 14:47 CT Impression: No acute findings. Diffuse atrophy. The radiologist did not comment but the large left M1 stroke is evident as atrophy left anterior internal capsule and grijalva radiata and left caudate Stroke Risk Factors: hypertension and diabetes mellitus tPA Started Time: tPA Started - Time: 15:12 tPA Admin Prior to Arrival: No Patient & Family Educated on: Cause of Stroke, Risk Factors, Treament Plan and tPA Risks/Benefits Critical Care Time Critical Care Time: 30 - 74 mins A&P Assessment and plan (1) Acute stroke due to ischemia: Acute stroke in indeterminate distribution. The patient has difficulty walking and with vision in the right eye which is her only functioning eye. She is blind or nearly so in the left eye chronic amblyopia from and has ptosis on the left. She cannot walk and normally she can walk. She was confused from the outset but has been documented to have receptive aphasia during her previous event. I cannot determine for sure what her visual deficits is on the right but she is having trouble counting fingers in all visual cueva on the right. She has subtle findings on the left with drift of the left arm. Those problems combined with her gait difficulty justify the use of TNK. She has had extensive stroke workup in the past and may need to have further cardiac monitoring as there has been question of atrial fibrillation in the past. She will need to follow-up with Dr. Cast, her neurologist. Standardized stroke orders used. Coding Level of Care Code Acute Code for [facility] Shira Diagnoses Acute stroke due to ischemia I63.9
[2024-06-03 15:29] LABS: Alanine Aminotransferase 13 U/L (0-33); Alkaline Phosphatase 111 U/L (35-105); Anion Gap 15.1 (5-19); Aspartate Amino Transferase 15 U/L (0-32); Blood Urea Nitrogen 13 mg/dL (8-23); Calcium 9.3 mg/dL (8.5-10.5); Carbon Dioxide 28 mmol/L (22-29); Chloride 101 mmol/L (98-107); Creatinine Clr Calc Pharmacy 62.0571; Globulin 3.6 g/dL (1.3-4.6); Glucose 163 mg/dL (65-115); Osmolality Calculated 294 mOsm/kg (285-295); Potassium 4.1 mmol/L (3.5-5.1); Sodium 140 mmol/L (136-145); Total Bilirubin 0.2 mg/dL (0.15-1.2); Total Protein 7.6 g/dL (6.6-8.7)
[2024-06-03 15:33] LABS: Glucose Point of Care 142 mg/dL (70-110)
[2024-06-03 15:46] LABS: Charge for UA Resulting for Rev
[2024-06-03 15:49] LABS: Bilirubin Urine Negative (Negative); Blood Urine Negative (Negative); Glucose Urine UA 3+ (Normal); Ketones Urine Negative (Negative); Leukocyte Esterase Urine 1+ (Negative); Nitrate Urine Negative (Negative); Protein Urine Negative (Negative); Specific Gravity, Urine 1.014 (1.005-1.030); Urine Appearance Cloudy (CLEAR); Urine Color Yellow (Yellow); Urobilinogen Urine 0.2 mg/dL (Negative)
[2024-06-03 15:57] LABS: Amphetamines Screen Urine Negative (Negative); Barbiturates Screen Urine Negative (Negative); Benzodiazepines Screen Urine Negative (Negative); Cocaine Screen Urine Negative (Negative); Opiate Screen Urine Negative (Negative); PCP Screen Urine Negative (Negative); THC Screen Urine Negative (Negative)
[2024-06-03 16:09] LABS: UA Manual Slide Review YES; UA Slide Review UA Slide Review Perf
[2024-06-03 16:11] LABS: Bacteria Urine 2+ /hpf; Mucus Urine TRACE /hpf; WBC Urine 25-40 /hpf (0-5)
[2024-06-03 16:13] LABS: Add Urine Culture? Yes
--- NOTE | 2024-06-03 16:56 | CTR_ITS ---
PROCEDURE INFORMATION: Exam: CT Maxillofacial Without Contrast Exam date and time: 06/03/2024 5:40 PM Age: 63 years old Clinical indication: Injury or trauma; Blunt trauma (contusions or hematomas); Forehead and ocular (eye or eyeball); Patient HX: Patient accindentally struck door frame hitting left eye and left frontal. ; Additional info: Trauma, fall TECHNIQUE: Imaging protocol: Computed tomography of the face without contrast. Radiation optimization: All CT scans at this facility use at least one of these dose optimization techniques: automated exposure control; mA and/or kV adjustment per patient size (includes targeted exams where dose is matched to clinical indication); or iterative reconstruction. COMPARISON: CT head thrombolytic [id number] 06/03/2024 2:33 PM RADIATION DOSE METRICS: Total DLP (mGy-cm): 583.88 FINDINGS: Orbital cavities: Orbits are normal. Globes are unremarkable. Paranasal sinuses: Normal. No air-fluid levels. Teeth: Multiple dental caries. Bones: No acute fracture. Soft tissues: Small amount of left periorbital soft tissue swelling. CT/CT facial bones wo con* [id number] IMPRESSION: No acute bony abnormality.
--- NOTE | 2024-06-03 17:05 | P.HP_ITS ---
Providers/Chief Complaint 2 Primary Care Provider: uJdson Seth MD Chief Complaint: stroke like symptoms History of Present Illness Sydney Zambrano is a 63 year old female with a past medical history of CVA left MCA status post CVA t, CHF, hypertension, type 2 diabetes mellitus, sleep apnea, lazy left eye, who presents [facility] due to dizziness, unsteadiness, decreased vision to left eye, dysarthria, inability to walk. Currently patient is alert oriented x 3, following all commands, she tells me that she has a chronic history of unsteadiness on her feet, yesterday she helped her son give away some of his old clothing, she went to bed around 9 PM, woke up roughly at 7 AM this morning, she tells me that she is getting her house ready to be possibly sold, so she was doing work around the house, and roughly at about 11 AM, she took a nap, she woke up a little thereafter she is not exactly sure for how long she took a nap, but when she woke up, she had inability to walk, she was dizzy, it was a bit weak on the left side she tells me, she was dizzy, and she fell forward into the door frame, hitting her left side of her face, she felt dizzy, unsteady, weak on the left side, no word finding difficulty no slurring of words, no paresthesias. Her NIH stroke scale on admission was 5, CT head no acute bleed, she was deemed a candidate for TNKase, status post TNKase, she was examined she is alert oriented x 3, following all commands, denies currently any visual deficits, pupils equal round reactive to light, is able to track, I cannot discern any visual field deficits, [id number] is abnormal on the left, zyyr-vp-[id number] is abnormal on the left, no focal weakness upper or lower extremities, no significant dysarthria, she denies any headache, no blurry vision, no nausea, no vomiting, she denies being on any blood thinners at home, does take aspirin, she does report a history of type 2 diabetes mellitus, is not on insulin, denies any recent illness, no fevers, chills, no cough, no abdominal pain, no dysuria, no hematuria, Review of Systems 2 Const: Denies: fever(s) or chills Card: Denies: chest pain Resp: Denies: dyspnea GI: Denies: abdominal pain : Denies: flank pain Musc: Denies: back pain Neuro: Denies: headache(s) Medications/Allergies Home Medications Medication Instructions Recorded Confirmed Last Taken Type atorvastatin 80 mg tablet 80 mg PO BEDTIME 03/09/23 11/29/23 11/26/23 History clonazepam 0.5 mg tablet 0.5 - 1 mg PO BEDTIME 08/08/23 11/29/23 11/26/23 History fluticasone propionate 50 2 spray intranasal DAILY 08/08/23 11/29/23 11/27/23 History mcg/actuation nasal spray,suspension metformin 500 mg tablet,extended 1,000 mg PO BID 08/08/23 11/29/23 11/27/23 History release 24 hr aspirin 81 mg tablet,delayed 81 mg PO QAM 11/27/23 11/29/23 11/27/23 History release diclofenac potassium 50 mg tablet 50 mg PO BID PRN pain #20 tabs 11/27/23 11/29/23 Unknown Rx divalproex 500 mg tablet,delayed 500 mg PO BID 11/27/23 11/29/23 11/27/23 History release sertraline 25 mg tablet 25 mg PO QAM 11/27/23 11/29/23 11/27/23 History clobetasol 0.05 % topical cream 1 applic topical BID PRN when rash 11/29/23 11/29/23 Unknown History flares naproxen 500 mg tablet 500 mg PO BID PRN Pain 11/29/23 11/29/23 Unknown History olanzapine 7.5 mg tablet 7.5 mg PO QAM 11/29/23 11/29/23 Unknown History amlodipine 5 mg tablet 10 mg (2 x 5 mg) PO DAILY #30 tabs 12/01/23 11/29/23 11/27/23 Rx furosemide 20 mg tablet (Lasix) 20 mg PO DAILY PRN edema #20 tabs 12/01/23 Unknown Rx hydralazine 25 mg tablet 25 mg PO BID #60 tabs 12/01/23 Unknown Rx lisinopril 20 mg tablet 40 mg (2 x 20 mg) PO DAILY #60 tabs 12/01/23 11/29/23 11/27/23 Rx Allergies Allergy/AdvReac Type Severity Reaction Status Date / Time penicillin G Allergy unknown Verified 06/03/24 14:18 Penicillins Allergy Unknown Verified 06/03/24 14:18 sulfamethoxazole Allergy unknown Verified 06/03/24 14:18 [From Bactrim] trimethoprim [From Bactrim] Allergy unknown Verified 06/03/24 14:18 PFSH Acute 2 PFSH: Medical History Otorrhea of right ear Sleep arousal disorder Bradycardia Speech and language deficits Memory loss 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 Sister Diabetes Heart disease Breast cancer unknown age onset Brother Heart disease Social History Smoking and tobacco/nicotine status: never used tobacco/nicotine Alcohol intake: never Substance/Drug Use: never Vitals/I&O/Wt Last Vital Signs Temp 97.6 F 06/03/24 14:12 Pulse 58 L 06/03/24 16:50 Resp 17 06/03/24 16:50 BP 124/66 06/03/24 16:50 Pulse Ox 96 06/03/24 16:50 O2 Del Method Room Air 06/03/24 16:01 Weight last 48 hrs Weight 73.573 kg Weight 72.575 kg Physical Exam 2 Const: COMMON NORMALS: no acute distress and patient oriented x3 HENMT: COMMON NORMALS: normocephalic HEAD & SCALP: normocephalic Neck/C-Spine: COMMON NORMALS: no JVD Resp: COMMON NORMALS: normal respiratory effort, No retractions, No use of accessory muscles and clear to auscultation bilaterally AUSCULTATION: clear to auscultation bilaterally Cardio: COMMON NORMALS: no JVD, regular rate, regular rhythm, S1 normal heart sound present and S2 normal heart sound present RATE: regular rate RHYTHM: regular rhythm HEART SOUNDS: S1 normal heart sound present and S2 normal heart sound present GI: COMMON NORMALS: Normal to inspection, nondistended, normoactive bowel sounds present, Soft to palpation and non-tender Extremity: COMMON NORMALS: no calf tenderness and no pedal edema Neuro: COMMON NORMALS: patient oriented x3, CN's II-XII intact bilaterally, moves all extremities and no focal motor deficits OTHER: Dqma-rl-mqms abnormal on the left, bjhepn-bk-eojz abnormal on the left, equal strength upper lower and lower extremities, no dysarthria no facial droop no slurring of her words visual solorio to my examination is within normal limits, but at times difficult to assess Psych: COMMON NORMALS: mental status grossly normal Data 06/03/24 15:04 06/03/24 15:04 A&P Assessment and plan (1) 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 Will monitor in ICU closely -Neurochecks ? NIH stroke scale -Treat systolic blood pressure if greater than 185 diastolic if greater than 105, labetalol 10 mg IV push every 4 hours as needed -IV fluids - If any changes in mentation,, or headaches, worsening neurologic symptoms will repeat head CT -Repeat head CT in 24 hours -Start in aspirin 24 hours -Start Lovenox in 24 hours -CT facial bone due to her hitting her face in the door frame -Type 2 diabetes mellitus, low-dose sliding scale -Continue Depakote, clonazepam, Zyprexa, sertraline -Nurse dysphagia screen -PT OT -Speech therapy eval -Full code -SCDs for DVT prophylaxis Attestations 2 Medical Necessity Statement*: Patient requires hospitalization, inpatient, greater than 2 minutes, for acute CVA status post TNKase Diagnoses 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
[2024-06-03] MEDS: cefTRIAXone 1,000 mg SDV 1000 MG IVP (17:17)
--- NOTE | 2024-06-03 18:15 | PC.NURSE ---
pt given tnkase @[address] sawyer and dr gray verbal order. pt signed consent form. pt aware of situation and verbalized understanding. tnkase admin witnessed by dr gray at bedside.
[2024-06-03] MEDS: CLONazepam 0.5 mg Tablet PO (20:30)
[2024-06-03] MEDS: acetaminophen 325 mg Tablet 650 MG PO (20:30)
[2024-06-03] MEDS: pantoprazole 40 mg SDV IVP (20:30)
[2024-06-03] MEDS: atorvastatin 40 mg Tablet 80 MG PO (20:30)
[2024-06-03] MEDS: divalproex DR 500 mg Tablet PO (20:31)
[2024-06-03] MEDS: sodium chloride 0.9% 1,000 ML 100 ML IV (20:31)
[2024-06-03 20:43] LABS: Glucose Point of Care 201 mg/dL (70-110)
[2024-06-03] MEDS: insulin lispro 100 unit/1 mL SUBCUT (20:43)
[2024-06-04] VITALS (66 sets, daily range): BP systolic 102–183; BP diastolic 47–85; PULSE 43–78; RESP 7–23; TEMP 35.9–36.6; O2SAT 76–100
--- NOTE | 2024-06-04 01:23 | PC.NURSE ---
Patient has had heart rate consistently in 40's and blood pressures occasionally as low as 90's systolic. Reported to Dr. Garcia, no new orders received.
--- NOTE | 2024-06-04 03:18 | PC.NURSE ---
Spoke with Dr. Garcia regarding ordered morning labs. Reported it had only been 12 hours since Tnkase had been administered, ordered to wait until later in morning to draw labs.
[2024-06-04] MEDS: sertraline 50 mg Tablet 25 MG PO (05:05)
[2024-06-04] MEDS: OLANZapine 5 mg TABLET 7.5 MG PO (05:05)
[2024-06-04] MEDS: sodium chloride 0.9% 1,000 ML 100 ML IV ×2 (06:19→16:33)
[2024-06-04 08:18] LABS: Glucose Point of Care 141 mg/dL (70-110)
[2024-06-04] MEDS: acetaminophen 325 mg Tablet 650 MG PO ×2 (10:02→15:51)
--- NOTE | 2024-06-04 10:55 | PC.PHAR ---
Addendum entered by Katina Muhammad 06/05/24 11:05: Phoned twice on 06/04/24-Visited room twice on 06/05/24. unable to verify medications with family members. Called [facility] in [facility] this morning to tamanna pt med list. Most current med list is updated. Original Note: PT STATES TAKES CARE OF MEDICATIONS....MESSATE LEFT 10:55AM 06/04/24
[2024-06-04 11:51] LABS: Glucose Point of Care 146 mg/dL (70-110)
[2024-06-04] MEDS: insulin lispro 100 unit/1 mL SUBCUT (12:45)
--- NOTE | 2024-06-04 13:48 | USCV_ITS ---
Sydney Zambrano Age: 63 Gender: F : 1960 Exam Date: 06/04/2024 15:27 Ordering Phys: Yao Martines MD Technologist: Exam Location: [facility] Indication: recurent cvas BP: 77975 / HR: 58 05 Rhythm: Sinus Technical Quality: Adequate MEASUREMENTS (Male / Female) Normal Values 2D ECHO LV Diastolic Diameter PLAX 4.9 cm 4.2 - 5.9 / 3.9 - 5.3 cm IVS Diastolic Thickness 1.2 cm 0.6 - 1.0 / 0.6 - 0.9 cm IVS Systolic Thickness 1.4 cm LVPW Diastolic Thickness 0.9 cm 0.6 - 1.0 / 0.6 - 0.9 cm LVPW Systolic Thickness 1.6 cm LVOT Diameter 1.9 cm LV Ejection Fraction 2D Teich 62.5 % LV Ejection Fraction MOD 4C 65.0 % LV Ejection Fraction MOD 2C 68.0 % LV Ejection Fraction 2C AL 67.4 % LA Diameter 2.9 cm RA Systolic Volume 4C AL 38.6 ml RA Systolic Volume 4C MOD 37.3 ml Aorta at Sinotubular Diameter 1.9 cm M-MODE LA Ao Ratio MM 1.6 AV Cusp Separation MM 2.1 cm DOPPLER AV Peak Velocity 125.0 cm/s LVOT Peak Velocity 76.0 cm/s AV Area Cont Eq vti 1.6 cm squared AV Area Cont Eq pk 1.7 cm squared MV Peak Velocity 126.0 cm/s MV Area PHT 3.4 cm squared Mitral E to A Ratio 1.3 TV Peak Velocity 126.5 cm/s TR Peak Velocity 166.0 cm/s TR Peak Gradient 11.0 mmHg TV Peak E Velocity 97.0 cm/s Right Atrial Pressure 3.0 mmHg Pulmonary Artery Systolic Pressu 14.0 mmHg PV Peak Velocity 95.0 cm/s FINDINGS Left Ventricle Left ventricle is normal in size. LV systolic function is normal with EF 55 to 60%. No regional wall motion abnormalities are seen. Right Ventricle Normal in size and function Right Atrium Normal in size. Bubble study performed. Limited quality but grossly no interatrial shunting seen Left Atrium Normal in size Mitral Valve Structurally normal mitral valve. Mild mitral regurgitation. Aortic Valve Structurally normal aortic valve. No significant stenosis or regurgitation. Tricuspid Valve Mild tricuspid regurgitation. Insufficient TR jet to evaluate RVSP. Pulmonic Valve Not well visualized Pericardium Normal Aorta Normal in size IVC Appears to be normal CONCLUSIONS LV systolic function is normal with EF of 55 to 60%. Bubble study performed. Limited quality but grossly no interatrial shunting seen Mild mitral regurgitation Mild tricuspid regurgitation Compared to prior echocardiogram from 11/2023, no significant changes are seen. Juan J Gonzalez MD (Electronically Signed) Final Date: 05 June 2024 09:56 S
--- NOTE | 2024-06-04 13:50 | P.PN_ITS ---
Subjective 2 Subjective: Patient was seen this morning she is alert oriented x 3, following all commands, she denies any headache, no blurry vision, no nausea, vomiting, no focal weakness, no lightheadedness, dizziness, she denies any visual deficits, no flashing light, Vitals/I&O/Wt Last Vital Signs Temp 96.9 F L 06/04/24 12:00 Pulse 60 06/04/24 12:00 Resp 7 L 06/04/24 08:26 BP 183/82 06/04/24 12:00 Pulse Ox 99 06/04/24 12:00 O2 Del Method Room Air 06/04/24 12:00 FiO2 21 06/03/24 21:21 06/03/24 06/04/24 06/04/24 22:59 06:59 14:59 Intake Total 60 / 60 1040 / 1100 230 / 230 Balance 60 / 60 1040 / 1100 230 / 230 Weight last 48 hrs Weight 73.5 kg Weight 73.5 kg Weight 73.573 kg Weight 72.575 kg Physical Exam 2 Const: COMMON NORMALS: no acute distress and patient oriented x3 Resp: COMMON NORMALS: normal respiratory effort, No retractions, No use of accessory muscles and clear to auscultation bilaterally AUSCULTATION: clear to auscultation bilaterally Cardio: COMMON NORMALS: regular rate, regular rhythm, S1 normal heart sound present and S2 normal heart sound present RATE: regular rate RHYTHM: r egular rhythm HEART SOUNDS: S1 normal heart sound present and S2 normal heart sound present GI: COMMON NORMALS: Normal to inspection, nondistended, normoactive bowel sounds present and non-tender Extremity: COMMON NORMALS: no pedal edema Neuro: COMMON NORMALS: patient oriented x3, CN's II-XII intact bilaterally, moves all extremities and no focal motor deficits Psych: COMMON NORMALS: mental status grossly normal Data 06/03/24 15:04 06/03/24 15:04 Micro: Microbiology 06/03/24 15:40 Urine Culture - Preliminary Urine,Clean Catch Gram Negative Rods A&P Assessment and plan (1) 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 Will monitor in ICU closely, can moved to [facility] in the afternoon if CT head within normal limits -Neurochecks ? NIH stroke scale -Treat systolic blood pressure if greater than 185 diastolic if greater than 105, labetalol 10 mg IV push every 4 hours as needed -IV fluids - If any changes in mentation,, or headaches, worsening neurologic symptoms will repeat head CT -Repeat head CT in at 4 PM -Start in aspirin 24 hours -Start Lovenox in 24 hours -CT facial bone due to her hitting her face in the door frame -Type 2 diabetes mellitus, low-dose sliding scale -Continue Depakote, clonazepam, Zyprexa, sertraline -Nurse dysphagia screen -PT OT -Speech therapy eval -Full code -SCDs for DVT prophylaxis Attestations 2 Medical Necessity Statement*: Patient requires hospitalization for acute CVA status post TNKase Diagnoses 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
[2024-06-04] MEDS: morphine 4 mg/mL SDV 1 mL 2 MG IVP (15:49)
--- NOTE | 2024-06-04 16:00 | CTR_ITS ---
PROCEDURE INFORMATION: Exam: CT Head Without Contrast Exam date and time: 06/04/2024 4:30 PM Age: 63 years old Clinical indication: Condition or disease; Other: 24 hour S/P tpa TECHNIQUE: Imaging protocol: Computed tomography of the head without contrast. Radiation optimization: All CT scans at this facility use at least one of these dose optimization techniques: automated exposure control; mA and/or kV adjustment per patient size (includes targeted exams where dose is matched to clinical indication); or iterative reconstruction. COMPARISON: CT head thrombolytic [id number] 06/03/2024 2:33 PM RADIATION DOSE METRICS: Total DLP (mGy-cm): 1008 FINDINGS: Brain: No acute intracranial hemorrhage. No confluent lobar infarct. No mass effect. Stable left basal ganglia lacune. Cerebral ventricles: The ventricles and sulci are normal in size and shape for the patient's stated age. Paranasal sinuses: Visualized sinuses are unremarkable. No fluid levels. Mastoid air cells: Fluid is seen in the inferior right mastoid air cells Bones: No acute calvarial fracture. Soft tissues: Visualized soft tissues are unremarkable. CT/CT head wo con* [id number] IMPRESSION: No acute intracranial abnormality. If symptoms persist, consider further evaluation with MRI, if MRI is clinically safe to obtain.
[2024-06-04] MEDS: cefTRIAXone 1,000 mg SDV 1000 MG IVP (16:03)
[2024-06-04 17:12] LABS: Glucose Point of Care 139 mg/dL (70-110)
[2024-06-04 17:33] LABS: Basophils # 0.1 10^3/uL (0.0-0.1); Eosinophils # 0.1 10^3/uL (0.0-0.8); Eosinophils % 2.3 %; Lymphocytes # 1.8 10^3/uL (0.8-4.8); Lymphocytes % 28.5 %; Mean Corpuscular HGB Conc 31.8 g/dL (30-55); Mean Corpuscular Hemoglobin 30.1 pg (27-33); Mean Corpuscular Volume 94.7 fl (85-98); Mean Platelet Volume 10.6 fL (7.4-10.4); Monocytes # 0.4 10^3/uL (0.2-0.9); Monocytes % 5.6 %; Neutrophils # 3.86 10^3/uL (1.8-7.7); Nucleated Red Blood Cells % 0 %; Platelet Count 217 10^3/cmm (157-399); Red Blood Count 4.12 10^6/uL (3.85-5.65); Red Cell Distribution Width 13.1 % (12.1-15.1); White Blood Count 6.22 10^3/uL (3.29-11.43)
[2024-06-04] MEDS: pantoprazole 40 mg SDV IVP (17:41)
[2024-06-04] MEDS: divalproex DR 500 mg Tablet PO (17:41)
[2024-06-04 17:45] LABS: Fibrinogen 397 mg/dL (174-498)
[2024-06-04 17:48] LABS: Anion Gap 16.1 (5-19); Blood Urea Nitrogen 11 mg/dL (8-23); Calcium 8.1 mg/dL (8.5-10.5); Carbon Dioxide 24 mmol/L (22-29); Chloride 106 mmol/L (98-107); Creatinine Clr Calc Pharmacy 79.7502; Glomerular Filtration Rate 84.2 mL/min (90-130); Glucose 154 mg/dL (65-115); Osmolality Calculated 296 mOsm/kg (285-295); Potassium 4.1 mmol/L (3.5-5.1); Sodium 142 mmol/L (136-145)
--- NOTE | 2024-06-04 18:08 | PC.NURSE ---
Hand off report Pt transferred to [facility] [phone], notified son and pt of transfer. all belongings sent with pt and son. Report given to DEBBIE Thakkar in regards to pt condition and treatments.
[2024-06-04 18:34] LABS: Chol HDL Ratio 4.69 mg/dL (0.0-4.40); Cholesterol 136 mg/dL (0-200); HDL Cholesterol 29 mg/dL (60-100); LDL Cholesterol Calculated 60 mg/dL (50-129); LDL HDL Ratio 2.07 RATIO (0.00-3.22); Triglycerides 236 mg/dL (0-150)
[2024-06-04 19:53] LABS: Estmated Average Glucose 197; Hemoglobin A1C 8.5 % (4.0-6.0)
[2024-06-04] MEDS: nystatin powder 15 gm Btl 1 APPLIC TOPICAL (20:29)
[2024-06-04] MEDS: aspirin 81 mg EC Tablet PO (20:30)
[2024-06-04] MEDS: CLONazepam 0.5 mg Tablet PO (20:30)
[2024-06-04] MEDS: enoxaparin 40 mg/0.4 mL Syringe SUBCUT (20:30)
[2024-06-04] MEDS: atorvastatin 40 mg Tablet 80 MG PO (20:30)
[2024-06-04 22:09] LABS: Glucose Point of Care 293 mg/dL (70-110)
[2024-06-05] VITALS (8 sets, daily range): BP systolic 132–181; BP diastolic 66–97; PULSE 57–68; RESP 16–18; TEMP 36.4–36.6; O2SAT 96–99
--- NOTE | 2024-06-05 02:17 | PC.NURSE ---
Pt Tele was concerning for new onset A-fib. Nurse went to perform EKG and found two leads out of place on the patient. Leads were fixed and Tele returned to sinus rhythm so EKG was not performed.
[2024-06-05] MEDS: OLANZapine 5 mg TABLET 7.5 MG PO (05:09)
[2024-06-05] MEDS: sertraline 50 mg Tablet 25 MG PO (05:10)
[2024-06-05] MEDS: sodium chloride 0.9% 1,000 ML 100 ML IV (05:13)
[2024-06-05 06:10] LABS: Basophils # 0.1 10^3/uL (0.0-0.1); Basophils % 0.9 %; Eosinophils # 0.1 10^3/uL (0.0-0.8); Eosinophils % 2.3 %; Hematocrit 41.7 % (36-47); Lymphocytes # 2.3 10^3/uL (0.8-4.8); Lymphocytes % 43.5 %; Mean Corpuscular HGB Conc 30.9 g/dL (30-55); Mean Corpuscular Hemoglobin 29.5 pg (27-33); Mean Corpuscular Volume 95.2 fl (85-98); Mean Platelet Volume 10.3 fL (7.4-10.4); Monocytes # 0.3 10^3/uL (0.2-0.9); Monocytes % 6.2 %; Neutrophils # 2.48 10^3/uL (1.8-7.7); Neutrophils % 46.5 %; Nucleated Red Blood Cells % 0 %; Platelet Count 213 10^3/cmm (157-399); Red Blood Count 4.38 10^6/uL (3.85-5.65); Red Cell Distribution Width 13.1 % (12.1-15.1); White Blood Count 5.33 10^3/uL (3.29-11.43)
[2024-06-05 06:25] LABS: Anion Gap 14.9 (5-19); Blood Urea Nitrogen 9 mg/dL (8-23); Calcium 8.2 mg/dL (8.5-10.5); Carbon Dioxide 25 mmol/L (22-29); Chloride 107 mmol/L (98-107); Creatinine Clr Calc Pharmacy 70.8927; Glomerular Filtration Rate 72.2 mL/min (90-130); Glucose 158 mg/dL (65-115); Osmolality Calculated 298 mOsm/kg (285-295); Potassium 3.9 mmol/L (3.5-5.1); Sodium 143 mmol/L (136-145)
[2024-06-05 06:50] LABS: Glucose Point of Care 155 mg/dL (70-110)
--- NOTE | 2024-06-05 08:13 | CT_ITS ---
WS: [id number] CTA HEAD AND NECK TECHNIQUE: Contrast enhanced CTA of the head and neck with coronal and sagittal reformatted images an d maximum intensity projection (MIP) images. NASCET criteria utilized. CLINICAL INFORMATION: cva, s/p tpa r/o large vessel disease COMPARISON: CTA 08/08/2023 DLP: 503.[address] scans at [facility] use at least one of these dose optimization techniques: automated e xposure control; mA and/or kV adjustment per patient size (includes targeted exams where dose is matc hed to clinical indication); or iterative reconstruction. FINDINGS: Lung apices are well aerated. Paranasal sinuses are well aerated. Mucosal thickening RIGHT mastoid air cells. LEFT mastoid air cells are well aerated. Normal posterior nasopharynx. Normal para pharyngeal fat. Mild spondylitic changes cervical spine. Normal aortic arch. Chronic infarct in the inferior LEFT basal ganglia unchanged. RIGHT: RIGHT common carotid artery is patent. RIGHT ICA is patent at the skull base. Mild cavernous c arotid calcification. LEFT: LEFT common carotid artery is patent. Moderate calcified atheromatous plaque LEFT carotid bulb extending into the ICA. LEFT ICA remains patent to the skull base. INTRACRANIAL CTA: Both ICAs are patent at the skull base. Normal vascularity to the proximal REID and MCA territories bi laterally. Distal vertebral areas are patent. Basilar artery is patent. Normal vascularity to the TOBACCO SPRAYER territory bilaterally. No evidence of proximal flow-limiting intracranial stenosis. Proximal subclavian arteries are patent. Bovine arch. Previously described enlarged RIGHT supraclavic ular lymph node unchanged. CT/CT angio headneck* [id number] IMPRESSION: 1. No evidence of proximal flow-limiting intracranial stenosis. 2. No significant cervical ICA stenosis bilaterally. 3. Moderate calcified atheromatous plaque LEFT carotid bulb. No significant st enosis. 4. Codominant and patent vertebral arteries bilaterally.
[2024-06-05] MEDS: iohexol 350 mg/mL 500 mL Btl (per mL) IV (09:01)
[2024-06-05] MEDS: nystatin powder 15 gm Btl 1 APPLIC TOPICAL ×2 (09:30→17:26)
[2024-06-05] MEDS: divalproex DR 500 mg Tablet PO ×2 (09:33→17:25)
[2024-06-05 10:40] LABS: Glucose Point of Care 281 mg/dL (70-110)
[2024-06-05] MEDS: insulin lispro 100 unit/1 mL SUBCUT ×2 (12:21→21:05)
--- NOTE | 2024-06-05 15:01 | P.PN_ITS ---
Subjective 2 Subjective: Patient was seen this morning, does report a bit lightheadedness, when ambulating, no nausea, vomiting, no facial droop, no focal weakness Vitals/I&O/Wt Last Vital Signs Temp 97.7 F 06/05/24 12:15 Pulse 61 06/05/24 12:15 Resp 17 06/05/24 12:15 BP 181/97 06/05/24 12:15 Pulse Ox 98 06/05/24 12:15 O2 Del Method Room Air 06/05/24 12:15 FiO2 21 06/03/24 21:21 06/05/24 06/05/24 06/05/24 06:59 14:59 22:59 Intake Total 1000 / 2466 1605 / 1605 Balance 1000 / 2466 1605 / 1605 Weight last 48 hrs Weight 75.977 kg Weight 73.5 kg Weight 73.5 kg Weight 73.573 kg Physical Exam 2 Const: COMMON NORMALS: no acute distress and patient oriented x3 Resp: COMMON NORMALS: normal respiratory effort, No retractions, No use of accessory muscles and clear to auscultation bilaterally AUSCULTATION: clear to auscultation bilaterally Cardio: COMMON NORMALS: regular rate, regular rhythm, S1 normal heart sound present and S2 normal heart sound present RATE: regular rate RHYTHM: r egular rhythm HEART SOUNDS: S1 normal heart sound present and S2 normal heart sound present GI: COMMON NORMALS: Normal to inspection, nondistended, normoactive bowel sounds present and non-tender Extremity: COMMON NORMALS: no pedal edema Neuro: COMMON NORMALS: patient oriented x3, CN's II-XII intact bilaterally, moves all extremities and no focal motor deficits Psych: COMMON NORMALS: mental status grossly normal Data 06/05/24 05:51 06/05/24 05:51 A&P Assessment and plan (1) 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 [facility] ? NIH stroke scale -Treat systolic blood pressure if greater than 185 diastolic if greater than 105, labetalol 10 mg IV push every 4 hours as needed -IV fluids -aspirin 24 hours - Lovenox in 24 hours -CT facial bone due to her hitting her face in the door frame, within normal limits ? 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
[2024-06-05] MEDS: cefTRIAXone 1,000 mg SDV 1000 MG IVP (16:23)
[2024-06-05 16:31] LABS: Glucose Point of Care 119 mg/dL (70-110)
[2024-06-05] MEDS: lisinopril 20 mg Tablet 40 MG PO (17:25)
[2024-06-05] MEDS: pantoprazole 40 mg SDV IVP (18:55)
[2024-06-05] MEDS: acetaminophen 325 mg Tablet 650 MG PO (20:05)
[2024-06-05] MEDS: atorvastatin 40 mg Tablet 80 MG PO (20:05)
[2024-06-05] MEDS: aspirin 81 mg EC Tablet PO (20:05)
[2024-06-05] MEDS: CLONazepam 0.5 mg Tablet PO (20:05)
[2024-06-05 20:53] LABS: Glucose Point of Care 167 mg/dL (70-110)
[2024-06-05] MEDS: enoxaparin 40 mg/0.4 mL Syringe SUBCUT (21:05)
[2024-06-06] VITALS: BP 142/68; PULSE 65; RESP 17; TEMP 36.6; O2SAT 97
[2024-06-06] MEDS: labetalol 5 mg/mL SDV 20mL 10 MG IVP (03:24)
[2024-06-06 03:28] LABS: Basophils # 0.1 10^3/uL (0.0-0.1); Basophils % 0.8 %; Eosinophils # 0.2 10^3/uL (0.0-0.8); Eosinophils % 2.5 %; Hematocrit 39.2 % (36-47); Lymphocytes # 2.8 10^3/uL (0.8-4.8); Mean Corpuscular HGB Conc 31.6 g/dL (30-55); Mean Corpuscular Hemoglobin 29.7 pg (27-33); Mean Corpuscular Volume 93.8 fl (85-98); Mean Platelet Volume 10.1 fL (7.4-10.4); Monocytes # 0.5 10^3/uL (0.2-0.9); Monocytes % 7.2 %; Neutrophils # 3.63 10^3/uL (1.8-7.7); Neutrophils % 50.1 %; Nucleated Red Blood Cells % 0 %; Platelet Count 224 10^3/cmm (157-399); Red Blood Count 4.18 10^6/uL (3.85-5.65); Red Cell Distribution Width 13.3 % (12.1-15.1); White Blood Count 7.24 10^3/uL (3.29-11.43)
[2024-06-06 03:49] LABS: Anion Gap 13.9 (5-19); Blood Urea Nitrogen 8 mg/dL (8-23); Calcium 8.4 mg/dL (8.5-10.5); Carbon Dioxide 26 mmol/L (22-29); Chloride 109 mmol/L (98-107); Creatinine Clr Calc Pharmacy 81.0202; Glomerular Filtration Rate 84.2 mL/min (90-130); Glucose 183 mg/dL (65-115); Osmolality Calculated 303 mOsm/kg (285-295); Potassium 3.9 mmol/L (3.5-5.1); Sodium 145 mmol/L (136-145)
[2024-06-06 04:00] VITALS: BP 179/87; PULSE 75; RESP 17; TEMP 36.8; O2SAT 98
[2024-06-06 05:24] VITALS: PULSE 61
[2024-06-06] MEDS: OLANZapine 5 mg TABLET 7.5 MG PO (05:53)
[2024-06-06] MEDS: sertraline 50 mg Tablet 25 MG PO (05:53)
[2024-06-06 06:37] LABS: Glucose Point of Care 218 mg/dL (70-110)
[2024-06-06 07:50] VITALS: BP 172/83; PULSE 61; RESP 19; TEMP 36.4; O2SAT 97
[2024-06-06] MEDS: insulin lispro 100 unit/1 mL SUBCUT (08:18)
[2024-06-06] MEDS: divalproex DR 500 mg Tablet PO (08:19)
[2024-06-06] MEDS: nystatin powder 15 gm Btl 1 APPLIC TOPICAL (08:20)
[2024-06-06] MEDS: clopidogrel 75 mg Tablet PO (09:51)
[2024-06-06] MEDS: metoprolol tartrate 25 mg Tablet PO (09:51)
--- NOTE | 2024-06-06 09:52 | P.DS_ITS ---
Discharge Providers Date of Admission: 06/03/24 16:35 Date of Discharge: June 06, 2024 Attending Provider at Admission: Yao Martines MD Attending Provider at Discharge: Yao Martines MD Primary Care Provider: Judson Seth MD Diagnoses at Discharge Discharge Diagnosis (1) tPA adm status 24 hr [employer]TER[employer]IC: Status: Acute (2) Acute CVA (cerebrovascular accident): Status: Acute Reason for Visit Reason for Visit: stroke like symptoms Hospital Course Hospital Course Sydney Zambrano is a 63 year old female with a past medical history of CVA left MCA status post CVA t, CHF, hypertension, type 2 diabetes mellitus, sleep apnea, lazy left eye, who presents [facility] due to dizziness, unsteadiness, decreased vision to left eye, dysarthria, inability to walk. Currently patient is alert oriented x 3, following all commands, she tells me that she has a chronic history of unsteadiness on her feet, yesterday she helped her son give away some of his old clothing, she went to bed around 9 PM, woke up roughly at 7 AM this morning, she tells me that she is getting her house ready to be possibly sold, so she was doing work around the house, and roughly at about 11 AM, she took a nap, she woke up a little thereafter she is not exactly sure for how long she took a nap, but when she woke up, she had inability to walk, she was dizzy, it was a bit weak on the left side she tells me, she was dizzy, and she fell forward into the door frame, hitting her left side of her face, she felt dizzy, unsteady, weak on the left side, no word finding difficulty no slurring of words, no paresthesias. Her NIH stroke scale on admission was 5, CT head no acute bleed, she was deemed a candidate for TNKase, status post TNKase, she was examined she is alert oriented x 3, following all commands, denies currently any visual deficits, pupils equal round reactive to light, is able to track, I cannot discern any visual field deficits, [id number] is abnormal on the left, [id number] is abnormal on the left, no focal weakness upper or lower extremities, no significant dysarthria, she denies any headache, no blurry vision, no nausea, no vomiting, she denies being on any blood thinners at home, does take aspirin, she does report a history of type 2 diabetes mellitus, is not on insulin, denies any recent illness, no fevers, chills, no cough, no abdominal pain, no dysuria, no hematuria Patient was admitted to [facility] for acute CVA s/p TNKase, monitor in ICU, allow for permissive hypertension, IV fluids, aspirin, Plavix, CT facial bones within normal limits, repeat head CT no acute bleed CTA no large vessel occlusion, cardiac echo bubble study no shunting, overall clinically improved, received PT OT, speech therapy eval, discharged on aspirin, statin, Plavix, slowly resume her home blood pressure medications, as per instructions, follow- up with neurology as outpatient, follow-up with primary care, if any recurrent strokelike symptoms go to emergency room Physical Exam Const: COMMON NORMALS: no acute distress and patient oriented x3 Eye: OTHER: L chronic eyelid droop Resp: COMMON NORMALS: normal respiratory effort, No retractions, No use of accessory muscles and clear to auscultation bilaterally AUSCULTATION: clear to auscultation bilaterally Cardio: COMMON NORMALS: regular rate, regular rhythm, S1 normal heart sound present and S2 normal heart sound present RATE: regular rate RHYTHM: regular rhythm HEART SOUNDS: S1 normal heart sound present and S2 normal heart sound present GI: COMMON NORMALS: Normal to inspection, nondistended, normoactive bowel sounds present and non-tender Extremity: COMMON NORMALS: no pedal edema Neuro: COMMON NORMALS: patient oriented x3, CN's II-XII intact bilaterally, moves all extremities and no focal motor deficits Psych: COMMON NORMALS: mental status grossly normal Discharge Data Studies Completed and Pending Completed Studies During Hospitalization Category Date Time Status CT angio head neck [CT angio headneck* [id number]] Cat Scan 06/05/24 08:[address] facial bones wo con* [id number] Stat Cat Scan 06/03/24 16:[address] head thrombolytic [id number] Stat Cat Scan 06/03/24 14:[address] head wo con* [id number] Routine Cat Scan 06/04/24 16:00 Completed CV. echo w/w bubble cont [id number] Routine Ultrasound 06/04/24 13:48 Completed Radiology Impressions Face CT 06/03/24 16:56 IMPRESSION: No acute bony abnormality. Head CT 06/04/24 16:00 IMPRESSION: No acute intracranial abnormality. If symptoms persist, consider further evaluation with MRI, if MRI is clinically safe to obtain. Head/Neck CTA 06/05/24 08:13 IMPRESSION: 1. No evidence of proximal flow-limiting intracranial stenosis. 2. No significant cervical ICA stenosis bilaterally. 3. Moderate calcified atheromatous plaque LEFT carotid bulb. No significant st enosis. 4. Codominant and patent vertebral arteries bilaterally. Laboratory Results WBC 7.24 10^3/uL (3.29-11.43) 06/06/24 03:16 RBC 4.18 10^6/uL (3.85-5.65) 06/06/24 03:16 Hgb 12.40 g/dL (11.27-16.99) 06/06/24 03:16 Hct 39.2 % (36-47) 06/06/24 03:16 MCV 93.8 fl (85-98) 06/06/24 03:16 MCH 29.7 pg (27-33) 06/06/24 03:16 MCHC 31.6 g/dL (30-55) 06/06/24 03:16 RDW 13.3 % (12.1-15.1) 06/06/24 03:16 Plt Count 224 10^3/cmm (157-399) 06/06/24 03:16 MPV 10.1 fL (7.4-10.4) 06/06/24 03:16 Neut % (Auto) 50.1 % 06/06/24 03:16 Lymph % (Auto) 39.0 % 06/06/24 03:16 [place] % (Auto) 7.2 % 06/06/24 03:16 Eos % (Auto) 2.5 % 06/06/24 03:16 Baso % (Auto) 0.8 % 06/06/24 03:16 Neut # (Auto) 3.63 10^3/uL (1.8-7.7) 06/06/24 03:16 Lymph # (Auto) 2.8 10^3/uL (0.8-4.8) 06/06/24 03:16 [place] # (Auto) 0.5 10^3/uL (0.2-0.9) 06/06/24 03:16 Eos # (Auto) 0.2 10^3/uL (0.0-0.8) 06/06/24 03:16 Baso # (Auto) 0.1 10^3/uL (0.0-0.1) 06/06/24 03:16 Nucleated RBC % (auto) 0 % 06/06/24 03:16 Nucleated RBCs # 0.0 /100WBC 06/06/24 03:16 PT 13.40 SECONDS (12.1-14.9) 06/03/24 15:04 INR 1.00 (0.8-1.2) 06/03/24 15:04 APTT 27.2 SECONDS (23.9-36.7) 06/03/24 15:04 Fibrinogen 397 mg/dL (174-498) 06/04/24 17:10 Sodium 145 mmol/L (136-145) 06/06/24 03:16 Potassium 3.9 mmol/L (3.5-5.1) 06/06/24 03:16 Chloride 109 mmol/L (98-107) H 06/06/24 03:16 Carbon Dioxide 26 mmol/L (22-29) 06/06/24 03:16 Anion Gap 13.9 (5-19) 06/06/24 03:16 BUN 8 mg/dL (8-23) 06/06/24 03:16 Creatinine 0.7 mg/dL (0.5-0.9) 06/06/24 03:16 GFR Calculation 84.2 mL/min (90-130) L 06/06/24 03:16 Glucose 183 mg/dL (65-115) H 06/06/24 03:16 POC Glucose 218 mg/dL (70-110) H 06/06/24 06:23 Estimat Average Glucose 197 06/04/24 17:10 Hemoglobin A1c 8.5 % (4.0-6.0) H 06/04/24 17:10 Calculated Osmolality 303 mOsm/kg (285-295) H 06/06/24 03:16 Calcium 8.4 mg/dL (8.5-10.5) L 06/06/24 03:16 Total Bilirubin 0.2 mg/dL (0.15-1.2) 06/03/24 15:04 AST 15 U/L (0-32) 06/03/24 15:04 ALT 13 U/L (0-33) 06/03/24 15:04 Alkaline Phosphatase 111 U/L (35-105) H 06/03/24 15:04 Total Protein 7.6 g/dL (6.6-8.7) 06/03/24 15:04 Albumin 4.0 g/dL (3.5-5.2) 06/03/24 15:04 Globulin 3.6 g/dL (1.3-4.6) 06/03/24 15:04 Triglycerides 236 mg/dL (0-150) H 06/04/24 17:10 Cholesterol 136 mg/dL (0-200) 06/04/24 17:10 LDL Cholesterol, Calc 60 mg/dL (50-129) 06/04/24 17:10 HDL Cholesterol 29 mg/dL (60-100) L 06/04/24 17:10 LDL/HDL Ratio 2.07 RATIO (0.00-3.22) 06/04/24 17:10 Cholesterol/HDL Ratio 4.69 mg/dL (0.0-4.40) H 06/04/24 17:10 TSH 3.30 uIU/mL (0.27-4.20) 06/04/24 17:10 Urine Color Yellow (Yellow) 06/03/24 15:40 Urine Appearance Cloudy (CLEAR) A 06/03/24 15:40 Urine pH 5.0 (5-7) 06/03/24 15:40 Ur Specific [place] 1.014 (1.005-1.030) 06/03/24 15:40 Urine Protein Negative (Negative) 06/03/24 15:40 Urine Glucose (UA) 3+ (Normal) H 06/03/24 15:40 Urine Ketones Negative (Negative) 06/03/24 15:40 Urine Blood Negative (Negative) 06/03/24 15:40 Urine Nitrate Negative (Negative) 06/03/24 15:40 Urine Bilirubin Negative (Negative) 06/03/24 15:40 Urine Urobilinogen 0.2 mg/dL (Negative) 06/03/24 15:40 Ur Leukocyte Esterase 1+ (Negative) A 06/03/24 15:40 Urine RBC 5-10 /hpf (0-2) H 06/03/24 15:40 Urine WBC 25-40 /hpf (0-5) H 06/03/24 15:40 Ur Squamous Epith Cells 5-10 /hpf (0-5) H 06/03/24 15:40 Other Crystals 10-15 /hpf 06/03/24 15:40 Amorphous Sediment Not Reportable 06/03/24 15:40 Urine Bacteria 2+ /hpf (NONE) H 06/03/24 15:40 Urine Mucus Trace /hpf 06/03/24 15:40 Urine Opiates Screen Negative ng/mL (Negative) 06/03/24 15:40 Ur Barbiturates Screen Negative ng/mL (Negative) 06/03/24 15:40 Ur Phencyclidine Scrn Negative ng/mL (Negative) 06/03/24 15:40 Ur Amphetamines Screen Negative ng/mL (Negative) 06/03/24 15:40 U Benzodiazepines Scrn Negative ng/mL (Negative) 06/03/24 15:40 Urine Cocaine Screen Negative ng/mL (Negative) 06/03/24 15:40 U Marijuana (THC) Screen Negative ng/mL (Negative) 06/03/24 15:40 Vitals Last Vital Signs Temp 97.5 F L 06/06/24 07:50 Pulse 61 06/06/24 07:50 Resp 19 H 06/06/24 07:50 BP 172/83 06/06/24 07:50 Pulse Ox 97 06/06/24 07:50 O2 Del Method Room Air 06/06/24 07:50 FiO2 21 06/03/24 21:21 Discharge Plan Discharge Patient Disposition: Home Condition: Stable Prescriptions: New lisinopril 20 mg Tablet 40 mg PO Q24H 30 Days Qty: 60 0RF cefdinir 300 mg capsule 300 mg PO BID 5 Days Qty: 10 0RF Continued cyclobenzaprine 10 mg tablet 10 mg PO TID PRN (Reason: Muscle Spasm) metoprolol tartrate 25 mg tablet 25 mg PO BID Denta 5000 Plus 1.1 % cream See Rx Instructions .ROUTE .COMPLEX Rx Instructions: Apply TWO cm TO teeth TWICE DAILY FOR TWO minutes AND expectorate. DO not RINSE. pregabalin 75 mg capsule 75 mg PO Q12H Jardiance 10 mg tablet 10 mg PO QAM clopidogrel 75 mg tablet 75 mg PO DAILY 30 Days Qty: 30 0RF aspirin 81 mg tablet,delayed release (DR/EC) 81 mg PO QAM 30 Days Qty: 30 0RF clonazepam 0.5 mg tablet 0.5 - 1 mg PO BEDTIME fluticasone propionate 50 mcg/actuation spray,suspension 2 spray INTRANASAL DAILY metformin 500 mg tablet extended release 24 hr 1,000 mg PO BID divalproex 500 mg tablet,delayed release (DR/EC) 500 mg PO BID sertraline 25 mg tablet 25 mg PO QAM clobetasol 0.05 % cream 1 applic TOPICAL BID PRN (Reason: when rash flares) olanzapine 7.5 mg tablet 7.5 mg PO QAM furosemide [Lasix] 20 mg tablet 20 mg PO DAILY PRN (Reason: edema) Qty: 20 0RF Changed atorvastatin 20 mg tablet 40 mg PO DAILY 30 Days Qty: 60 0RF Held clonidine HCl 0.2 mg tablet 0.2 mg PO TID Hold Instructions: Resume on 06/11/24. hydralazine 25 mg tablet 25 mg PO BID Qty: 60 0RF Hold Instructions: Resume on 06/07/24. Discontinued estradiol 0.5 mg tablet 0.5 mg PO DAILY naproxen 500 mg tablet 500 mg PO BID PRN (Reason: Pain) Discharge Orders: Discharge Order (Routine); Ordered 06/06/24 Ordered By: Yao Martines Other Ambulatory Orders: MCT/Event Monitor 30 Days (Routine) Timeframe: 1 Day Facility: [facility] - Location: Radiology Ordered By: Yao Martines Referrals: Jerrica Espinosa MD [Physician] - 1 week (We have notified your physician's clinic of the need for a follow-up appointment to be scheduled. If you have not heard from them within the next 2 business days, please call them directly. ) Juan J Gonzalez M.D [Physician] - 06/27/24 10:15 am (Please let patient know we will mail the monitor to her as that is our quickest option right now. The monitor is overnight shipping but does sometimes shows up within 2-3 days. The monitor company [employer] will give her a call today to verify her address and insurance information as that is their protocol. She MUST answer this phone call or the monitor will not be mailed to her. Their phone number is [phone]. Once she receives the monitor in the mail she is going to call that number above back and let them know that she received the monitor and they will activate her service and walk her through step by step on how to place it and set it up. ) Judson Seth MD [Primary Care Provider] - 06/08/24 9:45 am Discharge Diet: Cardiac Discharge Activity: Resume usual activity Patient Instructions: Ischemic Stroke (DC), Brainstem Infarction (DC), Opioid Safety Activity Restrictions/Additional Instructions: - Please follow-up with Dr. Espinosa in 1 week ? If you have any recurrent strokelike symptoms immediately call 911 ? Please take aspirin, statin, Plavix as prescribed ? Please monitor blood sugars closely see primary care provider in 1 week ? Take antibiotics as prescribed for UTI ? If you develop any bloody or black stools milligram urgency room Discharge Attestations Time Spent in Discharge Care*: greater than 30 min Status at Discharge: Cognitive status at discharge: cognitively intact , Behavioral status at discharge: cooperative , Quality Metrics Clinical Quality Measures [ Cerebrovascular Accident { Contraindication to Antithrombotic: None; antithrombotic prescribed; Contraindication to Anticoagulation: Overlap treatment not indicated; Contraindication to Statin: None; Statin prescribed;}] Coding Level of Care Code 89493 Total time (in minutes) for Discharge: 45 Diagnoses tPA adm status 24 hr [employer]IC Z92.82 Acute CVA (cerebrovascular accident) I63.9
[2024-06-06 09:56] VITALS: BP 172/83; PULSE 61; RESP 19; TEMP 36.4; O2SAT 97
== END 2024-06-06 10:55 | disposition home or self-care (01) | DRG 63 ==
LOC: ER 14:38 → ICU 18:35 → MEDSURG 06-04 18:16
PROVIDERS: Admitting Provider Family Medicine; Emergency Provider Family Medicine; PCP Family Medicine; Visit Provider Family Medicine
DX: I63.9 Cerebral infarction, unspecified (principal); H53.9 Unspecified visual disturbance; R47.1 Dysarthria and anarthria; R27.0 Ataxia, unspecified; I50.9 Heart failure, unspecified; I11.0 Hypertensive heart disease with heart failure; Z86.73 Personal history of transient ischemic attack (TIA), and cerebral infarction without residual deficits; H53.002 Unspecified amblyopia, left eye; E11.9 Type 2 diabetes mellitus without complications; G47.30 Sleep apnea, unspecified; K21.9 Gastro-esophageal reflux disease without esophagitis; M81.0 Age-related osteoporosis without current pathological fracture; E78.00 Pure hypercholesterolemia, unspecified; Z79.84 Long term (current) use of oral hypoglycemic drugs; Z79.02 Long term (current) use of antithrombotics/antiplatelets; Z79.82 Long term (current) use of aspirin
CPT/HCPCS: 36415; 36416; 70450; 70486; 70496; 70498; 80048; 80053; 80061; 80306; 81003; 81015; 82962; 83036; 84443; 85025; 85384; 85610; 85730; 87077; 87086; 87186; 92523; 92610; 93005; 94664; 96372; 96374; 96375; 96376; 97116; 97161; 97165; 97530; 97535; 99291; C8929; J0696; J1650; J1815; J2270; J2470; J3101; J3490; J7030; Q9967

== ENCOUNTER 2024-06-20 19:33 | Emergency (ER) | payer MEDICAID, SELFPAY ==
[2024-06-20] VITALS (8 sets, daily range): BP systolic 105–143; BP diastolic 53–87; PULSE 52–88; RESP 14–18; O2SAT 94–100; BMI 26.9
--- NOTE | 2024-06-20 19:43 | ECG_ITS ---
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1960 Requested By: Deepthi Ferrer Order Number: [id number] Sherry MD: GISELL MALONE Measurements Intervals [place] Rate: 61 P: 26 ND: 176 QRS: 7 QRSD: 87 T: 71 QT: 455 QTc: 461 Interpretive Statements SINUS RHYTHM LOW QRS VOLTAGE IN PRECORDIAL LEADS [QRS DEFLECTION < 1.0 mV IN CHEST LEADS] NONSPECIFIC T-WAVE ABNORMALITY Compared to ECG 06/03/2024 14:45:27 Low QRS voltage now present Sinus bradycardia no longer present T-wave abnormality still present Electronically Signed On 06-21-2024 11:49:15 CDT by GISELL MALONE [id number]
--- NOTE | 2024-06-20 19:48 | CTR_ITS ---
PROCEDURE INFORMATION: Exam: CT Head Without Contrast Exam date and time: 06/20/2024 9:12 PM Age: 63 years old Clinical indication: Altered mental status/memory loss; Additional info: Encephalopathy, altered mental status TECHNIQUE: Imaging protocol: Computed tomography of the head without contrast. Radiation optimization: All CT scans at this facility use at least one of these dose optimization techniques: automated exposure control; mA and/or kV adjustment per patient size (includes targeted exams where dose is matched to clinical indication); or iterative reconstruction. COMPARISON: CT angio headneck* [id number] 06/05/2024 8:52 AM RADIATION DOSE METRICS: Total DLP (mGy-cm): 1006 FINDINGS: Brain: Left basal ganglia chronic lacunar infarct. Moderate diffuse white matter disease likely reflecting chronic microvascular ischemic changes. Cerebral ventricles: No ventriculomegaly. Paranasal sinuses: Visualized sinuses are unremarkable. No fluid levels. Mastoid air cells: Visualized mastoid air cells are well aerated. Bones: Unremarkable. No acute fracture. Soft tissues: Unremarkable. CT/CT head wo con* [id number] IMPRESSION: 1. Negative for intracranial hemorrhage or mass effect. 2. Left basal ganglia chronic lacunar infarct. 3. Moderate diffuse white matter disease likely reflecting chronic microvascular ischemic changes.
--- NOTE | 2024-06-20 19:48 | XRR_ITS ---
PROCEDURE INFORMATION: Exam: XR Chest Exam date and time: 06/20/2024 9:09 PM Age: 63 years old Clinical indication: Other: Weakness / stroke symptoms TECHNIQUE: Imaging protocol: Radiologic exam of the chest. Views: 1 view. COMPARISON: CR XR chest 1V portable [id number] 11/29/2023 4:13 AM FINDINGS: Lungs: Unremarkable. No consolidation. Pleural spaces: Unremarkable. No pleural effusion. No pneumothorax. Heart/Mediastinum: Unremarkable. No cardiomegaly. Bones/joints: Unremarkable. XR/XR chest 1V portable [id number] IMPRESSION: No acute findings.
--- NOTE | 2024-06-20 20:11 | ED_ITS ---
HPI - Neuro Symptoms/Deficit 2 General: Chief Complaint: Neuro Symptoms/Deficit Stated Complaint: left side stroke symptoms Time Seen by Provider: 06/20/24 19:41 History of Present Illness: 63-year-old female with a history of cer ebrovascular accident, diabetes, GERD, hyperlipidemia and diabetes who presents emergency room with altered mental status and confusion. I feel like her left-sided weakness is worse. Primarily she just seems more somnolent. She has basically slept all day and does not remember the day. She had some left-sided weakness after her first stroke. The symptoms have come back somewhat today as well. Family is concerned she is having a stroke. No cough. Currently she can talk without quietly. No slurred speech. No obvious new focal motor deficits today. Related Data Home Medications Medication Instructions Recorded Confirmed clonazepam 0.5 mg tablet 0.5 - 1 mg PO BEDTIME 08/08/23 06/05/24 fluticasone propionate 50 2 spray intranasal DAILY 08/08/23 06/05/24 mcg/actuation nasal spray,suspension metformin 500 mg tablet,extended 1,000 mg PO BID 08/08/23 06/05/24 release 24 hr divalproex 500 mg tablet,delayed 500 mg PO BID 11/27/23 06/05/24 release sertraline 25 mg tablet 25 mg PO QAM 11/27/23 06/05/24 clobetasol 0.05 % topical cream 1 applic topical BID PRN when rash 11/29/23 06/05/24 flares olanzapine 7.5 mg tablet 7.5 mg PO QAM 11/29/23 06/05/24 clonidine HCl 0.2 mg tablet 0.2 mg PO TID 06/05/24 06/05/24 cyclobenzaprine 10 mg tablet 10 mg PO TID PRN Muscle Spasm 06/05/24 06/05/24 empagliflozin 10 mg tablet 10 mg PO QAM 06/05/24 06/05/24 (Jardiance) fluoride (sodium) 1.1 % dental See Rx Instructions .Route .COMPLEX 06/05/24 06/05/24 cream (Denta 5000 Plus) metoprolol tartrate 25 mg tablet 25 mg PO BID 06/05/24 06/05/24 pregabalin 75 mg capsule 75 mg PO Q12H 06/05/24 06/05/24 Previous Rx's Medication Instructions Recorded furosemide 20 mg tablet (Lasix) 20 mg PO DAILY PRN edema #20 tabs 12/01/23 hydralazine 25 mg tablet 25 mg PO BID #60 tabs 12/01/23 aspirin 81 mg tablet,delayed 81 mg PO QAM 30 days #30 tabs 06/06/24 release atorvastatin 20 mg tablet 40 mg (2 x 20 mg) PO DAILY 30 days 06/06/24 #60 tabs clopidogrel 75 mg tablet 75 mg PO DAILY 30 days #30 tabs 06/06/24 lisinopril 20 mg tablet 40 mg (2 x 20 mg) PO Q24H 30 days 06/06/24 #60 tabs Allergies Allergy/AdvReac Type Severity Reaction Status Date / Time penicillin G Allergy unknown Verified 06/20/24 19:53 Penicillins Allergy Unknown Verified 06/20/24 19:53 sulfamethoxazole Allergy unknown Verified 06/20/24 19:53 [From Bactrim] trimethoprim [From Bactrim] Allergy unknown Verified 06/20/24 19:53 Review of Systems 2 Narrative: Constitutional symptoms: Negative except as documented in HPI. Skin symptoms: Negative except as documented in HPI. Eye symptoms: Negative except as documented in HPI. ENMT symptoms: Negative except as documented in HPI. Respiratory symptoms: Negative except as documented in HPI. Cardiovascular symptoms: Negative except as documented in HPI. Gastrointestinal symptoms: Negative except as documented in HPI. Genitourinary symptoms: Negative except as documented in HPI. Musculoskeletal symptoms: Negative except as documented in HPI. Neurologic symptoms: Negative except as documented in HPI. Psychiatric symptoms: Negative except as documented in HPI. Endocrine symptoms: Negative except as documented in HPI. 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 Sister Diabetes Heart disease Breast cancer unknown age onset Brother Heart disease Social History Smoking and tobacco/nicotine status: never used tobacco/nicotine Alcohol intake: never Substance/Drug Use: never Physical Exam 2 Narrative: EXAM NARRATIVE: General: Alert, no acute distress. Skin: Warm, dry. Head: Normocephalic, atraumatic. Neck: Supple, trachea midline. Eye: Extraocular movements are intact. Ears, nose, mouth and throat: Dry oral mucosa Cardiovascular: Regular, Normal peripheral perfusion. Respiratory: Lungs are clear to auscultation, respirations are non-labored, breath sounds are equal, Symmetrical chest wall expansion. Gastrointestinal: Soft, Nontender, Non distended Musculoskeletal: Normal ROM, no deformity. Neurological: Alert and oriented, No focal neurological deficit observed. Psychiatric: Cooperative, appropriate mood & affect. Course 2 Vital Signs: Vital signs: Vital Signs Pulse Rate 56 L 06/20/24 22:00 Respiratory Rate 18 06/20/24 22:00 Blood Pressure 143/72 06/20/24 22:00 Pulse Oximetry 100 06/20/24 22:00 Oxygen Delivery Me thod Room Air 06/20/24 22:00 MDM - Neuro Symptoms/Deficit Medical Decision Making Medical decision making: Differential diagnosis including but not limited to and based on the above HPI, review of systems and physical exam: In this patient with altered mental status: Stroke. Hypoglycemia. Metabolic encephalopathy. Infections such as pneumonia, urinary tract infection, Covid-19, Influenza. Electrolyte abnormalities such as hypernatremia. Renal failure / uremia. Hepatic encephalopathy. Hypoxemia. Hypercapnic respiratory failure. Psychosis. Drug or alcohol intoxication. Medication overdose. Orders placed to evaluate differential diagnosis based on the above differential, HPI and physical exam CT head: No acute intracranial process. no intracranial hemorrhage, no evidence of infarct. no evidence of acute fracture.This was reviewed and interpreted by myself the ER physician. Chest x-ray: No acute process. No infiltrate. No pneumothorax. This was reviewed and interpreted by myself the ER physician. Lab Review: Laboratory results were reviewed and interpreted by myself the emergency room physician. Of note her BUN and creatinine are elevated at baseline. Creatinine is usually around 0.7 at 1.1 today. Also her urine is concentrated at 1.030. A liter of fluid has been given. Offered another liter but family wants to take her home. I reviewed the patient's medical record. Reexamination: Patient remained stable. No increased work of breathing. No altered mental status. No focal motor deficits. Assessment and plan: Dehydration Altered mental status ?1 L normal saline bolus emergency room. - Discharged home - Discussed findings and plan with patient. Answered any questions. - All laboratory values were reviewed and interpreted personally by myself, the ER physician - All imaging was reviewed and interpreted personally by myself, the ER physician. - Evaluation and treatment of this problem were appropriate in the emergency setting Lab Data 06/20/24 20:20 06/20/24 20:33 Radiology Impressions Chest X-Ray 06/20/24 19:48 IMPRESSION: No acute findings. Head CT 06/20/24 19:48 IMPRESSION: 1. Negative for intracranial hemorrhage or mass effect. 2. Left basal ganglia chronic lacunar infarct. 3. Moderate diffuse white matter disease likely reflecting chronic microvascular ischemic changes. Laboratory Results WBC 7.89 10^3/uL (3.29-11.43) 06/20/24 20:20 RBC 4.47 10^6/uL (3.85-5.65) 06/20/24 20:20 Hgb 13.20 g/dL (11.27-16.99) 06/20/24 20:20 Hct 42.1 % (36-47) 06/20/24 20:20 MCV 94.2 fl (85-98) 06/20/24 20:20 MCH 29.5 pg (27-33) 06/20/24 20:20 MCHC 31.4 g/dL (30-55) 06/20/24 20:20 RDW 13.8 % (12.1-15.1) 06/20/24 20:20 Plt Count 246 10^3/cmm (157-399) 06/20/24 20:20 MPV 10.5 fL (7.4-10.4) H 06/20/24 20:20 Neut % (Auto) 54.9 % 06/20/24 20:20 Lymph % (Auto) 33.6 % 06/20/24 20:20 [place] % (Auto) 6.0 % 06/20/24 20:20 Eos % (Auto) 4.1 % 06/20/24 20:20 Baso % (Auto) 1.0 % 06/20/24 20:20 Neut # (Auto) 4.34 10^3/uL (1.8-7.7) 06/20/24 20:20 Lymph # (Auto) 2.7 10^3/uL (0.8-4.8) 06/20/24 20:20 [place] # (Auto) 0.5 10^3/uL (0.2-0.9) 06/20/24 20:20 Eos # (Auto) 0.3 10^3/uL (0.0-0.8) 06/20/24 20:20 Baso # (Auto) 0.1 10^3/uL (0.0-0.1) 06/20/24 20:20 Nucleated RBC % (auto) 0 % 06/20/24 20:20 Nucleated RBCs # 0.0 /100WBC 06/20/24 20:20 Sodium 140 mmol/L (136-145) 06/20/24 20:33 Potassium 4.5 mmol/L (3.5-5.1) 06/20/24 20:33 Chloride 97 mmol/L (98-107) L 06/20/24 20:33 Carbon Dioxide 25 mmol/L (22-29) 06/20/24 20:33 Anion Gap 22.5 (5-19) H 06/20/24 20:33 BUN 19 mg/dL (8-23) 06/20/24 20:33 Creatinine 1.1 mg/dL (0.5-0.9) H 06/20/24 20:33 GFR Calculation 50.0 mL/min (90-130) L 06/20/24 20:33 Glucose 197 mg/dL (65-115) H 06/20/24 20:33 Calculated Osmolality 298 mOsm/kg (285-295) H 06/20/24 20:33 Lactic Acid 2.8 mmol/L (0.5-2.2) H 06/20/24 20:20 Calcium 9.5 mg/dL (8.5-10.5) 06/20/24 20:33 Total Bilirubin 0.3 mg/dL (0.15-1.2) 06/20/24 20:33 AST 20 U/L (0-32) 06/20/24 20:33 ALT 17 U/L (0-33) 06/20/24 20:33 Alkaline Phosphatase 122 U/L (35-105) H 06/20/24 20:33 C-Reactive Protein 5.5 mg/L (0.0-4.9) H 06/20/24 20:33 Total Protein 8.0 g/dL (6.6-8.7) 06/20/24 20: Albumin 4.3 g/dL (3.5-5.2) 06/20/24 20: Globulin 3.7 g/dL (1.3-4.6) 06/20/24 20: Procalcitonin 0.07 ng/mL (0-0.5) 06/20/24 20:33 Urine Color Yellow (Yellow) 06/20/24 20:46 Urine Appearance Cloudy (CLEAR) A 06/20/24 20:46 Urine pH 5.0 (5-7) 06/20/24 20:46 Ur Specific [place] 1.030 (1.005-1.030) 06/20/24 20:46 Urine Protein Negative (Negative) 06/20/24 20:46 Urine Glucose (UA) 3+ (Normal) H 06/20/24 20:46 Urine Ketones Trace (Negative) 06/20/24 20:46 Urine Blood Negative (Negative) 06/20/24 20:46 Urine Nitrate Negative (Negative) 06/20/24 20:46 Urine Bilirubin Negative (Negative) 06/20/24 20:46 Urine Urobilinogen 0.2 mg/dL (Negative) 06/20/24 20:46 Ur Leukocyte Esterase Negative (Negative) 06/20/24 20:46 Urine RBC 3-5 /hpf (0-2) 06/20/24 20:46 Urine WBC 0-5 /hpf (0-5) 06/20/24 20:46 Ur Squamous Epith Cells 0-5 /hpf (0-5) 06/20/24 20:46 Amorphous Sediment Not Reportable 06/20/24 20:46 Urine Bacteria None seen /hpf (NONE) 06/20/24 20:46 Hyaline Casts 5.77 /lpf 09/11/24 20:46 Urine Yeast Trace /hpf 09/11/24 20:46 Coronavirus (PCR) Negative (Negative) 06/20/24 20:20 Influenza A (PCR) Negative (Negative) 06/20/24 20:20 Influenza Type B (PCR) Negative (Negative) 06/20/24 20:20 RSV (PCR) Negative (Negative) 06/20/24 20:20 All radiology interpretation(s) finalized by discharge Discharge Plan Discharge Patient Disposition: Home Clinical Impression: Dehydration Condition: Stable Prescriptions: No Action cyclobenzaprine 10 mg tablet 10 mg PO TID PRN (Reason: Muscle Spasm) clonidine HCl 0.2 mg tablet 0.2 mg PO TID Hold Instructions: Resume on 06/11/24. metoprolol tartrate 25 mg tablet 25 mg PO BID Denta 5000 Plus 1.1 % cream See Rx Instructions .ROUTE .COMPLEX Rx Instructions: Apply TWO cm TO teeth TWICE DAILY FOR TWO minutes AND expectorate. DO not RINSE. pregabalin 75 mg capsule 75 mg PO Q12H Jardiance 10 mg tablet 10 mg PO QAM lisinopril 20 mg Tablet 40 mg PO Q24H 30 Days Qty: 60 0RF clopidogrel 75 mg tablet 75 mg PO DAILY 30 Days Qty: 30 0RF aspirin 81 mg tablet,delayed release (DR/EC) 81 mg PO QAM 30 Days Qty: 30 0RF atorvastatin 20 mg tablet 40 mg PO DAILY 30 Days Qty: 60 0RF clonazepam 0.5 mg tablet 0.5 - 1 mg PO BEDTIME fluticasone propionate 50 mcg/actuation spray,suspension 2 spray INTRANASAL DAILY metformin 500 mg tablet extended release 24 hr 1,000 mg PO BID divalproex 500 mg tablet,delayed release (DR/EC) 500 mg PO BID sertraline 25 mg tablet 25 mg PO QAM clobetasol 0.05 % cream 1 applic TOPICAL BID PRN (Reason: when rash flares) olanzapine 7.5 mg tablet 7.5 mg PO QAM hydralazine 25 mg tablet 25 mg PO BID Qty: 60 0RF Hold Instructions: Resume on 06/07/24. furosemide [Lasix] 20 mg tablet 20 mg PO DAILY PRN (Reason: edema) Qty: 20 0RF Discharge Orders: Discharge ED (Routine); Ordered 06/20/24 Ordered By: Deepthi Olivares Referrals: Judson Seth MD [Primary Care Provider] - Discharge Diet: Usual diet Discharge Activity: Increase activity as tolerated Patient Instructions: Dehydration (ED) Activity Restrictions/Additional Instructions: Please increase intake of non-sugar and non-?caffeine containing fluids Thank you for choosing [facility] for your healthcare needs today. Please realize this is an emergency room and that we are providing you with a medical screening exam and this may not be complete and all inclusive of all the testing and or work up that you may need to determine your ailment or severity of your illness. You have been screened and evaluated and felt safe for discharge. Health conditions do change or evolve sometimes and as such it is important that you follow up with your Primary Doctor to be re checked, 3-5 days is a general good time frame for follow up. You are always welcome to return to the ED for re assessment if your symptoms are worsening or you have new concerns Coding Level of Care Code ED [employer] for Jakub Silva
[2024-06-20 20:55] LABS: Basophils # 0.1 10^3/uL (0.0-0.1); Eosinophils # 0.3 10^3/uL (0.0-0.8); Eosinophils % 4.1 %; Hematocrit 42.1 % (36-47); Lymphocytes # 2.7 10^3/uL (0.8-4.8); Lymphocytes % 33.6 %; Mean Corpuscular HGB Conc 31.4 g/dL (30-55); Mean Corpuscular Hemoglobin 29.5 pg (27-33); Mean Corpuscular Volume 94.2 fl (85-98); Mean Platelet Volume 10.5 fL (7.4-10.4); Monocytes # 0.5 10^3/uL (0.2-0.9); Neutrophils # 4.34 10^3/uL (1.8-7.7); Neutrophils % 54.9 %; Nucleated Red Blood Cells % 0 %; Platelet Count 246 10^3/cmm (157-399); Red Blood Count 4.47 10^6/uL (3.85-5.65); Red Cell Distribution Width 13.8 % (12.1-15.1); White Blood Count 7.89 10^3/uL (3.29-11.43)
[2024-06-20] MEDS: sodium chloride 0.9% 1,000 ML 999 ML IV (21:00)
[2024-06-20 21:14] LABS: Bilirubin Urine Negative (Negative); Blood Urine Negative (Negative); Glucose Urine UA 3+ (Normal); Ketones Urine Trace (Negative); Leukocyte Esterase Urine Negative (Negative); Nitrate Urine Negative (Negative); Protein Urine Negative (Negative); Urine Appearance Cloudy (CLEAR); Urine Color Yellow (Yellow); Urobilinogen Urine 0.2 mg/dL (Negative)
[2024-06-20 21:18] LABS: Lactic Sepsis W/Reflex 2.8 mmol/L (0.5-2.2)
[2024-06-20 21:19] LABS: Bacteria Urine None Seen /hpf; Hyaline Casts Urine 5.77 /lpf; Squamous Epithelial Cell Urine 0-5 /hpf (0-5); WBC Urine 0-5 /hpf (0-5)
[2024-06-20 21:29] LABS: Covid PCR NEGATIVE (Negative); Influenza A NEGATIVE (Negative); Influenza B NEGATIVE (Negative); Respiratory Syncytial Virus Ce NEGATIVE (Negative)
[2024-06-20 22:12] LABS: Alanine Aminotransferase 17 U/L (0-33); Albumin Level 4.3 g/dL (3.5-5.2); Alkaline Phosphatase 122 U/L (35-105); Anion Gap 22.5 (5-19); Aspartate Amino Transferase 20 U/L (0-32); Blood Urea Nitrogen 19 mg/dL (8-23); C Reactive Protein 5.5 mg/L (0.0-4.9); Calcium 9.5 mg/dL (8.5-10.5); Carbon Dioxide 25 mmol/L (22-29); Chloride 97 mmol/L (98-107); Creatinine Clr Calc Pharmacy 50.0043; Globulin 3.7 g/dL (1.3-4.6); Glucose 197 mg/dL (65-115); Osmolality Calculated 298 mOsm/kg (285-295); Potassium 4.5 mmol/L (3.5-5.1); Sodium 140 mmol/L (136-145); Total Bilirubin 0.3 mg/dL (0.15-1.2)
[2024-06-20 22:18] LABS: Procalcitonin 0.07 ng/mL (0-0.5)
[2024-06-20 22:38] LABS: Reflex Lactate Order REFLEX LACTIC ORDERD
== END 2024-06-20 22:41 | disposition home or self-care (01) ==
PROVIDERS: Emergency Provider Emergency Medicine; PCP Family Medicine
DX: E86.0 Dehydration (principal); Z79.02 Long term (current) use of antithrombotics/antiplatelets; Z79.82 Long term (current) use of aspirin; Z79.84 Long term (current) use of oral hypoglycemic drugs; E11.9 Type 2 diabetes mellitus without complications; Z86.73 Personal history of transient ischemic attack (TIA), and cerebral infarction without residual deficits
CPT/HCPCS: 0241U; 36415; 70450; 71045; 80053; 81001; 83605; 84145; 85025; 86140; 87040; 93005; 99285; J7030

== ENCOUNTER 2024-08-05 09:20 | Emergency (ER) | payer MEDICAID, SELFPAY ==
[2024-08-05 09:37] VITALS: BP 178/97; PULSE 77; RESP 16; TEMP 36.7; O2SAT 96; BMI 24.9
[2024-08-05 10:35] LABS: Basophils # 0.1 10^3/uL (0.0-0.1); Basophils % 0.6 %; Eosinophils # 0.1 10^3/uL (0.0-0.8); Eosinophils % 1.1 %; Hematocrit 45.1 % (36-47); Lymphocytes # 1.3 10^3/uL (0.8-4.8); Lymphocytes % 14.6 %; Mean Corpuscular HGB Conc 31.7 g/dL (30-55); Mean Corpuscular Hemoglobin 29.6 pg (27-33); Mean Corpuscular Volume 93.4 fl (85-98); Mean Platelet Volume 10.2 fL (7.4-10.4); Monocytes # 0.5 10^3/uL (0.2-0.9); Monocytes % 5.8 %; Neutrophils # 6.81 10^3/uL (1.8-7.7); Neutrophils % 77.7 %; Nucleated Red Blood Cells % 0 %; Platelet Count 284 10^3/cmm (157-399); Red Blood Count 4.83 10^6/uL (3.85-5.65); Red Cell Distribution Width 13.6 % (12.1-15.1); White Blood Count 8.77 10^3/uL (3.29-11.43)
[2024-08-05 10:47] LABS: Alanine Aminotransferase 15 U/L (0-33); Albumin Level 4.1 g/dL (3.5-5.2); Alkaline Phosphatase 127 U/L (35-105); Anion Gap 17.7 (5-19); Aspartate Amino Transferase 20 U/L (0-32); Blood Urea Nitrogen 13 mg/dL (8-23); Carbon Dioxide 23 mmol/L (22-29); Chloride 97 mmol/L (98-107); Creatinine Clr Calc Pharmacy 65.4416; Globulin 4.3 g/dL (1.3-4.6); Glucose 188 mg/dL (65-115); Osmolality Calculated 283 mOsm/kg (285-295); Potassium 3.7 mmol/L (3.5-5.1); Sodium 134 mmol/L (136-145); Total Bilirubin 0.5 mg/dL (0.15-1.2); Total Protein 8.4 g/dL (6.6-8.7)
--- NOTE | 2024-08-05 11:08 | ED_ITS ---
HPI - Nausea/Vomiting/Diarrhea 2 General: Chief complaint: Nausea/Vomiting/Diarrhea Stated complaint: Vomitting, body ache Time Seen by Provider: 08/05/24 09:52 History of Present Illness: Patient presents to the ER with complaints of nausea vomiting and diarrhea with mild abdominal pain for the last 4 days. She has been unable to keep anything down during this time. She did eat [employer] about that time. She is worried about the E. coli on the onions possible. Family did also eat [employer] but they did not have the same food as she and they are just fine. Related Data Home Medications Medication Instructions Recorded Confirmed clonazepam 0.5 mg tablet 0.5 - 1 mg PO BEDTIME 08/08/23 06/05/24 fluticasone propionate 50 2 spray intranasal DAILY 08/08/23 06/05/24 mcg/actuation nasal spray,suspension metformin 500 mg tablet,extended 1,000 mg PO BID 08/08/23 06/05/24 release 24 hr divalproex 500 mg tablet,delayed 500 mg PO BID 11/27/23 06/05/24 release sertraline 25 mg tablet 25 mg PO QAM 11/27/23 06/05/24 clobetasol 0.05 % topical cream 1 applic topical BID PRN when rash 11/29/23 06/05/24 flares olanzapine 7.5 mg tablet 7.5 mg PO QAM 11/29/23 06/05/24 clonidine HCl 0.2 mg tablet 0.2 mg PO TID 06/05/24 06/05/24 cyclobenzaprine 10 mg tablet 10 mg PO TID PRN Muscle Spasm 06/05/24 06/05/24 empagliflozin 10 mg tablet 10 mg PO QAM 06/05/24 06/05/24 (Jardiance) fluoride (sodium) 1.1 % dental See Rx Instructions .Route .COMPLEX 06/05/24 06/05/24 cream (Denta 5000 Plus) metoprolol tartrate 25 mg tablet 25 mg PO BID 06/05/24 06/05/24 pregabalin 75 mg capsule 75 mg PO Q12H 06/05/24 06/05/24 Previous Rx's Medication Instructions Recorded furosemide 20 mg tablet (Lasix) 20 mg PO DAILY PRN edema #20 tabs 12/01/23 hydralazine 25 mg tablet 25 mg PO BID #60 tabs 12/01/23 aspirin 81 mg tablet,delayed 81 mg PO QAM 30 days #30 tabs 06/06/24 release atorvastatin 20 mg tablet 40 mg (2 x 20 mg) PO DAILY 30 days 06/06/24 #60 tabs clopidogrel 75 mg tablet 75 mg PO DAILY 30 days #30 tabs 06/06/24 ondansetron HCl 4 mg tablet 4 mg PO Q8H PRN nausea and 08/05/24 vomiting #14 tabs Allergies Allergy/AdvReac Type Severity Reaction Status Date / Time penicillin G Allergy unknown Verified 06/20/24 19:53 Penicillins Allergy Unknown Verified 06/20/24 19:53 sulfamethoxazole Allergy unknown Verified 06/20/24 19:53 [From Bactrim] trimethoprim [From Bactrim] Allergy unknown Verified 06/20/24 19:53 Review of Systems 2 General: Reports: 10 or more systems reviewed and unremarkable except in HPI and below PFSH ED 2 PFSH: Medical History Otorrhea of right ear Sleep arousal disorder Bradycardia Speech and language deficits Memory loss 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 Sister Diabetes Heart disease Breast cancer unknown age onset Brother Heart disease Social History Smoking and tobacco/nicotine status: never used tobacco/nicotine Alcohol intake: never Substance/Drug Use: never Physical Exam 2 Const: COMMON NORMALS: no acute distress, average body habitus, patient oriented x3, no limitations, healthy appearing, alert and well nourished HENMT: COMMON NORMALS: normocephalic, atraumatic, hearing grossly normal bilaterally, external ears normal, Normal external nose present and moist oral mucous membranes HEAD & SCALP: normocephalic and atraumatic NOSE: Normal external nose present EXTERNAL EAR: Yes external ears normal Neck/C-Spine: COMMON NORMALS: no JVD Chest: COMMONS NORMALS: normal inspection of the chest and normal palpation of entire chest wall Resp: COMMON NORMALS: normal respiratory effort, No retractions, No use of accessory muscles and clear to auscultation bilaterally AUSCULTATION: clear to auscultation bilaterally Cardio: COMMON NORMALS: no JVD, regular rate, regular rhythm, S1 normal heart sound present, S2 normal heart sound present, No gallops present (Cardio), No clicks present (Cardio), No murmurs present (Cardio) and No rub (Cardio) R ATE: regular rate RHYTHM: regular rhythm HEART SOUNDS: S1 normal heart sound present and S2 normal heart sound present GI: COMMON NORMALS: Normal to inspection, nondistended, normoactive bowel sounds present, Soft to palpation, non-tender, No hepatosplenomegaly present and no masses PALPATION: Yes Soft to palpation and Yes No hepatosplenomegaly present Neuro: COMMON NORMALS: patient oriented x3 SENSORIUM/ORIENTATION: Yes alert Course 2 Vital Signs: Vital signs: Vital Signs Temperature 98.0 F 08/05/24 09:37 Pulse Rate 74 08/05/24 11:10 Respiratory Rate 16 08/05/24 09:37 Blood Pressure 178/97 08/05/24 09:37 Pulse Oximetry 93 08/05/24 11:10 Oxygen Delivery Me thod Room Air 08/05/24 09:37 MDM - Nausea/Vomiting/Diarrhea Medical Decision Making Patient 1 L normal saline, 4 mg Zofran, lab work was essentially unremarkable except specific gravity urine was elevated that would go along with dehydration, patient be discharged home. Medical Records I reviewed the patient's medical records. Lab Data I reviewed the patient's lab results. 08/05/24 10:21 08/05/24 10:21 Laboratory Results WBC 8.77 10^3/uL (3.29-11.43) 08/05/24 10:21 RBC 4.83 10^6/uL (3.85-5.65) 08/05/24 10:21 Hgb 14.30 g/dL (11.27-16.99) 08/05/24 10:21 Hct 45.1 % (36-47) 08/05/24 10:21 MCV 93.4 fl (85-98) 08/05/24 10:21 MCH 29.6 pg (27-33) 08/05/24 10:21 MCHC 31.7 g/dL (30-55) 08/05/24 10:21 RDW 13.6 % (12.1-15.1) 08/05/24 10:21 Plt Count 284 10^3/cmm (157-399) 08/05/24 10:21 MPV 10.2 fL (7.4-10.4) 08/05/24 10:21 Neut % (Auto) 77.7 % 08/05/24 10:21 Lymph % (Auto) 14.6 % 08/05/24 10:21 [place] % (Auto) 5.8 % 08/05/24 10:21 Eos % (Auto) 1.1 % 08/05/24 10:21 Baso % (Auto) 0.6 % 08/05/24 10:21 Neut # (Auto) 6.81 10^3/uL (1.8-7.7) 08/05/24 10:21 Lymph # (Auto) 1.3 10^3/uL (0.8-4.8) 08/05/24 10:21 [place] # (Auto) 0.5 10^3/uL (0.2-0.9) 08/05/24 10:21 Eos # (Auto) 0.1 10^3/uL (0.0-0.8) 08/05/24 10:21 Baso # (Auto) 0.1 10^3/uL (0.0-0.1) 08/05/24 10:21 Nucleated RBC % (auto) 0 % 08/05/24 10:21 Nucleated RBCs # 0.0 /100WBC 08/05/24 10:21 Sodium 134 mmol/L (136-145) L 08/05/24 10:21 Potassium 3.7 mmol/L (3.5-5.1) 08/05/24 10:21 Chloride 97 mmol/L (98-107) L 08/05/24 10:21 Carbon Dioxide 23 mmol/L (22-29) 08/05/24 10:21 Anion Gap 17.7 (5-19) 08/05/24 10:21 BUN 13 mg/dL (8-23) 08/05/24 10:21 Creatinine 0.8 mg/dL (0.5-0.9) 08/05/24 10:21 GFR Calculation 72.0 mL/min (90-130) L 08/05/24 10:21 Glucose 188 mg/dL (65-115) H 08/05/24 10:21 Calculated Osmolality 283 mOsm/kg (285-295) L 08/05/24 10:21 Calcium 9.0 mg/dL (8.5-10.5) 08/05/24 10:21 Magnesium 2.0 mg/dL (1.7-2.3) 08/05/24 10:21 Total Bilirubin 0.5 mg/dL (0.15-1.2) 08/05/24 10:21 AST 20 U/L (0-32) 08/05/24 10:21 ALT 15 U/L (0-33) 08/05/24 10:21 Alkaline Phosphatase 127 U/L (35-105) H 08/05/24 10:21 Total Protein 8.4 g/dL (6.6-8.7) 08/05/24 10:21 Albumin 4.1 g/dL (3.5-5.2) 08/05/24 10:21 Globulin 4.3 g/dL (1.3-4.6) 08/05/24 10:21 Urine Color Yellow (Yellow) 08/05/24 12:21 Urine Appearance Clear (CLEAR) 08/05/24 12:21 Urine pH 5.0 (5-7) 08/05/24 12:21 Ur Specific [place] 1.041 (1.005-1.030) H 08/05/24 12:21 Urine Protein Negative (Negative) 08/05/24 12:21 Urine Glucose (UA) 3+ (Normal) H 08/05/24 12:21 Urine Ketones 1+ (Negative) H 08/05/24 12:21 Urine Blood Negative (Negative) 08/05/24 12:21 Urine Nitrate Negative (Negative) 08/05/24 12:21 Urine Bilirubin Negative (Negative) 08/05/24 12:21 Urine Urobilinogen 0.2 mg/dL (Negative) 08/05/24 12:21 Ur Leukocyte Esterase Negative (Negative) 08/05/24 12:21 Urine RBC 0-4 /hpf (0-2) H 08/05/24 12:21 Urine WBC 5-10 /hpf (0-5) H 08/05/24 12:21 Ur Squamous Epith Cells 5-10 /hpf (0-5) H 08/05/24 12:21 Amorphous Sediment Not Reportable 08/05/24 12:21 Urine Bacteria 1+ /hpf (NONE) H 08/05/24 12:21 All radiology interpretation(s) finalized by discharge Discharge Plan Discharge Patient Disposition: Home Clinical Impression: Gastroenteritis Condition: Stable Prescriptions: New ondansetron HCl 4 mg tablet 4 mg PO Q8H PRN (Reason: nausea and vomiting) Qty: 14 0RF No Action cyclobenzaprine 10 mg tablet 10 mg PO TID PRN (Reason: Muscle Spasm) clonidine HCl 0.2 mg tablet 0.2 mg PO TID Hold Instructions: Resume on 06/11/24. metoprolol tartrate 25 mg tablet 25 mg PO BID Denta 5000 Plus 1.1 % cream See Rx Instructions .ROUTE .COMPLEX Rx Instructions: Apply TWO cm TO teeth TWICE DAILY FOR TWO minutes AND expectorate. DO not RINSE. pregabalin 75 mg capsule 75 mg PO Q12H Jardiance 10 mg tablet 10 mg PO QAM clopidogrel 75 mg tablet 75 mg PO DAILY 30 Days Qty: 30 0RF aspirin 81 mg tablet,delayed release (DR/EC) 81 mg PO QAM 30 Days Qty: 30 0RF atorvastatin 20 mg tablet 40 mg PO DAILY 30 Days Qty: 60 0RF clonazepam 0.5 mg tablet 0.5 - 1 mg PO BEDTIME fluticasone propionate 50 mcg/actuation spray,suspension 2 spray INTRANASAL DAILY metformin 500 mg tablet extended release 24 hr 1,000 mg PO BID divalproex 500 mg tablet,delayed release (DR/EC) 500 mg PO BID sertraline 25 mg tablet 25 mg PO QAM clobetasol 0.05 % cream 1 applic TOPICAL BID PRN (Reason: when rash flares) olanzapine 7.5 mg tablet 7.5 mg PO QAM hydralazine 25 mg tablet 25 mg PO BID Qty: 60 0RF Hold Instructions: Resume on 06/07/24. furosemide [Lasix] 20 mg tablet 20 mg PO DAILY PRN (Reason: edema) Qty: 20 0RF Discharge Orders: Discharge ED (Routine); Ordered 08/05/24 Ordered By: Ronnie Gar Referrals: Judson Seth MD [Primary Care Provider] - 1 week Patient Instructions: Gastroenteritis (ED) Activity Restrictions/Additional Instructions: [facility] you [facility] your healthcare needs today. Please realize that you were seen in the emergency department and that we are providing you with an emergency medical screening exam and this may not be a complete and all exclusive of all testing and/or medical workup we may need to determine your element or severity of your illness. It is very important that you follow-up as instructed with your primary care provider or specialist for the additional evaluation and to discuss your medical treatment plan. You may return to the emergency department should you have concerns or if your condition changes or worsens in any way. 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
[2024-08-05 11:10] VITALS: PULSE 74; O2SAT 93
[2024-08-05] MEDS: sodium chloride 0.9% 1,000 ML 999 ML IV (11:45)
[2024-08-05] MEDS: ondansetron 2 mg/ML SDV 2 mL 4 MG IVP (11:45)
[2024-08-05 12:32] LABS: Bilirubin Urine Negative (Negative); Blood Urine Negative (Negative); Glucose Urine UA 3+ (Normal); Ketones Urine 1+ (Negative); Leukocyte Esterase Urine Negative (Negative); Nitrate Urine Negative (Negative); Protein Urine Negative (Negative); Urine Appearance Clear (CLEAR); Urine Color Yellow (Yellow); Urobilinogen Urine 0.2 mg/dL (Negative)
[2024-08-05 12:44] LABS: Add Urine Microscopic? YES; Bacteria Urine 1+ /hpf; RBC Urine 0-4 /hpf (0-2); Specific Gravity, Urine 1.041 (1.005-1.030); UA Manual Slide Review YES
[2024-08-05] MEDS: ondansetron 4 MG Tablet PO (13:59)
[2024-08-05 14:00] VITALS: BP 167/91; PULSE 80; O2SAT 96
== END 2024-08-05 14:01 | disposition home or self-care (01) ==
PROVIDERS: Emergency Provider Emergency Medicine; PCP Family Medicine
DX: K52.9 Noninfective gastroenteritis and colitis, unspecified (principal)
CPT/HCPCS: 80053; 81001; 83735; 85025; 96361; 96374; 99284; J2405; J7030; Q0162

== ENCOUNTER 2024-08-15 20:11 | Emergency (ER) | payer MEDICAID, SELFPAY ==
[2024-08-15] VITALS (14 sets, daily range): BP systolic 107–188; BP diastolic 56–111; PULSE 53–69; RESP 11–18; TEMP 36.5; O2SAT 93–97; BMI 25.7
--- NOTE | 2024-08-15 20:22 | XR_ITS ---
WS: [id number] XR chest 1V portable [id number] REASON FOR EXAM: chest pain FINDINGS: The chest is unchanged compared to 06/20/2024. The heart and mediastinum are within normal limits. Calcified granulomas disease in both hemithoraces. No acute pulmonary parenchymal or pleural abnormality. Moderate degenerative spondylosis in the thoracic spine. XR/XR chest 1V portable [id number] IMPRESSION: Stable chest without acute abnormality.
--- NOTE | 2024-08-15 20:22 | ECG_ITS ---
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 Measurements Intervals [place] Rate: 68 P: 47 IA: 162 QRS: 35 QRSD: 84 T: 72 QT: 413 QTc: 441 Interpretive Statements SINUS RHYTHM Compared to ECG 06/20/2024 19:40:41 T-wave abnormality no longer present Electronically Signed On 08-16-2024 21:19:32 WELL DIGGER by Catarino Saldivar M.D. [id number]
--- NOTE | 2024-08-15 20:27 | ED_ITS ---
HPI - Chest Pain 2 General: Chief Complaint: Chest Pain Stated Complaint: cp sob Time Seen by Provider: 08/15/24 20:22 History of Present Illness: Patient resents to the ER with chest pain has been going on for about 45 minutes. Patient stated substernal and radiates into her right arm and into her back. Patient states is more like a pressure than anything. Patient has never had a cardiac history before but has had a history of a CVA and is on Plavix. Patient blood pressure upon arrival was 188/81, patient does have a history of high blood pressure and CHF. Patient does not routinely see a credit control manager. Related Data Home Medications Medication Instructions Recorded Confirmed clonazepam 0.5 mg tablet 0.5 - 1 mg PO BEDTIME 08/08/23 06/05/24 fluticasone propionate 50 2 spray intranasal DAILY 08/08/23 06/05/24 mcg/actuation nasal spray,suspension metformin 500 mg tablet,extended 1,000 mg PO BID 08/08/23 06/05/24 release 24 hr divalproex 500 mg tablet,delayed 500 mg PO BID 11/27/23 06/05/24 release sertraline 25 mg tablet 25 mg PO QAM 11/27/23 06/05/24 clobetasol 0.05 % topical cream 1 applic topical BID PRN when rash 11/29/23 06/05/24 flares olanzapine 7.5 mg tablet 7.5 mg PO QAM 11/29/23 06/05/24 clonidine HCl 0.2 mg tablet 0.2 mg PO TID 06/05/24 06/05/24 cyclobenzaprine 10 mg tablet 10 mg PO TID PRN Muscle Spasm 06/05/24 06/05/24 empagliflozin 10 mg tablet 10 mg PO QAM 06/05/24 06/05/24 (Jardiance) fluoride (sodium) 1.1 % dental See Rx Instructions .Route .COMPLEX 06/05/24 06/05/24 cream (Denta 5000 Plus) metoprolol tartrate 25 mg tablet 25 mg PO BID 06/05/24 06/05/24 pregabalin 75 mg capsule 75 mg PO Q12H 06/05/24 06/05/24 Previous Rx's Medication Instructions Recorded furosemide 20 mg tablet (Lasix) 20 mg PO DAILY PRN edema #20 tabs 12/01/23 hydralazine 25 mg tablet 25 mg PO BID #60 tabs 12/01/23 aspirin 81 mg tablet,delayed 81 mg PO QAM 30 days #30 tabs 06/06/24 release atorvastatin 20 mg tablet 40 mg (2 x 20 mg) PO DAILY 30 days 06/06/24 #60 tabs clopidogrel 75 mg tablet 75 mg PO DAILY 30 days #30 tabs 06/06/24 ondansetron HCl 4 mg tablet 4 mg PO Q8H PRN nausea and 08/05/24 vomiting #14 tabs Allergies Allergy/AdvReac Type Severity Reaction Status Date / Time penicillin G Allergy unknown Verified 06/20/24 19:53 Penicillins Allergy Unknown Verified 06/20/24 19:53 sulfamethoxazole Allergy unknown Verified 06/20/24 19:53 [From Bactrim] trimethoprim [From Bactrim] Allergy unknown Verified 06/20/24 19:53 Review of Systems 2 General: Reports: 10 or more systems reviewed and unremarkable except in HPI and below PFSH ED 2 PFSH: Medical History Otorrhea of right ear Sleep arousal disorder Bradycardia Speech and language deficits Memory loss 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 Sister Diabetes Heart disease Breast cancer unknown age onset Brother Heart disease Social History Smoking and tobacco/nicotine status: never used tobacco/nicotine Alcohol intake: never Substance/Drug Use: never Physical Exam 2 Const: COMMON NORMALS: no acute distress, average body habitus, patient oriented x3, no limitations, healthy appearing, alert and well nourished HENMT: COMMON NORMALS: normocephalic, atraumatic, hearing grossly normal bilaterally, external ears normal, Normal external nose present and moist oral mucous membranes HEAD & SCALP: normocephalic and atraumatic NOSE: Normal external nose present EXTERNAL EAR: Yes external ears normal Neck/C-Spine: COMMON NORMALS: no JVD Chest: COMMONS NORMALS: normal inspection of the chest; negative for normal palpation of entire chest wall (Palpation of the sternal region of the chest reproduces the pain.) Resp: COMMON NORMALS: normal respiratory effort, No retractions, No use of accessory muscles and clear to auscultation bilaterally AUSCULTATION: clear to auscultation bilaterally Cardio: COMMON NORMALS: no JVD, regular rate, regular rhythm, S1 normal heart sound present, S2 normal heart sound present, No gallops present (Cardio), No clicks present (Cardio), No murmurs present (Cardio) and No rub (Cardio) R ATE: regular rate RHYTHM: regular rhythm HEART SOUNDS: S1 normal heart sound present and S2 normal heart sound present GI: COMMON NORMALS: Normal to inspection, nondistended, normoactive bowel sounds present, Soft to palpation, non-tender, No hepatosplenomegaly present and no masses PALPATION: Yes Soft to palpation and Yes No hepatosplenomegaly present Neuro: COMMON NORMALS: patient oriented x3 SENSORIUM/ORIENTATION: Yes alert Course 2 Vital Signs: Vital signs: Vital Signs Temperature 97.7 F 08/15/24 20:12 Pulse Rate 58 L 08/15/24 22:15 Respiratory Rate 13 08/15/24 22:15 Blood Pressure 107/76 08/15/24 22:15 Pulse Oximetry 95 08/15/24 22:15 Oxygen Delivery Me thod Room Air 08/15/24 22:15 MDM - Chest Pain Medical Decision Making Patient presents with chest pain is worked up in a standard chest pain fashion serial EKGs, enzymes, chest x-ray, all which was essentially benign. Patient is chest pain-free during her stay. Patient be discharged home. Medical Records I reviewed the patient's medical records. Lab Data I reviewed the patient's lab results. 08/15/24 20:34 08/15/24 20:34 Laboratory Results WBC 8.71 10^3/uL (3.29-11.43) 08/15/24 20:34 RBC 4.42 10^6/uL (3.85-5.65) 08/15/24 20:34 Hgb 13.10 g/dL (11.27-16.99) 08/15/24:34 Hct 41.2 % (36-47) 08/15/24:34 MCV 93.2 fl (85-98) 08/15/24 20:34 MCH 29.6 pg (27-33) 08/15/24:34 MCHC 31.8 g/dL (30-55) 08/15/24:34 RDW 13.3 % (12.1-15.1) 08/15/24 20:34 Plt Count 286 10^3/cmm (157-399) 08/15/24:34 MPV 10.1 fL (7.4-10.4) 08/15/24:34 Neut % (Auto) 57.2 % 08/15/24:34 Lymph % (Auto) 33.1 % 08/15/24:34 [place] % (Auto) 6.0 % 08/15/24:34 Eos % (Auto) 2.9 % 08/15/24:34 Baso % (Auto) 0.6 % 08/15/24:34 Neut # (Auto) 4.99 10^3/uL (1.8-7.7) 08/15/24:34 Lymph # (Auto) 2.9 10^3/uL (0.8-4.8) 08/15/24:34 [place] # (Auto) 0.5 10^3/uL (0.2-0.9) 08/15/24:34 Eos # (Auto) 0.3 10^3/uL (0.0-0.8) 08/15/24 20:34 Baso # (Auto) 0.1 10^3/uL (0.0-0.1) 08/15/24:34 Nucleated RBC % (auto) 0 % 08/15/24:34 Nucleated RBCs # 0.0 /100WBC 08/15/24 20:34 PT 13.60 SECONDS (12.1-14.9) 08/15/24:34 INR 1.01 (0.8-1.2) 08/15/24:34 Sodium 141 mmol/L (136-145) 08/15/24 20:34 Potassium 3.7 mmol/L (3.5-5.1) 08/15/24 20:34 Chloride 104 mmol/L (98-107) 08/15/24 20:34 Carbon Dioxide 27 mmol/L (22-29) 08/15/24 20:34 Anion Gap 13.7 (5-19) 08/15/24 20:34 BUN 8 mg/dL (8-23) 08/15/24 20:34 Creatinine 0.7 mg/dL (0.5-0.9) 08/15/24 20:34 GFR Calculation 84.0 mL/min (90-130) L 08/15/24 20:34 Glucose 176 mg/dL (65-115) H 08/15/24 20:34 Calculated Osmolality 295 mOsm/kg (285-295) 08/15/24 20:34 Calcium 8.7 mg/dL (8.5-10.5) 08/15/24 20:34 Total Bilirubin 0.2 mg/dL (0.15-1.2) 08/15/24 20:34 AST 13 U/L (0-32) 08/15/24 20:34 ALT 14 U/L (0-33) 08/15/24 20:34 Alkaline Phosphatase 129 U/L (35-105) H 08/15/24 20:34 Troponin T Baseline 10 ng/L (0-10) 08/15/24 20:34 Troponin T 120 Minute 10.18 ng/L (0-10) H 08/15/24 22:09 Delta Troponin T 0.18 ABS# (0-10) 08/15/24 22:09 Total Protein 6.4 g/dL (6.6-8.7) L 08/15/24 20:34 Albumin 4.2 g/dL (3.5-5.2) 08/15/24 20:34 Globulin 2.2 g/dL (1.3-4.6) 08/15/24 20:34 All radiology interpretation(s) finalized by discharge Discharge Plan Discharge Patient Disposition: Home Clinical Impression: Chest pain Qualifiers: Chest pain type: unspecified Qualified Code(s): R07.9 - Chest pain, unspecified Condition: Stable Prescriptions: No Action cyclobenzaprine 10 mg tablet 10 mg PO TID PRN (Reason: Muscle Spasm) clonidine HCl 0.2 mg tablet 0.2 mg PO TID Hold Instructions: Resume on 06/11/24. metoprolol tartrate 25 mg tablet 25 mg PO BID Denta 5000 Plus 1.1 % cream See Rx Instructions .ROUTE .COMPLEX Rx Instructions: Apply TWO cm TO teeth TWICE DAILY FOR TWO minutes AND expectorate. DO not RINSE. pregabalin 75 mg capsule 75 mg PO Q12H Jardiance 10 mg tablet 10 mg PO QAM clopidogrel 75 mg tablet 75 mg PO DAILY 30 Days Qty: 30 0RF aspirin 81 mg tablet,delayed release (DR/EC) 81 mg PO QAM 30 Days Qty: 30 0RF atorvastatin 20 mg tablet 40 mg PO DAILY 30 Days Qty: 60 0RF ondansetron HCl 4 mg tablet 4 mg PO Q8H PRN (Reason: nausea and vomiting) Qty: 14 0RF clonazepam 0.5 mg tablet 0.5 - 1 mg PO BEDTIME fluticasone propionate 50 mcg/actuation spray,suspension 2 spray INTRANASAL DAILY metformin 500 mg tablet extended release 24 hr 1,000 mg PO BID divalproex 500 mg tablet,delayed release (DR/EC) 500 mg PO BID sertraline 25 mg tablet 25 mg PO QAM clobetasol 0.05 % cream 1 applic TOPICAL BID PRN (Reason: when rash flares) olanzapine 7.5 mg tablet 7.5 mg PO QAM hydralazine 25 mg tablet 25 mg PO BID Qty: 60 0RF Hold Instructions: Resume on 06/07/24. furosemide [Lasix] 20 mg tablet 20 mg PO DAILY PRN (Reason: edema) Qty: 20 0RF Discharge Orders: Discharge ED (Routine); Ordered 08/15/24 Ordered By: Ronnie Gar Referrals: Judson Seth MD [Primary Care Provider] - 1 week Patient Instructions: Chest Pain (DC) Activity Restrictions/Additional Instructions: Thank you for choosing [facility] for your healthcare needs today. Please realize that you were seen in the emergency department and that we are providing you with an emergency medical screening exam and this may not be a complete and all exclusive of all testing and/or medical workup we may need to determine your element or severity of your illness. It is very important that you follow-up as instructed with your primary care provider or specialist for the additional evaluation and to discuss your medical treatment plan. You may return to the emergency department should you have concerns or if your condition changes or worsens in any way. Coding Level of Care Code ED Environmental Engineering Technician for Jakub Silva
[2024-08-15 20:42] LABS: Basophils # 0.1 10^3/uL (0.0-0.1); Basophils % 0.6 %; Eosinophils # 0.3 10^3/uL (0.0-0.8); Eosinophils % 2.9 %; Hematocrit 41.2 % (36-47); Lymphocytes # 2.9 10^3/uL (0.8-4.8); Lymphocytes % 33.1 %; Mean Corpuscular HGB Conc 31.8 g/dL (30-55); Mean Corpuscular Hemoglobin 29.6 pg (27-33); Mean Corpuscular Volume 93.2 fl (85-98); Mean Platelet Volume 10.1 fL (7.4-10.4); Monocytes # 0.5 10^3/uL (0.2-0.9); Neutrophils # 4.99 10^3/uL (1.8-7.7); Neutrophils % 57.2 %; Nucleated Red Blood Cells % 0 %; Platelet Count 286 10^3/cmm (157-399); Red Blood Count 4.42 10^6/uL (3.85-5.65); Red Cell Distribution Width 13.3 % (12.1-15.1); White Blood Count 8.71 10^3/uL (3.29-11.43)
[2024-08-15] MEDS: aspirin 81 mg Chew Tablet 324 MG PO (20:45)
[2024-08-15] MEDS: ketorolac 30 mg/mL INJ IVP (20:46)
[2024-08-15] MEDS: hyDRALAzine 20 mg/mL INJ 1 mL 10 MG IVP (20:46)
[2024-08-15 20:56] LABS: Alanine Aminotransferase 14 U/L (0-33); Albumin Level 4.2 g/dL (3.5-5.2); Alkaline Phosphatase 129 U/L (35-105); Anion Gap 13.7 (5-19); Aspartate Amino Transferase 13 U/L (0-32); Blood Urea Nitrogen 8 mg/dL (8-23); Calcium 8.7 mg/dL (8.5-10.5); Carbon Dioxide 27 mmol/L (22-29); Chloride 104 mmol/L (98-107); Creatinine Clr Calc Pharmacy 66.4457; Globulin 2.2 g/dL (1.3-4.6); Glucose 176 mg/dL (65-115); INR 1.01 (0.8-1.2); Osmolality Calculated 295 mOsm/kg (285-295); Potassium 3.7 mmol/L (3.5-5.1); Sodium 141 mmol/L (136-145); Total Bilirubin 0.2 mg/dL (0.15-1.2); Total Protein 6.4 g/dL (6.6-8.7)
[2024-08-15 20:57] LABS: Troponin(5th) Baseline 10 ng/L (0-10)
--- NOTE | 2024-08-15 22:22 | ECG_ITS ---
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
[2024-08-15 22:32] LABS: Troponin 5 2HR 10.18 ng/L (0-10); Troponin 5 2HR Delta 0.18 ABS# (0-10)
== END 2024-08-15 23:13 | disposition home or self-care (01) ==
PROVIDERS: Emergency Provider Emergency Medicine; PCP Family Medicine
DX: R07.9 Chest pain, unspecified (principal); Z79.82 Long term (current) use of aspirin; Z79.02 Long term (current) use of antithrombotics/antiplatelets; E11.9 Type 2 diabetes mellitus without complications
CPT/HCPCS: 71045; 80053; 84484; 85025; 85610; 93005; 96374; 96375; 99285; J0360; J1885

== ENCOUNTER 2024-08-23 22:50 | Observation (INO) | payer MEDICAID, SELFPAY ==
--- NOTE | 2024-08-23 22:53 | ECG_ITS ---
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 Measurements Intervals [place] Rate: 128 P: 0 GA: 0 QRS: 68 QRSD: 81 T: -13 QT: 299 QTc: 437 Interpretive Statements ATRIAL FLUTTER/TACHYCARDIA WITH RAPID VENTRICULAR RESPONSE MINIMAL ST DEPRESSION [0.025+ mV ST DEPRESSION] ABNORMAL QRS-T ANGLE [QRS-T AXIS DIFFERENCE > 60] Compared to ECG 08/15/2024 22:27:28 ST (T wave) deviation now present Sinus bradycardia no longer present T-wave abnormality no longer present Electronically Signed On 08-24-2024 22:34:49 LOAN ADMINISTRATOR by Catarino Saldivar M.D. [id number]
--- NOTE | 2024-08-23 22:53 | XRR_ITS ---
PROCEDURE INFORMATION: Exam: XR Chest Exam date and time: 08/24/2024 12:13 AM Age: 64 years old Clinical indication: Shortness of breath TECHNIQUE: Imaging protocol: Radiologic exam of the chest. Views: 1 view. COMPARISON: CR XR chest 1V portable [id number] 08/15/2024 8:39 PM FINDINGS: Lungs: No consolidation. Pleural spaces: No pleural effusion. No pneumothorax. Heart/Mediastinum: No cardiomegaly. Bones/joints: No acute findings. XR/XR chest 1V portable [id number] IMPRESSION: No acute chest findings.
[2024-08-23 23:17] VITALS: BP 175/76; PULSE 124; RESP 16; TEMP 36.8; O2SAT 95; BMI 27.8
[2024-08-23 23:33] LABS: Basophils # 0.1 10^3/uL (0.0-0.1); Basophils % 0.5 %; Eosinophils # 0.4 10^3/uL (0.0-0.8); Eosinophils % 2.7 %; Hematocrit 40.8 % (36-47); Lymphocytes # 1.8 10^3/uL (0.8-4.8); Lymphocytes % 12.7 %; Mean Corpuscular HGB Conc 32.1 g/dL (30-55); Mean Corpuscular Hemoglobin 29.8 pg (27-33); Mean Corpuscular Volume 92.9 fl (85-98); Mean Platelet Volume 9.6 fL (7.4-10.4); Monocytes # 0.7 10^3/uL (0.2-0.9); Monocytes % 4.8 %; Neutrophils # 10.89 10^3/uL (1.8-7.7); Neutrophils % 78.9 %; Nucleated Red Blood Cells % 0 %; Platelet Count 251 10^3/cmm (157-399); Red Blood Count 4.39 10^6/uL (3.85-5.65); Red Cell Distribution Width 13.2 % (12.1-15.1); White Blood Count 13.79 10^3/uL (3.29-11.43)
[2024-08-23 23:41] VITALS: BP 174/106; PULSE 126; RESP 22; O2SAT 93
[2024-08-23 23:45] VITALS: BP 164/88; PULSE 128; RESP 24; O2SAT 93
--- NOTE | 2024-08-23 23:48 | ED_ITS ---
HPI - SOB/Dyspnea 2 General: Chief Complaint: Shortness of Breath/Dyspnea Stated Complaint: SOB Time Seen by Provider: 08/23/24 22:52 History of Present Illness: HPI Narrative: 64-year-old female with a history of hyp ertension, stroke, diabetes who presents emergency room with shortness of breath. On presentation she is tachycardic. She says this started about 4 hours ago. No lower extremity swelling. No fevers. She has had some cough. No abdominal pain. No nausea or vomiting. No altered mental status. No focal motor deficits. Related Data Home Medications Medication Instructions Recorded Confirmed clonazepam 0.5 mg tablet 0.5 - 1 mg PO BEDTIME 08/08/23 06/05/24 fluticasone propionate 50 2 spray intranasal DAILY 08/08/23 06/05/24 mcg/actuation nasal spray,suspension metformin 500 mg tablet,extended 1,000 mg PO BID 08/08/23 06/05/24 release 24 hr divalproex 500 mg tablet,delayed 500 mg PO BID 11/27/23 06/05/24 release sertraline 25 mg tablet 25 mg PO QAM 11/27/23 06/05/24 clobetasol 0.05 % topical cream 1 applic topical BID PRN when rash 11/29/23 06/05/24 flares olanzapine 7.5 mg tablet 7.5 mg PO QAM 11/29/23 06/05/24 clonidine HCl 0.2 mg tablet 0.2 mg PO TID 06/05/24 06/05/24 cyclobenzaprine 10 mg tablet 10 mg PO TID PRN Muscle Spasm 06/05/24 06/05/24 empagliflozin 10 mg tablet 10 mg PO QAM 06/05/24 06/05/24 (Jardiance) fluoride (sodium) 1.1 % dental See Rx Instructions .Route .COMPLEX 06/05/24 06/05/24 cream (Denta 5000 Plus) metoprolol tartrate 25 mg tablet 25 mg PO BID 06/05/24 06/05/24 pregabalin 75 mg capsule 75 mg PO Q12H 06/05/24 06/05/24 Previous Rx's Medication Instructions Recorded furosemide 20 mg tablet (Lasix) 20 mg PO DAILY PRN edema #20 tabs 12/01/23 hydralazine 25 mg tablet 25 mg PO BID #60 tabs 12/01/23 aspirin 81 mg tablet,delayed 81 mg PO QAM 30 days #30 tabs 06/06/24 release atorvastatin 20 mg tablet 40 mg (2 x 20 mg) PO DAILY 30 days 06/06/24 #60 tabs clopidogrel 75 mg tablet 75 mg PO DAILY 30 days #30 tabs 06/06/24 ondansetron HCl 4 mg tablet 4 mg PO Q8H PRN nausea and 08/05/24 vomiting #14 tabs Allergies Allergy/AdvReac Type Severity Reaction Status Date / Time penicillin G Allergy unknown Verified 06/20/24 19:53 Penicillins Allergy Unknown Verified 06/20/24 19:53 sulfamethoxazole Allergy unknown Verified 06/20/24 19:53 [From Bactrim] trimethoprim [From Bactrim] Allergy unknown Verified 06/20/24 19:53 Review of Systems 2 Narrative: Constitutional symptoms: Negative except as documented in HPI. Skin symptoms: Negative except as documented in HPI. Eye symptoms: Negative except as documented in HPI. ENMT symptoms: Negative except as documented in HPI. Respiratory symptoms: Negative except as documented in HPI. Cardiovascular symptoms: Negative except as documented in HPI. Gastrointestinal symptoms: Negative except as documented in HPI. Genitourinary symptoms: Negative except as documented in HPI. Musculoskeletal symptoms: Negative except as documented in HPI. Neurologic symptoms: Negative except as documented in HPI. Psychiatric symptoms: Negative except as documented in HPI. Endocrine symptoms: Negative except as documented in HPI. 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 Sister Diabetes Heart disease Breast cancer unknown age onset Brother Heart disease Social History Smoking and tobacco/nicotine status: never used tobacco/nicotine Alcohol intake: never Substance/Drug Use: never Physical Exam 2 Narrative: EXAM NARRATIVE: General: Alert, no acute distress. Skin: Warm, dry. Head: Normocephalic, atraumatic. Neck: Supple, trachea midline. Eye: Extraocular movements are intact. Ears, nose, mouth and throat: mucosa moist. Cardiovascular: Regular, tachycardic, normal peripheral perfusion. Respiratory: Lungs are clear to auscultation, respirations are non-labored, breath sounds are equal, Symmetrical chest wall expansion. Gastrointestinal: Soft, Nontender, Non distended Musculoskeletal: Normal ROM, no deformity. Neurological: Alert and oriented, No focal neurological deficit observed. Psychiatric: Cooperative, appropriate mood & affect. Course 2 Vital Signs: Vital signs: Vital Signs Temperature 98.2 F 08/23/24 23:17 Pulse Rate 76 08/24/24 00:30 Respiratory Rate 25 H 08/24/24 00:30 Blood Pressure 142/92 08/24/24 00:30 Pulse Oximetry 94 08/24/24 00:30 Oxygen Delivery Me thod Room Air 08/23/24 23:59 MDM - SOB/Dyspnea Medical Decision Making Differential diagnosis for patient with shortness of breath includes but is not limited to and based on the above HPI, review of systems and physical exam: Pneumonia. Bronchitis. Asthma or COPD with acute exacerbation. Acute coronary syndrome / [place]. Pulmonary embolism. Anxiety. Congestive heart failure. Viral infections including influenza and Covid-19. Atrial fibrillation. Anxiety. Pleural effusion. Pneumothorax. Orders placed to evaluate differential diagnosis based on the above differential, HPI and physical exam EKG: Time 2326. Rate 128. Sinus tachycardia versus A-fib with RVR, No ST-T changes, no ectopy, normal [place] & QRS intervals, This was reviewed and interpreted by myself the ER physician time 2330. Repeat EKG: Time 12:20 AM. Rate 73. Normal sinus rhythm, No ST-T changes, no ectopy, normal [place] & QRS intervals, This was reviewed and interpreted by myself the ER physician at 12:23 AM. Rate has decreased to 73 from 128 after receiving diltiazem. Chest x-ray: No acute process. No infiltrate. No pneumothorax. Films were interpreted by myself the emergency room provider and pending final radiology review. Lab Review: Laboratory results were reviewed and interpreted by myself the emergency room physician. Mild leukocytosis with a white count of 13,000. No anemia. No renal failure. Glucose is elevated at 254. I reviewed the patient's medical record. Consultation: I spoke with Dr. Rivas who is on-call for the hospitalist service who is admitting the patient to observation. Assessment and plan: Tachycardia, possible A-fib Hyperglycemia Dyspnea Hypertension ?IV diltiazem with improvement in rate immediately. As well as blood pressure -I discussed the patient with the hospitalist on-call who is admitting the patient. - Discussed findings and plan with patient. Answered any questions. - All laboratory values were reviewed and interpreted personally by myself, the ER physician - All imaging was reviewed and interpreted personally by myself, the ER physician. - Evaluation and treatment of this problem were appropriate in the emergency setting Lab Data 08/23/24 23:23 08/23/24 23:23 Labs/Radiology: Laboratory Results WBC 13.79 10^3/uL (3.29-11.43) H 08/23/24 23:23 RBC 4.39 10^6/uL (3.85-5.65) 08/23/24 23:23 Hgb 13.10 g/dL (11.27-16.99) 08/23/24 23:23 Hct 40.8 % (36-47) 08/23/24 23:23 MCV 92.9 fl (85-98) 08/23/24 23:23 MCH 29.8 pg (27-33) 08/23/24 23:23 MCHC 32.1 g/dL (30-55) 08/23/24 23:23 RDW 13.2 % (12.1-15.1) 08/23/24 23:23 Plt Count 251 10^3/cmm (157-399) 08/23/24 23:23 MPV 9.6 fL (7.4-10.4) 08/23/24 23:23 Neut % (Auto) 78.9 % 08/23/24 23:23 Lymph % (Auto) 12.7 % 08/23/24 23:23 [place] % (Auto) 4.8 % 08/23/24 23:23 Eos % (Auto) 2.7 % 08/23/24 23:23 Baso % (Auto) 0.5 % 08/23/24 23:23 Neut # (Auto) 10.89 10^3/uL (1.8-7.7) H 08/23/24 23:23 Lymph # (Auto) 1.8 10^3/uL (0.8-4.8) 08/23/24 23:23 [place] # (Auto) 0.7 10^3/uL (0.2-0.9) 08/23/24 23:23 Eos # (Auto) 0.4 10^3/uL (0.0-0.8) 08/23/24 23:23 Baso # (Auto) 0.1 10^3/uL (0.0-0.1) 08/23/24 23:23 Nucleated RBC % (auto) 0 % 08/23/24 23:23 Nucleated RBCs # 0.0 /100WBC 08/23/24 23:23 Sodium 138 mmol/L (136-145) 08/23/24 23:23 Potassium 4.5 mmol/L (3.5-5.1) 08/23/24 23:23 Chloride 100 mmol/L (98-107) 08/23/24 23:23 Carbon Dioxide 25 mmol/L (22-29) 08/23/24 23:23 Anion Gap 17.5 (5-19) 08/23/24 23:23 BUN 9 mg/dL (8-23) 08/23/24 23:23 Creatinine 0.7 mg/dL (0.5-0.9) 08/23/24 23:23 GFR Calculation 84.0 mL/min (90-130) L 08/23/24 23:23 Glucose 254 mg/dL (65-115) H 08/23/24 23:23 Calculated Osmolality 293 mOsm/kg (285-295) 08/23/24 23:23 Lactic Acid 2.4 mmol/L (0.5-2.2) H 08/23/24 23:23 Calcium 8.3 mg/dL (8.5-10.5) L 08/23/24 23:23 Magnesium 1.6 mg/dL (1.7-2.3) L 08/23/24 23:23 Total Bilirubin 0.2 mg/dL (0.15-1.2) 08/23/24 23:23 AST 25 U/L (0-32) 08/23/24 23:23 ALT 20 U/L (0-33) 08/23/24 23:23 Alkaline Phosphatase 130 U/L (35-105) H 08/23/24 23:23 Troponin T Baseline 11 ng/L (0-10) H 08/23/24 23:23 NT-Pro-B Natriuret Pep 355 pg/mL (0-125) H 08/23/24 23:23 Total Protein 7.1 g/dL (6.6-8.7) 08/23/24 23:23 Albumin 4.1 g/dL (3.5-5.2) 08/23/24 23:23 Globulin 3.0 g/dL (1.3-4.6) 08/23/24 23:23 TSH 2.12 uIU/mL (0.27-4.20) 08/23/24 23:23 XR interpretation done by ED provider, pending radiology final review Discharge Plan Discharge Patient Disposition: Placed in Observation Admit Provider: Ady Rivas Clinical Impression: Tachycardia, Dyspnea, Accelerated hypertension, Hyperglycemia Coding Level of Care Code ED Floor Tech for Jakub Silva
[2024-08-23 23:50] VITALS: PULSE 127; RESP 22; O2SAT 93
[2024-08-23 23:54] LABS: Troponin(5th) Baseline 11 ng/L (0-10)
[2024-08-23 23:55] VITALS: PULSE 127; RESP 21; O2SAT 93
[2024-08-23 23:55] LABS: Lactic Sepsis W/Reflex 2.4 mmol/L (0.5-2.2)
[2024-08-23 23:59] VITALS: BP 183/113; PULSE 126; RESP 20; O2SAT 93
[2024-08-24] VITALS (16 sets, daily range): BP systolic 108–183; BP diastolic 52–119; PULSE 61–127; RESP 13–25; TEMP 36.7–37.2; O2SAT 92–95
[2024-08-24 00:02] LABS: Alanine Aminotransferase 20 U/L (0-33); Albumin Level 4.1 g/dL (3.5-5.2); Alkaline Phosphatase 130 U/L (35-105); Blood Urea Nitrogen 9 mg/dL (8-23); Calcium 8.3 mg/dL (8.5-10.5); Carbon Dioxide 25 mmol/L (22-29); Chloride 100 mmol/L (98-107); Creatinine Clr Calc Pharmacy 68.8553; Glucose 254 mg/dL (65-115); NT Pro B Type Natriuretic Pept 355 pg/mL (0-125); Osmolality Calculated 293 mOsm/kg (285-295); Sodium 138 mmol/L (136-145); Total Bilirubin 0.2 mg/dL (0.15-1.2); Total Protein 7.1 g/dL (6.6-8.7)
[2024-08-24 00:05] LABS: Anion Gap 17.5 (5-19); Potassium 4.5 mmol/L (3.5-5.1)
[2024-08-24 00:06] LABS: Aspartate Amino Transferase 25 U/L (0-32)
[2024-08-24] MEDS: dilTIAZem 5 mg/mL SDV 5 mL 20 MG IVP (00:13)
--- NOTE | 2024-08-24 00:18 | P.HP_ITS ---
Providers/Chief Complaint 2 Primary Care Provider: Judson Seth MD Chief Complaint: SOB History of Present Illness Sydney Zambrano is a 64 year old female with a past medical history of CVA left MCA status post CVA t, CHF, hypertension, type 2 diabetes mellitus, sleep apnea, lazy left eye discharge in May after management of stroke status post TNKase at that time A-fib was not detected she was discharged on aspirin Plavix coming in today for shortness of breath. In the ER she has been diagnosed with A-fib. She has received Cardizem 20 mg. First EKG in the ER seems to be consistent with atrial flutter/A-fib heart rate was 127, at the time my evaluation her heart rate improved to 80s on sinus rhythm after getting Cardizem, patient is stating that she had an argument with her son who has mind of 12 years old he has intellectual challenges she is 37 biologically, after that she start experiencing shortness of breath, endorsing orthopnea and PND no chest pain but endorsing palpitations. She has been compliant with her medications. is at the bedside. Patient does not take any diuretics at home Review of Systems 2 Eyes: Denies: change in vision ENMT: Denies: throat pain Card: Reports: palpitations; Denies: chest pain Resp: Reports: dyspnea and non-productive cough GI: Denies: abdominal pain Medications/Allergies Home Medications Medication Instructions Recorded Confirmed Last Taken Type clonazepam 0.5 mg tablet 0.5 - 1 mg PO BEDTIME 08/08/23 06/05/24 11/26/23 History fluticasone propionate 50 2 spray intranasal DAILY 08/08/23 06/05/24 11/27/23 History mcg/actuation nasal spray,suspension metformin 500 mg tablet,extended 1,000 mg PO BID 08/08/23 06/05/24 11/27/23 History release 24 hr divalproex 500 mg tablet,delayed 500 mg PO BID 11/27/23 06/05/24 11/27/23 History release sertraline 25 mg tablet 25 mg PO QAM 11/27/23 06/05/24 11/27/23 History clobetasol 0.05 % topical cream 1 applic topical BID PRN when rash 11/29/23 06/05/24 Unknown History flares olanzapine 7.5 mg tablet 7.5 mg PO QAM 11/29/23 06/05/24 Unknown History furosemide 20 mg tablet (Lasix) 20 mg PO DAILY PRN edema #20 tabs 12/01/23 06/05/24 Unknown Rx hydralazine 25 mg tablet 25 mg PO BID #60 tabs 12/01/23 06/05/24 Unknown Rx clonidine HCl 0.2 mg tablet 0.2 mg PO TID 06/05/24 06/05/24 Unknown History cyclobenzaprine 10 mg tablet 10 mg PO TID PRN Muscle Spasm 06/05/24 06/05/24 Unknown History empagliflozin 10 mg tablet 10 mg PO QAM 06/05/24 06/05/24 Unknown History (Jardiance) fluoride (sodium) 1.1 % dental See Rx Instructions .Route .COMPLEX 06/05/24 06/05/24 Unknown History cream (Denta 5000 Plus) metoprolol tartrate 25 mg tablet 25 mg PO BID 06/05/24 06/05/24 Unknown History pregabalin 75 mg capsule 75 mg PO Q12H 06/05/24 06/05/24 Unknown History aspirin 81 mg tablet,delayed 81 mg PO QAM 30 days #30 tabs 06/06/24 Unknown Rx release atorvastatin 20 mg tablet 40 mg (2 x 20 mg) PO DAILY 30 days 06/06/24 Unknown Rx #60 tabs clopidogrel 75 mg tablet 75 mg PO DAILY 30 days #30 tabs 06/06/24 Unknown Rx ondansetron HCl 4 mg tablet 4 mg PO Q8H PRN nausea and 08/05/24 Unknown Rx vomiting #14 tabs Allergies Allergy/AdvReac Type Severity Reaction Status Date / Time penicillin G Allergy unknown Verified 06/20/24 19:53 Penicillins Allergy Unknown Verified 06/20/24 19:53 sulfamethoxazole Allergy unknown Verified 06/20/24 19:53 [From Bactrim] trimethoprim [From Bactrim] Allergy unknown Verified 06/20/24 19:53 PFSH Acute 2 PFSH: Medical History Otorrhea of right ear Sleep arousal disorder Bradycardia Speech and language deficits Memory loss 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 Sister Diabetes Heart disease Breast cancer unknown age onset Brother Heart disease Social History Smoking and tobacco/nicotine status: never used tobacco/nicotine Alcohol intake: never Substance/Drug Use: never Vitals/I&O/Wt Last Vital Signs Temp 98.2 F 08/23/24 23:17 Pulse 127 H 08/24/24 00:05 Resp 22 H 08/24/24 00:05 BP 183/113 08/24/24 00:05 Pulse Ox 92 08/24/24 00:05 O2 Del Method Room Air 08/23/24 23:59 Weight last 48 hrs Weight 73.482 kg Physical Exam 2 Narrative: Awake and alert Pleasant and cooperative Hypertensive Sinus rhythm heart rate around 80s No active chest pain Abdomen soft Dorsum with no significant swelling Bilateral breath sound without any wheezing rhonchi or crackles S1, S2 No significant focal deficit Data 08/23/24 23:23 08/23/24 23:23 Micro: Microbiology 08/23/24 23:23 Blood Culture - Preliminary Blood SPECIMEN COLLECTED 08/23/24 23:17 Blood Culture - Preliminary Blood SPECIMEN COLLECTED A&P Assessment and plan (1) Hypertensive urgency: (2) Paroxysmal A-fib: (3) Shortness of breath: Plan Paroxysmal A-fib Patient has had multiple strokes Has Holter monitoring done in the past which was not able to detect A-fib [id number] Has bled score 3 I have requested patient not to take aspirin and for now take Plavix and therapeutic Lovenox in the hospital and add Eliquis at the time of discharge Hypertensive urgency Patient does not take clonidine anymore Will optimize her antihypertensive regimen Multiple CVAs in the past Lives with her Takes care of her son Consistent carb diet secondary to type 2 diabetes Sliding scale Full code DVT prophylaxis covered with therapeutic Lovenox Diastolic CHF without significant exacerbation however she is endorsing orthopnea PND, high BNP x-ray is not showing significant vascular congestion clinically does not look extremely fluid overloaded I will just keep her on low- dose Lasix for now Attestations 2 Medical Necessity Statement*: Anticipating discharge in next 24 to 48 hours Diagnoses Hypertensive urgency I16.0 Paroxysmal A-fib I48.0 Shortness of breath R06.02
--- NOTE | 2024-08-24 00:25 | CTR_ITS ---
PROCEDURE INFORMATION: Exam: CTA Chest With Contrast Exam date and time: 08/24/2024 12:48 AM Age: 64 years old Clinical indication: Shortness of breath; Additional info: Tachycardia TECHNIQUE: Imaging protocol: Computed tomographic angiography of the chest with contrast. Exam focused on the arteries. 3D rendering (Not supervised by radiologist): MIP and/or 3D reconstructed images were created by the technologist. Radiation optimization: All CT scans at this facility use at least one of these dose optimization techniques: automated exposure control; mA and/or kV adjustment per patient size (includes targeted exams where dose is matched to clinical indication); or iterative reconstruction. Contrast material: OMNI 350; Contrast volume: 100 ml; Contrast route: INTRAVENOUS (IV); COMPARISON: CR XR chest 1V portable [id number] 08/24/2024 12:13 AM RADIATION DOSE METRICS: Total DLP (mGy-cm): 434.79 FINDINGS: Pulmonary arteries: No pulmonary emboli. Aorta: No aortic aneurysm. No aortic dissection. Lungs: No consolidation. No masses. Pleural spaces: No pneumothorax. No pleural effusion. Heart: Some reflux contrast noted within the hepatic veins. Lymph nodes: No enlarged lymph nodes. Gallbladder and biliary ducts: Status post cholecystectomy. Bones/joints: T12 vertebroplasty. Soft tissues: Unremarkable. CT/CT angio chest PE protcl [id number] IMPRESSION: 1. No pulmonary embolism. 2. Clear lungs. 3. Refluxed contrast within the hepatic veins, nonspecific and may represent a component of elevated right heart pressure.
[2024-08-24 00:39] LABS: Magnesium 1.6 mg/dL (1.7-2.3); Thyroid Stimulating Hormone 2.12 uIU/mL (0.27-4.20)
--- NOTE | 2024-08-24 00:53 | ECG_ITS ---
[facility] Test Date: 2024-08-24 Pat Name: Sydney Zambrano Department: Room: 103 Gender: Female Service Center Supervisor: : 1960 Requested By: Deepthi Ferrer Order Number: [id number] Powell MD: Catarino Saldivar M.D. Measurements Intervals [place] Rate: 75 P: 56 GA: 177 QRS: 38 QRSD: 81 T: 48 QT: 405 QTc: 454 Interpretive Statements SINUS RHYTHM Compared to ECG 08/15/2024 22:27:28 Sinus bradycardia no longer present T-wave abnormality no longer present Electronically Signed On 08-25-2024 16:10:32 INVESTOR by Catarino Saldivar M.D. [id number]
[2024-08-24] MEDS: iohexol 350 mg/mL 500 mL Btl (per mL) IV (00:54)
[2024-08-24 01:01] LABS: Covid PCR NEGATIVE (Negative); Influenza A NEGATIVE (Negative); Influenza B NEGATIVE (Negative); Respiratory Syncytial Virus Ce NEGATIVE (Negative)
[2024-08-24 01:17] LABS: Reflex Lactate Order REFLEX LACTIC ORDERD
[2024-08-24 01:39] LABS: Troponin 5 2HR 13.05 ng/L (0-10); Troponin 5 2HR Delta 2.05 ABS# (0-10)
[2024-08-24 01:48] LABS: Bacteria Urine None Seen /hpf; Bilirubin Urine Negative (Negative); Blood Urine Negative (Negative); Glucose Urine UA 1+ (Normal); Ketones Urine Negative (Negative); Leukocyte Esterase Urine Trace (Negative); Nitrate Urine Negative (Negative); Protein Urine Trace (Negative); RBC Urine 0-2 /hpf (0-2); Squamous Epithelial Cell Urine 0-5 /hpf (0-5); Urine Appearance Clear (CLEAR); Urine Color Yellow (Yellow); Urobilinogen Urine 0.2 mg/dL (Negative); pH Urine 5.5 (5-7)
[2024-08-24 02:29] LABS: Lactic Acid level (Lactate) 2.6 mmol/L (0.5-2.2)
[2024-08-24 04:57] LABS: Basophils # 0.1 10^3/uL (0.0-0.1); Basophils % 0.4 %; Eosinophils # 0.3 10^3/uL (0.0-0.8); Eosinophils % 2.4 %; Hematocrit 34.4 % (36-47); Lymphocytes # 1.7 10^3/uL (0.8-4.8); Lymphocytes % 14.7 %; Mean Corpuscular Hemoglobin 29.3 pg (27-33); Mean Corpuscular Volume 91.7 fl (85-98); Mean Platelet Volume 9.4 fL (7.4-10.4); Monocytes # 0.5 10^3/uL (0.2-0.9); Monocytes % 4.6 %; Neutrophils # 8.69 10^3/uL (1.8-7.7); Neutrophils % 77.6 %; Nucleated Red Blood Cells % 0 %; Platelet Count 216 10^3/cmm (157-399); Red Blood Count 3.75 10^6/uL (3.85-5.65); Red Cell Distribution Width 13.2 % (12.1-15.1); White Blood Count 11.21 10^3/uL (3.29-11.43)
--- NOTE | 2024-08-24 05:17 | ECG_ITS ---
[facility] Test Date: 2024-08-24 Pat Name: Sydney Zambrano Department: Room: 103 Gender: Female Law Firm Partner: : 1960 Requested By: Deepthi Ferrer Order Number: [id number] Powell MD: Catarino Saldivar M.D. Measurements Intervals [place] Rate: 121 P: 258 CO: 135 QRS: 24 QRSD: 90 T: 25 QT: 327 QTc: 465 Interpretive Statements possible atrial tachycardia ABNORMAL RHYTHM ECG Compared to ECG 08/24/2024 01:37:20 Sinus rhythm no longer present Electronically Signed On 08-25-2024 16:11:31 CLINICAL AIDE by Catarino Saldivar M.D. [id number]
[2024-08-24 05:28] LABS: Blood Urea Nitrogen 8 mg/dL (8-23); Calcium 8.1 mg/dL (8.5-10.5); Carbon Dioxide 25 mmol/L (22-29); Chloride 100 mmol/L (98-107); Creatinine Clr Calc Pharmacy 71.9879; Glucose 263 mg/dL (65-115); Magnesium 1.6 mg/dL (1.7-2.3); Osmolality Calculated 289 mOsm/kg (285-295); Sodium 136 mmol/L (136-145)
[2024-08-24 05:30] LABS: Anion Gap 15.3 (5-19); Potassium 4.3 mmol/L (3.5-5.1)
[2024-08-24] MEDS: enoxaparin 80 mg/0.8 mL Syringe SUBCUT (05:59)
[2024-08-24 06:27] LABS: Glucose Point of Care 239 mg/dL (70-110)
[2024-08-24] MEDS: hyDRALAzine 25 mg Tablet PO (07:19)
[2024-08-24] MEDS: clopidogrel 75 mg Tablet PO (07:19)
[2024-08-24] MEDS: sennosides-docusate Tablet 1 TAB PO (07:19)
[2024-08-24] MEDS: FUROsemide 20 mg Tablet PO (07:19)
[2024-08-24] MEDS: insulin lispro 100 unit/1 mL SUBCUT ×2 (07:19→11:43)
[2024-08-24] MEDS: lisinopril 10 mg Tablet PO (07:19)
[2024-08-24] MEDS: atorvastatin 40 mg Tablet PO (07:20)
[2024-08-24] MEDS: metoprolol tartrate 25 mg Tablet PO ×2 (07:20→09:15)
[2024-08-24] MEDS: divalproex DR 500 mg Tablet PO (07:29)
--- NOTE | 2024-08-24 09:13 | ECG_ITS ---
[facility] Test Date: 2024-08-24 Pat Name: Sydney Zambrano Department: Room: 103 Gender: Female Butter Wrapper: : 1960 Requested By: Carson Brock Order Number: [id number] Powell MD: Catarino Sadlivar M.D. Measurements Intervals [place] Rate: 108 P: -76 MT: 132 QRS: 24 QRSD: 98 T: 10 QT: 360 QTc: 484 Interpretive Statements possibly atrial TACHYCARDIA NONSPECIFIC T-WAVE ABNORMALITY ABNORMAL RHYTHM ECG Compared to ECG 08/24/2024 05:17:00 T-wave abnormality now present Electronically Signed On 08-25-2024 16:11:44 BUSINESS PROCESS REPRESENTATIVE by Catarino Saldivar M.D. [email or web address]
[2024-08-24] MEDS: magnesium sulfate premix 1 GM/100 ML PIGGYBACK IV (09:15)
[2024-08-24] MEDS: pregabalin 75 mg Capsule PO (09:15)
--- NOTE | 2024-08-24 09:50 | PC.NURSE ---
Dr Brock recommending 21 day event monitor. 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
[2024-08-24] MEDS: FUROsemide 10 mg/mL SDV 2mL 20 MG IVP (09:57)
[2024-08-24 11:07] LABS: Glucose Point of Care 218 mg/dL (70-110)
--- NOTE | 2024-08-24 12:46 | ECG_ITS ---
[facility] Test Date: 2024-08-24 Pat Name: Sydney Zambrano Department: Room: 103 Gender: Female Balance Wheel Facer: : 1960 Requested By: Carson Brock Order Number: [id number] Sherry MD: Catarino Saldivar M.D. Measurements Intervals [place] Rate: 63 P: 22 [place]: 182 QRS: 15 QRSD: 98 T: 79 QT: 422 QTc: 433 Interpretive Statements SINUS RHYTHM NONSPECIFIC T-WAVE ABNORMALITY Compared to ECG 08/24/2024 09:24:28 Junctional tachycardia no longer present T-wave abnormality still present Electronically Signed On 08-25-2024 16:11:51 AQUATICS DIRECTOR by Catarino Saldivar M.D. [id number]
--- NOTE | 2024-08-24 12:52 | P.DS_ITS ---
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 In the ER she has been diagnosed with A-fib. She has received Cardizem 20 mg. First EKG in the ER seems to be consistent with atrial flutter/A-fib heart rate was 127, at the time my evaluation her heart rate improved to 80s on sinus rhythm after getting Cardizem, patient is stating that she had an argument with her son who has mind of 12 years old he has intellectual challenges she is 37 biologically, after that she start experiencing shortness of breath, endorsing orthopnea and PND no chest pain but endorsing palpitations. She has been compliant with her medications. is at the bedside. Patient does not take any diuretics at home. Hospital Course Hospital Course Patient was admitted to the hospital for further evaluation and management of atrial fibrillation/flutter. Her heart rate improved in the ER after Cardizem push and remained stable during hospitalization though she converted to junctional rhythm. Patient is complaining of mild difficulty in breathing for which she received IV diuresis. After improvement in volume status she transit ion back to normal sinus rhythm. She has remained rate controlled in normal sinus rhythm both at rest on exertion during hospitalization. Patient would have benefited from further monitoring while being hospitalized but requested to be discharged as she was feeling better. She has been discharged in hemodynamically stable condition on higher dose of metoprolol at 50 mg twice daily, continued home dose of hydralazine 25 mg twice daily, clonidine has been discontinued. Given his history of recurrent strokes, new diagnosis of paroxysmal A-fib she is to transition over to anticoagulation after further discussion with patient on Eliquis 5 mg twice daily along with Plavix and baby aspirin has been discontinued. Event monitor is being placed. Physical Exam Narrative: Awake and alert Pleasant and cooperative Hypertensive Sinus rhythm heart rate around 80s No active chest pain Abdomen soft Dorsum with no significant swelling Bilateral breath sound without any wheezing rhonchi or crackles S1, S2 No significant focal deficit Discharge Data Studies Completed and Pending Completed Studies During Hospitalization Category Date Time Status CT angio chest PE protcl [id number] Stat Cat Scan 08/24/24 00:25 Completed XR chest 1V portable [id number] Stat Exams 08/23/24 22:53 Completed Pending at discharge Category Date Time Status MCT/Event Monitor 21 Days Routine Exams 08/24/24 09:47 Ordered Blood Culture Stat Lab 08/23/24 23:23 Results Complete Blood Count w/Auto AM LABS Lab 08/25/24 04:00 Ordered Comprehensive Metabolic Panel AM LABS Lab 08/25/24 04:00 Ordered Radiology Impressions Chest X-Ray 08/23/24 22:53 IMPRESSION: No acute chest findings. Chest CTA 08/24/24 00:25 IMPRESSION: 1. No pulmonary embolism. 2. Clear lungs. 3. Refluxed contrast within the hepatic veins, nonspecific and may represent a component of elevated right heart pressure. Laboratory Results WBC 11.21 10^3/uL (3.29-11.43) 08/24/24 04:37 RBC 3.75 10^6/uL (3.85-5.65) L 08/24/24 04:37 Hgb 11.00 g/dL (11.27-16.99) L 08/24/24 04:37 Hct 34.4 % (36-47) L 08/24/24 04:37 MCV 91.7 fl (85-98) 08/24/24 04:37 MCH 29.3 pg (27-33) 08/24/24 04:37 MCHC 32.0 g/dL (30-55) 08/24/24 04:37 RDW 13.2 % (12.1-15.1) 08/24/24 04:37 Plt Count 216 10^3/cmm (157-399) 08/24/24 04:37 MPV 9.4 fL (7.4-10.4) 08/24/24 04:37 Neut % (Auto) 77.6 % 08/24/24 04:37 Lymph % (Auto) 14.7 % 08/24/24 04:37 [place] % (Auto) 4.6 % 08/24/24 04:37 Eos % (Auto) 2.4 % 08/24/24 04:37 Baso % (Auto) 0.4 % 08/24/24 04:37 Neut # (Auto) 8.69 10^3/uL (1.8-7.7) H 08/24/24 04:37 Lymph # (Auto) 1.7 10^3/uL (0.8-4.8) 08/24/24 04:37 [place] # (Auto) 0.5 10^3/uL (0.2-0.9) 08/24/24 04:37 Eos # (Auto) 0.3 10^3/uL (0.0-0.8) 08/24/24 04:37 Baso # (Auto) 0.1 10^3/uL (0.0-0.1) 08/24/24 04:37 Nucleated RBC % (auto) 0 % 08/24/24 04:37 Nucleated RBCs # 0.0 /100WBC 08/24/24 04:37 Sodium 136 mmol/L (136-145) 08/24/24 04:37 Potassium 4.3 mmol/L (3.5-5.1) 08/24/24 04:37 Chloride 100 mmol/L (98-107) 08/24/24 04:37 Carbon Dioxide 25 mmol/L (22-29) 08/24/24 04:37 Anion Gap 15.3 (5-19) 08/24/24 04:37 BUN 8 mg/dL (8-23) 08/24/24 04:37 Creatinine 0.7 mg/dL (0.5-0.9) 08/24/24 04:37 GFR Calculation 84.0 mL/min (90-130) L 08/24/24 04:37 Glucose 263 mg/dL (65-115) H 08/24/24 04:37 POC Glucose 218 mg/dL (70-110) H 08/24/24 10:59 Calculated Osmolality 289 mOsm/kg (285-295) 08/24/24 04:37 Lactic Acid 2.4 mmol/L (0.5-2.2) H 08/23/24 23:23 Lactic Acid (Sepsis) 2.6 mmol/L (0.5-2.2) H 08/24/24 02:07 Calcium 8.1 mg/dL (8.5-10.5) L 08/24/24 04:37 Magnesium 1.6 mg/dL (1.7-2.3) L 08/24/24 04:37 Total Bilirubin 0.2 mg/dL (0.15-1.2) 08/23/24 23:23 AST 25 U/L (0-32) 08/23/24 23:23 ALT 20 U/L (0-33) 08/23/24 23:23 Alkaline Phosphatase 130 U/L (35-105) H 08/23/24 23:23 Troponin T Baseline 11 ng/L (0-10) H 08/23/24 23:23 Troponin T 120 Minute 13.05 ng/L (0-10) H 08/24/24 01:17 Delta Troponin T 2.05 ABS# (0-10) 08/24/24 01:17 Troponin T Hi Sens 6Hr 10.70 ng/L (0-10) H 08/24/24 04:37 Troponin T Hi Sens 6Hr Delta -0.30 ng/L (0-12) L 08/24/24 04:37 NT-Pro-B Natriuret Pep 355 pg/mL (0-125) H 08/23/24 23:23 Total Protein 7.1 g/dL (6.6-8.7) 08/23/24 23:23 Albumin 4.1 g/dL (3.5-5.2) 08/23/24 23:23 Globulin 3.0 g/dL (1.3-4.6) 08/23/24 23:23 TSH 2.12 uIU/mL (0.27-4.20) 08/23/24 23:23 Urine Color Yellow (Yellow) 08/24/24 01:04 Urine Appearance Clear (CLEAR) 08/24/24 01:04 Urine pH 5.5 (5-7) 08/24/24 01:04 Ur Specific [place] 1.040 (1.005-1.030) H 08/24/24 01:04 Urine Protein Trace (Negative) A 08/24/24 01:04 Urine Glucose (UA) 1+ (Normal) H 08/24/24 01:04 Urine Ketones Negative (Negative) 08/24/24 01:04 Urine Blood Negative (Negative) 08/24/24 01:04 Urine Nitrate Negative (Negative) 08/24/24 01:04 Urine Bilirubin Negative (Negative) 08/24/24 01:04 Urine Urobilinogen 0.2 mg/dL (Negative) 08/24/24 01:04 Ur Leukocyte Esterase Trace (Negative) A 08/24/24 01:04 Urine RBC 0-2 /hpf (0-2) 08/24/24 01:04 Urine WBC 11-20 /hpf (0-5) H 08/24/24 01:04 Ur Squamous Epith Cells 0-5 /hpf (0-5) 08/24/24 01:04 Amorphous Sediment Not Reportable 08/24/24 01:04 Urine Bacteria None seen /hpf (NONE) 08/24/24 01:04 Hyaline Casts 0.40 /lpf 08/24/24 01:04 Coronavirus (PCR) Negative (Negative) 08/24/24 00:11 Influenza A (PCR) Negative (Negative) 08/24/24 00:11 Influenza Type B (PCR) Negative (Negative) 08/24/24 00:11 RSV (PCR) Negative (Negative) 08/24/24 00:11 Vitals Last Vital Signs Temp 98.5 F 08/24/24 11:50 Pulse 61 08/24/24 11:50 Resp 17 08/24/24 11:50 BP 108/52 08/24/24 11:50 Pulse Ox 93 08/24/24 07:41 O2 Del Method Room Air 08/24/24 07:41 Discharge Plan Discharge Patient Disposition: Home Condition: Stable Prescriptions: New Eliquis 5 mg tablet 5 mg PO BID Qty: 60 0RF Continued cyclobenzaprine 10 mg tablet 10 mg PO TID PRN (Reason: Muscle Spasm) fluoride (sodium) [Denta 5000 Plus] 1.1 % cream See Rx Instructions .ROUTE .COMPLEX Rx Instructions: Apply TWO cm TO teeth TWICE DAILY FOR TWO minutes AND expectorate. DO not RINSE. pregabalin 75 mg capsule 75 mg PO Q12H Jardiance 10 mg tablet 10 mg PO QAM clopidogrel 75 mg tablet 75 mg PO DAILY 30 Days Qty: 30 0RF atorvastatin 20 mg tablet 40 mg PO DAILY 30 Days Qty: 60 0RF ondansetron HCl 4 mg tablet 4 mg PO Q8H PRN (Reason: nausea and vomiting) Qty: 14 0RF clonazepam 0.5 mg tablet 0.5 - 1 mg PO BEDTIME fluticasone propionate 50 mcg/actuation spray,suspension 2 spray INTRANASAL DAILY metformin 500 mg tablet extended release 24 hr 1,000 mg PO BID divalproex 500 mg tablet,delayed release (DR/EC) 500 mg PO BID sertraline 25 mg tablet 25 mg PO QAM clobetasol 0.05 % cream 1 applic TOPICAL BID PRN (Reason: when rash flares) olanzapine 7.5 mg tablet 7.5 mg PO QAM hydralazine 25 mg tablet 25 mg PO BID Qty: 60 0RF Hold Instructions: Resume on 06/07/24. Changed furosemide [Lasix] 20 mg tablet 20 mg PO DAILY Qty: 20 0RF metoprolol tartrate 25 mg tablet 50 mg PO BID Qty: 120 0RF Discontinued clonidine HCl 0.2 mg tablet 0.2 mg PO TID Hold Instructions: Resume on 06/11/24. aspirin 81 mg tablet,delayed release (DR/EC) 81 mg PO QAM 30 Days Qty: 30 0RF Discharge Orders: Discharge Order (Routine); Ordered 08/24/24 Ordered By: Carson Brock Other Ambulatory Orders: MCT/Event Monitor 21 Days (Routine) Timeframe: 1 Week Facility: [facility] - Location: Radiology Ordered By: Carson Brock Referrals: Judson Seth MD [Primary Care Provider] - 08/28/24 3:00 pm Albina Carrera FNP [Nurse Practitioner] - 1 month Discharge Diet: Cardiac Discharge Activity: Resume usual activity and Increase activity as tolerated Patient Instructions: Apixaban (By mouth) (Eliquis), Heart Failure (ED), A-fib (Atrial Fibrillation) (DC), Ischemic Stroke (DC), Opioid Safety Activity Restrictions/Additional Instructions: Clonidine has been discontinued. Baby aspirin has been discontinued. Instead take Eliquis 5 mg twice daily. Continue Plavix. Dose of metoprolol has been increased to 50 mg twice daily. Check your blood pressure daily at home maintain a blood pressure diary. Goal blood pressure is less than 140/90 mmHg. Follow-up with nurse practitioner-cardiology team within next 3 weeks. Discharge Attestations Time Spent in Discharge Care*: greater than 30 min Specific Discharge Activities: educating patient, educating and/or supporting family/caregiver, discussing with pcp/other providers, discussing with case assembler/social workers/dc planners, documenting/other paperwork and evaluating patient/reviewing data Status at Discharge: Cognitive status at discharge: cognitively intact , Behavioral status at discharge: cooperative , Functional status at discharge: independent ambulation , Overall status at discharge: patient is back to baseline Quality Metrics Clinical Quality Measures [ No reported AMI, CVA or VTE this stay] Coding Level of Care Code 69182 Total time (in minutes) for Discharge: 60 Diagnoses Hypertensive urgency I16.0 Paroxysmal A-fib I48.0 Shortness of breath R06.02
--- NOTE | 2024-08-24 13:18 | PC.NURSE ---
patient discharged to home. Instructions provided regarding follow up appointment and new medications with changes to home meds. Event monitor placed and activated prior to discharge. Patient and family verbalized complete understanding. Rx transmitted to [facility] in [place]. Patient taken by wheelchair to private vehicle with son by side.
== END 2024-08-24 13:21 | disposition home or self-care (01) ==
LOC: ER 23:48 → CSU 08-24 00:41
PROVIDERS: Admitting Provider Internal Medicine; Emergency Provider Emergency Medicine; PCP Family Medicine; Visit Provider Student in an Organized Health Care Education/Training Program
DX: I16.0 Hypertensive urgency (principal); I48.0 Paroxysmal atrial fibrillation; R06.02 Shortness of breath; Z86.73 Personal history of transient ischemic attack (TIA), and cerebral infarction without residual deficits; I11.0 Hypertensive heart disease with heart failure; I50.9 Heart failure, unspecified; E11.9 Type 2 diabetes mellitus without complications; G47.30 Sleep apnea, unspecified; H53.009 Unspecified amblyopia, unspecified eye; Z79.84 Long term (current) use of oral hypoglycemic drugs
CPT/HCPCS: 0241U; 36415; 36416; 71045; 71275; 80048; 80053; 81001; 82962; 83605; 83735; 83880; 84443; 84484; 85025; 87040; 93005; 96365; 96372; 96375; 99285; G0378; J1650; J1815; J1940; J3475; J3490

== ENCOUNTER 2024-09-09 14:50 | Emergency (ER) | payer MEDICAID, SELFPAY ==
[2024-09-09 14:53] VITALS: BP 154/38; PULSE 70; RESP 18; TEMP 36.4; O2SAT 99
--- NOTE | 2024-09-09 15:04 | CTR_ITS ---
PROCEDURE INFORMATION: Exam: CT Head Without Contrast Exam date and time: 09/09/2024 3:10 PM Age: 64 years old Clinical indication: Pain; HX of stroke; Headaches/getting worse/lightheaded TECHNIQUE: Imaging protocol: Computed tomography of the head without contrast. Radiation optimization: All CT scans at this facility use at least one of these dose optimization techniques: automated exposure control; mA and/or kV adjustment per patient size (includes targeted exams where dose is matched to clinical indication); or iterative reconstruction. COMPARISON: CT head wo con* [id number] 06/20/2024 9:12 PM RADIATION DOSE METRICS: Total DLP (mGy-cm): 1033.55 FINDINGS: Brain: There is mild diffuse cerebral atrophy present, consistent with this patient's age. Periventricular and subcortical white matter low densities are present which at this age likely represent microvascular ischemic change. There are chronic lacunar infarcts in the left basal ganglia.No evidence for large acute ischemic infarction. Please note acute ischemia can be occult by head CT. No evidence for acute intracranial hemorrhage. Cerebral ventricles: No ventriculomegaly. Paranasal sinuses: There are air-fluid levels in the maxillary sinuses, sphenoid sinus, and posterior left ethmoid air cells. Mastoid air cells: Visualized mastoid air cells are well aerated. Bones: Unremarkable. No acute fracture. Soft tissues: Unremarkable. CT/CT head wo con* [id number] IMPRESSION: 1. There are senescent changes of the brain as described above. No evidence for large acute ischemic infarction or acute intracranial injury. 2. Acute paranasal sinusitis.
[2024-09-09] MEDS: dexamethasone 10 mg/mL INJ IVP (15:40)
[2024-09-09] MEDS: diphenhydrAMINE 50 mg/mL SDV 1mL IVP (15:43)
[2024-09-09] MEDS: ketorolac 60 mg/2 mL INJ 30 MG IVP (15:45)
--- NOTE | 2024-09-09 15:47 | ED_ITS ---
Documented by User: DELMI Dorman 09/09/24 17:52 HPI - Headache 2 General: Chief Complaint: Headache Stated Complaint: HEADACHE Time Seen by Provider: 09/09/24 14:58 Source: patient Mode of arrival: EMS Limitations: no limitations History of Present Illness: Patient is a 64-year-old female who is well-known here to the emergency department who arrives by EMS for a headache. She reports she has been having a headache for the past week intermittently, though it was much worse today. He states that she was driving herself to the ER when her car broke down, this prompted her to call EMS. She was recently here in the emergency department, admitted for observation due to tachycardia, when questioning her about this she states that she does not remember being the emergency department or in the hospital. She states she does not have a history of migraines or tension headaches, her headache is all over but worse behind her eyes. She is not reporting any neurological symptoms, no nausea or vomiting, no chest pain or shortness of breath, and no other symptoms other than the headache. Vitals are normal at this time. She states that she recently had a TIA a month ago, denies taking blood thinners though reviewing her medication list does appear that she takes Eliquis twice a day. She is also on a statin and medications for blood pressure. Pertinent past medical history to report includes diabetes, recurrent UTI. Further review of her medical history reveals that this was not a TIA, was an acute ischemic left MCA stroke. I am seeing that she was supposed to follow-up with neurology following her hospital stay, has not done so since seeing Dr. Espinosa in the hospital. Her neurologist is Dr. Cast. elicited complaint: headache Pertinent past history: other (CVA) Onset (ago): week(s) Onset description: gradually Location: diffuse Severity: moderate Exacerbating factors: none Relieving factors: nothing Associated symptoms: Reports no associated symptoms; Deny chest pain, fever(s), lightheadedness, nausea, rash or vomiting Treatments prior to arrival: none Related Data Home Medications Medication Instructions Recorded Confirmed clonazepam 0.5 mg tablet 0.5 - 1 mg PO BEDTIME 08/08/23 08/24/24 fluticasone propionate 50 2 spray intranasal DAILY 08/08/23 08/24/24 mcg/actuation nasal spray,suspension metformin 500 mg tablet,extended 1,000 mg PO BID 08/08/23 08/24/24 release 24 hr divalproex 500 mg tablet,delayed 500 mg PO BID 11/27/23 08/24/24 release sertraline 25 mg tablet 25 mg PO QAM 11/27/23 08/24/24 clobetasol 0.05 % topical cream 1 applic topical BID PRN when rash 11/29/23 08/24/24 flares olanzapine 7.5 mg tablet 7.5 mg PO QAM 11/29/23 08/24/24 cyclobenzaprine 10 mg tablet 10 mg PO TID PRN Muscle Spasm 06/05/24 08/24/24 empagliflozin 10 mg tablet 10 mg PO QAM 06/05/24 08/24/24 (Jardiance) fluoride (sodium) 1.1 % dental See Rx Instructions .Route .COMPLEX 06/05/24 08/24/24 cream (Denta 5000 Plus) pregabalin 75 mg capsule 75 mg PO Q12H 06/05/24 08/24/24 Previous Rx's Medication Instructions Recorded hydralazine 25 mg tablet 25 mg PO BID #60 tabs 12/01/23 atorvastatin 20 mg tablet 40 mg (2 x 20 mg) PO DAILY 30 days 06/06/24 #60 tabs clopidogrel 75 mg tablet 75 mg PO DAILY 30 days #30 tabs 06/06/24 ondansetron HCl 4 mg tablet 4 mg PO Q8H PRN nausea and 08/05/24 vomiting #14 tabs apixaban 5 mg tablet (Eliquis) 5 mg PO BID #60 tabs 08/24/24 furosemide 20 mg tablet (Lasix) 20 mg PO DAILY edema #20 tabs 08/24/24 metoprolol tartrate 25 mg tablet 50 mg (2 x 25 mg) PO BID #120 tabs 08/24/24 cefdinir 300 mg capsule 300 mg PO BID 7 days #14 caps 09/09/24 Allergies Allergy/AdvReac Type Severity Reaction Status Date / Time penicillin G Allergy unknown Verified 06/20/24 19:53 Penicillins Allergy Unknown Verified 06/20/24 19:53 sulfamethoxazole Allergy unknown Verified 06/20/24 19:53 [From Bactrim] trimethoprim [From Bactrim] Allergy unknown Verified 06/20/24 19:53 Review of Systems 2 General: Reports: 10 or more systems reviewed and unremarkable except in HPI and below Const: Denies: fever(s), chills or fatigue Eyes: Denies: change in vision ENMT: Denies: throat pain, ear or mastoid pain or nasal discharge Card: Denies: chest pain, palpitations, swelling of feet/ankles or lightheadedness Resp: Denies: dyspnea, productive cough or wheezing GI: Denies: abdominal pain, nausea, vomiting, diarrhea or constipation : Denies: flank pain, difficulty voiding, dysuria or urinary frequency Musc: Denies: neck pain, back pain or joint pain Skin/Breast: Denies: rash Neuro: Reports: headache(s); Denies: numbness in extremities or weakness in extremities PFSH ED 2 PFSH: Medical History Otorrhea of right ear Sleep arousal disorder Bradycardia Speech and language deficits Memory loss 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 Sister Diabetes Heart disease Breast cancer unknown age onset Brother Heart disease Social History Smoking and tobacco/nicotine status: never used tobacco/nicotine Alcohol intake: never Substance/Drug Use: never Physical Exam 2 Const: COMMON NORMALS: no acute distress, patient oriented x3 and no limitations GENERAL APPEARANCE: cooperative, comfortable and well developed ORIENTATION/CONSCIOUSNESS: Yes awake, Yes oriented to person, Yes oriented to place and Yes oriented to time HENMT: COMMON NORMALS: normocephalic, atraumatic and hearing grossly normal bilaterally HEAD & SCALP: normocephalic and atraumatic MOUTH: Normal oral and palatal mucosa present THROAT: posterior oropharynx normal Eye: COMMON NORMALS: Equal, round and reactive pupils present, EOMs intact bilaterally and conjunctivae normal CONJUNCTIVA: Yes conjunctivae normal P UPIL: Yes Equal, round and reactive pupils present OTHER: Chronic appearing left eye defect, her eyes are tracking midline Neck/C-Spine: COMMON NORMALS: full ROM, supple and no JVD Resp: COMMON NORMALS: normal respiratory effort, No retractions, No use of accessory muscles and clear to auscultation bilaterally AUSCULTATION: clear to auscultation bilaterally Cardio: COMMON NORMALS: no JVD, regular rate, regular rhythm, No clicks present (Cardio), No murmurs present (Cardio) and No rub (Cardio) RATE: r egular rate RHYTHM: regular rhythm GI: COMMON NORMALS: Normal to inspection, nondistended, normoactive bowel sounds present, Soft to palpation and non-tender AUSCULTATION: Yes normoactive bowel sounds PALPATION: Yes Soft to palpation RECTAL EXAM: d eferred Extremity: COMMON NORMALS: normal to inspection, full ROM and capillary refill normal Neuro: COMMON NORMALS: patient oriented x3, CN's II-XII intact bilaterally, moves all extremities, no focal motor deficits and no sensory deficits noted SENSORIUM/ORIENTATION: Yes oriented to person, Yes oriented to place and Yes oriented to time COORDINATION/BALANCE: fujmxd-pi-klsz test normal, qxky-um-qjxf test normal and tandem gait normal SPEECH: speech normal G AIT: Yes Normal gait present MOTOR EXAM: 5/5 motor strength present throughout, Pronator motor function not present, no tremor noted, no asterixis, Motor fasciculations not present and Normal motor muscle tone present throughout COORDINATION: dbidhy-in-mfjp test normal, dnyl-zk-ijts test normal and tandem gait normal Psych: COMMON NORMALS: mental status grossly normal and Normal thought process present THOUGHT PROCESS: Normal thought process present Skin: COMMON NORMALS: no rashes or lesions noted GENERAL SKIN EXAM: no rashes or lesions noted Course 2 Vital Signs: Vital signs: Vital Signs Temperature 97.6 F 09/09/24 14:53 Pulse Rate 65 09/09/24 17:18 Respiratory Rate 18 09/09/24 14:53 Blood Pressure 143/40 09/09/24 17:18 Pulse Oximetry 99 09/09/24 17:18 Oxygen Delivery Me thod Room Air 09/09/24 14:53 MDM - Headache Medical Decision Making Patient presented by ambulance for a headache. Recently was here in the hospital for observation, she is well-known here to the emergency department as well. Neurologically she was completely intact, reviewing her chart did find that she had a history of a CVA. Alert and oriented x 4. CT without contrast not demonstrate any acute intracranial findings, though did show some signs of acute sinusitis. Her lab work was all normal when compared to her previous. Urine pending at this time, as she is requesting to go home after being treated for her headache she feels better. Patient's family in the room states that she currently has COVID and patient has been directly in contact with her, and denied COVID swab here. Headache could be migraine, viral, or bacterial sinusitis, however we will have her treat conservatively at home and return with any new or worsening. Her urinalysis did show signs of infection after discharge, she was prescribed antibiotics and told to take these as prescribed. Return precautions were given, patient endorsed understanding and is ready for discharge home Lab Data 09/09/24 15:42 09/09/24 15:[address] 09/09/24 15:04 IMPRESSION: 1. There are senescent changes of the brain as described above. No evidence for large acute ischemic infarction or acute intracranial injury. 2. Acute paranasal sinusitis. Laboratory Results WBC 7.06 10^3/uL (3.29-11.43) 09/09/24 15:42 RBC 4.57 10^6/uL (3.85-5.65) 09/09/24 15:42 Hgb 13.50 g/dL (11.27-16.99) 09/09/24 15:42 Hct 42.9 % (36-47) 09/09/24 15:42 MCV 93.9 fl (85-98) 09/09/24 15:42 MCH 29.5 pg (27-33) 09/09/24 15:42 MCHC 31.5 g/dL (30-55) 09/09/24 15:42 RDW 12.9 % (12.1-15.1) 09/09/24 15:42 Plt Count 300 10^3/cmm (157-399) 09/09/24 15:42 MPV 10.0 fL (7.4-10.4) 09/09/24 15:42 Neut % (Auto) 72.5 % 09/09/24 15:42 Lymph % (Auto) 18.8 % 09/09/24 15:42 [place] % (Auto) 6.5 % 09/09/24 15:42 Eos % (Auto) 1.1 % 09/09/24 15:42 Baso % (Auto) 0.8 % 09/09/24 15:42 Neut # (Auto) 5.11 10^3/uL (1.8-7.7) 09/09/24 15:42 Lymph # (Auto) 1.3 10^3/uL (0.8-4.8) 09/09/24 15:42 [place] # (Auto) 0.5 10^3/uL (0.2-0.9) 09/09/24 15:42 Eos # (Auto) 0.1 10^3/uL (0.0-0.8) 09/09/24 15:42 Baso # (Auto) 0.1 10^3/uL (0.0-0.1) 09/09/24 15:42 Nucleated RBC % (auto) 0 % 09/09/24 15:42 Nucleated RBCs # 0.0 /100WBC 09/09/24 15:42 Sodium 142 mmol/L (136-145) 09/09/24 15:42 Potassium 3.4 mmol/L (3.5-5.1) L 09/09/24 15:42 Chloride 100 mmol/L (98-107) 09/09/24 15:42 Carbon Dioxide 26 mmol/L (22-29) 09/09/24 15:42 Anion Gap 19.4 (5-19) H 09/09/24 15:42 BUN 8 mg/dL (8-23) 09/09/24 15:42 Creatinine 0.8 mg/dL (0.5-0.9) 09/09/24 15:42 GFR Calculation 72.0 mL/min (90-130) L 09/09/24 15:42 Glucose 179 mg/dL (65-115) H 09/09/24 15:42 Calculated Osmolality 297 mOsm/kg (285-295) H 09/09/24 15:42 Calcium 9.3 mg/dL (8.5-10.5) 09/09/24 15:42 Magnesium 1.8 mg/dL (1.7-2.3) 09/09/24 15:42 Total Bilirubin 0.5 mg/dL (0.15-1.2) 09/09/24 15:42 AST 17 U/L (0-32) 09/09/24 15:42 ALT 11 U/L (0-33) 09/09/24 15:42 Alkaline Phosphatase 103 U/L (35-105) 09/09/24 15:42 Total Protein 8.2 g/dL (6.6-8.7) 09/09/24 15:42 Albumin 4.0 g/dL (3.5-5.2) 09/09/24 15:42 Globulin 4.2 g/dL (1.3-4.6) 09/09/24 15:42 Urine Color Yellow (Yellow) 09/09/24 17:11 Urine Appearance Clear (CLEAR) 09/09/24 17:11 Urine pH 5.5 (5-7) 09/09/24 17:11 Ur Specific [place] 1.035 (1.005-1.030) H 09/09/24 17:11 Urine Protein Trace (Negative) A 09/09/24 17:11 Urine Glucose (UA) 3+ (Normal) H 09/09/24 17:11 Urine Ketones Negative (Negative) 09/09/24 17:11 Urine Blood Negative (Negative) 09/09/24 17:11 Urine Nitrate Positive (Negative) A 09/09/24 17:11 Urine Bilirubin Negative (Negative) 09/09/24 17:11 Urine Urobilinogen 0.2 mg/dL (Negative) 09/09/24 17:11 Ur Leukocyte Esterase Negative (Negative) 09/09/24 17:11 Urine RBC 0-2 /hpf (0-2) 09/09/24 17:11 Urine WBC 21-50 /hpf (0-5) H 09/09/24 17:11 Ur Squamous Epith Cells 0-5 /hpf (0-5) 09/09/24 17:11 Amorphous Sediment Not Reportable 09/09/24 17:11 Urine Bacteria 4+ /hpf (NONE) H 09/09/24 17:11 Hyaline Casts 0-4 /lpf H 09/09/24 17:11 All radiology interpretation(s) finalized by discharge Discharge Plan Discharge Patient Disposition: Home Clinical Impression: Sinusitis Qualifiers: Sinusitis location: frontal Chronicity: acute Recurrence: non-recurrent Q ualified Code(s): J01.10 - Acute frontal sinusitis, unspecified Headache Qualifiers: Headache type: unspecified Headache chronicity pattern: acute headache I ntractability: intractable Qualified Code(s): R51.9 - Headache, unspecified UTI (urinary tract infection) Qualifiers: Urinary tract infection type: acute cystitis Hematuria presence: without hematuria Qualified Code(s): N30.00 - Acute cystitis without hematuria Condition: Stable Prescriptions: New cefdinir 300 mg capsule 300 mg PO BID 7 Days Qty: 14 0RF No Action cyclobenzaprine 10 mg tablet 10 mg PO TID PRN (Reason: Muscle Spasm) fluoride (sodium) [Denta 5000 Plus] 1.1 % cream See Rx Instructions .ROUTE .COMPLEX Rx Instructions: Apply TWO cm TO teeth TWICE DAILY FOR TWO minutes AND expectorate. DO not RINSE. pregabalin 75 mg capsule 75 mg PO Q12H Jardiance 10 mg tablet 10 mg PO QAM clopidogrel 75 mg tablet 75 mg PO DAILY 30 Days Qty: 30 0RF atorvastatin 20 mg tablet 40 mg PO DAILY 30 Days Qty: 60 0RF ondansetron HCl 4 mg tablet 4 mg PO Q8H PRN (Reason: nausea and vomiting) Qty: 14 0RF clonazepam 0.5 mg tablet 0.5 - 1 mg PO BEDTIME fluticasone propionate 50 mcg/actuation spray,suspension 2 spray INTRANASAL DAILY metformin 500 mg tablet extended release 24 hr 1,000 mg PO BID divalproex 500 mg tablet,delayed release (DR/EC) 500 mg PO BID sertraline 25 mg tablet 25 mg PO QAM clobetasol 0.05 % cream 1 applic TOPICAL BID PRN (Reason: when rash flares) olanzapine 7.5 mg tablet 7.5 mg PO QAM hydralazine 25 mg tablet 25 mg PO BID Qty: 60 0RF Hold Instructions: Resume on 06/07/24. Eliquis 5 mg tablet 5 mg PO BID Qty: 60 0RF furosemide [Lasix] 20 mg tablet 20 mg PO DAILY Qty: 20 0RF metoprolol tartrate 25 mg tablet 50 mg PO BID Qty: 120 0RF Discharge Orders: Discharge ED (Routine); Ordered 09/09/24 Ordered By: Lev Borja Referrals: Judson Seth MD [Primary Care Provider] - Patient Instructions: Sinusitis (ED) Activity Restrictions/Additional Instructions: Pending urinalysis, will call with any abnormal results. You do have signs of sinusitis that could be causing your headache, take mykg-lig-kapdpex decongestant such as Mucinex or antihistamines. Contact precaution due to your reported exposure to COVID, drink plenty of fluids and return with any new or worsening symptoms. Coding Level of Care Code ED [employer] Fwd Documented by User: Lucio Garner DO 09/10/24 14:12 HPI - Headache 2 General: Chief Complaint: Headache Stated Complaint: HEADACHE Time Seen by Provider: 09/09/24 14:58 Related Data Home Medications Medication Instructions Recorded Confirmed clonazepam 0.5 mg tablet 0.5 - 1 mg PO BEDTIME 08/08/23 08/24/24 fluticasone propionate 50 2 spray intranasal DAILY 08/08/23 08/24/24 mcg/actuation nasal spray,suspension metformin 500 mg tablet,extended 1,000 mg PO BID 08/08/23 08/24/24 release 24 hr divalproex 500 mg tablet,delayed 500 mg PO BID 11/27/23 08/24/24 release sertraline 25 mg tablet 25 mg PO QAM 11/27/23 08/24/24 clobetasol 0.05 % topical cream 1 applic topical BID PRN when rash 11/29/23 08/24/24 flares olanzapine 7.5 mg tablet 7.5 mg PO QAM 11/29/23 08/24/24 cyclobenzaprine 10 mg tablet 10 mg PO TID PRN Muscle Spasm 06/05/24 08/24/24 empagliflozin 10 mg tablet 10 mg PO QAM 06/05/24 08/24/24 (Jardiance) fluoride (sodium) 1.1 % dental See Rx Instructions .Route .COMPLEX 06/05/24 08/24/24 cream (Denta 5000 Plus) pregabalin 75 mg capsule 75 mg PO Q12H 06/05/24 08/24/24 Previous Rx's Medication Instructions Recorded hydralazine 25 mg tablet 25 mg PO BID #60 tabs 12/01/23 atorvastatin 20 mg tablet 40 mg (2 x 20 mg) PO DAILY 30 days 06/06/24 #60 tabs clopidogrel 75 mg tablet 75 mg PO DAILY 30 days #30 tabs 06/06/24 ondansetron HCl 4 mg tablet 4 mg PO Q8H PRN nausea and 08/05/24 vomiting #14 tabs apixaban 5 mg tablet (Eliquis) 5 mg PO BID #60 tabs 08/24/24 furosemide 20 mg tablet (Lasix) 20 mg PO DAILY edema #20 tabs 08/24/24 metoprolol tartrate 25 mg tablet 50 mg (2 x 25 mg) PO BID #120 tabs 08/24/24 cefdinir 300 mg capsule 300 mg PO BID 7 days #14 caps 09/09/24 Allergies Allergy/AdvReac Type Severity Reaction Status Date / Time penicillin G Allergy unknown Verified 06/20/24 19:53 Penicillins Allergy Unknown Verified 06/20/24 19:53 sulfamethoxazole Allergy unknown Verified 06/20/24 19:53 [From Bactrim] trimethoprim [From Bactrim] Allergy unknown Verified 06/20/24 19:53 PFSH ED 2 PFSH: Medical History Otorrhea of right ear Sleep arousal disorder Bradycardia Speech and language deficits Memory loss 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 Sister Diabetes Heart disease Breast cancer unknown age onset Brother Heart disease Social History Smoking and tobacco/nicotine status: never used tobacco/nicotine Alcohol intake: never Substance/Drug Use: never Course 2 Vital Signs: Vital signs: Vital Signs Temperature 97.6 F 09/09/24 14:53 Pulse Rate 65 09/09/24 17:18 Respiratory Rate 18 09/09/24 14:53 Blood Pressure 143/40 09/09/24 17:18 Pulse Oximetry 99 09/09/24 17:18 Oxygen Delivery Me thod Room Air 09/09/24 14:53 MDM - Headache Medical Decision Making Patient presented by ambulance for a headache. Recently was here in the hospital for observation, she is well-known here to the emergency department as well. Neurologically she was completely intact, reviewing her chart did find that she had a history of a CVA. Alert and oriented x 4. CT without contrast not demonstrate any acute intracranial findings, though did show some signs of acute sinusitis. Her lab work was all normal when compared to her previous. Urine pending at this time, as she is requesting to go home after being treated for her headache she feels better. Patient's family in the room states that she currently has COVID and patient has been directly in contact with her, and denied COVID swab here. Headache could be migraine, viral, or bacterial sinusitis, however we will have her treat conservatively at home and return with any new or worsening. Her urinalysis did show signs of infection after discharge, she was prescribed antibiotics and told to take these as prescribed. Return precautions were given, patient endorsed understanding and is ready for discharge home Chart reviewed Lab Data 09/09/24 15:42 09/09/24 15:[address] 09/09/24 15:04 IMPRESSION: 1. There are senescent changes of the brain as described above. No evidence for large acute ischemic infarction or acute intracranial injury. 2. Acute paranasal sinusitis. Laboratory Results WBC 7.06 10^3/uL (3.29-11.43) 09/09/24 15:42 RBC 4.57 10^6/uL (3.85-5.65) 09/09/24 15:42 Hgb 13.50 g/dL (11.27-16.99) 09/09/24 15:42 Hct 42.9 % (36-47) 09/09/24 15:42 MCV 93.9 fl (85-98) 09/09/24 15:42 MCH 29.5 pg (27-33) 09/09/24 15:42 MCHC 31.5 g/dL (30-55) 09/09/24 15:42 RDW 12.9 % (12.1-15.1) 09/09/24 15:42 Plt Count 300 10^3/cmm (157-399) 09/09/24 15:42 MPV 10.0 fL (7.4-10.4) 09/09/24 15:42 Neut % (Auto) 72.5 % 09/09/24 15:42 Lymph % (Auto) 18.8 % 09/09/24 15:42 [place] % (Auto) 6.5 % 09/09/24 15:42 Eos % (Auto) 1.1 % 09/09/24 15:42 Baso % (Auto) 0.8 % 09/09/24 15:42 Neut # (Auto) 5.11 10^3/uL (1.8-7.7) 09/09/24 15:42 Lymph # (Auto) 1.3 10^3/uL (0.8-4.8) 09/09/24 15:42 [place] # (Auto) 0.5 10^3/uL (0.2-0.9) 09/09/24 15:42 Eos # (Auto) 0.1 10^3/uL (0.0-0.8) 09/09/24 15:42 Baso # (Auto) 0.1 10^3/uL (0.0-0.1) 09/09/24 15:42 Nucleated RBC % (auto) 0 % 09/09/24 15:42 Nucleated RBCs # 0.0 /100WBC 09/09/24 15:42 Sodium 142 mmol/L (136-145) 09/09/24 15:42 Potassium 3.4 mmol/L (3.5-5.1) L 09/09/24 15:42 Chloride 100 mmol/L (98-107) 09/09/24 15:42 Carbon Dioxide 26 mmol/L (22-29) 09/09/24 15:42 Anion Gap 19.4 (5-19) H 09/09/24 15:42 BUN 8 mg/dL (8-23) 09/09/24 15:42 Creatinine 0.8 mg/dL (0.5-0.9) 09/09/24 15:42 GFR Calculation 72.0 mL/min (90-130) L 09/09/24 15:42 Glucose 179 mg/dL (65-115) H 09/09/24 15:42 Calculated Osmolality 297 mOsm/kg (285-295) H 09/09/24 15:42 Calcium 9.3 mg/dL (8.5-10.5) 09/09/24 15:42 Magnesium 1.8 mg/dL (1.7-2.3) 09/09/24 15:42 Total Bilirubin 0.5 mg/dL (0.15-1.2) 09/09/24 15:42 AST 17 U/L (0-32) 09/09/24 15:42 ALT 11 U/L (0-33) 09/09/24 15:42 Alkaline Phosphatase 103 U/L (35-105) 09/09/24 15:42 Total Protein 8.2 g/dL (6.6-8.7) 09/09/24 15:42 Albumin 4.0 g/dL (3.5-5.2) 09/09/24 15:42 Globulin 4.2 g/dL (1.3-4.6) 09/09/24 15:42 Urine Color Yellow (Yellow) 09/09/24 17:11 Urine Appearance Clear (CLEAR) 09/09/24 17:11 Urine pH 5.5 (5-7) 09/09/24 17:11 Ur Specific [place] 1.035 (1.005-1.030) H 09/09/24 17:11 Urine Protein Trace (Negative) A 09/09/24 17:11 Urine Glucose (UA) 3+ (Normal) H 09/09/24 17:11 Urine Ketones Negative (Negative) 09/09/24 17:11 Urine Blood Negative (Negative) 09/09/24 17:11 Urine Nitrate Positive (Negative) A 09/09/24 17:11 Urine Bilirubin Negative (Negative) 09/09/24 17:11 Urine Urobilinogen 0.2 mg/dL (Negative) 09/09/24 17:11 Ur Leukocyte Esterase Negative (Negative) 09/09/24 17:11 Urine RBC 0-2 /hpf (0-2) 09/09/24 17:11 Urine WBC 21-50 /hpf (0-5) H 09/09/24 17:11 Ur Squamous Epith Cells 0-5 /hpf (0-5) 09/09/24 17:11 Amorphous Sediment Not Reportable 09/09/24 17:11 Urine Bacteria 4+ /hpf (NONE) H 09/09/24 17:11 Hyaline Casts 0-4 /lpf H 09/09/24 17:11 Discharge Plan Discharge Patient Disposition: Home Clinical Impression: Sinusitis Qualifiers: Sinusitis location: frontal Chronicity: acute Recurrence: non-recurrent Q ualified Code(s): J01.10 - Acute frontal sinusitis, unspecified Headache Qualifiers: Headache type: unspecified Headache chronicity pattern: acute headache I ntractability: intractable Qualified Code(s): R51.9 - Headache, unspecified UTI (urinary tract infection) Qualifiers: Urinary tract infection type: acute cystitis Hematuria presence: without hematuria Qualified Code(s): N30.00 - Acute cystitis without hematuria Condition: Stable Prescriptions: New cefdinir 300 mg capsule 300 mg PO BID 7 Days Qty: 14 0RF No Action cyclobenzaprine 10 mg tablet 10 mg PO TID PRN (Reason: Muscle Spasm) fluoride (sodium) [Denta 5000 Plus] 1.1 % cream See Rx Instructions .ROUTE .COMPLEX Rx Instructions: Apply TWO cm TO teeth TWICE DAILY FOR TWO minutes AND expectorate. DO not RINSE. pregabalin 75 mg capsule 75 mg PO Q12H Jardiance 10 mg tablet 10 mg PO QAM clopidogrel 75 mg tablet 75 mg PO DAILY 30 Days Qty: 30 0RF atorvastatin 20 mg tablet 40 mg PO DAILY 30 Days Qty: 60 0RF ondansetron HCl 4 mg tablet 4 mg PO Q8H PRN (Reason: nausea and vomiting) Qty: 14 0RF clonazepam 0.5 mg tablet 0.5 - 1 mg PO BEDTIME fluticasone propionate 50 mcg/actuation spray,suspension 2 spray INTRANASAL DAILY metformin 500 mg tablet extended release 24 hr 1,000 mg PO BID divalproex 500 mg tablet,delayed release (DR/EC) 500 mg PO BID sertraline 25 mg tablet 25 mg PO QAM clobetasol 0.05 % cream 1 applic TOPICAL BID PRN (Reason: when rash flares) olanzapine 7.5 mg tablet 7.5 mg PO QAM hydralazine 25 mg tablet 25 mg PO BID Qty: 60 0RF Hold Instructions: Resume on 06/07/24. Eliquis 5 mg tablet 5 mg PO BID Qty: 60 0RF furosemide [Lasix] 20 mg tablet 20 mg PO DAILY Qty: 20 0RF metoprolol tartrate 25 mg tablet 50 mg PO BID Qty: 120 0RF Discharge Orders: Discharge ED (Routine); Ordered 09/09/24 Ordered By: Lev Borja Referrals: Judson Seth MD [Primary Care Provider] - Patient Instructions: Sinusitis (ED) Activity Restrictions/Additional Instructions: Pending urinalysis, will call with any abnormal results. You do have signs of sinusitis that could be causing your headache, take noeg-vtn-frjrlsq decongestant such as Mucinex or antihistamines. Contact precaution due to your reported exposure to COVID, drink plenty of fluids and return with any new or worsening symptoms. Coding Level of Care Code ED Purchasing Internship for Jakub Silva
[2024-09-09 15:48] LABS: Basophils # 0.1 10^3/uL (0.0-0.1); Basophils % 0.8 %; Eosinophils # 0.1 10^3/uL (0.0-0.8); Eosinophils % 1.1 %; Hematocrit 42.9 % (36-47); Lymphocytes # 1.3 10^3/uL (0.8-4.8); Lymphocytes % 18.8 %; Mean Corpuscular HGB Conc 31.5 g/dL (30-55); Mean Corpuscular Hemoglobin 29.5 pg (27-33); Mean Corpuscular Volume 93.9 fl (85-98); Monocytes # 0.5 10^3/uL (0.2-0.9); Monocytes % 6.5 %; Neutrophils # 5.11 10^3/uL (1.8-7.7); Neutrophils % 72.5 %; Nucleated Red Blood Cells % 0 %; Platelet Count 300 10^3/cmm (157-399); Red Blood Count 4.57 10^6/uL (3.85-5.65); Red Cell Distribution Width 12.9 % (12.1-15.1); White Blood Count 7.06 10^3/uL (3.29-11.43)
--- NOTE | 2024-09-09 15:48 | PC.NURSE ---
unable to obtain IV access on patient, okayed by provider to give meds IM.
[2024-09-09 15:52] VITALS: BP 142/53; BP 144/52; BP 153/50; PULSE 69; PULSE 70; PULSE 85
[2024-09-09 15:58] VITALS: BP 156/77; PULSE 70; O2SAT 99
[2024-09-09 16:06] LABS: Alanine Aminotransferase 11 U/L (0-33); Alkaline Phosphatase 103 U/L (35-105); Anion Gap 19.4 (5-19); Aspartate Amino Transferase 17 U/L (0-32); Blood Urea Nitrogen 8 mg/dL (8-23); Calcium 9.3 mg/dL (8.5-10.5); Carbon Dioxide 26 mmol/L (22-29); Chloride 100 mmol/L (98-107); Globulin 4.2 g/dL (1.3-4.6); Glucose 179 mg/dL (65-115); Magnesium 1.8 mg/dL (1.7-2.3); Osmolality Calculated 297 mOsm/kg (285-295); Potassium 3.4 mmol/L (3.5-5.1); Sodium 142 mmol/L (136-145); Total Bilirubin 0.5 mg/dL (0.15-1.2); Total Protein 8.2 g/dL (6.6-8.7)
[2024-09-09 16:30] VITALS: BP 135/58; PULSE 66; O2SAT 99
[2024-09-09 17:18] VITALS: BP 143/40; PULSE 65; O2SAT 99
[2024-09-09 17:21] LABS: Bilirubin Urine Negative (Negative); Blood Urine Negative (Negative); Glucose Urine UA 3+ (Normal); Ketones Urine Negative (Negative); Leukocyte Esterase Urine Negative (Negative); Nitrate Urine Positive (Negative); Protein Urine Trace (Negative); Urine Appearance Clear (CLEAR); Urine Color Yellow (Yellow); Urobilinogen Urine 0.2 mg/dL (Negative); pH Urine 5.5 (5-7)
[2024-09-09 17:26] LABS: Add Urine Microscopic? YES; Bacteria Urine 4+ /hpf; Hyaline Casts Urine 0-4 /lpf; RBC Urine 0-2 /hpf (0-2); Squamous Epithelial Cell Urine 0-5 /hpf (0-5); WBC Urine 21-50 /hpf (0-5)
[2024-09-09 17:28] LABS: Add Urine Culture? Yes; Specific Gravity, Urine 1.035 (1.005-1.030)
== END 2024-09-09 17:19 | disposition home or self-care (01) ==
PROVIDERS: Emergency Provider Physician Assistant; PCP Family Medicine
DX: J01.10 Acute frontal sinusitis, unspecified (principal); R51.9 Headache, unspecified; N30.00 Acute cystitis without hematuria; Z79.02 Long term (current) use of antithrombotics/antiplatelets; Z79.01 Long term (current) use of anticoagulants; E11.9 Type 2 diabetes mellitus without complications
CPT/HCPCS: 70450; 80053; 81001; 83735; 85025; 87077; 87086; 87186; 96374; 96375; 99285; J1100; J1200; J1885

== ENCOUNTER 2024-10-12 18:24 | Emergency (ER) | payer MEDICAID, SELFPAY ==
[2024-10-12 18:26] VITALS: BP 149/87; PULSE 56; RESP 16; TEMP 36.7; O2SAT 100; BMI 25.7
--- NOTE | 2024-10-12 18:41 | PC.NURSE ---
FAMILY IMMEDIATELY UPSET AT TRIAGE DUE TO PATIENT NOT BEING PLACED IN A ROOM UPON ARRIVAL. NURSE EXPLAINED THAT PATIENT WILL HAVE A ROOM IN A FEW MOMENTS ONE IS BEING CLEANED. FAMILY STATES THAT IF SHE DOESN'T GET A ROOM IMMEDIATELY THAN I'LL JUST TAKE HER TO [facility]. NURSE VERBALIZES UNDERSTANDING AND ENCOURAGES PATIENT TO STAY SHE WILL HAVE A ROOM SHORTLY.
--- NOTE | 2024-10-12 19:29 | CTR_ITS ---
PROCEDURE INFORMATION: Exam: CT Head Without Contrast Exam date and time: 10/12/2024 7:36 PM Age: 64 years old Clinical indication: Stroke-like symptoms; Speech disturbance; Left facial droop; Additional info: Slurred speech with left facial droop and lethargy. Lkwt of 1830 hours yesterday. History of prior CVA. TECHNIQUE: Imaging protocol: Computed tomography of the head without contrast. Radiation optimization: All CT scans at this facility use at least one of these dose optimization techniques: automated exposure control; mA and/or kV adjustment per patient size (includes targeted exams where dose is matched to clinical indication); or iterative reconstruction. Other technique: STROKE PROTOCOL was implemented. COMPARISON: CT head wo con* [id number] 09/09/2024 3:10 PM RADIATION DOSE METRICS: Total DLP (mGy-cm): 987.68 FINDINGS: Brain: No intracranial hemorrhage. There is global parenchymal volume loss. Periventricular white matter hypoattenuation is nonspecific but most likely due to small vessel disease. No evidence of acute territorial infarct or cerebral edema. No mass effect or midline shift. Chronic left gangliocapsular infarct. Cerebral ventricles: Prominent ventricles likely secondary to volume loss. Paranasal sinuses: Mild mucosal thickening of the paranasal sinuses. No air-fluid levels. Mastoid air cells: The mastoid air cells are clear. Bones: The calvarium is intact. Soft tissues: Soft tissues are unremarkable as visualized. CT/CT head thrombolytic [id number] IMPRESSION: 1. No acute intracranial findings. 2. Chronic left gangliocapsular lacunar infarct. ASSESSMENT: ASPECTS ([place] Stroke Program Early CT Score) is 10.
[2024-10-12 19:36] LABS: Basophils # 0.1 10^3/uL (0.0-0.1); Basophils % 0.8 %; Eosinophils # 0.2 10^3/uL (0.0-0.8); Eosinophils % 1.9 %; Hematocrit 38.4 % (36-47); Lymphocytes # 2.8 10^3/uL (0.8-4.8); Lymphocytes % 31.4 %; Mean Corpuscular Hemoglobin 29.1 pg (27-33); Mean Platelet Volume 11.2 fL (7.4-10.4); Monocytes # 0.5 10^3/uL (0.2-0.9); Monocytes % 5.9 %; Neutrophils # 5.25 10^3/uL (1.8-7.7); Neutrophils % 59.7 %; Nucleated Red Blood Cells % 0 %; Platelet Count 195 10^3/cmm (157-399); Red Blood Count 4.22 10^6/uL (3.85-5.65); Red Cell Distribution Width 13.8 % (12.1-15.1); White Blood Count 8.81 10^3/uL (3.29-11.43)
[2024-10-12 19:42] LABS: INR 0.95 (0.8-1.2)
[2024-10-12 19:43] LABS: Partial Thromboplastin Time 20.8 SECONDS (23.9-36.7)
[2024-10-12 19:47] LABS: Alanine Aminotransferase 14 U/L (0-33); Alkaline Phosphatase 161 U/L (35-105); Aspartate Amino Transferase 13 U/L (0-32); Blood Urea Nitrogen 12 mg/dL (8-23); Calcium 9.3 mg/dL (8.5-10.5); Carbon Dioxide 28 mmol/L (22-29); Chloride 98 mmol/L (98-107); Creatinine Clr Calc Pharmacy 59.0628; Globulin 3.6 g/dL (1.3-4.6); Glomerular Filtration Rate 62.8 mL/min (90-130); Glucose 361 mg/dL (65-115); Osmolality Calculated 298 mOsm/kg (285-295); Sodium 137 mmol/L (136-145); Total Bilirubin 0.2 mg/dL (0.15-1.2); Total Protein 7.6 g/dL (6.6-8.7)
--- NOTE | 2024-10-12 20:15 | CTR_ITS ---
PROCEDURE INFORMATION: Exam: CTA Head With Contrast, Arteriography Exam date and time: 10/12/2024 8:27 PM Age: 64 years old Clinical indication: Speech disturbance; Patient HX: Lethargy with slurred speech and left facial droop. History of prior CVA. Lkwt of 1830 hours yesterday. ; Additional info: Patient with history of stroke with new confusion and worsen TECHNIQUE: Imaging protocol: Computed tomographic angiography of the head with contrast. Exam focused on the arteries. 3D rendering (Not supervised by radiologist): MIP and/or 3D reconstructed images were created by the technologist. Radiation optimization: All CT scans at this facility use at least one of these dose optimization techniques: automated exposure control; mA and/or kV adjustment per patient size (includes targeted exams where dose is matched to clinical indication); or iterative reconstruction. Contrast material: OMNI 350; Contrast volume: 100 ml; Contrast route: INTRAVENOUS (IV); COMPARISON: CT angio headneck* [id number] 06/05/2024 8:52 AM RADIATION DOSE METRICS: Total DLP (mGy-cm): 413.06 FINDINGS: ANTERIOR CIRCULATION: Right internal carotid artery: The intracranial right internal carotid artery demonstrates mild atherosclerotic calcification of the carotid siphon without significant stenosis. No aneurysm. Right middle cerebral artery: Right middle cerebral artery is patent. No significant stenosis. No aneurysm. Right anterior cerebral artery: Right anterior cerebral artery is patent. No significant stenosis. No aneurysm. Left internal carotid artery: The intracranial left internal carotid artery demonstrates mild atherosclerotic calcification of the carotid siphon without significant stenosis. No aneurysm. Left middle cerebral artery: Left middle cerebral artery is patent. No significant stenosis. No aneurysm. Left anterior cerebral artery: Left anterior cerebral artery is patent. No significant stenosis. No aneurysm. POSTERIOR CIRCULATION: Right vertebral artery: Right vertebral artery is patent. No significant stenosis. No aneurysm. Left vertebral artery: Left vertebral artery is patent. No significant stenosis. No aneurysm. Basilar artery: The basilar artery is patent. No significant stenosis. No aneurysm. Right posterior cerebral artery: Right posterior cerebral artery is patent. No significant stenosis. No aneurysm. Left posterior cerebral artery: Left posterior cerebral artery is patent. No significant stenosis. No aneurysm. Veins: The visualized dural venous sinuses are patent. Brain: Please see separately ordered CT of the head. Cerebral ventricles: No ventriculomegaly. Bones/joints: Unremarkable. No acute fracture. Soft tissues: Unremarkable. PROCEDURE INFORMATION: Exam: CTA Neck With Contrast Exam date and time: 10/12/2024 8:27 PM Age: 64 years old Clinical indication: Speech disturbance; Patient HX: Lethargy with slurred speech and left facial droop. History of prior CVA. Lkwt of 1830 hours yesterday. ; Additional info: Patient with history of stroke with new confusion and worsen TECHNIQUE: Imaging protocol: Computed tomographic angiography of the neck with contrast. Exam focused on the cervical segments of the vasculature. 3D rendering (Not supervised by radiologist): MIP and/or 3D reconstructed images were created by the technologist. Radiation optimization: All CT scans at this facility use at least one of these dose optimization techniques: automated exposure control; mA and/or kV adjustment per patient size (includes targeted exams where dose is matched to clinical indication); or iterative reconstruction. Contrast material: OMNI 350; Contrast volume: 100 ml; Contrast route: INTRAVENOUS (IV); COMPARISON: CT angio headneck* [id number] 06/05/2024 8:52 AM RADIATION DOSE METRICS: Total DLP (mGy-cm): 1326.06 FINDINGS: Right common carotid artery: The right common carotid artery shows no evidence of significant stenosis. Right internal carotid artery: The right internal carotid artery shows no evidence of significant stenosis. Right external carotid artery: The right external carotid artery shows no evidence of significant stenosis. Left common carotid artery: There is a bovine aortic arch, with a common origin of the left common carotid and brachiocephalic arteries. The left common carotid artery demonstrates partially calcified plaque at the carotid bulb with mild narrowing. No significant stenosis. No dissection. Left internal carotid artery: Partially calcified plaque of the proximal left internal carotid artery resulting in mild stenosis by NASCET criteria. No occlusion. No evidence of dissection. Left external carotid artery: The left external carotid artery shows no evidence of significant stenosis. Right vertebral artery: Right vertebral artery is patent. No significant stenosis. No evidence of dissection. Left vertebral artery: Left vertebral artery is patent. No significant stenosis. No evidence of dissection. Thyroid: The thyroid gland is unremarkable. Teeth: Multiple dental caries. Soft tissues: Soft tissues are unremarkable as visualized. Bones/joints: The cervical spine demonstrates moderate degenerative changes at multiple levels. Lungs: Nonspecific mild right upper lobe bronchiolitis. CT/CT angio headneck* [id number] IMPRESSION: No large vessel occlusion or flow-limiting arterial stenosis of the intracranial vasculature. IMPRESSION: 1. No large vessel occlusion or flow-limiting arterial stenosis of the extracranial vasculature. 2. Mild atherosclerotic stenosis of the proximal cervical left internal carotid artery and carotid bulb. 3. Nonspecific mild right upper lobe bronchiolitis. 4. Multiple dental caries. REFERENCES: NASCET CRITERIA. The degree of stenosis in the cervical segment of the internal carotid artery is based on NASCET criteria. Normal is no stenosis. Mild is less than 50% stenosis. Moderate is 50-69% stenosis. Severe is 70% to 99% stenosis. Total occlusion is no detectable patent lumen.
[2024-10-12] MEDS: iohexol 350 mg/mL 500 mL Btl (per mL) IV (20:32)
--- NOTE | 2024-10-12 20:47 | ED_ITS ---
HPI - Altered Mental Status 2 General: Chief Complaint: Altered Mental Status Stated Complaint: slurred speech tired confused Time Seen by Provider: 10/12/24 19:27 History of Present Illness: The patient presents to the emergency department with a chief complaint of slow speech. She has a history of 7 previous strokes and is currently experiencing symptoms similar to those of her previous strokes. The patient denies any recent illness, sinus congestion, drainage, cough, chest pain, shortness of breath, abdominal pain, and reports normal bowel and urinary function. She denies any pain in her arms or legs. The patient was previously on anticoagulants but has since been taken off of them. She is currently experiencing a persistent headache, which has not improved. She also reports visual disturbances in both eyes and new balance issues. The patient's caregiver reports that the patient was last known to be well the previous night. The patient's blood sugar was noted to be high this morning at 400, and she is on Trulicity and metformin for diabetes management. Related Data Home Medications Medication Instructions Recorded Confirmed clonazepam 0.5 mg tablet 0.5 - 1 mg PO BEDTIME 08/08/23 08/24/24 fluticasone propionate 50 2 spray intranasal DAILY 08/08/23 08/24/24 mcg/actuation nasal spray,suspension metformin 500 mg tablet,extended 1,000 mg PO BID 08/08/23 08/24/24 release 24 hr divalproex 500 mg tablet,delayed 500 mg PO BID 11/27/23 08/24/24 release sertraline 25 mg tablet 25 mg PO QAM 11/27/23 08/24/24 clobetasol 0.05 % topical cream 1 applic topical BID PRN when rash 11/29/23 08/24/24 flares olanzapine 7.5 mg tablet 7.5 mg PO QAM 11/29/23 08/24/24 cyclobenzaprine 10 mg tablet 10 mg PO TID PRN Muscle Spasm 06/05/24 08/24/24 empagliflozin 10 mg tablet 10 mg PO QAM 06/05/24 08/24/24 (Jardiance) fluoride (sodium) 1.1 % dental See Rx Instructions .Route .COMPLEX 06/05/24 08/24/24 cream (Denta 5000 Plus) pregabalin 75 mg capsule 75 mg PO Q12H 06/05/24 08/24/24 Previous Rx's Medication Instructions Recorded hydralazine 25 mg tablet 25 mg PO BID #60 tabs 12/01/23 atorvastatin 20 mg tablet 40 mg (2 x 20 mg) PO DAILY 30 days 06/06/24 #60 tabs clopidogrel 75 mg tablet 75 mg PO DAILY 30 days #30 tabs 06/06/24 ondansetron HCl 4 mg tablet 4 mg PO Q8H PRN nausea and 08/05/24 vomiting #14 tabs apixaban 5 mg tablet (Eliquis) 5 mg PO BID #60 tabs 08/24/24 furosemide 20 mg tablet (Lasix) 20 mg PO DAILY edema #20 tabs 08/24/24 metoprolol tartrate 25 mg tablet 50 mg (2 x 25 mg) PO BID #120 tabs 08/24/24 nitrofurantoin macrocrystal 100 mg 100 mg PO BID 5 days #10 caps 10/12/24 capsule Allergies Allergy/AdvReac Type Severity Reaction Status Date / Time penicillin G Allergy unknown Verified 06/20/24 19:53 Penicillins Allergy Unknown Verified 06/20/24 19:53 sulfamethoxazole Allergy unknown Verified 06/20/24 19:53 [From Bactrim] trimethoprim [From Bactrim] Allergy unknown Verified 06/20/24 19:53 Review of Systems 2 General: Reports: 10 or more systems reviewed and unremarkable except in HPI and below PFSH ED 2 PFSH: Medical History Otorrhea of right ear Sleep arousal disorder Bradycardia Speech and language deficits Memory loss 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 Sister Diabetes Heart disease Breast cancer unknown age onset Brother Heart disease Social History Smoking and tobacco/nicotine status: never used tobacco/nicotine Alcohol intake: never Substance/Drug Use: never Physical Exam 2 Const: COMMON NORMALS: no acute distress, patient oriented x3, healthy appearing, alert and well nourished HENMT: COMMON NORMALS: normocephalic HEAD & SCALP: normocephalic Eye: COMMON NORMALS: EOMs intact bilaterally Neck/C-Spine: COMMON NORMALS: full ROM and supple Resp: COMMON NORMALS: normal respiratory effort, No retractions and clear to auscultation bilaterally AUSCULTATION: clear to auscultation bilaterally Cardio: COMMON NORMALS: regular rate, regular rhythm, No gallops present (Cardio) and No murmurs present (Cardio) RATE: regular rate RHYTHM: r egular rhythm GI: COMMON NORMALS: Soft to palpation and non-tender PALPATION: Yes Soft to palpation Extremity: GENERAL: Yes normal exam except as noted Neuro: COMMON NORMALS: patient oriented x3 SENSORIUM/ORIENTATION: Yes alert CRANIAL NERVES: Yes CN normal except as noted SENSORY EXAM: Yes extremities MOTOR EXAM: 5/5 motor strength present throughout Skin: COMMON NORMALS: no rashes or lesions noted GENERAL SKIN EXAM: no rashes or lesions noted Course 2 Vital Signs: Vital signs: Vital Signs Temperature 98.0 F 10/12/24 18:26 Pulse Rate 68 10/12/24 22:33 Respiratory Rate 16 10/12/24 18:26 Blood Pressure 138/78 10/12/24 22:33 Pulse Oximetry 94 10/12/24 22:33 Oxygen Delivery Me thod Room Air 10/12/24 18:26 MDM - Altered Mental Status Medical Decision Making 64-year-old female presented to the emergency department for evaluation of worsening left-sided stroke deficits as well as fatigue. Patient's past medical history is significant for a history of several previous strokes that have left her with left-sided deficits. On exam these were not noted with sensation or strength testing. However with her weakness and worsening symptoms there was concern for stroke extension versus infection. As her neurologic exam was globally normal as well as her CT head with and without contrast and CT neck with contrast also normal infection was more likely. Patient appears to have a urinary tract infection. She was given a dose of Rocephin here in the emergency department and discharged home with an additional 5 days of antibiotics. Additionally, the patient was counseled to seek an appointment with her primary care doctor for further management of her diabetes as she is significantly hyperglycemic in the emergency department today. Return precautions were discussed and the patient was discharged home in stable condition. Lab Data 10/12/24 19:20 10/12/24 19:[address] 10/12/24 19:29 IMPRESSION: 1. No acute intracranial findings. 2. Chronic left gangliocapsular lacunar infarct. ASSESSMENT: ASPECTS ([place] Stroke Program Early CT Score) is 10. ADDENDUM: 10/12/241957 COMMENT: THIS REPORT CONTAINS FINDINGS THAT MAY BE CRITICAL TO PATIENT CARE. The exam findings were verbally communicated by me to ROCK PINTO via telephone conference at 7:55 PM DRY CELL TESTER on 10/12/2024. The findings were acknowledged and understood. Head/Neck CTA 10/12/24 20:15 IMPRESSION: No large vessel occlusion or flow-limiting arterial stenosis of the intracranial vasculature. IMPRESSION: 1. No large vessel occlusion or flow-limiting arterial stenosis of the extracranial vasculature. 2. Mild atherosclerotic stenosis of the proximal cervical left internal carotid artery and carotid bulb. 3. Nonspecific mild right upper lobe bronchiolitis. 4. Multiple dental caries. REFERENCES: NASCET CRITERIA. The degree of stenosis in the cervical segment of the internal carotid artery is based on NASCET criteria. Normal is no stenosis. Mild is less than 50% stenosis. Moderate is 50-69% stenosis. Severe is 70% to 99% stenosis. Total occlusion is no detectable patent lumen. Laboratory Results WBC 8.81 10^3/uL (3.29-11.43) 10/12/24 19:20 RBC 4.22 10^6/uL (3.85-5.65) 10/12/24 19:20 Hgb 12.30 g/dL (11.27-16.99) 10/12/24 19:20 Hct 38.4 % (36-47) 10/12/24 19:20 MCV 91.0 fl (85-98) 10/12/24 19:20 MCH 29.1 pg (27-33) 10/12/24 19:20 MCHC 32.0 g/dL (30-55) 10/12/24 19:20 RDW 13.8 % (12.1-15.1) 10/12/24 19:20 Plt Count 195 10^3/cmm (157-399) 10/12/24 19:20 MPV 11.2 fL (7.4-10.4) H 10/12/24 19:20 Neut % (Auto) 59.7 % 10/12/24 19:20 Lymph % (Auto) 31.4 % 10/12/24 19:20 [place] % (Auto) 5.9 % 10/12/24 19:20 Eos % (Auto) 1.9 % 10/12/24 19:20 Baso % (Auto) 0.8 % 10/12/24 19:20 Neut # (Auto) 5.25 10^3/uL (1.8-7.7) 10/12/24 19:20 Lymph # (Auto) 2.8 10^3/uL (0.8-4.8) 10/12/24 19:20 [place] # (Auto) 0.5 10^3/uL (0.2-0.9) 10/12/24 19:20 Eos # (Auto) 0.2 10^3/uL (0.0-0.8) 10/12/24 19:20 Baso # (Auto) 0.1 10^3/uL (0.0-0.1) 10/12/24 19:20 Nucleated RBC % (auto) 0 % 10/12/24 19:20 Nucleated RBCs # 0.0 /100WBC 10/12/24 19:20 PT 13.30 SECONDS (12.1-14.9) 10/12/24 19:20 INR 0.95 (0.8-1.2) 10/12/24 19:20 APTT 20.8 SECONDS (23.9-36.7) L 10/12/24 19:20 Sodium 137 mmol/L (136-145) 10/12/24 19:20 Potassium 4.0 mmol/L (3.5-5.1) 10/12/24 19:20 Chloride 98 mmol/L (98-107) 10/12/24 19:20 Carbon Dioxide 28 mmol/L (22-29) 10/12/24 19:20 Anion Gap 15.0 (5-19) 10/12/24 19:20 BUN 12 mg/dL (8-23) 10/12/24 19:20 Creatinine 0.9 mg/dL (0.5-0.9) 10/12/24 19:20 GFR Calculation 62.8 mL/min (90-130) L 10/12/24 19:20 Glucose 361 mg/dL (65-115) H 10/12/24 19:20 Calculated Osmolality 298 mOsm/kg (285-295) H 10/12/24 19:20 Calcium 9.3 mg/dL (8.5-10.5) 10/12/24 19:20 Total Bilirubin 0.2 mg/dL (0.15-1.2) 10/12/24 19:20 AST 13 U/L (0-32) 10/12/24 19:20 ALT 14 U/L (0-33) 10/12/24 19:20 Alkaline Phosphatase 161 U/L (35-105) H 10/12/24 19:20 Total Protein 7.6 g/dL (6.6-8.7) 10/12/24 19:20 Albumin 4.0 g/dL (3.5-5.2) 10/12/24 19:20 Globulin 3.6 g/dL (1.3-4.6) 10/12/24 19:20 Urine Color Yellow (Yellow) 10/12/24 21:19 Urine Appearance Clear (CLEAR) 10/12/24 21:19 Urine pH 5.5 (5-7) 10/12/24 21:19 Ur Specific [place] 1.047 (1.005-1.030) H 10/12/24 21:19 Urine Protein Negative (Negative) 10/12/24 21:19 Urine Glucose (UA) 2+ (Normal) H 10/12/24 21:19 Urine Ketones Negative (Negative) 10/12/24 21:19 Urine Blood Negative (Negative) 10/12/24 21:19 Urine Nitrate Positive (Negative) A 10/12/24 21:19 Urine Bilirubin Negative (Negative) 10/12/24 21:19 Urine Urobilinogen 0.2 mg/dL (Negative) 10/12/24 21:19 Ur Leukocyte Esterase Negative (Negative) 10/12/24 21:19 Urine RBC 0-2 /hpf (0-2) 10/12/24 21:19 Urine WBC 6-10 /hpf (0-5) 10/12/24 21:19 Ur Squamous Epith Cells 0-5 /hpf (0-5) 10/12/24 21:19 Amorphous Sediment Not Reportable 10/12/24 21:19 Urine Bacteria 4+ /hpf (NONE) H 10/12/24 21:19 Hyaline Casts 0-4 /lpf H 10/12/24 21:19 Urine Opiates Screen Negative ng/mL (Negative) 10/12/24 21:19 Acetaminophen < 5.0 ug/mL (10-30) L 10/12/24 19:20 Ur Barbiturates Screen Negative ng/mL (Negative) 10/12/24 21:19 Ur Phencyclidine Scrn Negative ng/mL (Negative) 10/12/24 21:19 Ur Amphetamines Screen Negative ng/mL (Negative) 10/12/24 21:19 U Benzodiazepines Scrn Negative ng/mL (Negative) 10/12/24 21:19 Urine Cocaine Screen Negative ng/mL (Negative) 10/12/24 21:19 U Marijuana (THC) Screen Negative ng/mL (Negative) 10/12/24 21:19 All radiology interpretation(s) finalized by discharge Discharge Plan Discharge Patient Disposition: Home Clinical Impression: Hyperglycemia Acute cystitis Qualifiers: Hematuria presence: with hematuria Qualified Code(s): N30.01 - Acute cystitis with hematuria Altered mental status Qualifiers: Altered mental status type: unspecified Qualified Code(s): R41.82 - Altered mental status, unspecified Condition: Stable Prescriptions: New nitrofurantoin macrocrystal 100 mg capsule 100 mg PO BID 5 Days Qty: 10 0RF Rx Instructions: must administer with a meal/food No Action cyclobenzaprine 10 mg tablet 10 mg PO TID PRN (Reason: Muscle Spasm) fluoride (sodium) [Denta 5000 Plus] 1.1 % cream See Rx Instructions .ROUTE .COMPLEX Rx Instructions: Apply TWO cm TO teeth TWICE DAILY FOR TWO minutes AND expectorate. DO not RINSE. pregabalin 75 mg capsule 75 mg PO Q12H Jardiance 10 mg tablet 10 mg PO QAM clopidogrel 75 mg tablet 75 mg PO DAILY 30 Days Qty: 30 0RF atorvastatin 20 mg tablet 40 mg PO DAILY 30 Days Qty: 60 0RF ondansetron HCl 4 mg tablet 4 mg PO Q8H PRN (Reason: nausea and vomiting) Qty: 14 0RF clonazepam 0.5 mg tablet 0.5 - 1 mg PO BEDTIME fluticasone propionate 50 mcg/actuation spray,suspension 2 spray INTRANASAL DAILY metformin 500 mg tablet extended release 24 hr 1,000 mg PO BID divalproex 500 mg tablet,delayed release (DR/EC) 500 mg PO BID sertraline 25 mg tablet 25 mg PO QAM clobetasol 0.05 % cream 1 applic TOPICAL BID PRN (Reason: when rash flares) olanzapine 7.5 mg tablet 7.5 mg PO QAM hydralazine 25 mg tablet 25 mg PO BID Qty: 60 0RF Hold Instructions: Resume on 06/07/24. Eliquis 5 mg tablet 5 mg PO BID Qty: 60 0RF furosemide [Lasix] 20 mg tablet 20 mg PO DAILY Qty: 20 0RF metoprolol tartrate 25 mg tablet 50 mg PO BID Qty: 120 0RF Discharge Orders: Discharge ED (Routine); Ordered 10/12/24 Ordered By: Rock Pinto Referrals: Judson Seth MD [Primary Care Provider] - Discharge Diet: Advance as tolerated Discharge Activity: Resume usual activity Patient Instructions: Altered Mental Status (ED), Opioid Safety, Pain Management Activity Restrictions/Additional Instructions: Please follow with your primary care doctor for further management of your diabetes. Take all antibiotics until completely gone. Return to the emergency department with any new or worsening symptoms. Coding Level of Care Code ED Blood Or Blood Bank Technician for Jakub Silva
[2024-10-12] MEDS: acetaminophen 500 mg Tablet 1000 MG PO (21:03)
[2024-10-12] MEDS: sodium chloride 0.9% 1,000 ML 999 ML IV (21:03)
[2024-10-12 21:26] LABS: Bilirubin Urine Negative (Negative); Blood Urine Negative (Negative); Glucose Urine UA 2+ (Normal); Ketones Urine Negative (Negative); Leukocyte Esterase Urine Negative (Negative); Nitrate Urine Positive (Negative); Protein Urine Negative (Negative); Urine Appearance Clear (CLEAR); Urine Color Yellow (Yellow); Urobilinogen Urine 0.2 mg/dL (Negative); pH Urine 5.5 (5-7)
[2024-10-12 21:29] LABS: Add Urine Microscopic? YES; Bacteria Urine 4+ /hpf; Hyaline Casts Urine 0-4 /lpf; RBC Urine 0-2 /hpf (0-2); Squamous Epithelial Cell Urine 0-5 /hpf (0-5)
[2024-10-12 21:34] LABS: Amphetamines Screen Urine Negative (Negative); Barbiturates Screen Urine Negative (Negative); Benzodiazepines Screen Urine Negative (Negative); Cocaine Screen Urine Negative (Negative); Opiate Screen Urine Negative (Negative); PCP Screen Urine Negative (Negative); THC Screen Urine Negative (Negative)
[2024-10-12 21:44] LABS: Acetaminophen < 5.0 ug/mL (10-30)
[2024-10-12 21:44] LABS: Specific Gravity, Urine 1.047 (1.005-1.030)
[2024-10-12] MEDS: cefTRIAXone 2,000 mg SDV 2000 MG IVP (22:07)
[2024-10-12 22:33] VITALS: BP 138/78; PULSE 68; O2SAT 94
--- NOTE | 2024-10-12 22:50 | PC.NURSE ---
pt contacted about lost jewelry found in room. no answer. voicemail full.
== END 2024-10-12 22:34 | disposition home or self-care (01) ==
PROVIDERS: Emergency Provider General Practice; PCP Family Medicine
DX: E11.65 Type 2 diabetes mellitus with hyperglycemia (principal); N30.01 Acute cystitis with hematuria; R41.82 Altered mental status, unspecified; Z79.02 Long term (current) use of antithrombotics/antiplatelets; Z79.84 Long term (current) use of oral hypoglycemic drugs; Z79.01 Long term (current) use of anticoagulants
CPT/HCPCS: 70450; 70496; 70498; 80053; 80306; 80307; 81001; 85025; 85610; 85730; 96374; 99285; J0696; J7030

== ENCOUNTER 2025-07-03 09:34 | Outpatient (CLI) | payer MEDICARE, MEDICAID, SELFPAY ==
--- NOTE | 2025-07-03 09:43 | CTR_ITS ---
PROCEDURE INFORMATION: Exam: CT Temporal Bones Without Contrast. Exam date and time: 07/03/2025 10:06 AM Age: 64 years old Clinical indication: Pain; Other: Otorrhea; Additional info: Central perforation of tympanic membrane R ear/otorrhea TECHNIQUE: Imaging protocol: Computed tomography of the temporal bones without contrast. Radiation optimization: All CT scans at this facility use at least one of these dose optimization techniques: automated exposure control; mA and/or kV adjustment per patient size (includes targeted exams where dose is matched to clinical indication); or iterative reconstruction. COMPARISON: CT temporal bone wo con* [id number] 08/08/2023 1:13 PM RADIATION DOSE METRICS: Total DLP (mGy-cm): 312.89 FINDINGS: Right inner ear: Normal. Right ossicles and middle ear: Thickened and retracted right tympanic membrane with subtle calcification. Right-sided otomastoiditis. Right external auditory canal: Normal. Right facial nerve canal: Normal. Right jugular foramen: No jugular dehiscence. Right carotid canal: No aberrant carotid canal. Right mastoid air cells: Normal. No mastoid effusions. Left inner ear: Normal. Left ossicles and middle ear: Normal. The middle ear ossicles are intact. No bony erosion. Left external auditory canal: Normal. Left facial nerve canal: Normal. Left jugular foramen: No jugular dehiscence. Left carotid canal: No aberrant carotid canal. Left mastoid air cells: Normal. No mastoid effusions. Soft tissues: Unremarkable. CT/CT temporal bone wo con* [id number] IMPRESSION: Right-sided otomastoiditis with thickening, retraction and subtle calcification of the tympanic membrane.
== END 2025-07-03 09:35 | disposition home or self-care (01) ==
LOC: RAD 09:36
PROVIDERS: PCP Family Medicine; Visit Provider Otolaryngology
DX: H72.01 Central perforation of tympanic membrane, right ear (principal); H91.91 Unspecified hearing loss, right ear; H93.A1 Pulsatile tinnitus, right ear; H92.11 Otorrhea, right ear; H70.91 Unspecified mastoiditis, right ear
CPT/HCPCS: 70480

== ENCOUNTER 2025-10-08 09:40 | Emergency (ER) | payer MEDICARE, MEDICAID, SELFPAY ==
--- OUTSIDE RECORDS SUMMARY | 2024-06-05 11:00 | XMS_ITS ---
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 Name Role Phone ( [facility] ), PHYSICIAN NOT IDENTIFIED Primary Care Provider [facility] Judson Gavin Unavailable [phone] REASON FOR VISIT pt had a stroke Social History Sex Assigned At : Social History Observation Description Sex Assigned At Female Encounters Encounter Location Date Provider Diagnosis [facility] [address] [address] 06/05/2024 Judson Griffin Plan Of Treatment Next Appt Details Provider Name:Lev Cordero, 10/15/2025 02:00:00 PM, [address], [address], Progress Notes * AARON MAHERADOB: [birth year] (65 yo F)Acc No.[id number]:06/05/2024 Patient: Estela VELAZCORADHAAARON BlancaA Provider: Bekah Kiser DDS :1960 A ge:63 Y S ex:Female Date:06/05/2024 Address:[address] [place] [address] [facility] [id number] Pcp:PHYSICIAN NOT IDENTIFIED ( [facility] ) Subjective: * Chief Complaints: * P t had a stroke Billing Information: * Procedure Codes: * Electronic signature of Carlos Griffin DDS on 10/08/2025 at 10:04 AM RELIGIOUS LEADER Sign off status: Pending * Provider: Bekah Kiser DDS Date: 0 06/05/2024 Generated for Robin almaraz/Missy/Seda on: 1 10:04 AM RELIGIOUS LEADER
--- OUTSIDE RECORDS SUMMARY | 2024-11-27 04:30 | XMS_ITS ---
Author Organization [facility] Address [address] [place] [address] Care Team Providers Care Primary Class Teacher Name Role Phone ( [facility] ), PHYSICIAN NOT IDENTIFIED Primary Care Provider [facility] [phone] REASON FOR VISIT pt states needs a referral for OS Social History Sex Assigned At : Social History Observation Description Sex Assigned At Female Encounters Encounter Location Date Provider Diagnosis [facility] [address], [place] [address] 11/27/2024 Lev Cordero Plan Of Treatment Next Appt Details Provider Name:Lev Cordero, 10/15/2025 02:00:00 PM, [address] [place], [address], Progress Notes * SEFERINO MAHERB: [birth year] (65 yo F)Acc No.[id number]:11/27/2024 Patient: AARON SEWELLA Provider: Zoie Cordero DMD :1960 A ge:64 Y S ex:Female Date:11/27/2024 Address:[address] [place] [address] [facility] [id number] Pcp:PHYSICIAN NOT IDENTIFIED ( [facility] ) Subjective: * Chief Complaints: * p t states needs a referral for OS Billing Information: * Procedure Codes: * Electronic signature of Tyron Cordero DMD on 10/08/2025 at 10:05 AM ENGINE INSTALLER Sign off status: Pending * Provider: Zoie Cordero DMD Date: 0 11/27/2024 Generated for Robin almaraz/Missy/Seda on: 10:05 AM ENGINE INSTALLER
--- OUTSIDE RECORDS SUMMARY | 2024-11-28 04:00 | XMS_ITS ---
Author Organization [facility] Address [address] [place] [address] Care Team Providers Care Panel Gluer Name Role Phone ( [facility] ), PHYSICIAN NOT IDENTIFIED Primary Care Provider [facility] Unavailable [phone] REASON FOR VISIT needs a referral for OS Social History Sex Assigned At : Social History Observation Description Sex Assigned At Female Encounters Encounter Location Date Provider Diagnosis 18[facility] [address] [address] 11/28/2024 Lev Cordero Plan Of Treatment Next Appt Details Provider Name:Lev Cordero, 10/15/2025 02:00:00 PM, [address] [place], [address], Progress Notes * AARON MAHERADOB: [birth year] (65 yo F)Acc No.[id number]:11/28/2024 Patient: CLARISSA SEWELL Provider: Zoie Cordero DMD :1960 A ge:64 Y S ex:Female Date:11/28/2024 Address:[address] [place] [address] [facility] [id number] Pcp:PHYSICIAN NOT IDENTIFIED ( [facility] ) Subjective: * Chief Complaints: * n eeds a referral for OS * Electronic signature of Tyron Cordero DMD on 10/08/2025 at 10:04 AM BILLING CONTROL CLERK Sign off status: Pending * Provider: Zoie Cordero DMD Date: 0 11/28/2024 Generated for Robin almaraz/Missy/Seda on: 1 10:04 AM BILLING CONTROL CLERK
--- OUTSIDE RECORDS SUMMARY | 2024-12-03 04:30 | XMS_ITS ---
Author Organization [facility] Address [address] [place] [address] Care Team Providers Care Direct Of Real Estate Name Role Phone ( [facility] ), PHYSICIAN NOT IDENTIFIED Primary Care Provider [facility] Unavailable [phone] REASON FOR VISIT needs referral for OS FULL MAILBOX Social History Sex Assigned At : Social History Observation Description Sex Assigned At Female Encounters Encounter Location Date Provider Diagnosis 18[facility] [address] [place] [address] 12/03/2024 Lev Cordero Plan Of Treatment Next Appt Details Provider Name:Lev Cordero, 10/15/2025 02:00:00 PM, [address], [place], [address], Progress Notes * SEFERINO MAHERB: [birth year] (65 yo F)Acc No.[id number]:12/03/2024 Patient: CLARISSA SEWELL Provider: Zoie Cordero DMD :1960 A ge:64 Y S ex:Female Date:12/03/2024 Address:[address] [place] [address] [facility] [phone] Pcp:PHYSICIAN NOT IDENTIFIED ( [facility] ) Subjective: * Chief Complaints: * n eeds referral for OS FULL MAILBOX Billing Information: * Procedure Codes: * Electronic signature of Tyron Cordero DMD on 10/08/2025 at 10:05 AM CHEMIST INSTRUMENTATION Sign off status: Pending * Provider: Zoie Cordero DMD Date: 0 12/03/2024 Generated for Robin almaraz/Missy/Seda on: 10:05 AM CHEMIST INSTRUMENTATION
--- OUTSIDE RECORDS SUMMARY | 2025-02-13 02:00 | XMS_ITS ---
Author Organization [facility] Address [address] [place] [address] Care Team Providers Care Plastics Spreading Machine Operator Name Role Phone ( [facility] ), PHYSICIAN NOT IDENTIFIED Primary Care Provider [facility] Un[facility] Unavailable Eric Schneider Unavailable [phone] REASON FOR VISIT pt states she has been stroke free for 6 months/ref/x she is sick Social History Sex Assigned At : Social History Observation Description Sex Assigned At Female Encounters Encounter Location Date Provider Diagnosis 18[facility] [address] [place] [address] 02/13/2025 Eric Schneider Plan Of Treatment Next Appt Details Provider Name:Lev Cordero, 10/15/2025 02:00:00 PM, [address] [place], [address], Progress Notes * AARON MAHERADOB: [birth year] (65 yo F)Acc No.[id number]:02/13/2025 Patient: CLARISSA SEWELL Provider: Gordon Schneider DDS :1960 A ge:64 Y S ex:Female Date:02/13/2025 Address:[address] [place], [place] [address]MIRIAM GodfreyLOOMIS, [phone] Pcp:PHYSICIAN NOT IDENTIFIED ( [facility] ) Subjective: * Chief Complaints: * P t states she has been stroke free for 6 months/ref/x she is sick Billing Information: * Procedure Codes: * Electronic signature of Eligio Schneider on 10/08/2025 at 10:04 AM STUDENT SERVICES REP Sign off status: Pending * Provider: Gordon Schneider DDS Date: 0 02/13/2025 Generated for Robin almaraz/Missy/Khanhitting on: 1 10:04 AM STUDENT SERVICES REP
--- OUTSIDE RECORDS SUMMARY | 2025-03-12 04:00 | XMS_ITS ---
Author Organization [facility] Address [address] [place] [address] Care Team Providers Care Air Defense Artillery Officer Name Role Phone ( [facility] ), PHYSICIAN NOT IDENTIFIED Primary Care Provider [facility] Unavailable [phone] REASON FOR VISIT wants to talk about dentures; needs comp Social History Sex Assigned At : Social History Observation Description Sex Assigned At Female Encounters Encounter Location Date Provider Diagnosis [address] [place] [address] [facility] [address] [place] [phone] 03/12/2025 Lev Cordero Plan Of Treatment Next Appt Details Provider Name:Lev Cordero, 10/15/2025 02:00:00 PM, [address], [address], Progress Notes * AARON MAHERADOB: [birth year] (65 yo F)Acc No.[id number]:03/12/2025 Patient: AARON SEWELLA Provider: Zoie Cordero DMD :1960 A ge:64 Y S ex:Female Date:03/12/2025 Address:[address] [place] [address] [facility] [id number] Pcp:PHYSICIAN NOT IDENTIFIED ( [facility] ) Subjective: * Chief Complaints: * W ants to talk about dentures; needs comp Billing Information: * Procedure Codes: * Electronic signature of Tyron Cordero DMD on 10/08/2025 at 10:05 AM TRANSITION NURSE Sign off status: Pending * Provider: Zoie Cordero DMD Date: 0 03/12/2025 Generated for Robin almaraz/Missy/Seda on: 1 10:05 AM TRANSITION NURSE
[2025-10-08 09:45] VITALS: BP 123/74; PULSE 73; RESP 16; TEMP 36.9; O2SAT 99; BMI 23.6
--- NOTE | 2025-10-08 09:59 | W.ED.DENTAL ---
HPI - Dental/Oral General: Chief complaint: Dental/Oral Stated complaint: right side swollen jaw, bad tooth Time Seen by Provider: 10/08/25 09:55 Source: patient Mode of arrival: ambulatory Limitations: no limitations History of Present Illness: 65-year-old female states she been having right lower dental pain over the last 3 to 4 days states she had a piece of a tooth that broke off x 1 following the right lower jaw states she is try to get into a dentist but unable to see 1 till next week. Rates her pain a 6 out of 10 she denies any difficulty swallowing denies any fevers. May have shocked her she has got sinus tachycardia for her sinus tach let me know that since is [place] does not bother me but who did that Related Data Home Medications ?Medication ?Instructions ?Recorded ?Confirmed clonazepam 0.5 mg tablet 0.5 - 1 mg PO BEDTIME 08/08/23 08/24/24 fluticasone propionate 50 2 spray intranasal DAILY 08/08/23 08/24/24 mcg/actuation nasal spray,suspension metformin 500 mg tablet,extended 1,000 mg PO BID 08/08/23 08/24/24 release 24 hr divalproex 500 mg tablet,delayed 500 mg PO BID 11/27/23 08/24/24 release sertraline 25 mg tablet 25 mg PO QAM 11/27/23 08/24/24 clobetasol 0.05 % topical cream 1 applic topical BID PRN when rash 11/29/23 08/24/24 flares olanzapine 7.5 mg tablet 7.5 mg PO QAM 11/29/23 08/24/24 cyclobenzaprine 10 mg tablet 10 mg PO TID PRN Muscle Spasm 06/05/24 08/24/24 empagliflozin 10 mg tablet 10 mg PO QAM 06/05/24 08/24/24 (Jardiance) fluoride (sodium) 1.1 % dental See Rx Instructions .Route .COMPLEX 06/05/24 08/24/24 cream (Denta 5000 Plus) pregabalin 75 mg capsule 75 mg PO Q12H 06/05/24 08/24/24 Previous Rx's ?Medication ?Instructions ?Recorded hydralazine 25 mg tablet 25 mg PO BID #60 tabs 12/01/23 atorvastatin 20 mg tablet 40 mg (2 x 20 mg) PO DAILY 30 days 06/06/24 #60 tabs clopidogrel 75 mg tablet 75 mg PO DAILY 30 days #30 tabs 06/06/24 ondansetron HCl 4 mg tablet 4 mg PO Q8H PRN nausea and 08/05/24 vomiting #14 tabs apixaban 5 mg tablet (Eliquis) 5 mg PO BID #60 tabs 08/24/24 furosemide 20 mg tablet (Lasix) 20 mg PO DAILY edema #20 tabs 08/24/24 metoprolol tartrate 25 mg tablet 50 mg (2 x 25 mg) PO BID #120 tabs 08/24/24 cephalexin 500 mg capsule 500 mg PO TID 7 days #21 caps 10/08/25 Allergies Allergy/AdvReac Type Severity Reaction Status Date / Time penicillin G Allergy unknown Verified 10/08/25 09:52 Penicillins Allergy Unknown Verified 10/08/25 09:52 sulfamethoxazole (From Allergy unknown Verified 10/08/25 09:52 Bactrim) trimethoprim (From Bactrim) Allergy unknown Verified 10/08/25 09:52 Review of Systems ENMT: Reports: dental pain PFSH ED PFSH: Medical History Otorrhea of right ear Sleep arousal disorder Bradycardia Speech and language deficits Memory loss 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 Sister Diabetes Heart disease Breast cancer unknown age onset Brother Heart disease Social History Smoking and tobacco/nicotine status: never used tobacco/nicotine Alcohol intake: never Substance/Drug Use: never Physical Exam Const: COMMON NORMALS: no acute distress, patient oriented x3 and healthy appearing HENMT: COMMON NORMALS: normocephalic and atraumatic HEAD & SCALP: normocephalic and atraumatic OTHER: Poor dentition has tenderness over right lower molar no abscess or trismus noted some slight swelling to left side of the face Neck/C-Spine: COMMON NORMALS: full ROM and supple Chest: COMMONS NORMALS: normal inspection of the chest Resp: COMMON NORMALS: normal respiratory effort Cardio: COMMON NORMALS: regular rate RATE: regular rate Extremity: COMMON NORMALS: normal to inspection and full ROM Neuro: COMMON NORMALS: patient oriented x3, moves all extremities and no focal motor deficits Psych: COMMON NORMALS: mental status grossly normal, Normal thought process present and cooperative THOUGHT PROCESS: Normal thought process present Skin: COMMON NORMALS: no rashes or lesions noted and no wounds GENERAL SKIN EXAM: no rashes or lesions noted Course Vital Signs: Vital signs: Vital Signs Temperature 98.5 F 10/08/25 09:45 Pulse Rate 73 10/08/25 09:45 Respiratory Rate 16 10/08/25 09:45 Blood Pressure 123/74 10/08/25 09:45 Pulse Oximetry 99 10/08/25 09:45 Oxygen Delivery Me thod Room Air 10/08/25 09:45 MDM - Dental/Oral Medical Decision Making Patient presents for dental pain likely dental infection she has no trismus no abscess we will start her on Keflex she has follow-up in his next week as scheduled return if worsening she understands agrees to plan. Medical Records I reviewed the patient's medical records. No radiology studies performed this visit Discharge Plan Discharge Patient Disposition: Home Clinical Impression: Toothache Condition: Stable Prescriptions: New cephalexin 500 mg capsule 500 mg PO TID 7 Days Qty: 21 0RF No Action cyclobenzaprine 10 mg tablet 10 mg PO TID PRN (Reason: Muscle Spasm) fluoride (sodium) [Denta 5000 Plus] 1.1 % cream See Rx Instructions .ROUTE .COMPLEX Rx Instructions: Apply TWO cm TO teeth TWICE DAILY FOR TWO minutes AND expectorate. DO not RINSE. pregabalin 75 mg capsule 75 mg PO Q12H Jardiance 10 mg tablet 10 mg PO QAM clopidogrel 75 mg tablet 75 mg PO DAILY 30 Days Qty: 30 0RF atorvastatin 20 mg tablet 40 mg PO DAILY 30 Days Qty: 60 0RF ondansetron HCl 4 mg tablet 4 mg PO Q8H PRN (Reason: nausea and vomiting) Qty: 14 0RF clonazepam 0.5 mg tablet 0.5 - 1 mg PO BEDTIME fluticasone propionate 50 mcg/actuation spray,suspension 2 spray INTRANASAL DAILY metformin 500 mg tablet extended release 24 hr 1,000 mg PO BID divalproex 500 mg tablet,delayed release (DR/EC) 500 mg PO BID sertraline 25 mg tablet 25 mg PO QAM clobetasol 0.05 % cream 1 applic TOPICAL BID PRN (Reason: when rash flares) olanzapine 7.5 mg tablet 7.5 mg PO QAM hydralazine 25 mg tablet 25 mg PO BID Qty: 60 0RF Eliquis 5 mg tablet 5 mg PO BID Qty: 60 0RF furosemide [Lasix] 20 mg tablet 20 mg PO DAILY Qty: 20 0RF metoprolol tartrate 25 mg tablet 50 mg PO BID Qty: 120 0RF Discharge Orders: Discharge ED (Routine); Ordered 10/08/25 Ordered By: Shalonda Paniagua Referrals: Judson Seth MD [Primary Care Provider, Family Practice] - 4-7 days Discharge Diet: Advance as tolerated Discharge Activity: Resume usual activity Patient Instructions: Toothache (ED) Print Language: Japanese Coding Level of Care Code ED Rubber Block Layer for Jakub Silva
--- OUTSIDE RECORDS SUMMARY | 2025-10-08 10:04 | XMS_ITS | Patient Health Record ---
Author Organization [facility] Address [address] [place] [address] Care Team Providers Care Dubbing Machine Operator Name Role Phone ( [facility] ), PHYSICIAN NOT IDENTIFIED Primary Care Provider Unavailable Gil [facility] Lev Corona Unavailable Unavailable Lev Cordero Unavailable [phone] Eric Schneider Unavailable [phone] Allergies Allergen (clinical drug ingredient) Drug/Non Drug Allergy documented on EMR Reaction Allergy Type Onset Date Status Penicillin Unknown Drug Allergy Active Reason For Referral No Information Medications Medication SIG (Take, Route, Frequency, Duration) Notes Start Date End Date Status Farxiga 5 MG Tablet 1 tablet Orally Once a day Active Divalproex Sodium 500 MG Tablet Delayed Release 1 tablet Orally Twice a day Active OLANZapine 7.5 MG Tablet 1 tablet Orally Once a day Active Clopidogrel Bisulfate 75 MG Tablet 1 tablet Orally Once a day Active amLODIPine Besylate 5 MG Tablet 1 tablet Orally Once a day Active Clobeta Cream Active hydrALAZINE HCl 25 MG Tablet 1 tablet wi th food Orally Three times a day Active Jardiance 10 MG Tablet 1 tablet Orally O nce a day Active Ozempic (0.25 or 0.5 MG/DOSE ) 2 MG/3ML Solution Pen-injector as directed Subcutaneous Active clonazePAM 0.5 MG Tablet 1 tablet Orally Once a day Active Sertraline HCl 25 MG Tablet 1 tablet Ora lly Once a day Active Gabapentin 300 MG Capsule 1 capsule Oral ly three time daily Active cloNIDine HCl 0.2 MG Tablet 1 tablet Ora lly Once a day Active Hydrocortisone-Acetic Acid 1 -2 % Solution 5 drops into affected ear Otic Three times a day Active Metoprolol Tartrate 25 MG Tablet 1 tablet with food Orally Twice a day Active metFORMIN HCl ER 500 MG Tabl et Extended Release 24 Hour 1 tablet Orally twice daily with meals Active Pregabalin 75 MG Capsule 1 capsule Orall y Once a day Active Cyclobenzaprine HCl 10 MG Tablet 1 tablet Orally Three times a day as needed Active Naproxen 500 MG Tablet 1 tablet with alden d or milk Orally every 12 hrs as needed Active Atorvastatin Calcium 80 MG Tablet 1 tablet Orally Once a day Active Ezetimibe 10 MG Tablet 1 tablet Orally O nce a day Active Aspirin 81 MG Capsule 1 capsule Orally O nce a day Active Estradiol 0.5 MG Tablet 1 tablet Orally Once a day Active Fluticasone Propionate 50 MCG/ACT Suspension 1 spray in each nostril Nasally Once a day Active hydroCHLOROthiazide 25 MG Tablet 1 tablet Orally once daily Active Furosemide 20 MG Tablet 1 tablet Orally Once a day Active Lisinopril 20 MG Tablet 1 tablet Orally Once a day Active predniSONE 20 MG Tablet 1 tablet Orally Once a day Active Potassium Chloride ER 10 MEQ Tablet Extended Release 1 tablet with food Orally Twice a day Active buPROPion HCl 75 MG Tablet 2 tablets Orally daily Active Eliquis 5 MG Tablet as directed Orally Active levETIRAcetam 500 MG Tablet 1 tablet Ora lly Twice a day Active Social History Sex Assigned At : Social History Observation Description Sex Assigned At Female Vital Signs Heart Rate 65 /min 02/26/2025 Temperature 98.6 degrees Fahrenheit 12/11/2024 Blood pressure diastolic 82 mm Hg 02/26/2025 Height-cm 162.56 cm 02/26/2025 Weight-kg 68.04 kg 02/26/2025 Height 64 in 02/26/2025 Blood pressure systolic 178 mm Hg 02/26/2025 Weight 150 lbs 02/26/2025 BMI 25.74 kg/m2 02/26/2025 Encounters Encounter Location Date Provider Diagnosis [facility] [address] [facility] [place] [address] 12/11/2024 Lev Cordero [address] [place] [address] [address] [facility] [place] [address] 02/26/2025 rEic Schneider [address] [place] [address] [address] [facility] [address] 12/26/2024 Eric Schneider Plan Of Treatment Next Appt Details Provider Name:Lev Cordero, 10/15/2025 02:00:00 PM, [address] , [place], [address], Insurance Providers Payer Name Payer Address Payer Phone Subscriber Number Group Number Insured Name Patient Relationship to Insured Coverage Start Date Coverage End Date Medicaid Dental [address] [place] [address] [id number] CLARISSA BAEZ LT Self - patient is the insured Medicaid [address] [place] [address] [id number] CLARISSA BAEZ LT Self - patient is the insured Medical (General) History Medical History History ICD Code Diabetes Arthritis stroke (cardioembolic) 3/4 weeks ago
[2025-10-08] MEDS: HYDROcodone-acetaminophen 7.5-325 mg Tablet 1 TAB PO (10:10)
[2025-10-08 10:13] VITALS: BP 108/67; PULSE 64; O2SAT 97
== END 2025-10-08 10:14 | disposition home or self-care (01) ==
PROVIDERS: Emergency Provider Emergency Medicine; PCP Family Medicine
DX: K08.89 Other specified disorders of teeth and supporting structures (principal); Z79.02 Long term (current) use of antithrombotics/antiplatelets; Z79.84 Long term (current) use of oral hypoglycemic drugs; Z79.01 Long term (current) use of anticoagulants; E11.9 Type 2 diabetes mellitus without complications; Z86.73 Personal history of transient ischemic attack (TIA), and cerebral infarction without residual deficits
CPT/HCPCS: 99283; J9999